=== PATIENT | male | born 1950 | race Caucasian/White ===

== ENCOUNTER 2020-04-27 18:48 | Inpatient (IN) ==
[2020-04-27] MEDS ORDERED: ACETAMINOPHEN 500 MG TAB PO STA (19:20)
[2020-04-27] MEDS ORDERED: DEXAMETHASONE SOD INJ 10 MG/ML VIAL IV ONE (19:28)
[2020-04-27] MEDS ORDERED: SODIUM CHLORIDE 0.9% 1000ML 1,000 ML IV SCH (19:30)
[2020-04-27 19:37] LABS: Basophils # (auto) 0.02 K/uL (0-0.2); Basophils % (auto) 0.2 %; Eosinophils # (auto) 0.09 K/uL (0-0.5); Eosinophils % (auto) 0.8 %; Hematocrit (blood only) 40.6 % (42-52); Hemoglobin 13.5 g/dL (14.0-18.0); Immature Granulocytes # (auto) 0.05 K/uL (0.00-0.02); Immature Granulocytes % (auto) 0.5 %; Lymphocytes # (auto) 1.08 K/uL (1.2-3.4); Mean Corpuscular Hemoglobin 29.9 pg (25-34); Mean Corpuscular Hgb Conc 33.3 g/dL (32-36); Mean Corpuscular Volume 89.8 fL (80-100); Mean Platelet Volume 10.9 fL (7.4-10.4); Monocytes # (auto) 0.54 K/uL (0.11-0.59); Neutrophils # (auto) 9.04 K/uL (1.4-6.5); Neutrophils % (auto) 83.5 %; Platelet Count 338 K/uL (130-400); RDW Coefficient of Variation 14.2 % (11.5-14.5); RDW Standard Deviation 47.2 fL (36.4-46.3); Red Blood Count 4.52 M/uL (4.7-6.1); White Blood Count 10.82 K/uL (4.8-10.8)
[2020-04-27 19:53] LABS: INR 1.2 (0.9-1.1); Partial Thromboplastin Ratio 1.1; Partial Thromboplastin Time 29.5 Seconds (21.0-31.0); Prothrombin Time 12.6 Seconds (9.0-12.0)
[2020-04-27 19:55] LABS: Alanine Aminotransferase 78 U/L (12-78); Albumin Level 2.6 gm/dl (3.4-5.0); Aspartate Aminotransferase 58 U/L (15-37); BUN Creatinine Ratio 30.7 (10-20); Blood Urea Nitrogen 46 mg/dl (7-18); Calcium 8.3 mg/dl (8.5-10.1); Carbon Dioxide 26 mmol/L (21-32); Chloride 105 mmol/L (98-107); Est GFR (African American) 55.2; Est GFR (Non-African American) 47.6; Glucose 134 mg/dl (70-99); Magnesium 3.2 mg/dl (1.8-2.4); Potassium 3.9 mmol/L (3.5-5.1); Sodium 139 mmol/L (136-145)
[2020-04-27 20:00] LABS: Albumin Globulin Ratio 0.5 (0.9-2); Alkaline Phosphatase 73 U/L (45-117); Bilirubin,Total 1.1 mg/dl (0.2-1); Globulin 4.8 gm/dl (2.5-4.0); Total Protein 7.4 gm/dl (6.4-8.2); Troponin I < 0.015 ng/ml (0-0.045)
--- NOTE | 2020-04-27 20:11 | XRay Report ---
XR chest 1V portable CLINICAL HISTORY: Dyspnea COMPARISON STUDY: No previous studies for comparison. FINDINGS: Lung volumes are normal. No pneumothorax is noted. Note definite pleural effusion is identi fied. Note is made of extensive bilateral airspace opacities. Cardiomegaly is noted. IMPRESSION: 1. Extensive bilateral airspace opacities suggestive of an infectious process. Radiographic follow-up is recommended. 2. Cardiomegaly. ACT 112: Negative or not required by law. Electronically signed by: Marcial Barbosa M.D. 04/27/2020 8:10 PM
--- NOTE | 2020-04-27 20:33 | Emergency Department Note ---
Impression & Plan Pneumonia due to COVID-19 virus, Respiratory failure, Weakness, UBALDO (acute kidney injury), Myalgia ED Provider Note Provider: Toby Baptiste MD DATE OF SERVICE:04/27/2020 CHIEF COMPLAINT: Shortness of breath, weakness HISTORY OF PRESENT ILLNESS: Patient is a 69-year-old gentleman history of hypertension presenting today the ambulance due to worsening shortness of breath and weakness over the past 3 and half weeks. Patient states he has been approximate 3 and half weeks since he 1st began to have symptoms and he believes this is coronavirus. Has not been tested. States significantly shortness of breath, some dry cough, some chest discomfort and diffuse myalgias. States he been having fever that does improve with Advil. Denies significant abdominal pain or nausea but states he has no taste or smell and this is impacted his appetite. States has been losing significant amount of weight more than 10 pounds and is not drinking or eating very much. Feels very weak. Given cont inued symptoms and dyspnea on exertion or that he is having came here for further evaluation today. Denies a history of asthma or recent travel. Patient states he is a former smoker. REVIEW OF SYSTEMS: A total of 10 review of systems was obtained and negative except as stated above in the HPI. PAST MEDICAL HISTORY: As noted above MEDICATIONS: Reviewed home medications SOCIAL HISTORY: Former smoker lives at home with PHYSICAL EXAM: GENERAL: alert and oriented on stretcher appears fatigued and with increased work of breathing Head: normocephalic and atraumatic EYES: No injection, discharge or icterus. NECK: Trachea midline. LUNGS: Airway patent. No retractions but increased work of breathing and tachypneic. HEART: Regular tachycardic rate and rhythm. No chest wall tenderness ABDOMEN: Soft and non-tender, without guarding or rebound. SKIN: Acyanotic, warm, dry, without rashes EXTREMITIES: Without swelling, tenderness or deformity NEUROLOGICAL: No focal deficits. No aphasia. No facial droop or slurred speech. EK beats. Normal sinus rhythm. Some respiratory artifact but no PVC or PAC. No acute ST segment elevation or depression. Normal QTC. CONTINUOUS CARDIAC MONITORING: was ordered and showed a heart rate of 80's bpm in normal sinus rhythm Patient's laboratory studies and imaging reviewed. Differential includes Infection, dehydration, metabolic abnormality, hypo/hyperglycemia, electrolyte disturbance, anemia, hypoxia, cardiac sources, intracerebral event, toxicologic, neurologic, as well as other pathologies. IMPRESSION/MEDICAL DECISION MAKING: Patient presents with 3 and half week of symptoms that sound classic for coronavirus but is not been tested. Testing here was positive. New oxygen requirement febrile here. Given Tylenol. Given some dexamethasone given the hypoxia. Decreased intake and acute kidney injuries noted on laboratory studies. Given some IV fluid. Slight leukocytosis at 10.8 noted. Slight anemia. Procalcitonin not significantly elevated. Will defer any antibiotics to the inpatient team. Not having significant abdominal pain or abdominal symptoms but decreased intake and weight loss likely related to his generalized weakness from the coronavirus. Troponin is negative likely without acute ischemic changes on his EKG. Sent for CT of the chest to exclude PE given the hypoxia and history. Chest x-ray shows diffuse infiltrative changes per radiology consistent with coronavirus. Do not see clear lobar pneumonia. Discussed with patient is agreed with the plan for admission. Is now on 6 L mask and respiratory status is slowly beginning to improve but still tachypneic. CT without evidence of PE but inflammatory changes likely viral pneumonia. Hospitalist contacted. DIAGNOSIS: COVID-19 pneumonia, hypoxic respiratory failure, acute kidney injury DISPOSITION: Hospitalist will evaluate Critical Care I have personally spent 33 minutes of critical care time in the direct management of this patient. This includes bedside care, interpretation of diagnostic studies, and testing, discussion with consultants, patient, and family members, and other required patient management activities. These 33 minutes is in excess of all separately billable procedures. Past Med/Surg History Social History Smoking Status: Former smoker Tobacco Type: Cigarettes Feels Safe at Home: Yes Allergies Allergies Allergy/AdvReac Type Severity Reaction Status Date / Time No Known Allergies Allergy Unverified 04/27/20 19:54 Home Meds Home Medications Medication Instructions Recorded Confirmed olmesartan-hydrochlorothiazide 1 tab PO DAILY 04/27/20 04/27/20 omega-3 fatty acids-vitamin E 1 cap PO DAILY 04/27/20 04/27/20 [Fish Oil] Results & Data (ED) Vital Signs Vital Signs - 24 hr 04/27/20 19:06 04/27/20 19:27 04/27/20 20:00 Temperature 38.2 C H Temperature Source Oral Pulse Rate 79 76 76 Pulse Rate from SpO2 Sensor 80 76 Pulse Rhythm Regular Regular Pulse Strength Normal Respiratory Rate 32 H 36 H 34 H Respiratory Effort / Characteristics Spontaneous Grunting Labored Spontaneous Grunting Labored Respiratory Depth Deep Normal Respiratory Pattern Regular Regular Blood Pressure 120/71 119/70 Blood Pressure Mean 76 92 Blood Pressure Position Lying Pulse Oximetry 94 92 94 Oxygen Delivery Method Nasal Cannula Oxymask Oxygen Flow Rate 6 6 Sepsis Recent Fever Within 48 Hours Yes Sepsis New/Unexplained Change in Mental Status No Sepsis Action Taken by Nursing No Action Required Oxygen Flow Rate - Titration 6 Pulse Oximetry Post Tiitration 92 04/27/20 20:30 04/27/20 21:02 04/27/20 21:04 Temperature 37.3 C Temperature Source Oral Pulse Rate 75 69 Pulse Rate from SpO2 Sensor 74 70 Pulse Rhythm Pulse Strength Respiratory Rate 21 28 H Respiratory Effort / Characteristics Respiratory Depth Respiratory Pattern Blood Pressure 109/67 119/69 Blood Pressure Mean 75 78 Blood Pressure Position Pulse Oximetry 91 94 Oxygen Delivery Method Oxymask Oxymask Oxygen Flow Rate 6 6 Sepsis Recent Fever Within 48 Hours Sepsis New/Unexplained Change in Mental Status Sepsis Action Taken by Nursing Oxygen Flow Rate - Titration Pulse Oximetry Post Tiitration Laboratory Data Result diagrams: 04/27/20 19:15 04/27/20 19:15 Lab Results 04/27/20 04/27/20 04/27/20 Range/Units 19:15 19:15 19:15 WBC 10.82 H (4.8-10.8) K/uL RBC 4.52 L (4.7-6.1) M/uL Hgb 13.5 L (14.0-18.0) g/dL Hct 40.6 L (42-52) % MCV 89.8 (80-100) fL MCH 29.9 (25-34) pg MCHC 33.3 (32-36) g/dL RDW Std Deviation 47.2 H (36.4-46.3) fL RDW Coeff of Antonio 14.2 (11.5-14.5) % Plt Count 338 (130-400) K/uL MPV 10.9 H (7.4-10.4) fL Immature Gran % (Auto) 0.5 % Neut % (Auto) 83.5 % Lymph % (Auto) 10.0 % [place] % (Auto) 5.0 % Eos % (Auto) 0.8 % Baso % (Auto) 0.2 % Neut # (Auto) 9.04 H (1.4-6.5) K/uL Lymph # (Auto) 1.08 L (1.2-3.4) K/uL [place] # (Auto) 0.54 (0.11-0.59) K/uL Eos # (Auto) 0.09 (0-0.5) K/uL Baso # (Auto) 0.02 (0-0.2) K/uL Immature Gran # (Auto) 0.05 H (0.00-0.02) K/uL PT 12.6 H (9.0-12.0) Seconds INR 1.2 H (0.9-1.1) APTT 29.5 (21.0-31.0) Seconds PTT Ratio 1.1 Sodium 139 (136-145) mmol/L Potassium 3.9 (3.5-5.1) mmol/L Chloride 105 (98-107) mmol/L Carbon Dioxide 26 (21-32) mmol/L Anion Gap 8.0 (3-11) BUN 46 H (7-18) mg/dl Creatinine 1.48 H (0.6-1.4) mg/dl Est Cr Clr Drug Dosing 57.0 ml/min Est GFR ( Amer) 55.2 Est GFR (Non-Af Amer) 47.6 BUN/Creatinine Ratio 30.7 H (10-20) Glucose 134 H (70-99) mg/dl Lactate (0.4-2.0) mmol/L Calcium 8.3 L (8.5-10.1) mg/dl Magnesium 3.2 H (1.8-2.4) mg/dl Total Bilirubin 1.1 H (0.2-1) mg/dl AST 58 H (15-37) U/L ALT 78 (12-78) U/L Alkaline Phosphatase 73 (45-117) U/L Troponin I < 0.015 (0-0.045) ng/ml Total Protein 7.4 (6.4-8.2) gm/dl Albumin 2.6 L (3.4-5.0) gm/dl Globulin 4.8 H (2.5-4.0) gm/dl Albumin/Globulin Ratio 0.5 L (0.9-2) Procalcitonin (0-0.5) ng/ml COVID-19 Eval Order SARS-CoV-2, RNA, NAAT (NEGATIVE) 04/27/20 04/27/20 04/27/20 Range/Units 19:15 19:15 19:15 WBC (4.8-10.8) K/uL RBC (4.7-6.1) M/uL Hgb (14.0-18.0) g/dL Hct (42-52) % MCV (80-100) fL MCH (25-34) pg MCHC (32-36) g/dL RDW Std Deviation (36.4-46.3) fL RDW Coeff of Antonio (11.5-14.5) % Plt Count (130-400) K/uL MPV (7.4-10.4) fL Immature Gran % (Auto) % Neut % (Auto) % Lymph % (Auto) % [place] % (Auto) % Eos % (Auto) % Baso % (Auto) % Neut # (Auto) (1.4-6.5) K/uL Lymph # (Auto) (1.2-3.4) K/uL [place] # (Auto) (0.11-0.59) K/uL Eos # (Auto) (0-0.5) K/uL Baso # (Auto) (0-0.2) K/uL Immature Gran # (Auto) (0.00-0.02) K/uL PT (9.0-12.0) Seconds INR (0.9-1.1) APTT (21.0-31.0) Seconds PTT Ratio Sodium (136-145) mmol/L Potassium (3.5-5.1) mmol/L Chloride (98-107) mmol/L Carbon Dioxide (21-32) mmol/L Anion Gap (3-11) BUN (7-18) mg/dl Creatinine (0.6-1.4) mg/dl Est Cr Clr Drug Dosing ml/min Est GFR ( Amer) Est GFR (Non-Af Amer) BUN/Creatinine Ratio (10-20) Glucose (70-99) mg/dl Lactate (0.4-2.0) mmol/L Calcium (8.5-10.1) mg/dl Magnesium (1.8-2.4) mg/dl Total Bilirubin (0.2-1) mg/dl AST (15-37) U/L ALT (12-78) U/L Alkaline Phosphatase (45-117) U/L Troponin I (0-0.045) ng/ml Total Protein (6.4-8.2) gm/dl Albumin (3.4-5.0) gm/dl Globulin (2.5-4.0) gm/dl Albumin/Globulin Ratio (0.9-2) Procalcitonin 0.20 (0-0.5) ng/ml COVID-19 Eval [facility] SARS-CoV-2, RNA, NAAT POSITIVE A* (NEGATIVE) 04/27/20 Range/Units 20:00 WBC (4.8-10.8) K/uL RBC (4.7-6.1) M/uL Hgb (14.0-18.0) g/dL Hct (42-52) % MCV (80-100) fL MCH (25-34) pg MCHC (32-36) g/dL RDW Std Deviation (36.4-46.3) fL RDW Coeff of Antonio (11.5-14.5) % Plt Count (130-400) K/uL MPV (7.4-10.4) fL Immature Gran % (Auto) % Neut % (Auto) % Lymph % (Auto) % [place] % (Auto) % Eos % (Auto) % Baso % (Auto) % Neut # (Auto) (1.4-6.5) K/uL Lymph # (Auto) (1.2-3.4) K/uL [place] # (Auto) (0.11-0.59) K/uL Eos # (Auto) (0-0.5) K/uL Baso # (Auto) (0-0.2) K/uL Immature Gran # (Auto) (0.00-0.02) K/uL PT (9.0-12.0) Seconds INR (0.9-1.1) APTT (21.0-31.0) Seconds PTT Ratio Sodium (136-145) mmol/L Potassium (3.5-5.1) mmol/L Chloride (98-107) mmol/L Carbon Dioxide (21-32) mmol/L Anion Gap (3-11) BUN (7-18) mg/dl Creatinine (0.6-1.4) mg/dl Est Cr Clr Drug Dosing ml/min Est GFR ( Amer) Est GFR (Non-Af Amer) BUN/Creatinine Ratio (10-20) Glucose (70-99) mg/dl Lactate 1.3 (0.4-2.0) mmol/L Calcium (8.5-10.1) mg/dl Magnesium (1.8-2.4) mg/dl Total Bilirubin (0.2-1) mg/dl AST (15-37) U/L ALT (12-78) U/L Alkaline Phosphatase (45-117) U/L Troponin I (0-0.045) ng/ml Total Protein (6.4-8.2) gm/dl Albumin (3.4-5.0) gm/dl Globulin (2.5-4.0) gm/dl Albumin/Globulin Ratio (0.9-2) Procalcitonin (0-0.5) ng/ml COVID-19 Eval Order SARS-CoV-2, RNA, NAAT (NEGATIVE) Administered Medications Discontinued Medications Acetaminophen (Acetaminophen 500 Mg Tab) 1,000 mg PO NOW STA Stop: 04/27/20 19:21 Last Admin: 04/27/20 19:41 Dose: 1,000 mg Documented by: [id number] Dexamethasone (Dexamethasone Sod Inj 10 Mg/Ml Vial) 10 mg IV NOW ONE Stop: 04/27/20 19:29 Last Admin: 04/27/20 19:42 Dose: 10 mg Documented by: [id number] Sodium Chloride (Nss 1000ml) 1,000 mls @ 999 mls/hr IV .Q1H1M DEVAN Stop: 04/27/20 20:30 Last Infusion: 04/27/20 20:43 Dose: 0 mls/hr Documented by: [id number] Admin: 04/27/20 19:42 Dose: 999 mls/hr Documented by: [id number] Ioversol (Optiray 320 125ml) 118 ml IV ONCE ONE Stop: 04/27/20 20:55 Last Admin: 04/27/20 20:56 Dose: 118 ml Documented by: [id number] Discharge Plan Visit Data Chief Complaint: Shortness of Breath/Dyspnea Stated Complaint: SOB, COUGH, ED Provider: Toby Baptiste Discharge Problem: Pneumonia due to COVID-19 virus, Respiratory failure, Weakness, UBALDO (acute kidney injury), Myalgia Patient Disposition: Admitted As Inpatient Prescriptions Prescriptions: No Action olmesartan-hydrochlorothiazide 40-12.5 mg tablet 1 tab PO DAILY RF: 0 Fish Oil 1,000 mg Capsule 1 cap PO DAILY RF: 0 Referrals Referrals: PCP,NO [Primary Care Provider] - Discharge Problem: Respiratory failure Qualifiers: Chronicity: acute Respiratory failure complication: hypoxia Qualified Code(s): J96.01 - Acute respiratory failure with hypoxia
[2020-04-27] MEDS ORDERED: OPTIRAY 320 125ml IV ONE (20:54)
--- NOTE | 2020-04-27 21:11 | CT Scan Report ---
CT ANGIOGRAPHY OF THE CHEST, PULMONARY EMBOLUS PROTOCOL CLINICAL HISTORY: Dyspnea, SOB COMPARISON STUDY: Chest radiograph performed earlier today. TECHNIQUE: Following IV administration of 118 mL of Optiray-320, helical axial images of the chest we re obtained utilizing the pulmonary embolus protocol. Maximal intensity projections and sagittal and coronal reformats were viewed on an independent 3D workstation. IV contrast was administered withou t complication. Automated exposure control was utilized for the study. A dose lowering technique wa s utilized adhering to the principles of ALARA. CT DOSE: 723.76 mGy.cm FINDINGS: No pulmonary emboli are identified. There is no thoracic aortic dissection. Ascending aort a is ectatic, measuring 4.1 cm, at the level of the main pulmonary artery. Note is made of cardiomega ly. There is no pericardial effusion. Coronary artery calcification is noted. There is no pneumothora x or pleural effusion. Central airways are patent. Note is made of extensive consolidation and ground glass opacities within the lungs. Calcified left hilar lymph nodes and calcified granuloma within the left lower lobe indicate previous granulomatous process. Bony thorax is unremarkable. A small hiatal hernia is noted. There is possible hepatic steatosis. IMPRESSION: 1. No pulmonary emboli identified. 2. Extensive multifocal consolidation and groundglass opacities within the lungs consistent with an i nfectious process. 3. Cardiomegaly. ACT 112: Negative or not required by law. Electronically signed by: Marcial Barbosa M.D. 04/27/2020 9:10 PM
[2020-04-28] MEDS ORDERED: hydrALAZINE HCL 20 MG/ML VIAL IV PRN (00:42)
[2020-04-28] MEDS ORDERED: ACETAMINOPHEN 325 MG TAB PO PRN (00:42)
[2020-04-28] MEDS ORDERED: NITROGLYCERIN SL 0.4 MG/TAB TAB SL PRN (00:42)
[2020-04-28] MEDS ORDERED: ENOXAPARIN INJ 40 MG/0.4 ML SYR ONE (01:16)
[2020-04-28] MEDS: ENOXAPARIN INJ 40 MG/0.4 ML SYR SQ SCH ×2 (01:27→13:39)
[2020-04-28] MEDS: SODIUM CHLORIDE 0.9% 1000ML 1,000 ML IV SCH ×2 (01:27→10:45)
[2020-04-28 02:03] LABS: Appearance Urine Clear (Clear); Bacteria Urine Automated Negative (Negative); Blood Urine Negative (Negative); Color Urine Dark Yellow; Glucose Urine UA Negative (Negative); Ketones Urine Negative (Negative); Leukocyte Esterase Urine Negative (Negative); Nitrite Urine Negative (Negative); Protein Urine Trace (Negative); RBC Urine Automated 0-4 /hpf (0-4); Specific Gravity Urine > 1.045 (1.000-1.030); Urobilinogen Urine Negative (Negative)
[2020-04-28 02:06] LABS: Bilirubin Urine Negative (Negative); Ictotest Urine Negative (Negative)
--- NOTE | 2020-04-28 02:34 | History and Physical Report ---
DATE OF ADMISSION: 04/27/2020 CHIEF COMPLAINT: Shortness of breath. HISTORY OF PRESENT ILLNESS: A 69-year-old male with past medical history significant for hypertension, hyperlipidemia, not on any medications, prediabetes, presents with shortness of breath and cough. The patient says he is having shortness of breath and cough fevers on and off since last 5 weeks, he did not come to the hospital, he put it off, but it was getting worse and he has poor appetite, has loss of sense of smell and taste, he says he lost about 10 pounds and is not getting better, he came to the hospital and he was saturating 85% on RA, currently on 6 liters OxyMask,is saturating in the high 90s, resting comfortably and hemodynamically stable. Denies any chest pain, no nausea, no vomiting, no diarrhea, he says he is not moving much bowels because he is not eating anything. No abdominal pain, no headache, no blurred vision, no earache, no runny nose, no sore throat, he is hard of hearing. He is ambulating okay at home as per patient. ALLERGIES: No known drug allergies. PAST MEDICAL HISTORY: As mentioned above. PAST SURGICAL HISTORY: Removal of the pilonidal cyst. MEDICATIONS: The patient is on olmesartan/hydrochlorothiazide 40/12.5 mg 1 tablet daily, omega fish oil 1 capsule p.o. b.i.d. FAMILY HISTORY: Significant for sister had breast cancer. Brother has diabetes. Another brother had diabetes and of heart disease at 62, father at 68 with diabetes and heart disorder. Mother at 64 with heart disorder. SOCIAL HISTORY: . Former smoker. No alcohol, no drug use. REVIEW OF SYMPTOMS: As per HPI. Rest of review of symptoms negative. PHYSICAL EXAMINATION: GENERAL: The patient is obese, not in acute distress. VITAL SIGNS: Temperature 38.2, pulse 69, respiratory rate 28, blood pressure 119/69, oxygen 85% on room, is 94% on 6 liters. HEENT: Pupils equal, round, reactive to light. Oral mucosa moist. NECK: No neck masses seen. CARDIOVASCULAR: S1, S2 heard, regular rate and rhythm, no murmur, no gallop. RESPIRATORY SYSTEM: Normal AP diameter. No accessory muscle use. No wheezing, no crackles. ABDOMEN: Soft, bowel sounds present, nontender. No distention. CENTRAL NERVOUS SYSTEM: Cranial nerves II-XII grossly intact, nonfocal. EXTREMITIES: No edema, no erythema. LABORATORY DATA: WBC 10.8, hemoglobin 13.5, hematocrit 40.6, platelets 338. PT 12.6, INR 1.2. Sodium 138, potassium 3.9, chloride 105, bicarbonate 26, BUN 46, creatinine 1.48, serum glucose 134. Lactate 1.3, calcium 8.3, magnesium 3.2, total bilirubin 1.1, AST 58, ALT 78, alkaline phosphatase 73, troponin I was less than 0.015. Procalcitonin 0.2. COVID-19 positive. Chest x-ray, extensive bilateral airspace opacities suggestive of infectious process. IMAGING: CT of the chest, no PE, extensive multifocal consolidation with ground-glass opacity of the lung consistent with an infectious process. ASSESSMENT AND PLAN: This is a 69-year-old male who presents with COVID-19 pneumonia. 1. COVID-19 pneumonia. Hypoxia. The patient's symptoms are going on for last 5 weeks, also with 10 pound loss, poor appetite and loss of sense of smell and taste. CAT scan is consistent with COVID pneumonia. We will place him on Decadron IV, remdesivir, consider plasma. Monitor in the tele floor. Continue oxygenation. 2. Acute kidney injury. Baseline creatinine 1.1, currently creatine 1.48. Holding olmesartan and hydrochlorothiazide. Placed him on IV fluids. Monitor the laboratories in a.m. 3. Prediabetes. Follow hemoglobin A1c levels. 4. Hypertension. Holding olmesartan and hydrochlorothiazide. We will place him on IV hydralazine p.r.n. 5. Hyperlipidemia, not on medication. We will hold the fish oil. 6. Deep venous thrombosis prophylaxis, on Lovenox. DISPOSITION: Closely monitor in the tele floor. Level 1 full code. Expect discharge home and follow with family doctor. CHRISTIANA
[2020-04-28 05:40] LABS: Basophils # (auto) 0.02 K/uL (0-0.2); Basophils % (auto) 0.2 %; Hematocrit (blood only) 38.7 % (42-52); Hemoglobin 12.7 g/dL (14.0-18.0); Immature Granulocytes # (auto) 0.04 K/uL (0.00-0.02); Immature Granulocytes % (auto) 0.4 %; Lymphocytes # (auto) 1.03 K/uL (1.2-3.4); Lymphocytes % (auto) 10.9 %; Mean Corpuscular Hemoglobin 29.6 pg (25-34); Mean Corpuscular Hgb Conc 32.8 g/dL (32-36); Mean Corpuscular Volume 90.2 fL (80-100); Mean Platelet Volume 10.8 fL (7.4-10.4); Monocytes # (auto) 0.09 K/uL (0.11-0.59); Neutrophils # (auto) 8.27 K/uL (1.4-6.5); Neutrophils % (auto) 87.5 %; Platelet Count 319 K/uL (130-400); RDW Coefficient of Variation 14.2 % (11.5-14.5); RDW Standard Deviation 46.8 fL (36.4-46.3); Red Blood Count 4.29 M/uL (4.7-6.1); White Blood Count 9.45 K/uL (4.8-10.8)
[2020-04-28 05:59] LABS: BUN Creatinine Ratio 32.9 (10-20); Blood Urea Nitrogen 42 mg/dl (7-18); Calcium 7.8 mg/dl (8.5-10.1); Carbon Dioxide 26 mmol/L (21-32); Chloride 108 mmol/L (98-107); Creatinine Clr Calc Pharmacy 65.9 ml/min; Est GFR (African American) 65.7; Est GFR (Non-African American) 56.7; Glucose 160 mg/dl (70-99); Magnesium 3.5 mg/dl (1.8-2.4); Potassium 4.2 mmol/L (3.5-5.1); Sodium 139 mmol/L (136-145)
[2020-04-28 06:04] LABS: D Dimer 3440 ug/L FEU (0-500); Troponin I < 0.015 ng/ml (0-0.045)
[2020-04-28 06:25] LABS: Estimated Average Glucose 146 mg/dl; Hemoglobin A1C 6.7 % (4.5-5.6)
[2020-04-28] MEDS ORDERED: hydroCHLOROthiazide 25 MG TAB PO SCH (09:00)
[2020-04-28] MEDS: OLMESARTAN MEDOXOMIL 40 MG TAB PO SCH (09:26)
--- NOTE | 2020-04-28 12:47 | Electrocardiogram Report ---
Test Reason : Blood Pressure : / mmHG Vent. Rate : 079 BPM Atrial Rate : 079 BPM P-R Int : 156 ms QRS Dur : 096 ms QT Int : 388 ms P-R-T Axes : -03 -11 020 degrees QTc Int : 444 ms Normal sinus rhythm Minimal voltage criteria for LVH, may be normal variant Borderline ECG No previous ECGs available Confirmed by Maycol Alvarado ([id number]) on 04/28/2020 12:47:13 PM Referred By: REFERRED SELF Confirmed By:Jayden Alvarado
[2020-04-28] MEDS ORDERED: REMDESIVIR 200 MG in SODIUM CHLORIDE 0.9% 210 ML IV ONE (14:45)
--- NOTE | 2020-04-28 15:20 | Hospitalist Progress Note ---
Date of Service April 28, 2020 Assessment & Plan (1) Pneumonia due to COVID-19 virus: Acute hypoxic respiratory failure Cough, shortness of breath, loss of sense of smell and taste, anorexia CT scan consistent with Covid pneumonia Continue dexamethasone, remdesivir Discussed convalescent plasma. Doubtful if this will be of benefit since patient has been having symptoms for about 5 weeks Patient not interested in placement at this time Incentive spirometry and flutter (2) UBALDO (acute kidney injury): Improving. Got about 2 L of IV fluids Creatinine improved from 1.48-1.28 Patient eating and drinking better today We will discontinue IV fluids for now and encourage p.o. intake (3) Hypertension: Controlled Hold home antihypertensives for now. May resume later (4) DVT prophylaxis: Continue Lovenox subcu Admission and Anticipated Discharge Date Admission Date: April 27, 2020 Subjective Patient seen and examined Reports cough and shortness of breath Reports anorexia, loss of sense of taste and smell Currently on 6 L/min of oxygen via nasal cannula Physical Exam Constitutional: + well hydrated and + obese; no acute distress Eyes: PERRL, conjunctivae normal, anicteric sclerae ENMT: external ear and nose normal, oropharynx normal Respiratory: normal respiratory effort, lungs clear to auscultation Cardiovascular: Rate/Rhythm: regular rate and regular rhythm S1-S2 no pedal edema Gastrointestinal (Abdomen): normal bowel sounds, soft, nontender, no hepatosplenomegaly Musculoskeletal: no cyanosis or clubbing, extremities motor strength 5/5 Neurologic: PERRL, EOMI, accommodation nl, no face palsy, no dysarthria Psychiatric: A+Ox3, euthymic affect Results & Data Results & Data ([facility]) Vital Signs (Past 12 Hours) Vital Signs Temp Pulse Pulse Resp BP BP Pulse Ox 04/28/20 11:19 36.7 C 18 90 04/28/20 11:00 68 140/75 04/28/20 07:57 74 132/72 04/28/20 07:56 36.9 C 20 91 04/28/20 07:28 67 04/28/20 05:08 59 L 24 119/69 95 04/28/20 05:00 60 22 95 04/28/20 04:30 55 L 24 94 04/28/20 04:00 52 L 26 H 93 04/28/20 03:30 57 L 27 H 93 Laboratory Results Laboratory Results - last 24 hr 04/27/20 04/27/20 04/27/20 19:15 19:15 19:15 WBC 10.82 H RBC 4.52 L Hgb 13.5 L Hct 40.6 L MCV 89.8 MCH 29.9 MCHC 33.3 RDW Std Deviation 47.2 H RDW Coeff of [place] 14.2 Plt Count 338 MPV 10.9 H Immature Gran % (Auto) 0.5 Neut % (Auto) 83.5 Lymph % (Auto) 10.0 [place] % (Auto) 5.0 Eos % (Auto) 0.8 Baso % (Auto) 0.2 Neut # (Auto) 9.04 H Lymph # (Auto) 1.08 L [place] # (Auto) 0.54 Eos # (Auto) 0.09 Baso # (Auto) 0.02 Immature Gran # (Auto) 0.05 H PT 12.6 H INR 1.2 H APTT 29.5 PTT Ratio 1.1 D-Dimer Sodium 139 Potassium 3.9 Chloride 105 Carbon Dioxide 26 Anion Gap 8.0 BUN 46 H Creatinine 1.48 H Est Cr Clr Drug Dosing 57.0 Est GFR ( Amer) 55.2 Est GFR (Non-Af Amer) 47.6 BUN/Creatinine Ratio 30.7 H Glucose 134 H Estimat Average Glucose Hemoglobin A1c Lactate Calcium 8.3 L Magnesium 3.2 H Total Bilirubin 1.1 H AST 58 H ALT 78 Alkaline Phosphatase 73 Troponin I < 0.015 Total Protein 7.4 Albumin 2.6 L Globulin 4.8 H Albumin/Globulin Ratio 0.5 L Procalcitonin Urine Color Urine Appearance Urine pH Ur Specific [place] Urine Protein Urine Glucose (UA) Urine Ketones Urine Blood Urine Nitrite Urine Bilirubin Urine Urobilinogen Ur Leukocyte Esterase Urine WBC (Auto) Urine RBC (Auto) U Hyaline Cast (Auto) U Epithel Cells (Auto) Urine Bacteria (Auto) COVID-19 Eval Order SARS-CoV-2, RNA, NAAT 04/27/20 04/27/20 04/27/20 19:15 19:15 19:15 WBC RBC Hgb Hct MCV MCH MCHC RDW Std Deviation RDW Coeff of [place] Plt Count MPV Immature Gran % (Auto) Neut % (Auto) Lymph % (Auto) [place] % (Auto) Eos % (Auto) Baso % (Auto) Neut # (Auto) Lymph # (Auto) [place] # (Auto) Eos # (Auto) Baso # (Auto) Immature Gran # (Auto) PT INR APTT PTT Ratio D-Dimer Sodium Potassium Chloride Carbon Dioxide Anion Gap BUN Creatinine Est Cr Clr Drug Dosing Est GFR ( Amer) Est GFR (Non-Af Amer) BUN/Creatinine Ratio Glucose Estimat Average Glucose Hemoglobin A1c Lactate Calcium Magnesium Total Bilirubin AST ALT Alkaline Phosphatase Troponin I Total Protein Albumin Globulin Albumin/Globulin Ratio Procalcitonin 0.20 Urine Color Urine Appearance Urine pH Ur Specific [place] Urine Protein Urine Glucose (UA) Urine Ketones Urine Blood Urine Nitrite Urine Bilirubin Urine Urobilinogen Ur Leukocyte Esterase Urine WBC (Auto) Urine RBC (Auto) U Hyaline Cast (Auto) U Epithel Cells (Auto) Urine Bacteria (Auto) COVID-19 Eval Order Covid19 IDNow atMWAC SARS-CoV-2, RNA, NAAT POSITIVE A* 04/27/20 04/28/20 04/28/20 20:00 01:31 05:19 WBC 9.45 RBC 4.29 L Hgb 12.7 L Hct 38.7 L MCV 90.2 MCH 29.6 MCHC 32.8 RDW Std Deviation 46.8 H RDW Coeff of [place] 14.2 Plt Count 319 MPV 10.8 H Immature Gran % (Auto) 0.4 Neut % (Auto) 87.5 Lymph % (Auto) 10.9 [place] % (Auto) 1.0 Eos % (Auto) 0.0 Baso % (Auto) 0.2 Neut # (Auto) 8.27 H Lymph # (Auto) 1.03 L [place] # (Auto) 0.09 L Eos # (Auto) 0.00 Baso # (Auto) 0.02 Immature Gran # (Auto) 0.04 H PT INR APTT PTT Ratio D-Dimer Sodium Potassium Chloride Carbon Dioxide Anion Gap BUN Creatinine Est Cr Clr Drug Dosing Est GFR ( Amer) Est GFR (Non-Af Amer) BUN/Creatinine Ratio Glucose Estimat Average Glucose Hemoglobin A1c Lactate 1.3 Calcium Magnesium Total Bilirubin AST ALT Alkaline Phosphatase Troponin I Total Protein Albumin Globulin Albumin/Globulin Ratio Procalcitonin Urine Color Dark Yellow Urine Appearance Clear Urine pH 5.0 Ur Specific [place] > 1.045 H Urine Protein Trace H Urine Glucose (UA) Negative Urine Ketones Negative Urine Blood Negative Urine Nitrite Negative Urine Bilirubin Negative Urine Urobilinogen Negative Ur Leukocyte Esterase Negative Urine WBC (Auto) 1-5 Urine RBC (Auto) 0-4 U Hyaline Cast (Auto) 1-5 U Epithel Cells (Auto) 5-10 H Urine Bacteria (Auto) Negative COVID-19 Eval Order SARS-CoV-2, RNA, NAAT 04/28/20 04/28/20 04/28/20 05:19 05:19 05:19 WBC RBC Hgb Hct MCV MCH MCHC RDW Std Deviation RDW Coeff of [place] Plt Count MPV Immature Gran % (Auto) Neut % (Auto) Lymph % (Auto) [place] % (Auto) Eos % (Auto) Baso % (Auto) Neut # (Auto) Lymph # (Auto) [place] # (Auto) Eos # (Auto) Baso # (Auto) Immature Gran # (Auto) PT INR APTT PTT Ratio D-Dimer 3440 H* Sodium 139 Potassium 4.2 Chloride 108 H Carbon Dioxide 26 Anion Gap 5.0 BUN 42 H Creatinine 1.28 Est Cr Clr Drug Dosing 65.9 Est GFR ( Amer) 65.7 Est GFR (Non-Af Amer) 56.7 BUN/Creatinine Ratio 32.9 H Glucose 160 H Estimat Average Glucose 146 Hemoglobin A1c 6.7 H Lactate Calcium 7.8 L Magnesium 3.5 H Total Bilirubin AST ALT Alkaline Phosphatase Troponin I < 0.015 Total Protein Albumin Globulin Albumin/Globulin Ratio Procalcitonin Urine Color Urine Appearance Urine pH Ur Specific [place] Urine Protein Urine Glucose (UA) Urine Ketones Urine Blood Urine Nitrite Urine Bilirubin Urine Urobilinogen Ur Leukocyte Esterase Urine WBC (Auto) Urine RBC (Auto) U Hyaline Cast (Auto) U Epithel Cells (Auto) Urine Bacteria (Auto) COVID-19 Eval Order SARS-CoV-2, RNA, NAAT
[2020-04-28] MEDS: dexAMETHasone 1 MG TAB PO SCH (15:53)
[2020-04-28] MEDS: SODIUM CHLORIDE 0.9% 10ML FLUSH IV SCH (15:53)
[2020-04-29] MEDS: ENOXAPARIN INJ 40 MG/0.4 ML SYR SQ SCH ×2 (00:29→11:19)
[2020-04-29] MEDS: SODIUM CHLORIDE 0.9% 1000ML 1,000 ML IV SCH ×2 (00:30→11:19)
[2020-04-29 05:56] LABS: Hematocrit (blood only) 38.9 % (42-52); Hemoglobin 12.9 g/dL (14.0-18.0); Mean Corpuscular Hemoglobin 30.1 pg (25-34); Mean Corpuscular Hgb Conc 33.2 g/dL (32-36); Mean Corpuscular Volume 90.7 fL (80-100); Mean Platelet Volume 11.4 fL (7.4-10.4); Platelet Count 366 K/uL (130-400); RDW Coefficient of Variation 14.3 % (11.5-14.5); RDW Standard Deviation 47.4 fL (36.4-46.3); Red Blood Count 4.29 M/uL (4.7-6.1); White Blood Count 14.84 K/uL (4.8-10.8)
[2020-04-29 06:30] LABS: BUN Creatinine Ratio 39.5 (10-20); Calcium 8.1 mg/dl (8.5-10.1); Creatinine Clr Calc Pharmacy 72.1 ml/min; Est GFR (African American) 73.3; Est GFR (Non-African American) 63.2; Magnesium 3.4 mg/dl (1.8-2.4); Potassium 4.4 mmol/L (3.5-5.1)
[2020-04-29] MEDS: dexAMETHasone 1 MG TAB PO SCH (09:45)
[2020-04-29] MEDS: REMDESIVIR 100 MG in SODIUM CHLORIDE 0.9% 230 ML IV SCH (11:19)
[2020-04-29] MEDS: SODIUM CHLORIDE 0.9% 10ML FLUSH IV SCH (12:44)
--- NOTE | 2020-04-29 14:57 | Hospitalist Progress Note ---
Date of Service April 29, 2020 Assessment & Plan (1) Pneumonia due to COVID-19 virus: Improved on dexamethasone and remdesivir. No benefit from convalescent plasma, however, this was discussed with the patient. Cont flutter valve and ambulate as tolerated. Cont supportive care. Negative procalcitonin, no indication for abx at this time. (2) UBALDO (acute kidney injury): Likely related to poor PO intake. Improved with IVF (3) Hypertension: Low normal BP, cont to hold home antihypertensives (Olmesartan-HCTZ) (4) DVT prophylaxis: Continue Lovenox subcu Full Code Dispo-cont hospitalization pending improvement in oxygen needs. [facility] and Anticipated Discharge Date Admission Date: April 27, 2020 Subjective cc: covid pneumonia -symptomatic over the past 5 weeks. -feels better since admission -afebrile -diarrhea finally stopped and he is now eating after not eating much for the past few weeks. Review of Systems Review of Systems: All systems reviewed & are unremarkable except as noted in Subjective Physical Exam Physical Exam: CONSTITUTIONAL: WNWD, vitals as above, generally well- appearing EYES: normal conjunctivae, no scleral icterus ENT: external ear and nose normal, oropharynx clear, MMM RESPIRATORY: clear to auscultation bilaterally, no crackles, rales or wheezes, normal respiratory effort CARDIOVASCULAR: regular rate and rhythm, S1 and 2 heard without murmurs, gallops or rubs, no JVD, no peripheral edema GASTROINTESTINAL: soft, nontender, nondistended, no guarding MUSCULOSKELETAL: strength 5/5 throughout, head is normocephalic and atraumatic, neck supple, normal palpation of chest wall without tenderness SKIN: warm and dry, no rashes NEUROLOGIC: CN 2-12 grossly intact, no sensory deficit, normal cognition, normal speech, no tremor. No gross focal deficits. PSYCHIATRIC: alert cooperative and oriented to person, place and time. Results & Data Results & Data ([facility]) Vital Signs (Past 12 Hours) Vital Signs Temp Pulse Resp BP Pulse Ox Pulse Ox 04/29/20 11:17 36.6 C 68 16 118/70 93 04/29/20 08:00 93 04/29/20 07:42 36.7 C 64 24 112/58 L 92 04/29/20 03:00 36.6 C 61 24 112/68 91 Laboratory Results Short CBC 04/29/20 Range/Units 05:29 WBC 14.84 H (4.8-10.8) K/uL Hgb 12.9 L (14.0-18.0) g/dL Hct 38.9 L (42-52) % Plt Count 366 (130-400) K/uL BMP 04/29/20 05:29 Sodium 142 Potassium 4.4 Chloride 111 H Carbon Dioxide 27 BUN 46 H Creatinine 1.17 Glucose 136 H Calcium 8.1 L Medications Administered Current Inpatient Medications Acetaminophen (Acetaminophen 325 Mg Tab) 650 mg PO Q4H PRN PRN Reason: Pain or Fever Stop: 05/28/20 00:41 Dexamethasone (Dexamethasone 1 Mg Tab) 6 mg PO DAILY [facility] Stop: 05/28/20 13:59 Last Admin: 04/29/20 09:45 Dose: 6 mg Documented by: Enoxaparin Sodium (Enoxaparin Inj 40 Mg/0.4 Ml Syr) 40 mg SQ Q12H [facility] Stop: 05/28/20 00:41 Last Admin: 04/29/20 11:19 Dose: 40 mg Documented by: Hydralazine HCl (Hydralazine Hcl 20 Mg/Ml Vial) 5 mg IV Q6H PRN PRN Reason: Hypertension Stop: 05/28/20 00:41 Hydrochlorothiazide (Hydrochlorothiazide 25 Mg Tab) 12.5 mg PO DAILY [facility] Stop: 05/28/20 08:59 Last Admin: 04/28/20 10:02 Dose: 12.5 mg Documented by: Sodium Chloride (Nss 1000ml) 1,000 mls @ 80 mls/hr IV .[id number] [facility] Stop: 05/28/20 00:41 Last Admin: 04/29/20 11:19 Dose: 80 mls/hr Documented by: Remdesivir 100 mg/ Sodium (Chloride) 250 mls @ 250 mls/hr IV Q24H [facility]; Protocol Stop: 05/02/20 12:59 Last Infusion: 04/29/20 12:19 Dose: Infused Documented by: Nitroglycerin (Nitroglycerin Sl 0.4 Mg/Tab Tab) 0.4 mg SL UD PRN PRN Reason: Chest Pain Stop: 05/28/20 00:41 Olmesartan (Olmesartan Medoxomil 40 Mg Tab) 40 mg PO DAILY [facility] Stop: 05/28/20 08:59 Last Admin: 04/28/20 09:26 Dose: 40 mg Documented by: Sodium Chloride (Sodium Chloride 0.9% 10ml Flush) 30 ml IV Q24H [facility] Stop: 05/02/20 13:01 Last Admin: 04/29/20 12:44 Dose: 30 ml Documented by:
[2020-04-30] MEDS: SODIUM CHLORIDE 0.9% 1000ML 1,000 ML IV SCH ×2 (00:32→13:30)
[2020-04-30] MEDS: ENOXAPARIN INJ 40 MG/0.4 ML SYR SQ SCH ×2 (00:32→12:14)
[2020-04-30 07:52] LABS: Alanine Aminotransferase 83 U/L (12-78); Aspartate Aminotransferase 44 U/L (15-37)
[2020-04-30] MEDS: dexAMETHasone 1 MG TAB PO SCH (08:29)
[2020-04-30] MEDS: REMDESIVIR 100 MG in SODIUM CHLORIDE 0.9% 230 ML IV SCH (12:13)
[2020-04-30] MEDS: SODIUM CHLORIDE 0.9% 10ML FLUSH IV SCH (13:30)
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
[2020-05-01] MEDS: ENOXAPARIN INJ 40 MG/0.4 ML SYR SQ SCH ×3 (00:34→23:26)
[2020-05-01 06:44] LABS: C Reactive Protein 3.03 mg/dl (0-0.29)
[2020-05-01] MEDS: OLMESARTAN MEDOXOMIL 40 MG TAB PO SCH (09:53)
[2020-05-01] MEDS: REMDESIVIR 100 MG in SODIUM CHLORIDE 0.9% 230 ML IV SCH (11:43)
[2020-05-01] MEDS: SODIUM CHLORIDE 0.9% 10ML FLUSH IV SCH (13:15)
--- NOTE | 2020-05-01 21:47 | Hospitalist Progress Note ---
Date of Service May 01, 2020 Assessment & Plan (1) Pneumonia due to COVID-19 virus: Oxygen needs continue to decline. Dexamethasone stopped secondary to increased agitation, cont remdesivir, cont supportive care. (2) Hypoxia: secondary to above. (3) UBALDO (acute kidney injury): Likely related to poor PO intake. Back to baseline after IVF,which have been stopped. Tolerating PO reliably. (4) Hypertension: IVF stopped, cont to hold HCTZ, Benicar restarted. BP at goal (5) DVT prophylaxis: Continue Lovenox Full Code Dispo-cont hospitalization pending improvement in oxygen needs. Bernie Mann DO [facility] Hospitalist Admission and Anticipated Discharge Date Admission Date: April 27, 2020 Subjective cc: covid pneumonia states he feels good denies any issues at all tolerating PO afebrile Review of Systems Review of Systems: All systems reviewed & are unremarkable except as noted in Subjective Physical Exam Physical Exam: CONSTITUTIONAL: WNWD, vitals as above, generally well- appearing EYES: normal conjunctivae, no scleral icterus ENT: external ear and nose normal, oropharynx clear, MMM RESPIRATORY: clear to auscultation bilaterally, no crackles, rales or wheezes, normal respiratory effort CARDIOVASCULAR: regular rate and rhythm, S1 and 2 heard without murmurs, gallops or rubs, no JVD, no peripheral edema GASTROINTESTINAL: soft, nontender, nondistended, no guarding MUSCULOSKELETAL: strength 5/5 throughout, head is normocephalic and atraumatic, neck supple, normal palpation of chest wall without tenderness SKIN: warm and dry, no rashes NEUROLOGIC: CN 2-12 grossly intact, no sensory deficit, normal cognition, normal speech, no tremor. No gross focal deficits. PSYCHIATRIC: alert cooperative and oriented to person, place and time. Results & Data Results & Data ([facility]) Vital Signs (Past 12 Hours) Vital Signs Temp Pulse Resp BP Pulse Ox 05/01/20 20:06 37.4 C 72 20 133/81 91 05/01/20 16:11 36.7 C 72 21 139/90 93 05/01/20 10:48 36.7 C 79 21 160/81 H 90 Laboratory Results Liver Function 05/01/20 Range/Units 05:49 AST 57 H (15-37) U/L ALT 110 H (12-78) U/L Medications Administered Current Inpatient Medications Acetaminophen (Acetaminophen 325 Mg Tab) 650 mg PO Q4H PRN PRN Reason: Pain or Fever Stop: 05/28/20 00:41 Enoxaparin Sodium (Enoxaparin Inj 40 Mg/0.4 Ml Syr) 40 mg SQ Q12H [facility] Stop: 05/28/20 00:41 Last Admin: 05/01/20 11:44 Dose: 40 mg Documented by: Hydralazine HCl (Hydralazine Hcl 20 Mg/Ml Vial) 5 mg IV Q6H PRN PRN Reason: Hypertension Stop: 05/28/20 00:41 Hydrochlorothiazide (Hydrochlorothiazide 25 Mg Tab) 12.5 mg PO DAILY [facility] Stop: 05/28/20 08:59 Last Admin: 04/28/20 10:02 Dose: 12.5 mg Documented by: Remdesivir 100 mg/ Sodium (Chloride) 250 mls @ 250 mls/hr IV Q24H [facility]; Protocol Stop: 05/02/20 12:59 Last Infusion: 05/01/20 13:15 Dose: Infused Documented by: Nitroglycerin (Nitroglycerin Sl 0.4 Mg/Tab Tab) 0.4 mg SL UD PRN PRN Reason: Chest Pain Stop: 05/28/20 00:41 Olmesartan (Olmesartan Medoxomil 40 Mg Tab) 40 mg PO DAILY [facility] Stop: 05/28/20 08:59 Last Admin: 05/01/20 09:53 Dose: 40 mg Documented by: Sodium Chloride (Sodium Chloride 0.9% 10ml Flush) 30 ml IV Q24H [facility] Stop: 05/02/20 13:01 Last Admin: 05/01/20 13:15 Dose: 30 ml Documented by:
[2020-05-02 07:22] LABS: Hematocrit (blood only) 40.5 % (42-52); Hemoglobin 13.4 g/dL (14.0-18.0); Mean Corpuscular Hemoglobin 30.2 pg (25-34); Mean Corpuscular Hgb Conc 33.1 g/dL (32-36); Mean Corpuscular Volume 91.2 fL (80-100); Mean Platelet Volume 10.9 fL (7.4-10.4); Platelet Count 364 K/uL (130-400); RDW Coefficient of Variation 13.8 % (11.5-14.5); RDW Standard Deviation 46.4 fL (36.4-46.3); Red Blood Count 4.44 M/uL (4.7-6.1); White Blood Count 13.34 K/uL (4.8-10.8)
[2020-05-02 07:54] LABS: BUN Creatinine Ratio 28.7 (10-20); C Reactive Protein 4.32 mg/dl (0-0.29); Calcium 8.6 mg/dl (8.5-10.1); Creatinine Clr Calc Pharmacy 95.9 ml/min; Est GFR (African American) 102.1; Est GFR (Non-African American) 88.1; Potassium 4.1 mmol/L (3.5-5.1)
[2020-05-02] MEDS: OLMESARTAN MEDOXOMIL 40 MG TAB PO SCH (09:42)
[2020-05-02] MEDS: ENOXAPARIN INJ 40 MG/0.4 ML SYR SQ SCH (09:42)
[2020-05-02] MEDS: REMDESIVIR 100 MG in SODIUM CHLORIDE 0.9% 230 ML IV SCH (12:02)
--- NOTE | 2020-05-02 13:30 | Discharge Summary ---
Date of Service May 02, 2020 Admission HPI Per Admitting Provider HISTORY OF PRESENT ILLNESS: A 69-year-old male with past medical history significant for hypertension, hyperlipidemia, not on any medications, prediabetes, presents with shortness of breath and cough. The patient says he is having shortness of breath and cough fevers on and off since last 5 weeks, he did not come to the hospital, he put it off, but it was getting worse and he has poor appetite, has loss of sense of smell and taste, he says he lost about 10 pounds and is not getting better, he came to the hospital and he was saturating 85% on RA, currently on 6 liters OxyMask,is saturating in the high 90s, resting comfortably and hemodynamically stable. Denies any chest pain, no nausea, no vomiting, no diarrhea, he says he is not moving much bowels because he is not eating anything. No abdominal pain, no headache, no blurred vision, no earache, no runny nose, no sore throat, he is hard of hearing. He is ambulating okay at home as per patient. Admission Exam Per Admitting Provider PHYSICAL EXAMINATION: GENERAL: The patient is obese, not in acute distress. VITAL SIGNS: Temperature 38.2, pulse 69, respiratory rate 28, blood pressure 119/69, oxygen 85% on room, is 94% on 6 liters. HEENT: Pupils equal, round, reactive to light. Oral mucosa moist. NECK: No neck masses seen. CARDIOVASCULAR: S1, S2 heard, regular rate and rhythm, no murmur, no gallop. RESPIRATORY SYSTEM: Normal AP diameter. No accessory muscle use. No wheezing, no crackles. ABDOMEN: Soft, bowel sounds present, nontender. No distention. CENTRAL NERVOUS SYSTEM: Cranial nerves II-XII grossly intact, nonfocal. EXTREMITIES: No edema, no erythema. Principal Diagnosis Pneumonia due to COVID-19 virus Hypoxia Acute kidney injury Hypertension Discharge Exam CONSTITUTIONAL: WNWD, vitals as above, generally well-appearing EYES: normal conjunctivae, no scleral icterus ENT: external ear and nose normal, oropharynx clear, MMM RESPIRATORY: clear to auscultation bilaterally, no crackles, rales or wheezes, normal respiratory effort CARDIOVASCULAR: regular rate and rhythm, S1 and 2 heard without murmurs, gallops or rubs, no JVD, no peripheral edema GASTROINTESTINAL: soft, nontender, nondistended, no guarding MUSCULOSKELETAL: strength 5/5 throughout, head is normocephalic and atraumatic, neck supple, normal palpation of chest wall without tenderness SKIN: warm and dry, no rashes NEUROLOGIC: CN 2-12 grossly intact, no sensory deficit, normal cognition, normal speech, no tremor. No gross focal deficits. PSYCHIATRIC: alert cooperative and oriented to person, place and time. Discharge Data Allergies Allergy/AdvReac Type Severity Reaction Status Date / Time No Known Allergies Allergy Unverified 04/27/20 19:54 Consultations 04/27/20 21:13 ED Decision to Admit Stat 04/28/20 00:42 Consult Case Management - Discharge Planning Routine Ordered Studies [facility], [id number] CT Scan Report Patient: JORDAN OWEN IAdmit Date: 04/27/20MR#: [id number]: [id number] RDAcct ID:[id number]: Date: [address] [place] [address] Zip: [place] [address]Jsw: 69Location: EDSex: MRoom/Bed:Att Phy:Diagnosis: CHEST PAINPri Phy: Rachel SAUCEDOice Date: 04/27/20Fa Phy:Interpreting Phy: Marcial Barbosa MDAdmit Phy: Ordering Phy: Toby Baptiste M.D. cc: ~ CT ANGIOGRAPHY OF THE CHEST, PULMONARY EMBOLUS PROTOCOL CLINICAL HISTORY: Dyspnea, SOB COMPARISON STUDY: Chest radiograph performed earlier today. TECHNIQUE: Following IV administration of 118 mL of Optiray-320, helical axial images of the chest were obtained utilizing the pulmonary embolus protocol. Maximal intensity projections and sagittal and coronal reformats were viewed on an independent 3D workstation. IV contrast was administered without complication. Automated exposure control was utilized for the study. A dose lowering technique was utilized adhering to the principles of ALARA. CT DOSE: 723.76 mGy.cm FINDINGS: No pulmonary emboli are identified. There is no thoracic aortic di ssection. Ascending aorta is ectatic, measuring 4.1 cm, at the level of the main pulmonary artery. Note is made of cardiomegaly. There is no pericardial effusion. Coronary artery calcification is noted. There is no pneumothorax or pleural effusion. Central airways are patent. Note is made of extensive consolidation and groundglass opacities within the lungs. Calcified left hilar lymph nodes and calcified granuloma within the left lower lobe indicate previous granulomatous process. Bony thorax is unremarkable. A small hiatal hernia is noted. There is possible hepatic steatosis. IMPRESSION: 1. No pulmonary emboli identified. 2. Extensive multifocal consolidation and groundglass opacities within the lungs consistent with an infectious process. 3. Cardiomegaly. ACT 112: Negative or not required by law. Electronically signed by: Marcial Barbosa M.D. 04/27/2020 9:10 PM Dictated: 04/27/202102Transcribed: 04/27/202102 Diabetes Follow up Diabetes Follow-up Needed for Newly Diagnosed Diabetes Hospital Course (1) Pneumonia due to COVID-19 virus: (2) Hypoxia: (3) UBALDO (acute kidney injury): The patient is a 69-year-old man who presented with worsening shortness of breath and cough. He has been having symptoms of Covid pneumonia for the past 5 weeks. Symptoms included poor appetite loss of sense of smell and taste, diarrhea which has resolved, weight loss, shortness of breath. He was oxygenating around 85% on room air on arrival to the hospital. He was placed in the PCU and placed on oxygen supplementation, Decadron IV, remdesivir therapies. A CT chest with contrast was performed revealing no evidence of pulmonary embolus with findings consistent with Covid pneumonia. His creatinine was found to be approximately 1.5 and he was given a couple liters of intravenous fluids with resolution to baseline renal function. Home antihypertensives were held. Steroids were given for a couple of days and ultimately held out of concern for increased aggression and anxiety. His procalcitonin was negative and he was afebrile; there was no indication for antibiotics. He continued to do clinically well and completed a 5-day course of remdesivir. At time of discharge he was hemodynamically stable and afebrile and tolerating p.o. He was mentating and ambulating at baseline, however he was still hypoxic requiring approximately 4 L/min of oxygen. The patient was insistent for the last several days that he wanted to go home and recover there. A two-step was performed revealing need of 4 L/min oxygen continuous with activity. He was sent home with close primary care follow-up recommended. A repeat chest x-ray is recommended in 4 to 6 weeks to ensure complete resolution of pneumonia. Total Time Total Time Spent Total Time Spent (In Minutes): 60 Total Time Includes: Examination of the Patient, Discharge Planning, Medication Reconciliation and Communication With Other Providers Discharge Plan Discharge Items Patient Disposition: Home - Self-Care Reason For Visit: SOB Discharge Diagnosis: Pneumonia due to COVID-19 virus Hypoxia Acute kidney injury Hypertension Activity: Resume your previous activity Non-emergency contact: Primary Care Provider Call non-emergency contact if: you have any medication questions, your symptoms worsen and your pain is not controlled Follow-up/Referrals: PCP,NO [Primary Care Provider] - Diet: Heart Healthy Addtl Attending Provider Instructions: Please take all medications as instructed on discharge list below. A close follow-up with your primary care provider (PCP) is recommended to ensure you are still doing well after hospital discharge. You should stay on home isolation away from others and the general public until you are no longer symptomatic, i.e-not requiring oxygen any longer. For more information regarding home isolation: https://www.cdc.gov/coronavirus/2019-ncov/vk-thk-lzy-sick/isolation.html You are being sent home on oxygen supplementation. The need for this is expected to decrease over the next couple of weeks. It may be a good idea to get a home pulse oximeter to check your oxygen levels which should be higher than 90% as a goal. Your PCP will help titrate this for you, also. It was a pleasure taking care of you! Please call if you have any questions or problems. You can reach a [facility] hospitalist on duty at [facility] 24 hours a day by calling [phone]. Take care of yourself. Bernie Mann DO [facility] Hospitalist Pending Studies at Discharge: No Stand-Alone Forms: My [facility] Medications and DC Order Prescriptions: Continued olmesartan-hydrochlorothiazide 40-12.5 mg tablet 1 tab PO DAILY RF: 0 Fish Oil 1,000 mg Capsule 1 cap PO DAILY RF: 0 Discharge Orders: Discharge Order (Routine); Ordered 05/02/20 Ordered By: Bernie Pierson/Other Patient Handouts: Managing Type 2 Diabetes, 5 Steps for Eating Healthier, A1C Admission Data Admit Date/Time: 04/27/20 22:54 Attending Provider: Bernie Mann Admit Provider: Kvng Garcia Primary Care Provider: PCP,NO Other Providers: Kvng Garcia
[2020-05-02] MEDS: SODIUM CHLORIDE 0.9% 10ML FLUSH IV SCH (13:34)
[2020-05-02 15:06] VITALS: BP 155/87; PULSE 71; TEMP 99.3; O2SAT 95
== END 2020-05-02 17:20 | disposition home or self-care (01) | DRG 177 ==
LOC: ED 18:48 → EDINP 22:54 → SUATTDRO 22:54 → 2E 04-29 15:34

== ENCOUNTER 2020-05-07 12:17 | Inpatient (IN) ==
[2020-05-07] MEDS ORDERED: SODIUM CHLORIDE 0.9% 1000ML 1,000 ML IV ONE (12:46)
--- NOTE | 2020-05-07 12:52 | Emergency Department Note ---
Impression & Plan Pulmonary emboli, Multifocal pneumonia, AAA (abdominal aortic aneurysm) ED Provider Note NAME: JORDAN OWEN AGE: 69 SEX: M : 1950 ARRIVES VIA: Walk-In INFORMANT: Patient, ED PROVIDER(S): Ta Templeton MD Chief Complaint: Dr. Referral HPI: Patient was referred from Dr. Em's office due to concern for some right lower chest wall pain and concern for the possibility of blood clots. The patient did have a recent admission for coronavirus for approximately 2 weeks and was recently discharged over the weekend. The patient did have pain last evening in the right lower chest area which she states is occasionally sharp and primarily with coughing fits. The patient denies any current cough or hem optysis. The patient denies lower extremity swelling. Patient denies any fevers or chills. The patient states that he did take some Advil last night and went away. He did recur this morning but has since subsided without any treatment. Patient is on chronic oxygen therapy since his admission and discharged to the hospital status post Covid. Patient states he has been eating and drinking well. Patient denies any exertional or positional symptoms. Patient is a non-smoker. ROS: See HPI for pertinent positives and negatives. A total of 10 systems were reviewed and otherwise negative. Past medical history: See below Surgical history: See below Social history: See below Physical Exam: GENERAL: Wearing a mask nasal cannula in place. NAD, non-toxic. EYE EXAM: Normal conjunctiva. PERRL, no anisocoria and EOM's grossly intact w/o pain. NECK: Supple, no nuchal rigidity, no adenopathy, non-tender. No signs of meningismus. Chest: No reproducible lower chest wall pain. LUNGS: Bibasilar crackles more prominent on the right side. Normal chest wall mechanics. HEART: NSR, no MRG. ABDOMEN: Abdomen soft, non-tender and specifically no flank or upper abdominal pain. Normo-active bowel sounds, no masses, no rebound or guarding. BACK: No CVA TTP. SKIN: No rashes and no bruising. UPPER EXTREMITIES: Upper extremities are grossly normal. LOWER EXTREMITIES: Grossly normal, no edema. Negative Homans' sign bilaterally. NEURO EXAM: A&O x3, cranial nerves II-XII grossly intact, normal speech, moves all 4 extremities on command w/o issue. Differential diagnoses: Cardiac ischemia, aortic dissection, pulmonary embolism, pneumothorax, pneumonia, pericarditis, myocarditis, esophageal rupture, GERD, cholecystitis, pancreatitis, musculoskeletal, as well as other pathologies. Course: Patient was seen and evaluated the bedside. Full history physical exam was performed. EKG: Indication: Chest pain Normal sinus rhythm, rate 86, normal intervals, normal axis, no ST changes or T WI. No change from April 19, 2020. Imaging Studies: Radiology results as stated below per my review in the radiologist's interpretation: CT ANGIOGRAPHY OF THE CHEST, PULMONARY EMBOLUS PROTOCOL CLINICAL HISTORY: Chest Pain, eval for PE COMPARISON STUDY: Chest CT April 27, 2020. TECHNIQUE: Following IV administration of 120 mL of Optiray-320, helical axial images of the chest were obtained utilizing the pulmonary embolus protocol. Maximal intensity projections and sagittal and coronal reformats were viewed on an independent 3D workstation. IV contrast was administered without compli cation. Automated exposure control was utilized for the study. A dose lowering technique was utilized adhering to the principles of ALARA. CT DOSE: 1249.45 mGy.cm FINDINGS: There has been interval development of a segmental pulmonary embolus within the segmental branch to the anterior segment of the left upper lobe shown on axial image 159 of [address] of April 27, 2020. There is a small subsegmental pulmonary embolus within the right upper lobe shown best on axial image 177. These are new since prior exam. Moderate cardiomegaly is noted. There is no pericardial effusion. No pneumothorax or pleural effusion is noted. Extensive multifocal consolidation in groundglass opacities are again noted. Upper lobe opacities have slightly improved. Lower lobe opacities are similar. Central airways are patent. Bony thorax and upper abdomen are unremarkable. IMPRESSION: 1. A few segmental and subsegmental pulmonary emboli, new since CT of April 27, 2020. 2. Extensive multifocal consolidation and groundglass opacities consistent with an infectious process. Lower lobe opacities similar to chest CT of April 27, 2020. Slight improvement in upper lobe opacities. 3. Moderate cardiomegaly. ACT 112: Negative or not required by law. Electronically signed by: Marcial Barbosa M.D. 05/07/2020 2:09 PM Dictated: 05/07/20 1355 Transcribed: 05/07/[address] SCAN OF THE ABDOMEN AND PELVIS WITH IV CONTRAST CLINICAL HISTORY: Right upper quadrant abdominal pain. COMPARISON STUDY: No priors. TECHNIQUE: Following the IV administration of 120 cc of Optiray 320, CT scan of the abdomen and pelvis is performed from the lung bases to the proximal femora. Images are reviewed in the axial, sagittal, and coronal planes. IV contrast was administered without complication. A dose lowering technique was utilized adhering to the principles of ALARA. FINDINGS: Lung bases: The heart is enlarged noting trace pericardial effusion. The coronary arteries are densely calcified. Airspace consolidation is seen throughout both lung bases. No pleural effusion is identified. There is a small hiatal hernia. Liver: The contrast-enhanced liver is normal in size, contour, and attenuation. There is no intrahepatic biliary ductal dilatation. The hepatic veins and portal veins are patent. Gallbladder: The gallbladder is distended but otherwise normal in appearance. Spleen: Normal in size and attenuation. Pancreas: There is mild to moderate fatty atrophy of the pancreas, which is otherwise normal in appearance. Adrenal glands: Unremarkable. Kidneys: The contrast enhanced kidneys are normal in size and without hydronephrosis. The kidneys enhance symmetrically. A circumaortic left renal vein is incidentally noted. 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 Abdominal vasculature: There is advanced atherosclerotic calcification of the abdominal aorta. An infrarenal abdominal aortic aneurysm measures 5.6 x 5.8 cm in diameter (AP x transverse). The aneurysm sac extends 6.5 cm in craniocaudal length and ends just above the bifurcation. Mural thrombus is noted within the aneurysm sac. Bowel: There is mild to moderate colonic diverticulosis without CT evidence of acute diverticulitis. No bowel obstruction is seen. The appendix is well- visualized and normal. Peritoneum: There is no intraperitoneal free air or abdominal ascites. There is a fat-containing umbilical hernia. Lymphadenopathy: None. Pelvic viscera: The prostate gland is enlarged and heterogeneous noting median lobe hypertrophy. The bladder wall is thickened and trabeculated indicating chronic outlet obstruction. The seminal vesicles are normal as imaged. There is a fat-containing right inguinal hernia. Skeletal structures: The skeletal structures are osteopenic. There is mild to moderate lumbosacral spondylosis. No lytic or blastic lesions are seen. IMPRESSION: 1. Multifocal airspace consolidation is seen throughout both lung bases. This is typical for pneumonia. Radiographic follow-up to resolution is recommended. 2. No acute infectious or inflammatory findings are seen in the abdomen or pelvis. 3. There is a 5.6 x 5.8 cm infrarenal abdominal aortic aneurysm. There is no evidence of rupture at the time of examination. Based on aneurysm size vascular surgical assessment is advised. 4. 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 5. Mild to moderate colonic diverticulosis without CT evidence of acute diverticulitis. 6. Cardiomegaly. 7. Additional findings as above. ACT 112: Negative or not required by law. Electronically signed by: Hernesto Noyola M.D. 05/07/2020 2:09 PM Dictated: 05/07/20 1400 Transcribed: 05/07/20 1400 Cardiac monitoring: An order was placed for continuous cardiac monitoring. The monitor shows a rate of 88 with sinus rhythm. MDM: Patient did present with concern for intermittent lower chest wall pain associated with cough. Patient was referred due to concern for PE. Given that the patient was to have an angiography completed of the chest abdomen pelvis was also obtained given the possibility for right upper quadrant intermittent discomfort. Troponin EKG also obtained. Patient is currently asymptomatic at this time but did have softer blood pressures so the patient was given IV fluids. Patient does have white blood cell count of 20 with hemoglobin 13. Platelet count is unremarkable. The patient does have UBALDO likely from dehydration. The patient was ordered additional IV fluids. Troponin not detectable. CT of the chest abdomen pelvis completed. The patient does have PEs with associated infrarenal aneurysm just under 6 cm. I did speak with Antoinette Ghotra PA-C with vascular who stated that the patient would be able to receive heparin. No active extrav/rupture was seen on CT. I did speak the on-call hospitalist Ynes Meléndez PA-C with Dr. Rubalcava with [facility]. Patient was ordered heparin. Blood culture and procalcitonin were ordered antibiotics deferred to the inpatient team. Patient was admitted at [facility] service. Critical Care: I have personally spent 55 minutes of critical care time in direct management of this patient. This includes bedside care, interpretation of diagnostic studies, and testing, discussion with consultants, patient, and family members, and other require inpatient management activities. This 55 minutes is in excess of all separately billable procedures. Past Med/Surg History Medical History Hypertension Pneumonia due to COVID-19 virus Prediabetes Respiratory failure Tobacco use smokeless tobacco Surgical History S/P surgical removal of pilonidal cyst Family History Other Diabetes Heart disease Social History Smoking Status: Former smoker Tobacco Type: Cigarettes and Smokeless Tobacco (Dip or Chew) Smoking End Date: 1969; Second Hand Exposure: No; Do You Dip or Chew Tobacco: No; Tobacco Cessation Education Requested by Patient: No Hx Alcohol Use: No Hx Substance Use: No Preferred Language: Armenian Communication Ability: Effective Set Up Mold Technician Required: No Beliefs That Will Affect Care: None marital status: Current Living Situation: Spouse Other Information That Helps Us Care for You: No Feels Safe at Home: Yes Safety Concerns: Feels Safe At This Time Assistive Devices: None Allergies Allergies Allergy/AdvReac Type Severity Reaction Status Date / Time No Known Allergies Allergy Unverified 05/07/20 13:37 Home Meds Home Medications Medication Instructions Recorded Confirmed olmesartan-hydrochlorothiazide 1 tab PO QAM 04/27/20 05/07/20 omega-3 fatty acids-vitamin E 1 cap PO QAM 04/27/20 05/07/20 Results & Data (ED) Vital Signs Vital Signs - 24 hr 05/07/20 12:22 05/07/20 13:11 05/07/20 13:13 Temperature 36.8 C Temperature Source Oral Pulse Rate 88 79 Pulse Rate [Apical] 84 Pulse Rate from SpO2 Sensor 79 Respiratory Rate 24 24 18 Blood Pressure 98/65 L 108/62 Blood Pressure [Left Arm] 108/62 Blood Pressure Mean 76 81 Blood Pressure Mean [Left Arm] 77 Pulse Oximetry 93 91 94 Oxygen Delivery Method Nasal Cannula Nasal Cannula Oxygen Flow Rate 3 4 Sepsis Recent Fever Within 48 Hours No Sepsis New/Unexplained Change in Mental Status No Sepsis Action Taken by Nursing No Action Required 05/07/20 13:18 05/07/20 13:20 05/07/20 13:30 Temperature Temperature Source Pulse Rate 79 78 77 Pulse Rate [Apical] Pulse Rate from SpO2 Sensor 79 79 77 Respiratory Rate Blood Pressure Blood Pressure [Left Arm] Blood Pressure Mean Blood Pressure Mean [Left Arm] Pulse Oximetry 93 92 92 Oxygen Delivery Method Oxygen Flow Rate Sepsis Recent Fever Within 48 Hours Sepsis New/Unexplained Change in Mental Status Sepsis Action Taken by Nursing 05/07/20 13:56 05/07/20 14:00 05/07/20 14:10 Temperature Temperature Source Pulse Rate 106 H 77 78 Pulse Rate [Apical] Pulse Rate from SpO2 Sensor 78 76 Respiratory Rate 24 Blood Pressure Blood Pressure [Left Arm] Blood Pressure Mean Blood Pressure Mean [Left Arm] Pulse Oximetry 96 97 Oxygen Delivery Method Oxygen Flow Rate Sepsis Recent Fever Within 48 Hours Sepsis New/Unexplained Change in Mental Status Sepsis Action Taken by Nursing 05/07/20 14:20 05/07/20 14:30 05/07/20 14:40 Temperature Temperature Source Pulse Rate 81 71 74 Pulse Rate [Apical] Pulse Rate from SpO2 Sensor 73 71 76 Respiratory Rate 24 Blood Pressure Blood Pressure [Left Arm] Blood Pressure Mean Blood Pressure Mean [Left Arm] Pulse Oximetry 100 93 Oxygen Delivery Method Oxygen Flow Rate Sepsis Recent Fever Within 48 Hours Sepsis New/Unexplained Change in Mental Status Sepsis Action Taken by Nursing 05/07/20 14:50 05/07/20 15:00 05/07/20 15:10 Temperature Temperature Source Pulse Rate 77 78 73 Pulse Rate [Apical] Pulse Rate from SpO2 Sensor 77 78 73 Respiratory Rate 20 20 Blood Pressure Blood Pressure [Left Arm] Blood Pressure Mean Blood Pressure Mean [Left Arm] Pulse Oximetry 96 95 99 Oxygen Delivery Method Oxygen Flow Rate Sepsis Recent Fever Within 48 Hours Sepsis New/Unexplained Change in Mental Status Sepsis Action Taken by Nursing 05/07/20 15:20 Temperature Temperature Source Pulse Rate 74 Pulse Rate [Apical] Pulse Rate from SpO2 Sensor 74 Respiratory Rate Blood Pressure Blood Pressure [Left Arm] Blood Pressure Mean Blood Pressure Mean [Left Arm] Pulse Oximetry 98 Oxygen Delivery Method Oxygen Flow Rate Sepsis Recent Fever Within 48 Hours Sepsis New/Unexplained Change in Mental Status Sepsis Action Taken by Group Home Medications Current Medication List: was personally reviewed by me Laboratory Data Attestation: I reviewed the patient's lab results. Result diagrams: 05/07/20 13:06 05/07/20 13:06 Lab Results 05/07/20 05/07/20 05/07/20 Range/Units 13:04 13:06 13:06 WBC 20.45 H (4.8-10.8) K/uL RBC 4.57 L (4.7-6.1) M/uL Hgb 13.7 L (14.0-18.0) g/dL POC Hgb (14.0-18.0) g/dl Hct 41.7 L (42-52) % POC Hct (42-52) % MCV 91.2 (80-100) fL MCH 30.0 (25-34) pg MCHC 32.9 (32-36) g/dL RDW Std Deviation 46.9 H (36.4-46.3) fL RDW Coeff of Antonio 14.1 (11.5-14.5) % Plt Count 341 (130-400) K/uL MPV 10.4 (7.4-10.4) fL Immature Gran % (Auto) 0.5 % Neut % (Auto) 85.3 % Lymph % (Auto) 7.6 % Levy % (Auto) 6.3 % Eos % (Auto) 0.3 % Baso % (Auto) 0.0 % Neut # (Auto) 17.43 H (1.4-6.5) K/uL Lymph # (Auto) 1.56 (1.2-3.4) K/uL Levy # (Auto) 1.28 H (0.11-0.59) K/uL Eos # (Auto) 0.06 (0-0.5) K/uL Baso # (Auto) 0.01 (0-0.2) K/uL Immature Gran # (Auto) 0.11 H (0.00-0.02) K/uL PT 12.8 H (9.0-12.0) Seconds INR 1.2 H (0.9-1.1) APTT 33.0 H (21.0-31.0) Seconds PTT Ratio 1.2 POC Sodium (135-144) mmol/L Sodium (136-145) mmol/L POC Potassium (3.3-5.0) mmol/L Potassium (3.5-5.1) mmol/L POC Chloride (101-112) mmol/L Chloride (98-107) mmol/L Carbon Dioxide (21-32) mmol/L POC Total CO2 (24-31) mmol/L Anion Gap (3-11) POC Anion Gap (16-25) mmol/L POC BUN (7-18) mg/dl BUN (7-18) mg/dl Creatinine (0.6-1.4) mg/dl POC Creatinine (0.6-1.3) mg/dl Est Cr Clr Drug Dosing ml/min Est GFR ( Amer) Est GFR (Non-Af Amer) BUN/Creatinine Ratio (10-20) Glucose (70-99) mg/dl POC Glucose (other) (70-99) mg/dl Calcium (8.5-10.1) mg/dl POC Ioniz Calcium Jonathon (1.12-1.32) mmol/l Magnesium (1.8-2.4) mg/dl Total Bilirubin (0.2-1) mg/dl AST (15-37) U/L ALT (12-78) U/L Alkaline Phosphatase (45-117) U/L Troponin I (0-0.045) ng/ml Total Protein (6.4-8.2) gm/dl Albumin (3.4-5.0) gm/dl Globulin (2.5-4.0) gm/dl Albumin/Globulin Ratio (0.9-2) Lipase (73-393) U/L Procalcitonin 0.33 (0-0.5) ng/ml 05/07/20 05/07/20 Range/Units 13:06 13:08 WBC (4.8-10.8) K/uL RBC (4.7-6.1) M/uL Hgb (14.0-18.0) g/dL POC Hgb 14.3 (14.0-18.0) g/dl Hct (42-52) % POC Hct 42 (42-52) % MCV (80-100) fL MCH (25-34) pg MCHC (32-36) g/dL RDW Std Deviation (36.4-46.3) fL RDW Coeff of Antonio (11.5-14.5) % Plt Count (130-400) K/uL MPV (7.4-10.4) fL Immature Gran % (Auto) % Neut % (Auto) % Lymph % (Auto) % Levy % (Auto) % Eos % (Auto) % Baso % (Auto) % Neut # (Auto) (1.4-6.5) K/uL Lymph # (Auto) (1.2-3.4) K/uL Levy # (Auto) (0.11-0.59) K/uL Eos # (Auto) (0-0.5) K/uL Baso # (Auto) (0-0.2) K/uL Immature Gran # (Auto) (0.00-0.02) K/uL PT (9.0-12.0) Seconds INR (0.9-1.1) APTT (21.0-31.0) Seconds PTT Ratio POC Sodium 138 (135-144) mmol/L Sodium 137 (136-145) mmol/L POC Potassium 3.8 (3.3-5.0) mmol/L Potassium 3.7 (3.5-5.1) mmol/L POC Chloride 105 (101-112) mmol/L Chloride 106 (98-107) mmol/L Carbon Dioxide 28 (21-32) mmol/L POC Total CO2 26 (24-31) mmol/L Anion Gap 3.0 (3-11) POC Anion Gap 12.0 L (16-25) mmol/L POC BUN 36 H (7-18) mg/dl BUN 39 H (7-18) mg/dl Creatinine 1.70 H (0.6-1.4) mg/dl POC Creatinine 1.8 H (0.6-1.3) mg/dl Est Cr Clr Drug Dosing 48.7 ml/min Est GFR ( Amer) 46.7 Est GFR (Non-Af Amer) 40.3 BUN/Creatinine Ratio 23.1 H (10-20) Glucose 137 H (70-99) mg/dl POC Glucose (other) 146 H (70-99) mg/dl Calcium 8.4 L (8.5-10.1) mg/dl POC Ioniz Calcium Jonathon 1.11 L (1.12-1.32) mmol/l Magnesium 3.0 H (1.8-2.4) mg/dl Total Bilirubin 0.7 (0.2-1) mg/dl AST 17 (15-37) U/L ALT 59 (12-78) U/L Alkaline Phosphatase 96 (45-117) U/L Troponin I < 0.015 (0-0.045) ng/ml Total Protein 7.5 (6.4-8.2) gm/dl Albumin 2.3 L (3.4-5.0) gm/dl Globulin 5.2 H (2.5-4.0) gm/dl Albumin/Globulin Ratio 0.4 L (0.9-2) Lipase 79 (73-393) U/L Procalcitonin (0-0.5) ng/ml Administered Medications Heparin Sodium/Dextrose (Heparin Sodium/Dextrose) 25,000 units in 500 mls @ 30 mls/hr IV .[id number]; Protocol Stop: 06/06/20 14:29 Last Admin: 05/07/20 15:40 Dose: 1,500 units/hr, 30 mls/hr Documented by: [id number] Cosigned by: [id number] Discontinued Medications Heparin Sodium/Dextrose (Heparin Iv Standard *No* Bolus) 1 ea IV ONE ONE; P rotocol Stop: 05/07/20 14:26 Last Admin: 05/07/20 15:45 Dose: Not Given Documented by: [id number] Sodium Chloride (Nss 1000ml) 1,000 mls @ 999 mls/hr IV .Q1H1M DEVAN Stop: 05/07/20 14:00 Last Infusion: 05/07/20 14:17 Dose: 0 mls/hr Documented by: [id number] Admin: 05/07/20 13:11 Dose: 999 mls/hr Documented by: [id number] Sodium Chloride (Nss 1000ml) 1,000 mls @ 999 mls/hr IV .Q1H1M ONE Stop: 05/07/20 13:46 Last Infusion: 05/07/20 14:17 Dose: 0 mls/hr Documented by: [id number] Admin: 05/07/20 13:11 Dose: 999 mls/hr Documented by: [id number] Ioversol (Optiray 320 125ml) 120 ml IV ONCE ONE Stop: 05/07/20 13:47 Last Admin: 05/07/20 13:46 Dose: 120 ml Documented by: [id number] Discharge Plan Visit Data Chief Complaint: Cough Stated Complaint: COVID+ SENT BY FOR BLOOD CLOTS IN LUNGS ED Provider: Ta Templeton Discharge Problem: Pulmonary emboli, Multifocal pneumonia, AAA (abdominal aortic aneurysm) Patient Disposition: Admitted As Inpatient Discharge Instructions Interventions: ED Discharge Assessment Last Done: 05/07/20 16:52 Discharge Problem: Pulmonary emboli Qualifiers: Pulmonary embolism type: unspecified Chronicity: acute Acute cor pulmonale presence: without acute cor pulmonale Qualified Code(s): I26.99 - Other pulmonary embolism without acute cor pulmonale AAA (abdominal aortic aneurysm) Qualifiers: Presence of rupture: without rupture Qualified Code(s): I71.4 - Abdominal aortic aneurysm, without rupture
[2020-05-07] MEDS ORDERED: SODIUM CHLORIDE 0.9% 1000ML 1,000 ML IV SCH (13:00)
[2020-05-07 13:14] LABS: Basophils # (auto) 0.01 K/uL (0-0.2); Eosinophils # (auto) 0.06 K/uL (0-0.5); Eosinophils % (auto) 0.3 %; Hematocrit (blood only) 41.7 % (42-52); Hemoglobin 13.7 g/dL (14.0-18.0); Immature Granulocytes # (auto) 0.11 K/uL (0.00-0.02); Immature Granulocytes % (auto) 0.5 %; Lymphocytes # (auto) 1.56 K/uL (1.2-3.4); Lymphocytes % (auto) 7.6 %; Mean Corpuscular Hgb Conc 32.9 g/dL (32-36); Mean Corpuscular Volume 91.2 fL (80-100); Mean Platelet Volume 10.4 fL (7.4-10.4); Monocytes # (auto) 1.28 K/uL (0.11-0.59); Monocytes % (auto) 6.3 %; Neutrophils # (auto) 17.43 K/uL (1.4-6.5); Neutrophils % (auto) 85.3 %; Platelet Count 341 K/uL (130-400); RDW Coefficient of Variation 14.1 % (11.5-14.5); RDW Standard Deviation 46.9 fL (36.4-46.3); Red Blood Count 4.57 M/uL (4.7-6.1); White Blood Count 20.45 K/uL (4.8-10.8)
[2020-05-07 13:20] LABS: iSTAT Creatinine 1.8 mg/dl (0.6-1.3); iSTAT Hemoglobin 14.3 g/dl (14.0-18.0); iSTAT Ionized Calcium 1.11 mmol/l (1.12-1.32); iSTAT Potassium 3.8 mmol/L (3.3-5.0)
[2020-05-07 13:26] LABS: INR 1.2 (0.9-1.1); Partial Thromboplastin Ratio 1.2; Prothrombin Time 12.8 Seconds (9.0-12.0)
[2020-05-07 13:33] LABS: Alanine Aminotransferase 59 U/L (12-78); Albumin Level 2.3 gm/dl (3.4-5.0); Aspartate Aminotransferase 17 U/L (15-37); BUN Creatinine Ratio 23.1 (10-20); Blood Urea Nitrogen 39 mg/dl (7-18); Calcium 8.4 mg/dl (8.5-10.1); Carbon Dioxide 28 mmol/L (21-32); Chloride 106 mmol/L (98-107); Creatinine Clr Calc Pharmacy 48.7 ml/min; Est GFR (African American) 46.7; Est GFR (Non-African American) 40.3; Glucose 137 mg/dl (70-99); Lipase 79 U/L (73-393); Potassium 3.7 mmol/L (3.5-5.1); Sodium 137 mmol/L (136-145)
[2020-05-07 13:37] LABS: Albumin Globulin Ratio 0.4 (0.9-2); Alkaline Phosphatase 96 U/L (45-117); Bilirubin,Total 0.7 mg/dl (0.2-1); Globulin 5.2 gm/dl (2.5-4.0); Total Protein 7.5 gm/dl (6.4-8.2); Troponin I < 0.015 ng/ml (0-0.045)
[2020-05-07] MEDS ORDERED: OPTIRAY 320 125ml IV ONE (13:46)
--- NOTE | 2020-05-07 14:11 | CT Scan Report ---
CT SCAN OF THE ABDOMEN AND PELVIS WITH IV CONTRAST CLINICAL HISTORY: Right upper quadrant abdominal pain. COMPARISON STUDY: No priors. TECHNIQUE: Following the IV administration of 120 cc of Optiray 320, CT scan of the abdomen and pelv is is performed from the lung bases to the proximal femora. Images are reviewed in the axial, sagitta l, and coronal planes. IV contrast was administered without complication. A dose lowering technique w as utilized adhering to the principles of ALARA. FINDINGS: Lung bases: The heart is enlarged noting trace pericardial effusion. The coronary arteries are densel y calcified. Airspace consolidation is seen throughout both lung bases. No pleural effusion is identi fied. There is a small hiatal hernia. Liver: The contrast-enhanced liver is normal in size, contour, and attenuation. There is no intrahepa tic biliary ductal dilatation. The hepatic veins and portal veins are patent. Gallbladder: The gallbladder is distended but otherwise normal in appearance. Spleen: Normal in size and attenuation. Pancreas: There is mild to moderate fatty atrophy of the pancreas, which is otherwise normal in appea [place]. Adrenal glands: Unremarkable. Kidneys: The contrast enhanced kidneys are normal in size and without hydronephrosis. The kidneys enh ance symmetrically. A circumaortic left renal vein is incidentally noted. There is an 8 mm aneurysm o f the left renal artery seen on image #201. Abdominal vasculature: There is advanced atherosclerotic calcification of the abdominal aorta. An inf rarenal abdominal aortic aneurysm measures 5.6 x 5.8 cm in diameter (AP x transverse). The aneurysm s ac extends 6.5 cm in craniocaudal length and ends just above the bifurcation. Mural thrombus is noted within the aneurysm sac. Bowel: There is mild to moderate colonic diverticulosis without CT evidence of acute diverticulitis. No bowel obstruction is seen. The appendix is well-visualized and normal. Peritoneum: There is no intraperitoneal free air or abdominal ascites. There is a fat-containing umbi lical hernia. Lymphadenopathy: None. Pelvic viscera: The prostate gland is enlarged and heterogeneous noting median lobe hypertrophy. The bladder wall is thickened and trabeculated indicating chronic outlet obstruction. The seminal vesicle s are normal as imaged. There is a fat-containing right inguinal hernia. Skeletal structures: The skeletal structures are osteopenic. There is mild to moderate lumbosacral sp ondylosis. No lytic or blastic lesions are seen. IMPRESSION: 1. Multifocal airspace consolidation is seen throughout both lung bases. This is typical for pneumoni a. Radiographic follow-up to resolution is recommended. 2. No acute infectious or inflammatory findings are seen in the abdomen or pelvis. 3. There is a 5.6 x 5.8 cm infrarenal abdominal aortic aneurysm. There is no evidence of rupture at t he time of examination. Based on aneurysm size vascular surgical assessment is advised. 4. 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 5. Mild to moderate colonic diverticulosis without CT evidence of acute diverticulitis. 6. Cardiomegaly. 7. Additional findings as above. ACT 112: Positive. There are findings on this exam that require communication between the performing entity and the patient following Patient Test Result Information Act ([place] Act 112) guidelines. Electronically signed by: Hernesto Noyola M.D. 05/08/2020 4:24 PM
--- NOTE | 2020-05-07 14:11 | CT Scan Report ---
CT ANGIOGRAPHY OF THE CHEST, PULMONARY EMBOLUS PROTOCOL CLINICAL HISTORY: Chest Pain, eval for PE COMPARISON STUDY: Chest CT April 27, 2020. TECHNIQUE: Following IV administration of 120 mL of Optiray-320, helical axial images of the chest we re obtained utilizing the pulmonary embolus protocol. Maximal intensity projections and sagittal and coronal reformats were viewed on an independent 3D workstation. IV contrast was administered withou t complication. Automated exposure control was utilized for the study. A dose lowering technique wa s utilized adhering to the principles of ALARA. CT DOSE: 1249.45 mGy.cm FINDINGS: There has been interval development of a segmental pulmonary embolus within the segmental branch to the anterior segment of the left upper lobe shown on axial image 159 of [address] of April 27, 2020. There is a small subsegmental pulmonary embolus within the right upper lobe devora wn best on axial image 177. These are new since prior exam. Moderate cardiomegaly is noted. There is no pericardial effusion. No pneumothorax or pleural effusion is noted. Extensive multifocal consolida tion in groundglass opacities are again noted. Upper lobe opacities have slightly improved. Lower lob e opacities are similar. Central airways are patent. Bony thorax and upper abdomen are unremarkable. IMPRESSION: 1. A few segmental and subsegmental pulmonary emboli, new since CT of April 27, 2020. 2. Extensive multifocal consolidation and groundglass opacities consistent with an infectious process . Lower lobe opacities similar to chest CT of April 27, 2020. Slight improvement in upper lobe opa cities. 3. Moderate cardiomegaly. ACT 112: Negative or not required by law. Electronically signed by: Marcial Barbosa M.D. 05/07/2020 2:09 PM
[2020-05-07] MEDS ORDERED: Heparin IV Standard *NO* Bolus IV ONE (14:25)
--- NOTE | 2020-05-07 15:18 | History & Physical Report ---
Date of Service May 07, 2020 Assessment & Plan (1) Pulmonary emboli: (2) Multifocal pneumonia: (3) Pneumonia due to COVID-19 virus: (4) Hypoxia: (5) AAA (abdominal aortic aneurysm): (6) Hypertension: (7) Tobacco use: (8) Prediabetes: (9) DVT prophylaxis: We will place the patient on a heparin drip, also place patient on Vancomycin and Zosyn, it appears that he has a secondary bacterial infection at this time, we will transition him to an oral anticoagulant, will consult Dr. Woodward for his AAA, he has completed his course of Remdesivir and Dexamethasone, nebulized treatments. Labs checked ROS-No Headache, No Visual Changes, No Nausea, No Vomiting, No Fever, No Chills, No Neck Pain or Stiffness, positive chest Pain just over the right ribs, No Palpitations, No SOB, No WALKER, No Cough, No Sputum, No Wheezing, No Abdominal Pain, No Diarrhea, No Hematemesis, No Hemoptysis, No Unexpected Weight Loss, No Flank pain, No Melena, No Hematochezia, No Frequency, No Urgency, No Burning, No Hematuria, No Rashes, No Diaphoresis. Appetite is Normal Physical Exam Gen-AAO x 3, NAD, Afebrile Head-NCAT, EOMI, PERRLA, Anicteric Sclera, No Posterior Pharyngeal Erythema Neck-Supple, No JVD, No Thyromegaly, No Masses, No LAD, No Bruits Lungs-Clear to Auscultation Bilaterally, No Rales, No Rhonchi, No Wheezing, No Crepitus Chest-No S4, +S1, +S2, No S3, No Murmurs, No Rubs, No Gallops, No Ectopy Abdomen-Soft, Bowel Sounds Present, Non Tender, Non Distended, No Hepatomegaly, No Splenomegaly, No Palpable Masses, No Rebound, No Rigidity, No Guarding Musculoskeletal-Full Range of Motion Bilaterally, No CVAT Extremities-No Cyanosis, No Clubbing, No Edema Nuero-Cranial Nerves II-XII grossly intact, Motor WNL, DTRs WNL, Strength WNL, Non Focal Psych-Normal Mood (10) Leukocytosis: History of Present Illness Chief Complaint: R lower chest wall pain Primary Care Provider: NO PCP This is a 69 yo M with a PMH of HTN, HLD, recent Covid pneumonia. Was sent in from Dr. Em's office for right lower chest wall pain and concern for PE. Was recently admitted to our service from 04/28-05/02 for covid pneumonia and hypoxia requiring 4 L NC. Completed Remdesivir course during admission and steroids were given for a couple of days and ultimately held out of concern for increased aggression and anxiety. Was discharged home on 4L NC O2 per two step. Comes in today endorsing sharp pain of R lower chest area that is worse when coughing or deep inspiration. Denies any productive cough or hemoptysis. Pain did improve last evening with NSAIDs. In ED, patient is afebrile and hemodynamically stable. Saturating at 94% on 4 L NC. Leukocytosis of 20.45 on labwork as well as Cr elevated at 1.7 (baseline ~1). Chest CTA with a few segmental and subsegmental pulmonary emboli, new since CT of April 27, 2020. Also with extensive multifocal consolidation and ground glass opacities consistent with an infectious process. Lower lobe opacities similar to chest CT of April 27, 2020. Slight improvement in upper lobe opacities. IV heparin without bolus ordered by ED physician. Procalcitonin and blood cultures pending. Will order empiric antibiotics for possible bacterial pneumonia. CT abd/pelvis shows a 5.6 x 5.8 cm infrarenal abdominal aortic aneurysm. There is no evidence of rupture at the time of examination. Based on aneurysm size vascular surgical assessment is advised. Patient does not have prior imaging to compare. Was due for AAA screen in 2017 per PCP records but patient did not have imaging study performed. Dr. Templeton discussed with vascular surgery who stated patient would be able to receive heparin. Will consult their service for evaluat ion of new AAA. Allergies Allergy/AdvReac Type Severity Reaction Status Date / Time No Known Allergies Allergy Unverified 05/07/20 13:37 Home Medications Medication Instructions Recorded Confirmed Type olmesartan-hydrochlorothiazide 1 tab PO QAM 04/27/20 05/07/20 History omega-3 fatty acids-vitamin E 1 cap PO QAM 04/27/20 05/07/20 History Past Med/Surg History Medical History Hypertension Pneumonia due to COVID-19 virus Prediabetes Respiratory failure Tobacco use smokeless tobacco Surgical History S/P surgical removal of pilonidal cyst Family History Other Diabetes Heart disease Social History Smoking Status: Former smoker Tobacco Type: Cigarettes and Smokeless Tobacco (Dip or Chew) Smoking End Date: 1969; Second Hand Exposure: No; Do You Dip or Chew Tobacco: No; Tobacco Cessation Education Requested by Patient: No Hx Alcohol Use: No Hx Substance Use: No Preferred Language: [place] Communication Ability: Effective Guest Relations Coordinator Required: No Beliefs That Will Affect Care: None marital status: Current Living Situation: Spouse Other Information That Helps Us Care for You: No Feels Safe at Home: Yes Safety Concerns: Feels Safe At This Time Assistive Devices: None Results & Data Results & Data ([facility]) Vital Signs (Past 12 Hours) Vital Signs Temp Pulse Pulse Resp BP BP Pulse Ox 05/07/20 13:13 84 18 108/62 94 05/07/20 12:22 36.8 C 88 24 98/65 L 93 Supervising Physician Co-Signing Physician Notes As above, I saw this patient and coordinated the care with the physician document control assistant, I participated in the history, physical, review of systems, and physical exam. I reviewed the medications with the patient and the physician document control assistant and helped reconcile the medications. I helped take a detailed family and social history as well. I formulated the assessment and plan personally with the physician document control assistant and went over it with the patient. ROS-No Headache, No Visual Changes, No Nausea, No Vomiting, No Fever, No Chills, No Neck Pain or Stiffness, No Chest Pain, No Palpitations, No SOB, No WALKER, No Cough, No Sputum, No Wheezing, No Abdominal Pain, No Diarrhea, No Hematemesis, No Hemoptysis, No Unexpected Weight Loss, No Flank pain, No Melena, No Hematochezia, No Frequency, No Urgency, No Burning, No Hematuria, No Rashes, No Diaphoresis. Appetite is Normal Physical Exam Gen-AAO x 3, NAD, Afebrile Head-NCAT, EOMI, PERRLA, Anicteric Sclera, No Posterior Pharyngeal Erythema Neck-Supple, No JVD, No Thyromegaly, No Masses, No LAD, No Bruits Lungs-Clear to Auscultation Bilaterally, No Rales, No Rhonchi, No Wheezing, No Crepitus Chest-No S4, +S1, +S2, No S3, No Murmurs, No Rubs, No Gallops, No Ectopy Abdomen-Soft, Bowel Sounds Present, Non Tender, Non Distended, No Hepatomegaly, No Splenomegaly, No Palpable Masses, No Rebound, No Rigidity, No Guarding Musculoskeletal-Full Range of Motion Bilaterally, No CVAT Extremities-No Cyanosis, No Clubbing, No Edema Nuero-Cranial Nerves II-XII grossly intact, Motor WNL, DTRs WNL, Strength WNL, Non Focal Psych-Normal Mood (1) Pulmonary emboli Acute cor pulmonale presence: without acute cor pulmonale Chronicity: acute Pulmonary embolism type: unspecified Qualified Code(s): I26.99 - Other pulmonary embolism without acute cor pulmonale (2) AAA (abdominal aortic aneurysm) Presence of rupture: without rupture Qualified Code(s): I71.4 - Abdominal aortic aneurysm, without rupture
[2020-05-07] MEDS: HEPARIN SODIUM/DEXTROSE 25,000 UNITS/500 ML BAG IV SCH (15:40)
[2020-05-07] MEDS ORDERED: CONSULT PHARMACY STA (16:49)
[2020-05-07] MEDS ORDERED: BENZONATATE 100 MG CAPSULE PO PRN (17:47)
[2020-05-07] MEDS ORDERED: ALBUT/IPRATROP 3MG/0.5MG NEB 3 ML VIAL NEB PRN (17:47)
[2020-05-07] MEDS ORDERED: PIPERACILL/TAZOBAC CONSULT ACTIVE PRN (18:21)
[2020-05-07] MEDS ORDERED: VANCOMYCIN CONSULT ACTIVE PRN (18:21)
[2020-05-07] MEDS ORDERED: VANCOMYCIN HCL 2,500 MG in SODIUM CHLORIDE 0.9% 500 ML IV ONE (18:30)
[2020-05-07] MEDS ORDERED: PIPERACILLIN/TAZOBACTAM 3.375 GM in DEXTROSE 5% 100 ML IV ONE (18:30)
[2020-05-07 22:53] LABS: Partial Thromboplastin Ratio 1.7
[2020-05-07] MEDS: ACETAMINOPHEN 325 MG TAB PO PRN (23:39)
[2020-05-07] MEDS: PIPERACILLIN/TAZOBACTAM 3.375 GM in DEXTROSE 5% 100 ML IV SCH (23:43)
[2020-05-08] MEDS: ACETAMINOPHEN 325 MG TAB PO PRN ×2 (03:54→16:53)
--- NOTE | 2020-05-08 06:47 | Electrocardiogram Report ---
Test Reason : Blood Pressure : / mmHG Vent. Rate : 086 BPM Atrial Rate : 086 BPM P-R Int : 144 ms QRS Dur : 092 ms QT Int : 378 ms P-R-T Axes : 011 -10 032 degrees QTc Int : 452 ms Normal sinus rhythm Moderate voltage criteria for LVH, may be normal variant Borderline ECG When compared with ECG of 27-APR-2020 19:03, No significant change was found Confirmed by Familia Peña ([id number]) on 05/08/2020 6:47:20 AM Referred By: REFERRED SELF Confirmed By:Familia Peña
[2020-05-08] MEDS: HEPARIN SODIUM/DEXTROSE 25,000 UNITS/500 ML BAG IV SCH (07:57)
[2020-05-08] MEDS: PIPERACILLIN/TAZOBACTAM 3.375 GM in DEXTROSE 5% 100 ML IV SCH ×2 (08:10→15:39)
[2020-05-08] MEDS ORDERED: OLMESARTAN MEDOXOMIL 40 MG TAB PO SCH (09:00)
[2020-05-08] MEDS ORDERED: hydroCHLOROthiazide 25 MG TAB PO SCH (09:00)
--- NOTE | 2020-05-08 09:27 | Consultation ---
Date of Consultation May 08, 2020 Assessment & Plan (1) AAA (abdominal aortic aneurysm): This gentleman has a 6.2 cm infrarenal abdominal aortic aneurysm. It has a nice neck which is suitable for endovascular repair. At this point due to his Covid status and his ongoing pneumonia and recent pulmonary emboli, endovascular repair of his abdominal aortic aneurysm will be put off until his respiratory status improves. If he should develop severe back pain with hypotension and symptoms of rupture, then an emergent endovascular repair will be performed. Measurement of the graft needed was done from his CT on admission. If needed the grafts are repair are in stock at our institution. We will see him after discharge as an outpatient to discuss endovascular repair. I have attached patient information about abdominal aneurysm and endovascular repair to his discharge instruction sheet. Thank you very much for letting us participate in the care of this patient. Presence of rupture: without rupture Qualified Code(s): I71.4 - Abdominal aortic aneurysm, without rupture History of Present Illness Reason for Consultation: Abdominal aortic aneurysm Attending Physician: Eligio Rubalcava DO History of Present Illness This is a 69-year-old gentleman who was recently admitted with COVID-19. He had Covid pneumonia and hypoxia requiring oxygen. He completed a course of remdesivir and steroids. He was discharged home on 4 L nasal cannula. He returned to the emergency room yesterday with right lower chest wall pain. He was found to have pulmonary emboli on CT angiogram. He had extensive multifocal consolidation of his lungs which were similar in the lower lung martinez and improved in the upper lung martinez. He did have a leukocytosis at that time. He was started on heparin. CT of his abdomen pelvis showed a 6.2 infrarenal abdominal aortic aneurysm. 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 There were no symptoms present of back pain or abdominal pain. He was not hypotensive. No mottling was documented. Allergies Allergy/AdvReac Type Severity Reaction Status Date / Time No Known Allergies Allergy Unverified 05/07/20 13:37 Home Medications Medication Instructions Recorded Confirmed Type olmesartan-hydrochlorothiazide 1 tab PO QAM 04/27/20 05/07/20 History omega-3 fatty acids-vitamin E 1 cap PO QAM 04/27/20 05/07/20 History Patient History Medical History Hypertension Pneumonia due to COVID-19 virus Prediabetes Respiratory failure Tobacco use smokeless tobacco Surgical History S/P surgical removal of pilonidal cyst Family History Other Diabetes Heart disease Social History Smoking Status: Former smoker Tobacco Type: Cigarettes and Smokeless Tobacco (Dip or Chew) Smoking End Date: 1969; Second Hand Exposure: No; Do You Dip or Chew Tobacco: No; Tobacco Cessation Education Requested by Patient: No Hx Alcohol Use: No Hx Substance Use: No Preferred Language: Green[place]ic Communication Ability: Effective Repairer Engine Production Required: No Beliefs That Will Affect Care: None marital status: Current Living Situation: Spouse Other Information That Helps Us Care for You: No Feels Safe at Home: Yes Safety Concerns: Feels Safe At This Time Assistive Devices: Oxygen - Continuous Review of Systems Review of Systems: Review of systems obtained at admission were reviewed. Physical Exam Constitutional: WD/WN, vitals as above Being that he is asymptomatic from his abdominal aortic aneurysm, a [id number] exam was not done due to his Covid status. Results & Data ([facility]) Vital Signs (Past 12 Hours) Vital Signs Temp Pulse Pulse Resp BP Pulse Ox 05/08/20 09:00 78 05/08/20 08:15 36.9 C 74 18 111/69 93 05/08/20 04:49 70 05/08/20 03:51 36.7 C 85 20 114/72 94 05/07/20 23:34 37.4 C 83 20 118/65 93
[2020-05-08 09:40] LABS: Hematocrit (blood only) 36.8 % (42-52); Hemoglobin 11.9 g/dL (14.0-18.0); Mean Corpuscular Hemoglobin 29.8 pg (25-34); Mean Corpuscular Hgb Conc 32.3 g/dL (32-36); Mean Corpuscular Volume 92.2 fL (80-100); Mean Platelet Volume 11.1 fL (7.4-10.4); Platelet Count 310 K/uL (130-400); RDW Coefficient of Variation 14.4 % (11.5-14.5); RDW Standard Deviation 48.7 fL (36.4-46.3); Red Blood Count 3.99 M/uL (4.7-6.1); White Blood Count 17.34 K/uL (4.8-10.8)
[2020-05-08 10:21] LABS: BUN Creatinine Ratio 25.5 (10-20); Calcium 8.3 mg/dl (8.5-10.1); Creatinine Clr Calc Pharmacy 71.3 ml/min; Est GFR (African American) 74.1; Est GFR (Non-African American) 63.9; Potassium 3.8 mmol/L (3.5-5.1)
[2020-05-08 10:25] LABS: Partial Thromboplastin Time 55.8 Seconds (21.0-31.0)
--- NOTE | 2020-05-08 10:27 | Hospitalist Progress Note ---
Date of Service May 08, 2020 Assessment & Plan (1) Pulmonary emboli: (2) Multifocal pneumonia: (3) Pneumonia due to COVID-19 virus: (4) Hypoxia: (5) AAA (abdominal aortic aneurysm): (6) Hypertension: (7) Tobacco use: (8) Prediabetes: (9) DVT prophylaxis: Resume heparin drip, Transition to SC Lovenox and DC today or am 05/09. PO Doxy and Cefdinir on DC, Continue patient on Vancomycin and Zosyn for now, Initiate Warfarin, Dr. Woodward will see in 30 days to address AAA, he has completed his course of Remdesivir and Dexamethasone, nebulized treatments, O2, Was on Home O2. Labs checked ROS-No Headache, No Visual Changes, No Nausea, No Vomiting, No Fever, No Chills, No Neck Pain or Stiffness, positive chest Pain just over the right ribs, No Palpitations, No SOB, No WALKER, No Cough, No Sputum, No Wheezing, No Abdominal Pain, No Diarrhea, No Hematemesis, No Hemoptysis, No Unexpected Weight Loss, No Flank pain, No Melena, No Hematochezia, No Frequency, No Urgency, No Burning, No Hematuria, No Rashes, No Diaphoresis. Appetite is Normal Physical Exam Gen-AAO x 3, NAD, Afebrile Head-NCAT, EOMI, PERRLA, Anicteric Sclera, No Posterior Pharyngeal Erythema Neck-Supple, No JVD, No Thyromegaly, No Masses, No LAD, No Bruits Lungs-Clear to Auscultation Bilaterally, No Rales, No Rhonchi, No Wheezing, No Crepitus Chest-No S4, +S1, +S2, No S3, No Murmurs, No Rubs, No Gallops, No Ectopy Abdomen-Soft, Bowel Sounds Present, Non Tender, Non Distended, No Hepatomegaly, No Splenomegaly, No Palpable Masses, No Rebound, No Rigidity, No Guarding Musculoskeletal-Full Range of Motion Bilaterally, No CVAT Extremities-No Cyanosis, No Clubbing, No Edema Nuero-Cranial Nerves II-XII grossly intact, Motor WNL, DTRs WNL, Strength WNL, Non Focal Psych-Normal Mood (10) Leukocytosis: Admission and Anticipated Discharge Date Admission Date: May 07, 2020 Results & Data Results & Data ([facility]) Vital Signs (Past 12 Hours) Vital Signs Temp Pulse Pulse Resp BP Pulse Ox 05/08/20 09:00 78 05/08/20 08:15 36.9 C 74 18 111/69 93 05/08/20 04:49 70 05/08/20 03:51 36.7 C 85 20 114/72 94 05/07/20 23:34 37.4 C 83 20 118/65 93 (1) Pulmonary emboli Acute cor pulmonale presence: without acute cor pulmonale Chronicity: acute Pulmonary embolism type: unspecified Qualified Code(s): I26.99 - Other pulmonary embolism without acute cor pulmonale (2) AAA (abdominal aortic aneurysm) Presence of rupture: without rupture Qualified Code(s): I71.4 - Abdominal aortic aneurysm, without rupture
--- NOTE | 2020-05-08 10:43 | Pharmacy Report ---
Pharmacy Abx Dose Short Note - Date of Service May 08, 2020 - Assessment & Plan Assessment 69 year old M receiving vancomycin/Zosyn for treatment of HAP Day # 2 of antimicrobial therapy. Plan Vancomycin * vancomycin 2500 mg (24 mg/kg) IV x 1 given yesterday evening ---> random level approximately 12 hours after dose slightly subtherapeutic at 12.5 mcg/mL * vancomycin 1500 mg (15 mg/kg) IV q12 hours (population pharmacokinetics suggest half-life of 11.5 hours and elimination constant of 0.06 hr-1) * Trough goal for HAP is 15-20 mcg/mL * Trough prior to third dose to assure no accumulation Pharmacy will continue to follow and will adjust dose/frequency as necessary. Thank you.
[2020-05-08] MEDS: VANCOMYCIN HCL 1,500 MG in SODIUM CHLORIDE 0.9% 500 ML IV SCH (11:59)
[2020-05-08] MEDS ORDERED: WARFARIN SOD 5 MG TAB PO SCH (16:00)
[2020-05-08] MEDS ORDERED: CONSULT PHARMACY STA (16:04)
[2020-05-08] MEDS ORDERED: HEPARIN DRIP- STOP ORDER ONE (21:00)
[2020-05-08] MEDS: ENOXAPARIN 100 MG/1ML SYR SQ SCH (21:47)
[2020-05-09] MEDS: PIPERACILLIN/TAZOBACTAM 3.375 GM in DEXTROSE 5% 100 ML IV SCH ×2 (00:04→08:01)
[2020-05-09] MEDS: VANCOMYCIN HCL 1,500 MG in SODIUM CHLORIDE 0.9% 500 ML IV SCH ×2 (00:04→10:32)
[2020-05-09] MEDS: ENOXAPARIN 100 MG/1ML SYR SQ SCH (08:01)
[2020-05-09 08:16] VITALS: BP 132/90; TEMP 98.4; O2SAT 90
--- NOTE | 2020-05-09 09:39 | Discharge Summary ---
Date of Service May 09, 2020 Admission HPI Per Admitting Provider This is a 69 yo M with a PMH of HTN, HLD, recent Covid pneumonia. Was sent in from Dr. Em's office for right lower chest wall pain and concern for PE. Was recently admitted to our service from 04/28-05/02 for covid pneumonia and hypoxia requiring 4 L NC. Completed Remdesivir course during admission and steroids were given for a couple of days and ultimately held out of concern for increased aggression and anxiety. Was discharged home on 4L NC O2 per two step. Comes in today endorsing sharp pain of R lower chest area that is worse when coughing or deep inspiration. Denies any productive cough or hemoptysis. Pain did improve last evening with NSAIDs. In ED, patient is afebrile and hemodynamically stable. Saturating at 94% on 4 L NC. Leukocytosis of 20.45 on labwork as well as Cr elevated at 1.7 (baseline ~1). Chest CTA with a few segmental and subsegmental pulmonary emboli, new since CT of April 27, 2020. Also with extensive multifocal consolidation and ground glass opacities consistent with an infectious process. Lower lobe opacities similar to chest CT of April 27, 2020. Slight improvement in upper lobe opacities. IV heparin without bolus ordered by ED physician. Procalcitonin and blood cultures pending. Will order empiric antibiotics for possible bacterial pneumonia. CT abd/pelvis shows a 5.6 x 5.8 cm infrarenal abdominal aortic aneurysm. There is no evidence of rupture at the time of examination. Based on aneurysm size vascular surgical assessment is advised. Patient does not have prior imaging to compare. Was due for AAA screen in 2017 per PCP records but patient did not have imaging study performed. Dr. Templeton discussed with vascular surgery who stated patient would be able to receive heparin. Will consult their service for evaluation of new AAA. Admission Exam Per Admitting Provider Physical Exam Gen-AAO x 3, NAD, Afebrile Head-NCAT, EOMI, PERRLA, Anicteric Sclera, No Posterior Pharyngeal Erythema Neck-Supple, No JVD, No Thyromegaly, No Masses, No LAD, No Bruits Lungs-Clear to Auscultation Bilaterally, No Rales, No Rhonchi, No Wheezing, No Crepitus Chest-No S4, +S1, +S2, No S3, No Murmurs, No Rubs, No Gallops, No Ectopy Abdomen-Soft, Bowel Sounds Present, Non Tender, Non Distended, No Hepatomegaly, No Splenomegaly, No Palpable Masses, No Rebound, No Rigidity, No Guarding Musculoskeletal-Full Range of Motion Bilaterally, No CVAT Extremities-No Cyanosis, No Clubbing, No Edema Nuero-Cranial Nerves II-XII grossly intact, Motor WNL, DTRs WNL, Strength WNL, Non Focal Psych-Normal Mood Principal Diagnosis (1) Pulmonary emboli: (2) Multifocal pneumonia: (3) Pneumonia due to COVID-19 virus: (4) Hypoxia: (5) AAA (abdominal aortic aneurysm): (6) Hypertension: (7) Tobacco use: (8) Prediabetes: Discharge Exam See below Discharge Data Allergies Allergy/AdvReac Type Severity Reaction Status Date / Time No Known Allergies Allergy Unverified 05/07/20 13:37 Consultations 05/07/20 14:24 ED Decision to Admit Stat 05/07/20 17:47 Consult Case Management - Discharge Planning Routine Consult Vascular Surgery Routine Ordered Studies 05/07/20 12:46 CT Abd and Pelvis [CT abd pelvis IV con only] Stat CT angio chest PE protocol Stat Current Diagnoses Elevated white blood cell count, unspecified (05/07/20) Essential (primary) hypertension (05/07/20) Other pulmonary embolism without acute cor pulmonale (05/07/20) Abdominal aortic aneurysm, without rupture (05/07/20) Other viral pneumonia (05/07/20) Pneumonia, unspecified organism (05/07/20) Hypoxemia (05/07/20) Prediabetes (05/07/20) COVID-19 (05/07/20) Encounter for prophylactic measures, unspecified (05/07/20) Tobacco use (05/07/20) Allergies No Known Allergies Allergy (Unverified 05/07/20 13:37) Height/Weight/Isolation Height 5 ft 9 in Weight 103.7 kg Isolation Type COVID Precautions Chemistry 05/07/20 05/08/20 13:06 08:53 Sodium 137 140 Potassium 3.7 3.8 Chloride 106 108 H Carbon Dioxide 28 25 Anion Gap 3.0 7.0 BUN 39 H 30 H Creatinine 1.70 H 1.16 D Glucose 137 H 98 Microbiology 05/07/20 15:34 Blood Aerobic Blood Culture - Preliminary No growth in Aerobic bottle after 24 hours. 05/07/20 15:34 Blood Anaerobic Blood Culture - Preliminary No growth in Anaerobic bottle after 24 hours. 05/07/20 15:20 Blood Aerobic Blood Culture - Preliminary No growth in Aerobic bottle after 24 hours. 05/07/20 15:20 Blood Anaerobic Blood Culture - Preliminary Gram positive cocci clusters 05/08/20 16:31 Blood Aerobic Blood Culture - Pending 05/08/20 16:31 Blood Anaerobic Blood Culture - Pending 05/08/20 16:29 Blood Aerobic Blood Culture - Pending 05/08/20 16:29 Blood Anaerobic Blood Culture - Pending Hospital Course (1) Pulmonary emboli: (2) Multifocal pneumonia: (3) Pneumonia due to COVID-19 virus: (4) Hypoxia: (5) AAA (abdominal aortic aneurysm): (6) Hypertension: (7) Tobacco use: (8) Prediabetes: (9) DVT prophylaxis: WBCs were trending down, he is now afebrile, DC home today on SC Lovenox and Warfarin. PO Doxy and Cefdinir, Dr. Woodward will see in 30 days to address AAA, he has completed his course of Remdesivir and Dexamethasone, nebulized tr eatments, O2, Was on Home O2. He had 1 set of +Blood cultures, repeat BCx are negative, If turns Pos will call him to do a direct admit back. Labs checked ROS-No Headache, No Visual Changes, No Nausea, No Vomiting, No Fever, No Chills, No Neck Pain or Stiffness, positive chest Pain just over the right ribs, No Palpitations, No SOB, No WALKER, No Cough, No Sputum, No Wheezing, No Abdominal Pain, No Diarrhea, No Hematemesis, No Hemoptysis, No Unexpected Weight Loss, No Flank pain, No Melena, No Hematochezia, No Frequency, No Urgency, No Burning, No Hematuria, No Rashes, No Diaphoresis. Appetite is Normal Physical Exam Gen-AAO x 3, NAD, Afebrile Head-NCAT, EOMI, PERRLA, Anicteric Sclera, No Posterior Pharyngeal Erythema Neck-Supple, No JVD, No Thyromegaly, No Masses, No LAD, No Bruits Lungs-Clear to Auscultation Bilaterally, No Rales, No Rhonchi, No Wheezing, No Crepitus Chest-No S4, +S1, +S2, No S3, No Murmurs, No Rubs, No Gallops, No Ectopy Abdomen-Soft, Bowel Sounds Present, Non Tender, Non Distended, No Hepatomegaly, No Splenomegaly, No Palpable Masses, No Rebound, No Rigidity, No Guarding Musculoskeletal-Full Range of Motion Bilaterally, No CVAT Extremities-No Cyanosis, No Clubbing, No Edema Nuero-Cranial Nerves II-XII grossly intact, Motor WNL, DTRs WNL, Strength WNL, Non Focal Psych-Normal Mood (10) Leukocytosis: Total Time Total Time Spent Total Time Spent (In Minutes): 45 mins Total Time Includes: Examination of the Patient, Discharge Planning, Medication Reconciliation and Communication With Other Providers Discharge Plan Discharge Items Patient Disposition: Home - Home Health Services Reason For Visit: COVID PNA, PEs Discharge Diagnosis: (1) Pulmonary emboli: (2) Multifocal pneumonia: (3) Pneumonia due to COVID-19 virus: (4) Hypoxia: (5) AAA (abdominal aortic aneurysm): (6) Hypertension: (7) Tobacco use: (8) Prediabetes: Condition on Discharge: Good Health Concerns: Worsening PNA Activity: Resume your previous activity Lifting: Gradually increase as tolerated Bathing: No limitations Sexual Activity: When tolerated Exercise/Sports: Gradually increase as tolerated Driving/Machine Use: No limitations Weightbearing: Full weightbearing Non-emergency contact: Primary Care Provider Call non-emergency contact if: you have any medication questions Follow-up/Referrals: Nick Em MD [Outside Practitioners] - (Date & Time 05/12/2020 1:40 PM Provider Rajendra Naranjo MD Department Family Practice [facility] PLEASE NOTE THAT THIS IS A TELEVIDEO APPOINTMENT. PLEASE FOLLOW THE INSTRUCTIONS IN YOUR EMAIL THAT YOU RECEIVE. IF YOU HAVE ANY QUESTIONS, PLEASE CALL . The [facility] (also called the [facility]) will be calling you to set up an appointment. This is the clinic at [facility] that will manage your coumadin dosing. I have notified them and Dr. Em. ) Pipe Woodward MD [Physician] - (Call [phone] to schedule an appointment for your abdominal aortic aneurysm) Diet: Heart Healthy Addtl Attending Provider Instructions: Follow up with Dr Woodward, call for appt Your Warfarin dose is based on your INR Daily INR to be drawn by [facility] to Monitor and dose Warfarin Lovenox 100 mg SC Q12H until INR Greater Than or 2.0 Pending Studies at Discharge: No Stand-Alone Forms: My [facility] [employer], Smoking Cessation Medications and DC Order Prescriptions: New enoxaparin [Lovenox] 100 mg/mL syringe 100 mg subcut Q12H Qty: 10 RF: 1 warfarin 2 mg tablet 5 mg PO DAILY Qty: 90 RF: 0 doxycycline monohydrate 100 mg capsule 100 mg PO BID 10 Days Qty: 20 RF: 0 cefdinir 300 mg capsule 300 mg PO BID 10 Days Qty: 20 RF: 0 Continued olmesartan-hydrochlorothiazide 40-12.5 mg tablet 1 tab PO QAM RF: 0 omega-3 fatty acids-vitamin E 1,000 mg Capsule 1 cap PO QAM RF: 0 Discharge Orders: Discharge Order (Routine); Ordered 05/09/20 Ordered By: Eligio Pierson/Other Patient Handouts: Aneurysm Abdominal Aortic, AAA Surg Post Op, AAA Endovascular Repair Admission Data Admit Date/Time: 05/07/20 15:26 Attending Provider: Eligio Rubalcava Admit Provider: Eligio Rubalcava Primary Care Provider: PCP,NO Other Providers: Eligio Rubalcava ; Pipe Woodward
[2020-05-09 10:28] LABS: Mean Corpuscular Volume 92.5 fL (80-100); Mean Platelet Volume 10.7 fL (7.4-10.4); Platelet Count 310 K/uL (130-400); RDW Coefficient of Variation 14.1 % (11.5-14.5); RDW Standard Deviation 47.4 fL (36.4-46.3); White Blood Count 12.39 K/uL (4.8-10.8)
[2020-05-09] MEDS ORDERED: VANCOMYCIN TROUGH ONE (10:30)
[2020-05-09 10:38] LABS: INR 1.3 (0.9-1.1)
[2020-05-09 10:45] LABS: Mean Corpuscular Hgb Conc 32.4 g/dL (32-36)
[2020-05-09 10:52] LABS: BUN Creatinine Ratio 18.1 (10-20); Calcium 8.7 mg/dl (8.5-10.1); Creatinine Clr Calc Pharmacy 83.6 ml/min; Est GFR (African American) 89.7; Est GFR (Non-African American) 77.4; Potassium 3.9 mmol/L (3.5-5.1)
[2020-05-09 13:28] VITALS: PULSE 75
== END 2020-05-09 14:47 | disposition home health service (06) | DRG 175 ==
LOC: ED 12:17 → 2W 15:26

== ENCOUNTER 2020-07-01 07:56 | Inpatient (IN) ==
--- NOTE | 2020-06-29 09:10 | Anesthesiology Consultation ---
Date of Service June 29, 2020 Assessment & Plan (1) Encounter for pre-operative examination: - Per assessment on 06/18: Travel screen negative, no known COVID-19 positive contacts or current COVID-19 related symptoms. Patient was personally COVID posi tive 04/27/20 ([facility] report in [employer]) > Admitted to [facility] 04/27 for COVID PNA, hypoxia requiring 4L NC and pulmonary embolism (completed Remdesivir course and steroids, steroids only for a few days 2/2 concern for increased aggression and anxiety), d/c home on 4L NC O2. Symptoms now "resolved." Called patient 06/29/20 for update- patient states he feels well and has discontinued oxygen one month ago. Per patient, he states that preop COVID testing was not done (Izzy at surgeon's office states patient was supposed to have done 06/26 at [facility] but did not). Case reviewed with Dr. Jeronimo, given discontinuation of isolation protocol with patient being > 21 days since COVID positive testing (only [facility] COVID testing done at time but patient with strong COVID clinical presentation) and < 90 days, okay to proceed with surgery as scheduled without further preop COVID testing/isolation precautions. - PCP office visit: 05/12/20: "pt is s/p admission for covid pneumonia.. Feels better.. Uses supplemental oxygen at needs.. Also has AAA.. Has appt with vascular.. Per pt, he is on coumadin for AAA.. However, pt has a PE on CT from a different admission" CXR ordered for f/u. - PNA 04/27/20: Patient status post Covid related pneumonia 04/27/20. Patient subsequently seen by PCP and follow-up chest x-ray ordered. Chest x-ray done 05/23/2020 showed signs of residual pneumonia. Response from PCP 05/25/20 as follows: "No need for abx.. This is from his covid pneumonia.. It should gradually clear.. If SOB/sx's worsens, can consider abx at that time." Patient's was concerned and requested antibiotics to be given regardless of patient's now asymptomatic status. Antibiotics prescribed per patient's 's request. Patient still asymptomatic and now off oxygen as of phone call f/u 06/29/20. Case reviewed with anthony Bella to proceed with surgery as scheduled without further chest imaging/evaluation. At anesthesiologist discretion AM DOS if anything further needed. - Check coags AM DOS (coumadin/lovenox bridging per [facility] clinic) Chart Review Chart Review: Acceptable Risk for Surgery (pending evaluation AM DOS) and Patient NOT seen in Pre Admission Testing History Surgery Operation Date: 07/01/20 09:20 Proposed Procedures p Percutaneous Endovascular Aneurysm Repair - Pipe Woodward MD Height/Weight Height: 5 ft 8 in Weight: 107.955 kg Allergies Allergy/AdvReac Type Severity Reaction Status Date / Time No Known Allergies Allergy Verified 06/18/20 11:57 Medications Home Medications Medication Instructions Recorded Confirmed Last Taken olmesartan-hydrochlorothiazide 1 tab PO QAM 04/27/20 06/18/20 05/07/20 enoxaparin [Lovenox] 100 mg SUBCUT Q12H #10 ml 05/08/20 06/18/20 Unknown omega 8-cbg-dip-fish oil [Fish Oil] 1 cap PO QAM 06/18/20 06/18/20 Unknown warfarin 2 - 6 mg PO DAILY 06/18/20 06/18/20 Unknown Past Medical History Medical History (Updated 06/29/20 @ 10:43 by Heidi Sanchez) AAA (abdominal aortic aneurysm) 6.2cm Cardiac murmur Childhood- no murmur noted per [facility] PCP records History of COVID-19 COVID positive 04/27/20 ([facility] report in [employer]) > Admitted to [facility] 04/27 for COVID PNA and hypoxia requiring 4L NC(completed Remdesivir course and steroids, steroids only for a few days 2/2 concern for increased aggression and anxiety), d/c home on 4L NC O2 Hypertension Obesity Prediabetes No meds Pulmonary embolism 03/2020- on warfarin Past Family History Family History Brother Diabetes Brother Diabetes Mother Diabetes Father Diabetes Sister Diabetes Other Heart disease Past Surgical History Surgical History History of tooth extraction All teeth extracted S/P surgical removal of pilonidal cyst Social History Smoking Status: Former smoker Do You Dip or Chew Tobacco: No (QUIT 3 YRS AGO) Smoking End Date: QUIT 30 YRS AGO Hx Alcohol Use: No Hx Substance Use: No substance use type: does not use Testing Laboratory Results Blood Type O Positive 06/26/20 10:03 Antibody Screen NEGATIVE 06/26/20 10:03 06/26/20 WBC 10.04 H/H 13.8/41.9 PLATELETS 329 SODIUM 141 POTASSIUM 4.2 CHLORIDE 109 CO2 28 BUN 24 CREATININE 1.15 GLUCOSE 99 PT 16.7 PTT 35.0 INR 1.7 04/28/20 HGBA1C 6.7% Electrocardiogram Date: 06/26/20 Findings: + NSR @ (72) Chest X-Ray Date: 05/23/20 FINDINGS: There are patchy and hazy infiltrates in both lungs, most pronounced in the mid to lower lungs. No pleural effusion or pneumothorax. Cardiomediastinal silhouette is within normal limits. IMPRESSION: Patchy and hazy lung infiltrates, compatible with pneumonia. No prior studies available for comparison. Stress Test Date: 06/26/20 EF 55 to 60%. Normal dobutamine echocardiogram without evidence of inducible ischemia. Mild LAD. Mild MR. 86% MPHR. No significant valvular disease. Other Testing Chest CTA: 05/07/20: A few segmental and subsegmental pulmonary emboli, new since CT of April 27, 2020. Extensive multifocal consolidation and groundglass opacities consistent with an infectious process. Lower lobe opacities similar to chest CT of April 27, 2020. Slight improvement in upper lobe opacities. Moderate cardiomegaly. Done at [facility] ER Abdomen/Pelvis CT: 05/07/20: Multifocal airspace consolidation is seen throughout both lung bases. This is typical for pneumonia. Radiographic follow-up to resolution is recommended. No acute infectious or inflammatory findings are seen in the abdomen or pelvis. There is a 5.6 x 5.8 cm infrarenal abdominal aortic aneurysm. There is no evidence of rupture at the time of examination. Based on aneurysm size vascular surgical assessment is advised. 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 Mild to moderate colonic diverticulosis without CT evidence of acute diverticulitis. Cardiomegaly.
--- NOTE | 2020-07-01 06:22 | History & Physical Report ---
Date of Service July 01, 2020 Assessment & Plan (1) AAA (abdominal aortic aneurysm) without rupture: Patient is admitted for a PEVAR of his AAA. I have discussed the risks options and benefits of the procedure with the patient. The patient understands the risks options and benefits and agrees to the procedure. History of Present Illness Chief Complaint: AAA Primary Care Provider: NO PCP This is a 69-year-old gentleman who was recently admitted with COVID-19. He had Covid pneumonia and hypoxia requiring oxygen. He completed a course of remdesivir and steroids. He was discharged home on 4 L nasal cannula. He returned to the emergency room in [facility] with right lower chest wall pain. He was found to have pulmonary emboli on CT angiogram. He had extensive multifocal consolidation of his lungs which were similar in the lower lung martinez and improved in the upper lung martinez. He did have a leukocytosis at that time. He was started on heparin. CT of his abdomen pelvis showed a 6.2 infrarenal abdominal aortic aneurysm. 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 There were no symptoms present of back pain or abdominal pain. He was not hypotensive. No mottling was documented. He is admitted at this time for PEVAR of his AAA. Allergies Allergy/AdvReac Type Severity Reaction Status Date / Time No Known Allergies Allergy Verified 06/18/20 11:57 Home Medications Medication Instructions Recorded Confirmed Type olmesartan-hydrochlorothiazide 1 tab PO QAM 04/27/20 06/18/20 History enoxaparin [Lovenox] 100 mg SUBCUT Q12H #10 ml 05/08/20 06/18/20 Rx omega 1-txf-fng-fish oil [Fish Oil] 1 cap PO QAM 06/18/20 06/18/20 History warfarin 2 - 6 mg PO DAILY 06/18/20 06/18/20 History Past Med/Surg History Medical History AAA (abdominal aortic aneurysm) 6.2cm Cardiac murmur Childhood- no murmur noted per S PCP records History of COVID-19 COVID positive 04/27/20 ([facility] report in [employer]) > Admitted to [facility] 04/27 for COVID PNA and hypoxia requiring 4L NC(completed Remdesivir course and steroids, steroids only for a few days 2/2 concern for increased aggression and anxiety), d/c home on 4L NC O2 Hypertension Obesity Prediabetes No meds Pulmonary embolism 03/2020- on warfarin Surgical History History of tooth extraction All teeth extracted S/P surgical removal of pilonidal cyst Family History Brother Diabetes Brother Diabetes Mother Diabetes Father Diabetes Sister Diabetes Other Heart disease Social History Smoking Status: Former smoker Tobacco Type: Cigarettes and Smokeless Tobacco (Dip or Chew) Second Hand Exposure: No; Hx Alcohol Use: No Hx Substance Use: No Preferred Language: Latvian Communication Ability: Effective Boiler Fitter Required: No Beliefs That Will Affect Care: None marital status: Current Living Situation: Spouse Feels Safe at Home: Yes Assistive Devices: Denture - Upper, Denture - Lower, Glasses and Hearing Aid - Bilateral Review of Systems All systems reviewed & are unremarkable except as noted in HPI & below Physical Exam Constitutional: well developed and well nourished; no acute distress Respiratory: normal respiratory effort, lungs clear to auscultation Cardiovascular: RRR, no murmur, no edema Vessels: normal peripheral pulses and abdominal aortic pulse present (widened in mid epigastrium) Extremities: normal capillary refill Gastrointestinal (Abdomen): Inspection/Auscultation: abdomen normal to inspection Percussion/Palpation: abdomen soft and + pulsatile mass; abdomen nontender Musculoskeletal: no cyanosis or clubbing, extremities motor strength 5/5 Neurologic: CN's II-XI intact bilaterally and moves all extremities Psychiatric: Orientation: alert and oriented x 3
[~2020-07-01 07:56] MED LIST: LACTATED RINGER'S 1,000 ML IV SCH; SODIUM CHLORIDE 0.9% 1000ML 1,000 ML IV SCH; ceFAZolin 2000MG 2,000 MG/15 ML SYR IV SCH
[2020-07-01 09:00] LABS: INR 1.1 (0.9-1.1); Partial Thromboplastin Ratio 1.1; Partial Thromboplastin Time 28.7 Seconds (21.0-31.0); Prothrombin Time 10.7 Seconds (9.0-12.0)
[2020-07-01] MEDS ORDERED: PROPOFOL IV EMULSION 10 MG/ML 20 ML VIAL IV ONE (09:07)
[2020-07-01] MEDS ORDERED: fentaNYL citrate 100 MCG/2 ML VIAL ONE (09:07)
[2020-07-01] MEDS ORDERED: LIDOCAINE HCL 2% 2 ML VIAL/AMP(20MG/ML) INFIL ONE (09:07)
[2020-07-01] MEDS ORDERED: ROCURONIUM BROMIDE 10 MG/ML 5 ML VIAL IV ONE (09:07)
[2020-07-01] MEDS ORDERED: MIDAZOLAM HCL 1 MG/ML 2ML VIAL ONE (09:07)
--- NOTE | 2020-07-01 09:45 | History & Physical Bridge Note ---
Date of Service July 01, 2020 History & Physical Bridge Note I have examined the patient, reviewed the History & Physical and in the interval since the performance of the History & Physical I have noted the following changes of clinical significance: no changes noted
[2020-07-01] MEDS ORDERED: LIDOCAINE/EPINEPHRINE 1% INJ 50 ML VIAL ONE (10:19)
[2020-07-01] MEDS ORDERED: LIDOCAINE 2% JELLY 5 ML TUBE ONE (10:37)
[2020-07-01] MEDS ORDERED: HEPARIN SOD (PORCINE) 1000 UNIT/ML ONE (11:57)
[2020-07-01] MEDS ORDERED: NEOSTIGMINE METHYLSULFATE 5 MG/5 ML SYR ONE ×2 (11:57→13:04)
[2020-07-01] MEDS ORDERED: ePHEDrine sulfate 50 MG/ML SYR ONE (11:57)
[2020-07-01] MEDS ORDERED: ONDANSETRON INJ 2 MG/ML 2 ML VIAL ONE (11:57)
[2020-07-01] MEDS ORDERED: VISIPAQUE IV PRN (12:31)
[2020-07-01] MEDS ORDERED: ARISTA ABSORBABLE HEMOSTAT 3GM TOP ONE (12:31)
--- NOTE | 2020-07-01 12:37 | Procedure Note ---
Angiogram Post Procedure Fluoroscopy Time (minutes): 14.6 Conscious Sedation Time (minutes): 0 Radiation (mGy): 532 Contrast: 145cc Post Operative Report Pre & Post Diagnosis Operation Date: 07/01/20 09:20 Pre-Op Diagnosis: 6.2cm Abdominal Aortic Aneurysm Post-Op Diagnosis: 6.2cm Abdominal Aortic Aneurysm I identified the patient and participated in the time-out.: Yes Procedure Operation Date: 07/01/20 09:20 Actual Procedures p Percutaneous Endovascular Aneurysm Repair(Bilateral) - Pipe Woodward MD Surgeon Pipe Woodward MD Lighter Ramona Adams MD Estimated Blood Loss 80 Findings See Below Specimens none Drains none Anesthesia Type General Complications none Disposition Accompanied Patient To Recovery: No Disposition: Surgical ICU Indications Asymptomatic, 6cm infrarenal abdominal aortic aneurysm Description of Procedure Patient was taken to the operating suite. Patient's identity and surgical procedure were verified. Patient was placed on the operating table and placed in the supine position. The patient was intubated by anesthesia team. The patients bilateral groins were prepped and draped in the usual standard fashion. A team timeout was performed including identification of patient, procedure, and procedure site. The bilateral common femoral arteries were accessed using 19G cook wire under ultrasound guidance. A J-wire was advanced through the needle. A small skin incision was made. The needle was removed and a 5F sheath was placed. An angiogram was taken through the sheath on each side, confirming our access in the common femoral arteries. Then, two proglide perclose devices were employed on each groin at the 10 o'clock and 2 o'clock positions. After the preclosure was complete, the J-wire was passed back into the artery and an 8F sheath was placed on either side. Again this process was performed in the bilateral groins. Then, a glidewire was passed up from the left side. This was advanced to about the level of the diaphragm. A Kumpe catheter was advanced over the wire. The glidewire was exchanged for a Stover wire. Over the Stover wire, the 8F sheath was removed and a 14f Dryseal sheath was advanced to above the L2 level. Next, a glidewire was passed up from the right side. This was advanced to about the level of the diaphragm. A rim catheter was advanced over the wire. The glidewire was exchanged for a Stover wire. Over the Stover wire, the 8F sheath was removed and a 14F dilator was passed into the common femoral artery on the right, followed by placement of an 18F DrySeal sheath. Then, on the left side, a pigtail catheter was placed. Wire was removed, the pigtail catheter was allowed to form. Then, on the right side, the main body of the device ([place] Excluded AAA Endoprosthesis, 28.5 x 14.5 x 12) was advanced to about the L2 level. With the device in place but not deployed, an aortogram was obtained using power injection. The bilateral renal arteries were marked. The left renal artery was below the right renal artery. The main body of the device was deployed, ensuring it was just below the lower-most (left) renal artery. Then, the pigtail catheter was pulled down from the left side until it was beneath the graft. A glidewire and rim catheter were used to cannulate the contralateral gate. The glidewire was exchanged for the stover wire, and the kumpe catheter was removed. Hand injection of contrast through the sheath was used to desmond the iliac bifurcation. The contralateral limb ([place] Excluder 23x12) was advanced through the left groin, and deployed such that it ran from the flow divider to just above the iliac bifurcation. After deployment of the contralateral limb, the device was removed from the left groin and the pigtail catheter was replaced. This was used for power injection. This revealed that the bilateral renal arteries were patent, and that the left internal and external iliac arteries were patent. We marked our right iliac bifurcation and advanced our ipsilateral (right) limb extension (23x10) through the sheath on the right. This was deployed again between the flow divider and the iliac bifurcation. Using a Q50 balloon up on both access sites, we ballooned the proximal main body, each limb at the flow divider and distal aspect, and the ipsilateral limb in its entirety to ensure good stent apposition. A completion angiogram was then performed with power injection. No obvious endoleak was identified; certainly we did not identify any type 1 or 3 endoleak. The stent appeared to be in good position with perfusion intact to the bilateral renal arteries and bilateral internal and external iliac arteries. We then removed our sheaths and completed deployment of our perclose devices (x2 in each groin). Hemostasis was obtained, and about 5 minutes of manual pressure was held over each access site. At the conclusion of the case, DP and PT signals were intact. The patient tolerated the procedure well and without immediate complication. He was taken to the ICU in satisfactory conditions Dr. Woodward was present and scrubbed for the entire procedure.. I attest to the content of the Intraoperative Record and any orders documented therein. Any exceptions are noted below.
--- NOTE | 2020-07-01 12:39 | Post Operative Brief Note ---
Immediate Post Op Note v1 Date of Surgery July 01, 2020 Pre & Post Diagnosis Operation Date: 07/01/20 09:20 Pre-Op Diagnosis: 6.2cm Abdominal Aortic Aneurysm Post-Op Diagnosis: 6.2cm Abdominal Aortic Aneurysm I identified the patient and participated in the time-out.: Yes Procedure Operation Date: 07/01/20 09:20 Actual Procedures p Percutaneous Endovascular Aneurysm Repair(Bilateral) - Pipe Woodward MD Surgeon Pipe Woodward MD Steward/Stewardess Deck Ramona Adams MD Estimated Blood Loss 80 Findings Consistent with Post-Op Diagnosis Drains Koch Catheter (16 italian koch catheter inserted in OR by Nannette Millan RN at 1105, clear yellow urine return, without difficulty) Anesthesia Type General Complications none Disposition Accompanied Patient To Recovery: No Disposition: Recovery Room
[2020-07-01] MEDS ORDERED: GLYCOPYRROLATE 0.2 MG/ML VIAL ONE (13:04)
[2020-07-01] MEDS ORDERED: ONDANSETRON INJ 2 MG/ML 2 ML VIAL IV PRN ×2 (13:21→14:06)
[2020-07-01] MEDS ORDERED: NALOXONE HCL 0.4 MG/1 ML VIAL/CARP IV PRN (13:21)
[2020-07-01] MEDS ORDERED: fentaNYL citrate 100 MCG/2 ML VIAL IV PRN (13:21)
[2020-07-01] MEDS ORDERED: FLUMAZENIL 0.1 MG/1 ML 10 ML VIAL IV PRN (13:21)
[2020-07-01] MEDS ORDERED: ePHEDrine sulfate 50 MG/ML AMP IV PRN (13:21)
[2020-07-01] MEDS ORDERED: ATROPINE SULFATE 0.1 MG/ML 10ML SYR IV PRN (13:21)
[2020-07-01] MEDS ORDERED: LABETALOL HCL IV 5 MG/ML 20ML IV PRN (13:21)
[2020-07-01] MEDS ORDERED: PROMETHAZINE HCL 12.5 MG in SODIUM CHLORIDE 0.9% 50 ML IV PRN (13:21)
--- NOTE | 2020-07-01 13:22 | Anesthesiology Progress Note ---
Date of Service July 01, 2020 Anesthesia Post Procedure Vital Signs Vital Signs: Temp Pulse Pulse Resp BP BP Pulse Ox 07/01/20 13:20 61 16 121/65 96 07/01/20 13:10 61 16 115/69 95 07/01/20 13:00 62 16 114/65 95 07/01/20 12:53 36.4 C L 70 24 113/61 96 07/01/20 08:44 36.5 C 74 20 142/82 H 96 Transfer of Care Handoff Completed per policy Notes Mental Status: alert / awake / arousable Patient Amnestic to Procedure: Yes Nausea / Vomiting: adequately controlled Pain: adequately controlled Airway Patency, RR, SpO2: stable & adequate BP & HR: stable & adequate Hydration State: stable & adequate Anesthetic Complications: no major complications apparent
[2020-07-01] MEDS ORDERED: MoRPHine SULFATE 4 MG/ML 1 ML CARP\\VIAL IV PRN (14:06)
[2020-07-01] MEDS ORDERED: oxyCODONE/ACETAMINOPHEN 5mg/325mg TAB PO PRN (14:06)
[2020-07-01] MEDS ORDERED: MoRPHine SULFATE 2 MG/ML CARP IV PRN (14:27)
[2020-07-01 14:36] LABS: Hematocrit (blood only) 37.6 % (42-52); Hemoglobin 12.4 g/dL (14.0-18.0)
[2020-07-01] MEDS ORDERED: INFLUENZA VACCINE HIGH DOSE 65+ 0.7 ML SYR IM ONE (14:45)
[2020-07-01] MEDS ORDERED: INFLUENZA ADMINISTRATION CHARGE ONE (14:45)
[2020-07-01] MEDS: D5W AND 1/2NSS 1,000 ML IV SCH ×2 (14:58→23:13)
[2020-07-01] MEDS ORDERED: WARFARIN SOD 6 MG TAB PO SCH (16:00)
--- NOTE | 2020-07-01 16:53 | Critical Care Consultation ---
Date of Consultation July 01, 2020 Assessment & Plan (1) AAA (abdominal aortic aneurysm) without rupture: Status post repair (2) Post-operative state: Routine monitoring (3) Pulmonary emboli: Defer to vascular surgery as to reinitiation of Lovenox (4) Prediabetes: Encourage weight loss (5) Hypertension: Continue current home regimen History of Present Illness Reason for Consultation: Postop PEVAR Requesting Physician: Pipe Woodward Attending Physician: Pipe Woodward MD History of Present Illness Patient is a 69-year-old male with a history of pulmonary emboli who presents with elective outpatient PEVAR repair of his abdominal aortic aneurysm Allergies Allergy/AdvReac Type Severity Reaction Status Date / Time No Known Allergies Allergy Verified 07/01/20 08:33 Home Medications Medication Instructions Recorded Confirmed Type olmesartan-hydrochlorothiazide 1 tab PO QAM 04/27/20 07/01/20 History enoxaparin [Lovenox] 100 mg SUBCUT Q12H #10 ml 05/08/20 07/01/20 Rx omega 3-cou-bio-fish oil [Fish Oil] 1 cap PO QAM 06/18/20 07/01/20 History warfarin 2 - 6 mg PO DAILY 06/18/20 07/01/20 History Patient History Medical History AAA (abdominal aortic aneurysm) 6.2cm Cardiac murmur Childhood- no murmur noted per [facility] PCP records History of COVID-19 COVID positive 04/27/20 ([facility] report in [facility]) > Admitted to [facility] 04/27 for COVID PNA and hypoxia requiring 4L NC(completed Remdesivir course and steroids, steroids only for a few days 2/2 concern for increased aggression and anxiety), d/c home on 4L NC O2 Hypertension Obesity Prediabetes No meds Pulmonary embolism 03/2020- on warfarin Surgical History History of tooth extraction All teeth extracted S/P surgical removal of pilonidal cyst Family History Brother Diabetes Brother Diabetes Mother Diabetes Father Diabetes Sister Diabetes Other Heart disease Social History Smoking Status: Former smoker Tobacco Type: Cigarettes and Smokeless Tobacco (Dip or Chew) Smoking End Date: QUIT 30 YRS AGO; Second Hand Exposure: No; Do You Dip or Chew Tobacco: No (QUIT 3 YRS AGO); Hx Alcohol Use: No Hx Substance Use: No Preferred Language: Hungarian Communication Ability: Effective Child Care Supervisor Required: No Beliefs That Will Affect Care: None marital status: Current Living Situation: Spouse Other Information That Helps Us Care for You: No Feels Safe at Home: Yes Safety Concerns: Feels Safe At This Time Assistive Devices: Oxygen - Continuous Review of Systems Review of Systems: Denies chest pain or shortness of breath states that he feels 100% Physical Exam Physical Exam: General: Alert. nontoxic. Skin: Warm, dry, Head: Atraumatic Ears, nose, mouth and throat: airway patent Cardiovascular: Normal peripheral perfusion Respiratory: no respiratory distress Gastrointestinal: Non distended bilateral groins soft Musculoskeletal: No deformity Results & Data Results & Data ([facility]) Vital Signs (Past 12 Hours) Vital Signs Temp Pulse Pulse Resp BP BP Pulse Ox 07/01/20 13:50 36.5 C 72 20 94 07/01/20 13:40 57 L 16 125/70 94 07/01/20 13:30 36.6 C 60 16 114/68 94 07/01/20 13:20 61 16 121/65 96 07/01/20 13:10 61 16 115/69 95 07/01/20 13:00 62 16 114/65 95 07/01/20 12:53 36.4 C L 70 24 113/61 96 07/01/20 08:44 36.5 C 74 20 142/82 H 96 Laboratory Results 07/01/20 07/01/20 07/01/20 Range/Units 14:13 08:35 08:35 Hgb 12.4 L (14.0-18.0) g/dL Hct 37.6 L (42-52) % PT 10.7 (9.0-12.0) Seconds INR 1.1 (0.9-1.1) APTT 28.7 (21.0-31.0) Seconds PTT Ratio 1.1 Blood Type O Positive Antibody Screen NEGATIVE Crossmatch See Detail Coding Level of Care Code 70683 Inpt Consult Level 3 Diagnoses AAA (abdominal aortic aneurysm) without rupture I71.4 Post-operative state Z98.890 Pulmonary emboli I26.99 Acute cor pulmonale presence: without acute cor pulmonale Chronicity: acute Pulmonary embolism type: unspecified Prediabetes R73.03 Hypertension I10 Hypertension type: essential hypertension (1) Pulmonary emboli Acute cor pulmonale presence: without acute cor pulmonale Chronicity: acute Pulmonary embolism type: unspecified Qualified Code(s): I26.99 - Other pulmonary embolism without acute cor pulmonale (2) Hypertension Hypertension type: essential hypertension Qualified Code(s): I10 - Essential (primary) hypertension
[2020-07-01] MEDS: ceFAZolin 2000MG 2,000 MG/15 ML SYR IV SCH (17:07)
[2020-07-02] MEDS: ceFAZolin 2000MG 2,000 MG/15 ML SYR IV SCH (00:05)
[2020-07-02 05:22] LABS: Hematocrit (blood only) 37.8 % (42-52); Hemoglobin 12.4 g/dL (14.0-18.0); Immature Granulocytes # (auto) 0.04 K/uL (0.00-0.02); Immature Granulocytes % (auto) 0.2 %; Lymphocytes # (auto) 2.23 K/uL (1.2-3.4); Lymphocytes % (auto) 13.1 %; Mean Corpuscular Hemoglobin 29.2 pg (25-34); Mean Corpuscular Hgb Conc 32.8 g/dL (32-36); Mean Corpuscular Volume 88.9 fL (80-100); Mean Platelet Volume 10.5 fL (7.4-10.4); Monocytes # (auto) 0.73 K/uL (0.11-0.59); Monocytes % (auto) 4.3 %; Neutrophils # (auto) 14.07 K/uL (1.4-6.5); Neutrophils % (auto) 82.4 %; Platelet Count 238 K/uL (130-400); RDW Coefficient of Variation 15.5 % (11.5-14.5); RDW Standard Deviation 49.9 fL (36.4-46.3); Red Blood Count 4.25 M/uL (4.7-6.1); White Blood Count 17.07 K/uL (4.8-10.8)
[2020-07-02 05:41] LABS: INR 1.1 (0.9-1.1); Prothrombin Time 10.7 Seconds (9.0-12.0)
[2020-07-02 06:10] LABS: BUN Creatinine Ratio 14.9 (10-20); Calcium 8.1 mg/dl (8.5-10.1); Creatinine Clr Calc Pharmacy 61.6 ml/min; Est GFR (African American) 62.2; Est GFR (Non-African American) 53.7; Potassium 3.9 mmol/L (3.5-5.1)
--- NOTE | 2020-07-02 06:47 | Critical Care Progress Note ---
Date of Service July 02, 2020 Assessment & Plan (1) Admitted to intensive care unit: Reason critically ill: 69 y/o M w/ hx of PE who is s/p PEVAR repair of AAA w/o rupture and is POD1. Neuro: CAM ICU neg, no recent change in mental status. A&Ox3 Cardiac/Vascular: NSR on monitor. olmesartan 40 PO mg and HCTZ 12.5 mg PO. o/n vitals wnl. At ~0645, normotensive 121/62 NIBP, A line 145/63. Respiratory: Lungs clear. on 2L nasal cannula for BRET. GI/Nutrition: Heart healthy diet. + flatus. Last BM yesterday AM. Renal/Lytes: Electrolytes ok. Cr 1.15 (06/26) ->1.34. Ca 8.1L, albumin not checked. Genitourinary: Koch, will remove this AM Endo: Predm. Glucose checks. Heme: Hb stable 12.4. WBC 17.07. INR 1.1, unchanged from yesterday. ID: Access sites inspected, non erythematous. afebrile. No new imaging or cultures. Lines/IV Access: 2 peripheral IVs. 1 L radial art line (will be removed). Koch (will be removed). DVT Prophylaxis: Lovenox 100 mg q12, to start 3/4 noon. Plan is to bridge to coumadin, defer to vascular surgery. pain control: PRN morphine IV and Percocet code status: full dispo: stepdown from ICU today (2) Post-operative state: (3) AAA (abdominal aortic aneurysm) without rupture: (4) Prediabetes: (5) Hypertension: Admission and Anticipated Discharge Date Admission Date: July 01, 2020 Supervising Physician Co-Signing Physician Notes Dr. Long was resident physician during care of patient. I separately evaluated patient for cody portions of the history and the exam. I was present during the critical portion of medical decision making, and I discussed the case with the resident. I generally agree with the findings and plan. No overnight events tolerating diet disposition per vascular surgery, critical c are will sign off Subjective Patient feels great this morning. Denies pain. +flatus, no BM yet. He is tolerating regular diet. He still has koch and has not yet ambulated. Review of Systems Review of Systems: Constitutional: Denies fever, chills Cardiovascular: Denies chest pain, palpitations Respiratory: Denies shortness of breath Gastrointestinal: Denies abdominal pain, nausea, vomiting, constipation, diarrhea Genitourinary: + koch Musculoskeletal: Denies weakness, muscle aches/pain, joint aches/pain Neurological: Denies headache, numbness, tingling Physical Exam Physical Exam: General: A&Ox3. NAD. Cooperative. HEENT: Atraumatic, normocephalic. Pulm: CTAB. -wheezes, -rales, -rhonchi. No respiratory distress. Cardiac: RRR, -mrg. DP pulses palpable. No pedal edema. Abdominal: Nontender, nondistended, soft. Integumentary: No erythema or drainage at bilateral antecubital peripheral IVs or at L radial art line. Results & Data Results & Data ([facility]) Vital Signs (Past 12 Hours) Vital Signs Temp Pulse Resp BP Pulse Ox 07/02/20 06:15 65 18 121/62 96 07/02/20 06:00 65 16 94 07/02/20 05:30 78 20 94 07/02/20 05:15 65 14 140/74 94 07/02/20 05:00 64 15 94 07/02/20 04:30 64 20 93 07/02/20 04:15 73 16 128/72 93 07/02/20 04:00 36.6 C 67 21 93 07/02/20 03:30 76 18 91 07/02/20 03:15 72 20 119/79 92 07/02/20 03:00 77 91 07/02/20 02:30 74 21 94 07/02/20 02:14 64 19 129/67 94 07/02/20 02:00 63 13 93 07/02/20 01:30 63 20 07/02/20 01:14 65 19 138/70 95 07/02/20 01:00 64 18 95 07/02/20 00:30 63 20 93 07/02/20 00:14 66 19 133/77 93 07/02/20 00:00 61 21 92 07/01/20 23:30 63 20 92 07/01/20 23:24 75 07/01/20 23:14 66 17 127/76 92 07/01/20 23:00 77 17 94 07/01/20 22:30 64 16 91 07/01/20 22:14 68 18 130/74 93 07/01/20 22:09 80 16 120/85 93 07/01/20 22:00 65 18 120/85 93 07/01/20 21:30 63 21 92 07/01/20 21:00 67 23 140/62 92 07/01/20 20:30 65 23 92 07/01/20 20:00 36.7 C 64 18 135/75 92 07/01/20 19:30 65 17 93 07/01/20 19:00 68 21 93 Resident Activity Tracking Resident Involvement: Resident Care Provided Care Provided: Adult Hospital Medicine (1) Hypertension Hypertension type: essential hypertension Qualified Code(s): I10 - Essential (primary) hypertension
--- NOTE | 2020-07-02 07:57 | Billing Data ---
Date of Service July 02, 2020 Coding Level of Care Code 81450 Subseq Hosp Care Lvl 1
[2020-07-02] MEDS ORDERED: INFLUENZA VACCINE HIGH DOSE 65+ 0.7 ML SYR IM ONE (08:00)
[2020-07-02] MEDS ORDERED: OMEGA-3 (PURIFIED FISH OIL) 1 GM CAP PO SCH (09:00)
[2020-07-02] MEDS ORDERED: OLMESARTAN MEDOXOMIL 40 MG TAB PO SCH (09:00)
[2020-07-02] MEDS ORDERED: hydroCHLOROthiazide 25 MG TAB PO SCH (09:00)
[2020-07-02] MEDS ORDERED: ENOXAPARIN 100 MG/1ML SYR SQ SCH (12:00)
--- NOTE | 2020-07-02 14:22 | Surgery Progress Note ---
Date of Service July 02, 2020 Assessment & Plan (1) AAA (abdominal aortic aneurysm) without rupture: Doing well post PEVAR. D/C today. Restarted coumadin yesterday Patient for INR tomorrow Admission and Anticipated Discharge Date Admission Date: July 01, 2020 Subjective No complaints. No groin or abdominal pain Physical Exam Constitutional: WD/WN, vitals as above Respiratory: no respiratory distress Cardiovascular: Rate/Rhythm: regular rate and regular rhythm Vessels: normal peripheral pulses Skin: + incision (punctures dry and clean, no hematomas) Results & Data ([facility]) Vital Signs (Past 12 Hours) Vital Signs Temp Pulse Pulse Resp BP BP Pulse Ox 07/02/20 14:07 36.6 C 72 18 125/70 96 07/02/20 06:15 65 18 121/62 96 07/02/20 06:00 65 16 94 07/02/20 05:30 78 20 94 07/02/20 05:15 65 14 140/74 94 07/02/20 05:00 64 15 94 07/02/20 04:30 64 20 93 07/02/20 04:15 73 16 128/72 93 07/02/20 04:00 36.6 C 67 21 93 07/02/20 03:30 76 18 91 07/02/20 03:15 72 20 119/79 92 07/02/20 03:00 77 91 07/02/20 02:30 74 21 94
--- NOTE | 2020-07-03 09:26 | Discharge Summary ---
Date of Service July 03, 2020 Admission HPI Per Admitting Provider This is a 69-year-old gentleman who was recently admitted with COVID-19. He had Covid pneumonia and hypoxia requiring oxygen. He completed a course of remdesivir and steroids. He was discharged home on 4 L nasal cannula. He returned to the emergency room in [facility] with right lower chest wall pain. He was found to have pulmonary emboli on CT angiogram. He had extensive multifocal consolidation of his lungs which were similar in the lower lung martinez and improved in the upper lung martinez. He did have a leukocytosis at that time. He was started on heparin. CT of his abdomen pelvis showed a 6.2 infrarenal abdominal aortic aneurysm. 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 There were no symptoms present of back pain or abdominal pain. He was not hypotensive. No mottling was documented. He is admitted at this time for PEVAR of his AAA. Admission Exam Per Admitting Provider Constitutional: well developed and well nourished; no acute distress Respiratory: normal respiratory effort, lungs clear to auscultation Cardiovascular: RRR, no murmur, no edema Vessels: normal peripheral pulses and abdominal aortic pulse present (widened in mid epigastrium) Extremities: normal capillary refill Gastrointestinal (Abdomen): Inspection/Auscultation: abdomen normal to inspection Percussion/Palpation: abdomen soft and + pulsatile mass; abdomen nontender Musculoskeletal: no cyanosis or clubbing, extremities motor strength 5/5 Neurologic: CN's II-XI intact bilaterally and moves all extremities Psychiatric: Orientation: alert and oriented x 3 Principal Diagnosis 1. s/p PEVAR 2. AAA Discharge Exam Constitutional WD/WN, vitals as above well developed and well nourished; no acute distress Respiratory normal respiratory effort, lungs clear to auscultation no respiratory distress Cardiovascular RRR, no murmur, no edema Rate/Rhythm: regular rate and regular rhythm Vessels: normal peripheral pulses and abdominal aortic pulse present (widened in mid epigastrium) Extremities: normal capillary refill Gastrointestinal (Abdomen) Inspection/Auscultation: abdomen normal to inspection Percussion/Palpation: abdomen soft and + pulsatile mass; abdomen nontender Musculoskeletal no cyanosis or clubbing, extremities motor strength 5/5 Skin + incision (punctures dry and clean, no hematomas) Neurologic CN's II-XI intact bilaterally and moves all extremities Psychiatric Orientation: alert and oriented x 3 Discharge Data Allergies Allergy/AdvReac Type Severity Reaction Status Date / Time No Known Allergies Allergy Verified 07/01/20 08:33 Consultations 07/01/20 14:06 Consult Turbo Electric Operator Routine Procedures Performed Operation Date: 07/01/20 09:20 Actual Procedures p Percutaneous Endovascular Aneurysm Repair(Bilateral) - Pipe Woodward MD Ordered Studies 07/01/20 07:20 EV aorto bi iliac repair Routine US EV guide vascular access Routine Hospital Course (1) AAA (abdominal aortic aneurysm) without rupture: Doing well post PEVAR. D/C today, POD #1 Restarted coumadin yesterday Patient for INR tomorrow Total Time Total Time Spent Total Time Spent (In Minutes): 0 Discharge Plan Discharge Items Patient Disposition: Home - Self-Care Reason For Visit: 6.2cm Abdominal Aortic Aneurysm Discharge Diagnosis: AAA Activity: Per Instructions section Bathing Comment: may shower starting tomorrw Non-emergency contact: Surgeon Call non-emergency contact if: your temperature is above 101.5, your wound has increased redness, your wound has increased drainage and your wound pain has increased Follow-up/Referrals: Nick Em MD [Primary Care Provider] - Diet: Heart Healthy Addtl Attending Provider Instructions: SPECIAL CARE INSTRUCTIONS: Medications: * Continue to take your medications as directed. Start coumadin at 3mg tonight Take lovenox tonight and tomorrow Have your INR drawn tomorrow and have you coumadin adjusted as you usually do Incision/Puncture Site Care: * You will have an incision or puncture in each of your groins. Liquid glue will be used to seal your incisions/puncture site. This will lift off as the incisions/puncture sites heal. * If Liquid glue is not used, there will be small dressings covering your incisions. After you get home, you may remove the dressings and shower - allowing the warm soapy water to run over it. * Be sure to dry the sites well and keep them dry. * DO NOT SOAK IN A TUB/POOL/etc. UNTIL ALL SURGICAL SITES ARE HEALED. DO NOT REMOVE THE GLUE UNTIL THE INCISIONS HEAL. Restrictions: * Limit yourself to renewable energy trader activity for the first 3 days. * You may walk and go up and down steps. * Avoid excessive bending or movement at the level of the incisions or punctures for 48 hours. Risks and Possible Complications: * Infection/Drainage/Bleeding - Drainage or bleeding from the incisions/puncture site should be minimal. If you have excessive bleeding or drainage, call our office ([phone]) right away. * Pain/Numbness - You may experience some mild pain or soreness at your incision sites. You may also have some numbness around the incisions or into the insides of your thighs. Bruising is normal and should resolve within 2 weeks. * Changes in Appetite or Bowel Habits - Mostly related to anesthesia and pain medication, some patients have reported decreased appetite and/or problems with constipation. These symptoms usually improve over a few weeks. Remembering to take an mwyi-hth-woatjzu stool softener, as directed, will help you to avoid constipation. Call our office and seek emergent treatment if you develop: * Fever or chills * Have a temperature greater than 101 degrees F * Any redness or purulent drainage from your incisions or punctures * Severe abdominal, chest or back pain SKIN IRRITATION: * You may experience some redness and/or swelling in the area where radiation was administered. If any skin irritation occurs, please contact your family physician. You will be receiving a call from the Vascular Surgery Nurse after you are discharged. FOLLOW UP VISIT: It is important for you to keep your follow up appointments with your medical provider. Keep any scheduled doctor appointments. Call [phone] to schedule a follow up appointment if one not already scheduled. Pending Studies at Discharge: No Stand-Alone Forms: My [employer], Smoking Cessation Medications and DC Order Prescriptions: New oxycodone-acetaminophen [Percocet] 5-325 mg tablet 1 tab PO Q6H PRN (Reason: pain) Qty: 7 RF: 0 Continued olmesartan-hydrochlorothiazide 40-12.5 mg tablet 1 tab PO QAM RF: 0 enoxaparin [Lovenox] 100 mg/mL syringe 100 mg subcut Q12H Qty: 10 RF: 1 warfarin 2 mg tablet 2 - 6 mg PO DAILY RF: 0 omega 8-hea-txj-fish oil [Fish Oil] 1,000 mg (120 mg-180 mg) Capsule 1 cap PO QAM RF: 0 Discharge Orders: Discharge Order (Routine); Ordered 07/02/20 Ordered By: Pipe Woodward Admission Data Admit Date/Time: 07/01/20 13:52 Attending Provider: Pipe Woodward Admit Provider: Pipe Woodward Primary Care Provider: Nick Em Other Providers: Hernesto Garcia ; Colt Lucero ; Oscar Lanza ; Daniel Viera ; Stephen Ardon ; Bernard Zimmerman ; Hai Barnett ; Ken Maloney Other Interventions: Discharge Summary Assessment (RN) Last Done: 07/02/20 14:07
--- NOTE | 2020-07-09 11:38 | Coding Query ---
CODING QUERY To promote full compliance with coding requirements relating to patient care, provider participation is requested in all cases of hydraulic mechanic uncertainty. Please assist us with the question(s) below: Coding Question(s): The H&P states that in May "he was found to have pulmonary emboli on CT angiogram". This patient is also on daily warfarin. Could you please clarify if the pulmonary emboli are still a current condition relevant to this patient's stay or if they have resolved and part of this patient's history. Thank you. Physician's Response(s): ( ) Pulmonary emboli as current diagnosis ( x ) Personal history of PE ( ) Other, please specify Thank you Katie Yusuf Principal Diagnosis: "that condition established after study, to be chiefly responsible for occasioning the admission of the patient to the hospital for care." Co-Existing Principal Diagnosis: "when two or more diagnoses equally meet the criteria for principal diagnosis as determined by the circumstances of admission, diagnostic work up, and/or therapy provided, and the Alphabetic Index, Tabular List, or another coding guideline does not provide sequencing direction, any one of the diagnoses may be sequenced first." "When the physician has documented what appears to be a current diagnosis in the body of the record, but has not included the diagnosis in the final diagnostic statement, the physician should be asked whether the diagnosis should be added." (Source [facility]oding [facility] 2 QTR90. p3-4) CHRISTIANA
== END 2020-07-02 14:50 | disposition home or self-care (01) | DRG 269 ==
LOC: ASU 07:56 → 1E 13:52

== ENCOUNTER 2022-12-28 06:26 | Observation (INO) ==
--- NOTE | 2022-12-14 16:19 | PAT Medication Instructions ---
Medication Instructions Date of Service December 14, 2022 Home Medications omega 9-nyp-wxd-fish oil 1,000 mg (120 mg-180 mg) capsule (Fish Oil) 1 cap PO BID ascorbic acid (vitamin C) 1,000 mg tablet (Vitamin C) 1 g PO QPM aspirin 81 mg tablet,delayed release 81 mg PO QAM cholecalciferol (vitamin D3) 125 mcg (5,000 unit) tablet (Vitamin D3) 125 mcg PO QPM olmesartan 40 mg-hydrochlorothiazide 25 mg tablet 0.5 tab PO QAM vitamin K2 100 mcg capsule 100 mcg PO QPM ASK your prescriber and surgeon aspirin 81 mg tablet,delayed release 81 mg PO QAM STOP taking 2 weeks before surgery (or as soon as possible if surgery is within 2 weeks) omega 9-jht-yfs-fish oil 1,000 mg (120 mg-180 mg) capsule (Fish Oil) 1 cap PO BID vitamin K2 100 mcg capsule 100 mcg PO QPM DO NOT take the morning of surgery ascorbic acid (vitamin C) 1,000 mg tablet (Vitamin C) 1 g PO QPM olmesartan 40 mg-hydrochlorothiazide 25 mg tablet 0.5 tab PO QAM Take evening before surgery cholecalciferol (vitamin D3) 125 mcg (5,000 unit) tablet (Vitamin D3) 125 mcg PO QPM Other Notes NOTHING TO EAT OR DRINK AFTER MIDNIGHT. If you have any questions please call us at [phone] or [phone] or [phone] or [phone]
--- NOTE | 2022-12-16 08:55 | Anesthesiology Consultation ---
Date of Service December 16, 2022 Assessment & Plan (1) Encounter for pre-operative examination: - COVID screening: Per assessment on 12/16: No known COVID-19 positive contacts or current COVID-19 related symptoms. No recent Covid positive test result. - S/P PEVAR (07/01/20): Grade 2 view, MAC#3, ETT 7.5, atraumatic at [facility] - Blood transfusion- Patient reports he has discussed concerns further with /surgeon and at this point, would like to follow normal hospital protocol regarding blood transfusions as needed if patient were to need blood transfusion perioperatively. He was advised to contact PAT/surgeon if he wishes to discuss further. Chart Review Chart Review: Acceptable Risk for Surgery and Patient seen in Pre Admission Testing Teaching & Discussion Pre-Anesthesia Teaching/Discussion Notes: Instructed NPO after midnight before surgery,except medications with 15 cc of water. Medication instructions provided according to the PAT guidelines. 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 - Pipe Woodward MD Height/Weight Height: 5 ft 10 in Weight: 110.7 kg Allergies Allergy/AdvReac Type Severity Reaction Status Date / Time No Known Allergies Allergy Verified 07/01/20 08:33 Medications Home Medications Medication Instructions Recorded Confirmed Last Taken omega 3-yzy-vma-fish oil 1,000 mg 1 cap PO BID 06/18/20 12/14/22 Unknown (120 mg-180 mg) capsule (Fish Oil) ascorbic acid (vitamin C) 1,000 mg 1 g PO QPM 12/14/22 12/14/22 Unknown tablet (Vitamin C) aspirin 81 mg tablet,delayed 81 mg PO QAM 12/14/22 12/14/22 Unknown release cholecalciferol (vitamin D3) 125 125 mcg PO QPM 12/14/22 12/14/22 Unknown mcg (5,000 unit) tablet (Vitamin D3) olmesartan 40 0.5 tab PO QAM 12/14/22 12/14/22 Unknown mg-hydrochlorothiazide 25 mg tablet vitamin K2 100 mcg capsule 100 mcg PO QPM 12/14/22 12/14/22 Unknown Past Medical History Medical History Cardiac murmur 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 He was readmitted 1 week after being d/c d/t PE. Hypertension Obesity Prediabetes No meds Pulmonary embolism r/t covid (05/2020), warfarin 6 months then d/c, no issues since Exercise / Class Metabolic Activity II 4-5 Yardwork/Stairs/Walk up hill (one FS (no CP, no SOB)) Past Family History Family History Brother Diabetes Brother Diabetes Mother Diabetes Father Diabetes Sister Diabetes Other Heart disease Past Surgical History Surgical History History of tooth extraction All teeth extracted S/P aortic aneurysm repair PEVAR (07/01/20): Grade 2 view, MAC#3, ETT 7.5, atraumatic at [facility] S/P surgical removal of pilonidal cyst Past Anesthesia History No Hx of Anesthesia Complications and No Family Hx of Anesthesia Complications History of PONV No Hx of PONV and No Hx of Motion Sickness Social History Smoking Status: Former smoker Do You Dip or Chew Tobacco: No Smoking End Date: Quit 40+ years ago Hx Alcohol Use: No Hx Substance Use: No substance use type: does not use Review of Systems Patient denies chest pain, shortness of breath, dyspnea on exertion, fever, chills, cough, wheezing, palpitations. Physical Exam Vital Signs VITALS BP 139/81 P 63 TEMP 97.6 SP02 94%RA RESP 16 PHYSICAL Full cervical extension range of motion. Full TMJ range of motion. TMD 3.5 finger breaths Mallampati Score 2 Dentition: full upper/lower dentures Lungs: clear throughout to auscultation Cardiac: regular rate and rhythm, no murmurs noted Spine: normal Carotid arteries: negative bruit Extremities: no LE edema Lab Results Anesthesia Preop Results Results Anesthesia Widget: WBC 8.19 K/ul (4.8-10.8) 12/16/22 Hgb 14.0 g/dl (14.0-18.0) 12/16/22 Hct 42.2 % (42.0-52.0) 12/16/22 Plt 252 K/uL (130-400) 12/16/22 Na 139 mmol/L (136-145) 12/16/22 K 4.5 mmol/L (3.5-5.1) 12/16/22 Cl 108 mmol/L (98-107) H 12/16/22 CO2 28 mmol/L (21-32) 12/16/22 BUN 26 mg/dl (6-23) H 12/16/22 Creat 1.25 mg/dl (0.6-1.4) 12/16/22 Glucose Level 114 mg/dl (70-99(Fasting)) H 12/16/22 PT 10.7 Seconds (9.0-12.0) 12/16/22 PTT 30.2 Seconds (21.0-31.0) 12/16/22 INR 1.0 (0.9-1.1) 12/16/22 Blood Type O Positive 12/16/22 Antibody Screen NEGATIVE 12/16/22 Testing Electrocardiogram Date: 12/16/22 SB at 52bpm. Otherwise normal ECG. Chest X-Ray Date: 12/16/22 FINDINGS: No lines and tubes are seen. Calcified aortic knob is seen. The lungs are clear. No evidence of pleural effusion or pneumothorax. IMPRESSION: No acute chest disease. Stress Test Date: 06/26/20 EF 55 to 60%. Normal dobutamine echocardiogram without evidence of inducible ischemia. Mild LAD. Mild MR. 86% MPHR.
[~2022-12-28 06:26] MED LIST changes: +ALBUMIN HUMAN 5% 12.5 GM/250 ML VIAL IV ONE; +CEFAZOLIN 2,000 MG/15 ML SYR IV SCH; +FAMOTIDINE/PF 20 MG/2 ML VIAL IV ONE; +LACTATED RINGER'S 1,000 ML BAG IV SCH; -LACTATED RINGER'S 1,000 ML IV SCH; -SODIUM CHLORIDE 0.9% 1000ML 1,000 ML IV SCH; -ceFAZolin 2000MG 2,000 MG/15 ML SYR IV SCH
[2022-12-28] MEDS ORDERED: MIDAZOLAM HCL 1 MG/ML 2ML VIAL ONE (06:48)
[2022-12-28] MEDS ORDERED: fentaNYL citrate PF 100 MCG/2 ML VIAL ONE ×2 (06:48→09:14)
[2022-12-28] MEDS ORDERED: LACTATED RINGER'S 1,000 ML BAG IV SCH (07:00)
[2022-12-28] MEDS ORDERED: LIDOCAINE 1% LOCAL 20 ML VIAL ONE (07:33)
[2022-12-28] MEDS ORDERED: BUPIVACAINE/EPINEPHRINE 0.5% MPF 1:200,000 30 ML VIAL ONE (07:33)
--- NOTE | 2022-12-28 07:45 | History & Physical Bridge Note ---
Date of Service December 28, 2022 History & Physical Bridge Note I have examined the patient, reviewed the History & Physical and in the interval since the performance of the History & Physical I have noted the following changes of clinical significance: no changes noted
--- NOTE | 2022-12-28 07:46 | History & Physical Report ---
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 He underwent CT angiogram of the lower extremities. He was found to have a 3 cm right popliteal artery aneurysm which was fairly focal on his CT angio. He has no symptoms at this time from the aneurysm. Objective Physical Exam On exam he is awake alert and oriented x3. His blood pressure is 98/60. His radials are +2 bilaterally. Lungs are clear. heart had a regular rate and rhythm. abdominal exam is benign. His femoral and pedal pulses are +2 rbilaterally. Assessment/Plan Popliteal artery aneurysm At this point his popliteal artery aneurysm is able to be fixed with a endovascular approach. We underwent the risks options and benefits of the procedure. He agreed to go ahead with endovascular repair of his right popliteal artery aneurysm. Thank you very much for letting us participate in the care of this patient. Sincerely, Ibis Woodward MD Signature Line Electronic Signature on File Pipe Woodward MD Author Signature Dt/Tm: 12/12/2022 03:03 PM Mortgage Field Inspector Hunter Tang [facility] [place], [address] [place], [place] [address] Result Type: .Outpt Ltr Date of Service: December 12, 2022 15:01 EDT Authorization Status: Final Subject: Follow Up Visit Author or Import Date: MD Woodward Eugene J on December 12, 2022 15:03 EDT Verified By: MD Woodward Eugene J on December 12, 2022 15:03 EDT Encounter info: [id number], [place] [id number], [facility], 12/12/2022 - 12/12/2022 Allergies Allergy/AdvReac Type Severity Reaction Status Date / Time No Known Allergies Allergy Verified 12/28/22 06:41 Home Medications Medication Instructions Recorded Confirmed Type omega 4-fft-pgf-fish oil 1,000 mg 1 cap PO BID 06/18/20 12/28/22 History (120 mg-180 mg) capsule (Fish Oil) ascorbic acid (vitamin C) 1,000 mg 1 g PO QPM 12/14/22 12/28/22 History tablet (Vitamin C) aspirin 81 mg tablet,delayed 81 mg PO QAM 12/14/22 12/28/22 History release cholecalciferol (vitamin D3) 125 125 mcg PO QPM 12/14/22 12/28/22 History mcg (5,000 unit) tablet (Vitamin D3) olmesartan 40 0.5 tab PO QAM 12/14/22 12/28/22 History mg-hydrochlorothiazide 25 mg tablet vitamin K2 100 mcg capsule 100 mcg PO QPM 12/14/22 12/28/22 History Past Med/Surg History Medical History Cardiac murmur 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 He was readmitted 1 week after being d/c d/t PE. Hypertension Obesity Prediabetes No meds Pulmonary embolism r/t covid (05/2020), warfarin 6 months then d/c, no issues since Surgical History History of tooth extraction All teeth extracted S/P aortic aneurysm repair PEVAR (07/01/20): Grade 2 view, MAC#3, ETT 7.5, atraumatic at [facility] S/P surgical removal of pilonidal cyst Family History Brother Diabetes Brother Diabetes Mother Diabetes Father Diabetes Sister Diabetes Other Heart disease Social History Smoking Status: Former smoker Tobacco Type: Cigarettes and Smokeless Tobacco (Dip or Chew) Smoking End Date: Quit 40+ years ago; Second Hand Exposure: No; Do You Dip or Chew Tobacco: No; Tobacco Cessation Education Requested by Patient: No Hx Alcohol Use: No Hx Substance Use: No Preferred Language: Portuguese Communication Ability: Effective Chief Librarian Circulation Department Required: No Beliefs That Will Affect Care: None marital status: Current Living Situation: Spouse Other Information That Helps Us Care for You: No Feels Safe at Home: Yes Safety Concerns: Feels Safe At This Time Assistive Devices: Denture - Upper, Denture - Lower and Glasses Review of Systems All systems reviewed & are unremarkable except as noted in HPI & below Results & Data Vital Signs (Past 12 Hours) Vital Signs Temp Pulse Resp BP BP Pulse Ox O2 Del Method 12/28/22 06:54 36.5 C 65 20 165/73 H 175/90 H 96 Room Air
[2022-12-28] MEDS ORDERED: LIDOCAINE 2% 2 ML VIAL/AMP(20MG/ML) INFIL ONE (08:23)
[2022-12-28] MEDS ORDERED: ROCURONIUM BROMIDE 10 MG/ML 5 ML VIAL IV ONE (08:23)
[2022-12-28] MEDS ORDERED: DEXAMETHASONE SOD INJ 4 MG/ML VIAL ONE (08:23)
[2022-12-28] MEDS ORDERED: PROPOFOL IV EMULSION 10 MG/ML 20 ML VIAL IV ONE (08:23)
[2022-12-28] MEDS ORDERED: ONDANSETRON INJ 2 MG/ML 2 ML VIAL ONE (08:23)
[2022-12-28] MEDS ORDERED: diphenhydrAMINE 50 MG/ML VIAL ONE (08:23)
[2022-12-28] MEDS ORDERED: HEPARIN SOD (PORCINE) 1000 UNIT/ML ONE (08:31)
[2022-12-28] MEDS ORDERED: HEPARIN (PORCINE) 1000 UNIT/ML 10 ML (CATH LAB USE ONLY) IV ONE ×2 (09:02→09:30)
[2022-12-28] MEDS ORDERED: fentaNYL citrate PF 100 MCG/2 ML VIAL IV PRN (09:11)
[2022-12-28] MEDS ORDERED: LABETALOL HCL IV 5 MG/ML 20ML IV PRN (09:11)
[2022-12-28] MEDS ORDERED: FLUMAZENIL 0.1 MG/1 ML 10 ML VIAL IV PRN (09:11)
[2022-12-28] MEDS ORDERED: NALOXONE HCL 0.4 MG/1 ML VIAL/CARP IV PRN (09:11)
[2022-12-28] MEDS ORDERED: HYDROmorphone INJ 1 MG/ML SYRINGE IV PRN (09:11)
[2022-12-28] MEDS ORDERED: ePHEDrine sulfate 50 MG/ML AMP IV PRN (09:11)
[2022-12-28] MEDS ORDERED: ATROPINE SULFATE 0.1 MG/ML 10ML SYR IV PRN (09:11)
[2022-12-28] MEDS ORDERED: ONDANSETRON INJ 2 MG/ML 2 ML VIAL IV PRN ×2 (09:11→13:05)
[2022-12-28] MEDS ORDERED: PROMETHAZINE HCL 12.5 MG in SODIUM CHLORIDE 0.9% 50 ML IV PRN (09:11)
[2022-12-28] MEDS ORDERED: VISIPAQUE IV ONE (09:13)
[2022-12-28] MEDS ORDERED: ePHEDrine sulfate 50 MG/ML AMP ONE (09:17)
[2022-12-28] MEDS ORDERED: GLYCOPYRROLATE 0.2 MG/ML VIAL ONE (09:28)
[2022-12-28] MEDS ORDERED: SURGICEL ABSORB HEMOSTAT 2IN X 14IN TOP ONE (09:38)
--- NOTE | 2022-12-28 09:56 | Post Operative Brief Note ---
Immediate Post Op Note v1 Date of Surgery December 28, 2022 Pre & Post Diagnosis Operation Date: 12/28/22 08:00 Pre-Op Diagnosis: Right Popliteal Artery Aneurysm Post-Op Diagnosis: Right Popliteal Artery Aneurysm I identified the patient and participated in the time-out.: Yes Procedure Operation Date: 12/28/22 08:00 Actual Procedures p Endovascular Repair of Right Popliteal Artery Aneurysm(Right) - Pipe Woodward MD Surgeon Pipe Woodward MD Cloth Sponger MD Antwan WestMinarchick,PAC Estimated Blood Loss 75 Findings Consistent with Post-Op Diagnosis Anesthesia Type General Complications none Disposition Accompanied Patient To Recovery: No Disposition: Recovery Room
--- NOTE | 2022-12-28 09:59 | Procedure Note ---
Angiogram Post Procedure Fluoroscopy Time (minutes): 3.7 Radiation (mGy): 16 Contrast: 10 Post Operative Report Pre & Post Diagnosis Operation Date: 12/28/22 08:00 Pre-Op Diagnosis: Right Popliteal Artery Aneurysm Post-Op Diagnosis: Right Popliteal Artery Aneurysm I identified the patient and participated in the time-out.: Yes Procedure Operation Date: 12/28/22 08:00 Actual Procedures p Endovascular Repair of Right Popliteal Artery Aneurysm(Right) - Pipe Woodward MD Surgeon Pipe Woodward MD Programs Manager MD Elvi West,PAC Estimated Blood Loss 75 Findings See Below aneurysmal popliteal artery with known thrombosis of AT with patent PT and peroneal arteries, popliteal stent is patent with endoleak at end of case with PT and peroneal runoff. Fluids see anesthesia record Specimens none Drains none Anesthesia Type General Complications none Disposition Accompanied Patient To Recovery: Yes Disposition: Recovery Room Indications Large popliteal aneurysm Description of Procedure Patient was brought to the angio suite. Surgical time out was performed which identified the patient, procedure, and allergies. The patient was monitored with EKG and pulse oximetry. The anesthesia team induced general anesthesia and an ET tube was placed. The patient's bilateral groins were prepped and the right thigh was draped in standard sterile fashion. Using a 10 blade a 5cm incision was made along the right thigh over the SFA artery. Electrocautery was used to obtain hemostasis. Then sharp dissection was performed with a combination of electrocautery and Metzenbaum scissors to identity the Sartorius muscle was retracted laterally to clear around 2cm of SFA. The vessel was controlled with a vessel loop. The patient was give 5000U of IV heparin. A 18 gauge access needle was used to enter the SFA artery and a J wire was inserted. The needle was removed over the wire and a 5 Fr Sheath was placed into the artery. The introducer and J wire was removed and the sheath was flushed with heparinized saline. Then a glide wire was placed through the sheath into the popliteal artery. Then the 5 Fr sheath was exchanged for a 11Fr sheath and he short glide wire was removed. A long glide wire was then inserted. An angiogram was taken through the sheath and the popliteal artery aneurysm was noted along with a paten PT and peroneal artery. An 13x10 Viabahn stent was placed above the TP trunk and this stent was overlapped with another 13x10 Viabahn stent to extend into the SFA. The overlapping stents were balloon with a 12x4 armada balloon. A completion angiogram was take through the sheath which demonstrated no endoleak, patent stents, and patent PT and peroneal artery. The wire was removed.The patient was given 4000U of IV heparin. The SFA was clamped proximally and distally and the 11Fr sheath was removed. The artery was flushed and then repaired with 3 interrupted 5-0 Prolene sutures. Hemostasis of the sherice ry was obtained using Surgicel. The sartorius muscle was reapproximated to soft tissue with figure of 8 interrupted 2-0 Vicryl sutured. The deep dermal layer was re-approximated with 3-0 Vicryl in a running fashion and the skin was closed with a running 4-0 Vicryl. Dermabond was placed over the incision. The patient left the operating room in satisfactory condition and tolerated the procedure well. All needle and sponge counts were correct at the end of the procedure. The patient had a palpable PT signal at the end of the case. Dr. Woodward was present and scrubbed for the entire procedure. I attest to the content of the Intraoperative Record and any orders documented therein. Any exceptions are noted below.
--- NOTE | 2022-12-28 11:10 | Anesthesiology Progress Note ---
Date of Service December 28, 2022 Anesthesia Post Procedure Vital Signs Vital Signs: Temp Pulse Pulse Resp BP BP Pulse Ox 12/28/22 10:55 36.4 C L 61 14 129/70 99 12/28/22 10:45 64 12 120/69 93 12/28/22 10:35 67 16 145/72 H 96 12/28/22 10:25 67 17 149/83 H 100 12/28/22 10:15 64 17 155/74 H 100 12/28/22 10:08 36.0 C L 72 18 172/68 H 97 12/28/22 06:54 36.5 C 65 20 165/73 H 175/90 H 96 O2 Del Method O2 Flow Rate 12/28/22 10:55 Nasal Cannula 2 12/28/22 10:45 Room Air 12/28/22 10:35 Room Air 12/28/22 10:25 Oxymask 5 12/28/22 10:15 Oxymask 5 12/28/22 10:08 Oxymask 5 12/28/22 06:54 Room Air Pain Intensity Right Groin: Pain Intensity: 5 Transfer of Care Handoff Completed per policy Notes Mental Status: alert / awake / arousable Patient Amnestic to Procedure: Yes Nausea / Vomiting: adequately controlled Pain: adequately controlled Airway Patency, RR, SpO2: stable & adequate BP & HR: stable & adequate Hydration State: stable & adequate Anesthetic Complications: no major complications apparent
[2022-12-28] MEDS ORDERED: MoRPHine SULFATE 4 MG/ML 1 ML CARP\\VIAL IV PRN (13:05)
[2022-12-28] MEDS ORDERED: CLOPIDOGREL BISULFATE 300 MG TAB PO STA (13:05)
[2022-12-28] MEDS ORDERED: oxyCODONE/ACETAMINOPHEN 5mg/325mg TAB PO PRN (13:05)
[2022-12-28] MEDS: LACTATED RINGER'S 1,000 ML IV SCH ×2 (13:40→22:25)
[2022-12-28] MEDS: ceFAZolin 2000MG 2,000 MG/15 ML SYR IV SCH (16:57)
[2022-12-28] MEDS ORDERED: CHOLECALCIFEROL 5,000 UNITS 125 MCG TAB PO SCH (21:00)
[2022-12-28] MEDS ORDERED: ASCORBIC ACID 500 MG TAB PO SCH (21:00)
[2022-12-28] MEDS: OMEGA-3 (PURIFIED FISH OIL) 1 GM CAP PO SCH (21:01)
[2022-12-29] MEDS: ceFAZolin 2000MG 2,000 MG/15 ML SYR IV SCH (01:17)
--- OUTSIDE RECORDS SUMMARY | 2022-12-29 03:32 | External Medical Summary | Continuity of Care Document ---
Author Name Unknown Organization [facility] Address [address] [place] [id number] Care Team Providers Care Industrial Diamond Polisher Name Role Phone Nick Em Primary Care Physician [phone] [id number] Date[facility] 10/06/22 - 10/06/22 [facility] [address] [place] [address] [phone] Encounter Diagnosis AAA (abdominal aortic aneurysm) without rupture(Discharge Diagnosis) - 10/06/22 S/P endovascular aneurysm repair(Discharge Diagnosis) - 10/06/22 Popliteal artery aneurysm(Discharge Diagnosis) - 10/06/22 Discharge Disposition: Home or Self Care Attending Physician: MD Woodward Eugene J Referring Physician: MD Em Paul R Allergies, Adverse Reactions, Alerts No Known Medication Allergies Medications Aspirin Low Dose 81 mg oral delayed release tablet Start: 12/02/20 9:35:00 EDT, 1 tab, PO, Daily Start Date: 12/02/20 Status: Ordered hydroCHLOROthiazide-olmesartan 25 mg-40 mg oral tablet Start: 03/10/22 11:21:00 EST, 1 tab, PO, Daily Start Date: 03/10/22 Status: Ordered Problem List Condition Confirmation Course Effective Dates Status Health St atus Informant AAA (abdominal aortic aneurysm) without rupture Confirmed Active Popliteal artery aneurysm Confirmed Active S/P AAA repair using bifurcation graft Confirmed Active S/P endovascular aneurysm repair Confirmed Active High blood pressure Confirmed Active Tobacco user Confirmed Active Diagnosis Diagnosis Type Effective Dates Health Status Clinical Service Informant S/P endovascular aneurysm repair Discharge Diagnosis 10/06/22 Non-Specified AAA (abdominal aortic aneurysm) without rupture Discharge Diagnosis 10/06/22 Non-Specified Popliteal artery aneurysm Discharge Diagnosis 10/06/22 Non-Specified Procedures Procedure Date Related Diagnosis Body Site Status PEVAR 07/01/20 Completed Vital Signs Most recent to oldest [Reference Range]: 1 Heart Rate 66 bpm (10/06/22 10:37 AM) Blood Pressure 130/78mmHg (10/06/22 10:37 AM) Cuff Pulse Pressure 52 mmHg (10/06/22 10:37 AM) BP Location # 1 Left Arm (10/06/22 10:37 AM) Social History Social History Type Response Tobacco Former smoker, Smoke less tobacco use: Former smokeless tobacco user, quit more than 1 year ago. 1 Smoking Status Former Smoker, quit > 1 yr Sex Male 1Former smoker quit 40+ yr ago, smokeless tobacco use x 40+ years 1979, quit 2 years ago (2019) Patient Care team information Care Team Personnel Name: MD Maria Antonia, Nick Blas Position: Referring DIRECT Member Role: Primary Care Provider Address: Address: [address] [place] [id number] [place] Name: MARIELA Ghotra Lynn Position: Physician Biomedical Engineering Director Exempt - Vasc Surg Member Role: Lifetime Relationship Address: Address: [address] [place] [id number] Care Team Related Persons Name: CLARA OWEN
--- OUTSIDE RECORDS SUMMARY | 2022-12-29 03:32 | External Medical Summary | Continuity of Care Document ---
Author Name Unknown Organization [facility] [address] [facility] Address [address] [place], [place] [id number] Care Team Providers Care Collar Turner Operator Name Role Phone Nick Em Primary Care Physician [phone] [id number] Date(s): 09/16/22 - 09/16/[address], [address] [place] [address] [phone] Discharge Disposition: Home or Self Care Attending Physician: MARIELA Ghotra Lynn Referring Physician: MARIELA Ghotra Lynn Allergies, Adverse Reactions, Alerts No Known Medication [...] (abdominal aortic aneurysm) without rupture Confirmed Active S/P AAA repair using bifurcation graft Confirmed Active S/P endovascular aneurysm repair Confirmed Active High blood pressure Confirmed Active Tobacco user Confirmed Active Procedures Procedure Date Related Diagnosis Body Site Status PEVAR 07/01/20 Completed None Completed Social History Social History Type Response Tobacco Former smoker, Smoke less tobacco use: Former smokeless tobacco user, quit more than 1 year ago. 1 Smoking Status Former Smoker, quit > 1 yr Sex Male 1Former smoker quit 40+ yr ago, smokeless tobacco use x 40+ years 1979, quit 2 years ago (2019) Patient Care team information Care Team Personnel Name: MD Em Paul R Position: Referring DIRECT Member Role: Primary Care Provider Address: Address: [address] [place] [address] [place] [address] Name: MARIELA Ghotra Lynn Position: Physician Teacher Exempt - Vas Surg Member Role: Lifetime Relationship Address: Address: [address], [place] [address] Care Team Related Persons Name: CLARA OWEN
--- OUTSIDE RECORDS SUMMARY | 2022-12-29 03:32 | External Medical Summary ---
Author Name Unknown Address Unknown Organization [id number]:[facility] [address] [place] [address] Laboratory Report Ordering Provider Test Date Status ELLIOTT ANAYA 10/08/2022 10:00:17 Final Observation Date Value Abnormality Reference (Units ) Status Phosphate 10/08/2022 10:00:17 2.9 2.5-4.8 (m g/dL) Final Performing Location [facility] - [address] [place] [address]
--- OUTSIDE RECORDS SUMMARY | 2022-12-29 03:32 | External Medical Summary ---
Author Name Unknown Address Unknown Organization K0G:[facility] - [address] [place] [address] Laboratory Report Ordering Provider Test Date Status ELLIOTT ANAYA 03/03/2022 09:09:09 Final Observation Date Value Abnormality Reference (Units ) Status Potassium 03/03/2022 09:09:09 4.7 3.5-5.1 (m mol/L) Final Performing Location [facility] [place] [address]
--- OUTSIDE RECORDS SUMMARY | 2022-12-29 03:32 | External Medical Summary | Continuity of Care Document ---
Author Name Unknown Organization [facility] [address] [facility] Address [address] [place], [place] [id number] Care Team Providers Care Ham Sawyer Name Role Phone Nick Em Primary Care Physician [phone] [id number] Date(s): 09/16/22 - 09/16/[address], [address] [place] [address] [phone] Discharge Disposition: Home or Self Care Attending [...] Member Role: Primary Care Provider Address: Address: [address] [place] [address] [place] [address] Name: MARIELA Ghotra Lynn Position: Physician Drying Tumbler Operator Exempt - Vas Surg Member Role: Lifetime Relationship Address: Address: [address], [place] [address] Care Team Related Persons Name: CLARA OWEN
--- OUTSIDE RECORDS SUMMARY | 2022-12-29 03:32 | External Medical Summary ---
Author Name Unknown Address Unknown Organization K0G:[facility] [address] - [address] [place] [address] Laboratory Report Ordering Provider Test Date Status ELLIOTT ANAYA 10/08/2022 10:00:17 Final Observation Date Value Abnormality Reference (Units ) Status BUN 10/08/2022 10:00:17 30 Above high normal 6-20 (mg/dL) Final Creatinine 10/08/2022 10:00:17 1.3 Above high normal 0.6-1.2 (mg/dL) Final Glomerular filtration rate/1.73 sq M.predicted [Volume Rate/Area] in Serum, Plasma or Blood by Creatinine-based formula (CKD-EPI) 10/08/2022 10:00:17 57 Below low normal >=60 (mL/min) Final Performing Location [facility] [place] [address] - [address] [place] [address]
--- OUTSIDE RECORDS SUMMARY | 2022-12-29 03:32 | External Medical Summary | Summary of Care ---
Author Name Unknown Organization [facility] Address [address] [place] [address] Phone [phone] Care Team Providers Care Gi Asst Name Role Phone Nick Em MD Primary Care Provider + Reason for Visit * Reason Comments Outpatient Testing Encounter Details Date Type Department Care Team Description 10/08/2022 Laboratory Laboratory, [facility] 132 [facility] [place] [phone] [facility] 132 [facility] [place] [address] Screening for diabetes mellitus; Lipid screening; Prediabetes; Chronic kidney disease, unspecified CKD stage; HTN, goal below 130/80; Lower extremity aneurysm (HCC) Allergies No known active allergiesdocumented as of this encounter (statuses as of 10/08/2022) Medications Medication Sig Dispensed Refills Start Date End Date Status fish oil concentrate (OMEGA-3) 1000 MG CAPSIndications:Hyperl ipidemia with target LDL less than 160 Take 1 Cap by mouth 2 times a day. 60 Cap 5 07/12/2016 Active Aspirin 81 MG Oral Tablet Delayed Release Take 81 mg by mouth daily. 0 2020 Active Zinc 50 MG Oral Tablet Take 50 mg by mouth daily. 0 Active Vitamin D 10 MCG/ML Oral Liquid Take by mouth . 0 Active Atorvastatin Calcium 20 MG Oral Tablet (Lipitor)Indications:D yslipidemia Take by mouth 1 Tablet in the morning. 90 Tablet 3 10/12/2021 Active Olmesartan Medoxomil-HCTZ 40-25 MG Oral TabletIndications:HTN, goal below 130/80 Take 1 Tablet by mouth in the morning. 90 Tablet 3 08/25/2022 Active documented as of this encounter (statuses as of 10/08/2022) Active Problems Problem Noted Date Chronic kidney disease, stage 3a 022 Overview: Per CKD protocol S/P AAA repair 07/02/2020 Overview: 07/19 Dr Woodward Multiple subsegmental pulmonary emboli w [facility] acute cor pulmonale 05/10/2020 History of 2019 novel coronavirus diseas e (COVID-19) 05/08/2020 Prediabetes 07/11/2016 Dyslipidemia 05/05/2015 Well adult exam 04/30/2015 Overview: 10/19-d/c warfarin discussed w/hematology AAA , cologuard ordered. HTN, goal below 130/80 04/30/2015 documented as of this encounter (statuses as of 10/08/2022) Resolved Problems Problem Noted Date Resolved Date COVID-19 virus infection 05/06/2020 021 Overview: Admit [facility] Viral PNA. Didn't react well w/steroids. D/c home on O2. documented as of this encounter (statuses as of 10/08/2022) Immunizations Name Administration Dates Next Due TDAP (age 10 and older)(Boostrix) 04/30/2015 Varicella Zoster Vaccine (Adult) 04/30/2015 documented as of this encounter Social History Tobacco Use Types Packs/Day Years Used Date Smoking Tobacco: Former Cigarettes Q uit: 04/30/1980 Smokeless Tobacco: Former Snuff Quit: 12/30/2018 Alcohol Use Standard Drinks/Week Comments No 0 (1 standard drink = 0.6 oz pur e alcohol) Sex Assigned at Date Recorded Not on file Job Start Date Occupation Industry Not on file Not on file Not on file documented as of this encounter Plan of Treatment Upcoming Encounters Date Type Specialty Care Team Description 03/24/2023 Office Visit Family Medicine Nick Em MD [address] [place] [address] Pending Results Name Type Priority Associated Diagnoses Date /Time BASIC METABOLIC PANEL Lab Routine Screening for diabetes mellitus 10/08/2022 10:00 AM EDT LIPID PANEL WITH DIRECT LDL IF TG IS HIGH Lab Routine Lipid screening 10/08/2022 10:00 AM EDT HEMOGLOBIN A1C Lab Routine Prediabetes 10/08/2022 10:00 AM EDT PHOSPHORUS Lab Routine Chronic kidney disease, unspecified CKD stage 10/08/2022 10:00 AM EDT Health Maintenance Due Date Last Done Comments COVID-19 Vaccine (#1) 03/31/1951 Albumin/Creatinine Ratio 1968 Cologuard 09/30/1995 Colonoscopy 09/30/1995 Sigmoidoscopy 09/30/1995 Zoster Vaccines (2 of 3) 06/25/2015 04/30/2015 Pneumococcal Vaccine: 65+ Years (1 - PCV) 09/30/2015 Colorectal Cancer Screening 05/03/2016 Fecal Occult Blood Test 05/03/2016 05/03/2015 Depression Screening, Annual for Pts 12 and Over 07/11/2017 07/11/2016 GFR 04/16/2022 10/15/2021, 06/0 10/2021, 08/24/2021, Additional history exists HbA1c 08/24/2022 08/24/2021 CKD HGB USE SMARTSET 51622 10/05/202210/08, 10/05/2021, 09/15/2020, Additional history exists CKD PHOS USE SMARTSET 38848 10/05/2022 10/05/2021 Influenza Vaccine (FLU shot) (Season Ended) 2022 DTaP,Tdap,and Td Vaccines (2 - Td or Tdap) 04/30/2025 04/30/2015 Lipid Panel 10/15/2026 10/15/2021, 04/2 09/2021, 07/03/2016, Additional history exists ABDOMINAL AORTIC ANEURYSM (AAA) SCREENING Completed 07/01/2020 GARDASIL-HPV IMMUNIZATION SERIES Aged Out No longer eligible based on patient's age to complete this topic Hepatitis B Aged Out No longer eligi ble based on patient's age to complete this topic MENINGOCOCCAL (MENACTRA/MENVEO) Aged Out No longer eligible based on patient's age to complete this topic documented as of this encounter Medical Devices Not on filedocumented as of this encounter Procedures Procedure Name Priority Date/Time Associated Diagnosis Comments HGB Routine 10/08/2022 10:00 AM EDT Chronic kidney disease, unspecified CKD stage documented in this encounter Results * (ABNORMAL) HGB (10/08/2022 10:00 AM EDT) HGB 13.4(L) 14.0 - 16.8 g/dL 10/08/2022 10:16 AM EDT [facility] [place] [facility] Blood Venous blood specimen / Unknown Venipuncture / Unknown 10/08/2022 10:00 AM EDT 10/08/2022 10:00 AM EDT Nick Em MD LAB BLOOD ORDERA BLES [facility] [place] [address] [address] documented in this encounter Visit Diagnoses Diagnosis Screening for diabetes mellitus Lipid screening Screening for lipoid disorders Prediabetes Other abnormal glucose Chronic kidney disease, unspecified CKD stage HTN, goal below 130/80 Unspecified essential hypertension 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
--- OUTSIDE RECORDS SUMMARY | 2022-12-29 03:32 | External Medical Summary | Summary of Care ---
Author Name Unknown Organization [facility] Address [address] [facility] [place] [address] Phone [phone] Care Team Providers Care Test Operator Name Role Phone Nick Em MD Primary Care Provider + Reason for Visit * Reason Onset Date Comments Med Request 08/25/2022 Encounter Details Date Type Department Care Team Description 08/25/2022 Telephone Family Practice [facility] [address] [place] [address] Nick Em MD [address] [place] [address] Med Request Allergies No known active allergiesdocumented as of this encounter (statuses as of 08/26/2022) Medications Medication Sig Dispensed Refills Start Date End Date Status fish oil concentrate (OMEGA-3) 1000 MG CAPSIndications:Hy perlipidemia with target LDL less than 160 Take [...] Active Atorvastatin Calcium 20 MG Oral Tablet (Lipitor)Indicatio ns:Dyslipidemia Take by mouth 1 Tablet in the morning. 90 Tablet 3 10/12/2021 Active Olmesartan Medoxomil-HCTZ 40-25 MG Oral TabletIndications: HTN, goal below 130/80 Take 1 Tablet by mouth in the morning. 90 Tablet 3 08/25/2022 Active Olmesartan Medoxomil-HCTZ 40-25 MG Oral TabletIndications: HTN, goal below 130/80 Take by mouth 1 Tablet in the morning. 90 Tablet 3 08/27/2021 08/25/2022 Discontinued (Refill) documented as of this encounter (statuses as of 08/26/2022) Active Problems Problem Noted Date Chronic kidney disease, stage 3a 022 Overview: Per CKD protocol S/P AAA repair 07/02/2020 Overview: 07/19 Dr Woodward Multiple subsegmental pulmonary emboli w [facility] acute cor pulmonale 05/10/2020 History of 2019 novel coronavirus diseas e (COVID-19) 05/08/2020 Prediabetes 07/11/2016 Dyslipidemia 05/05/2015 Well adult exam 04/30/2015 Overview: 10/19-d/c warfarin discussed w/hematology AAA , cologuard ordered. HTN, goal below 130/80 04/30/2015 documented as of this encounter (statuses as of 08/26/2022) Resolved Problems Problem Noted Date Resolved Date COVID-19 virus infection 05/06/2020 021 Overview: Admit [facility] Viral PNA. Didn't react well w/steroids. D/c home on O2. documented as of this encounter (statuses as of 08/26/2022) Immunizations Name Administration Dates Next Due TDAP [...] on file documented as of this encounter Miscellaneous Notes * Telephone Encounter - BRET Sommers - 08/26/2022 8:29 AM EDT aware ans states he prefers to just stop in a Monday in September vs making an appt. CPE scheduled with PCP as they prefer to just seen Dr Em * Telephone Encounter - Nick Em MD - 08/25/2022 10:04 PM EDT Refill sent Please schedule labs for September. Schedule CPE with Morgan Jewell when she returns or with me in fall * Telephone Encounter - BRET Wong - 08/25/2022 8:27 AM EDT Patient requesting a refill Olmesartan medoxomil HCTZ 40-25MG To go to [facility] in [place], [place] documented in this encounter Plan of Treatment Upcoming Encounters Date Type Specialty Care Team Description 03/24/2023 Office Visit Family Medicine Nick Em MD [address] [facility] [place] [address] Scheduled Orders Name Type Priority Associated Diagnoses Orde r Schedule BASIC METABOLIC PANEL Lab Routine Screening for diabetes mellitus Expected: 08/25/2022 (Approximate), Expires: 08/25/2023 LIPID PANEL WITH DIRECT LDL IF TG IS HIGH Lab Routine Lipid screening Expected: 08/25/2022, Expires: 08/26/2023 ALBUMIN / CREATININE RATIO, URINE Lab Routine HTN, goal below 130/80 Expected: 08/25/2022 (Approximate), Expires: 08/25/2023 HEMOGLOBIN A1C Lab Routine Prediabetes Expected: 08/25/2022 (Approximate), Expires: 08/25/2023 Health Maintenance Due Date Last Done Comments COVID-19 Vaccine (#1) 03/31/1951 Albumin/Creatinine Ratio 1968 Cologuard: Ages 45-75 09/30/1995 Colonoscopy: Ages 45-75 09/30/1995 Sigmoidoscopy: Ages 45-75 09/30/1995 Zoster Vaccines (2 of 3) 06/25/2015 04/30/2015 Pneumococcal Vaccine: 65+ Years (1 - PCV) 09/30/2015 Colorectal Cancer Screening (Colonoscopy 10 Years; Sigmoidoscopy 5 Years; Cologuard 3 Years; FOBT 1 Year): Ages 45-75 05/03/2016 FOBT: Ages 45-75 05/03/2016 05/03/2015 Depression Screening, Annual for Pts 12 and Over 07/11/2017 07/11/2016 GFR - Renal Function 04/16/2022 10/15/2021, 10/05/2021, 08/24/2021, Additional history exists HgA1C 08/24/2022 08/24/2021 CKD HGB USE SMARTSET 23573 10/05/202210/05, 09/15/2020, 09/15/2020, Additional history exists CKD PHOS USE SMARTSET 88349 10/05/2022 10/05/2021 Influenza Vaccine (FLU shot) (Season Ended) 2022 DTaP,Tdap,and Td Vaccines (2 - Td or Tdap) 04/30/2025 04/30/2015 Lipid Panel 10/15/2026 10/15/2021, 07/31, 07/03/2016, Additional history exists ABDOMINAL AORTIC ANEURYSM [...] Not on filedocumented as of this encounter Visit Diagnoses Diagnosis Screening for diabetes mellitus- Primary HTN, goal below 130/80 Unspecified essential hypertension Lipid screening Screening for lipoid disorders Prediabetes Other abnormal glucose documented in this encounter Care Teams Test Operator Relationship Specialty Start Date End Date Nick Em MD [address] [place] [address] PCP - General Family Medicine 05/03/15 documented as of this encounter
--- OUTSIDE RECORDS SUMMARY | 2022-12-29 03:32 | External Medical Summary | Summary of Care ---
Author Name Unknown Organization [place] [address] Care Team Providers Care Knife Glazer Name Role Phone Nick Gallagher MD Primary Care Provider + Reason for Visit * Reason Onset Date Comments Advice 01/19/2022 advice Encounter Details Date Type Department Care Team Description 01/19/2022 Telephone Family Practice [facility] [address] [facility] [place] [address] Nick Gallagher MD 132 [facility] [place] [address] Advice (advice) Allergies No known active allergiesdocumented as of this encounter (statuses as of 02/10/2022) Medications Medication Sig Dispensed Refills Start Date [...] Liquid Take by mouth . 0 Active Olmesartan Medoxomil-HCTZ 40-25 MG Oral TabletIndications:HTN, goal below 130/80 Take by mouth 1 Tablet in the morning. 90 Tablet 3 08/27/2021 Active Atorvastatin Calcium 20 MG Oral Tablet (Lipitor)Indications:D yslipidemia Take by mouth 1 Tablet in the morning. 90 Tablet 3 10/12/2021 Active documented as of this encounter (statuses as of 02/10/2022) Active Problems Problem Noted Date Chronic kidney disease, stage 3a 022 Overview: Per CKD protocol S/P AAA repair 07/02/2020 Overview: 07/19 Dr Woodward [facility] 05/10/2020 History of 2019 novel coronavirus diseas e (COVID-19) 05/08/2020 Prediabetes 07/11/2016 Dyslipidemia 05/05/2015 Overview: 05/16 LDL 222. High in past. NEED rx ICD-10 update of inactive term Well adult exam 04/30/2015 Overview: 10/19-d/c warfarin discussed w/hematology AAA , cologuard ordered. Refuses statin. HTN, goal below 130/80 04/30/2015 documented as of this encounter (statuses as of 02/10/2022) Resolved Problems Problem Noted Date Resolved Date COVID-19 virus infection 05/06/2020 021 Overview: Admit [facility] Viral PNA. Didn't react well w/steroids. D/c home on O2. documented as of this encounter (statuses as of 02/10/2022) Immunizations Name Administration Dates Next Due TDAP (age 10 and older)(Boostrix) 04/30/2015 Varicella Zoster Vaccine (Adult) 04/30/2015 documented as of this encounter Social History Tobacco Use Types Packs/Day Years Used Date Former Smoker Cigarettes Quit: 04/30 Smokeless Tobacco: Former User Snuff Quit: 12/30/2018 Alcohol Use Standard Drinks/Week Comments No 0 (1 standard drink = 0.6 oz pur e alcohol) Sex Assigned at Date Recorded Not on file Job Start Date Occupation Industry Not on file Not on file Not on file documented as of this encounter Miscellaneous Notes * Addendum Note - Nick Gallagher MD - 02/10/2022 1:23 PM EDT Addended by: NICK GALLAGHER on: 02/10/2022 01:23 PM Modules accepted: Orders * Telephone Encounter - Nick Gallagher MD - 02/10/2022 12:45 PM EDT email sent to Alexa Miguelina to f/u with billing office. 01/25 rebilled as preDM. Called . Discussed I am asking to have this re-looked at. Tylenol ok for kidneys * Telephone Encounter - BRET Tatum - 02/10/2022 10:48 AM EDT Patient states she is calling in to check on the status of previous message and that she received another bill and doesn't think code was changed. Pt states Pt was seen for his kidneys and not prediabetes. Please advise: [phone] * Telephone Encounter - Cassandra Karimi LPN - 01/26/2022 10:43 AM EDT Pt notified. * Telephone Encounter - Nick Gallagher MD - 01/25/2022 8:36 PM EDT I can change to prediabetes diagnosis code & rebill. Notify patient. * Telephone Encounter - Parul Martinez LPN - 01/20/2022 9:[address] Gallagher: Called and s/w . Blood work done on 08/24/21 BMP, coding should be changed. Was told this was to recheck his kidney function "since having covid". Kidney functions the last several times has been stable, but in the abnormal range. Screen for DM is dx code linked to that lab work on that day. Should that dx code be something elsemore specific to rechecking kidney functions?? * Telephone Encounter - BRET Rajan - 01/19/2022 10:46 AM EDT Pt's is calling regarding a coding issue from appt 08/24/21 pt's is stating that the insurance stated that pt was to call office to get the coding change so this bill can get pt. Pt's is asking for someone to call her back. documented in this encounter Plan of Treatment Scheduled Orders Name Type Priority Associated Diagnoses Orde r Schedule POTASSIUM Lab Routine Hyperkalemia Expected: 02/10/2022 (Approximate), Expires: 02/10/2023 Health Maintenance Due Date Last Done Comments COVID-19 Vaccine (#1) 03/31/1951 Alb / Creat Ratio 1968 Cologuard: Ages 45-75 09/30/1995 Colonoscopy: Ages 45-75 09/30/1995 Sigmoidoscopy: Ages 45-75 09/30/1995 Zoster Vaccines (2 of 3) 06/25/2015 04/30/2015 Pneumococcal Vaccine: 65+ Years (1 - PCV) 09/30/2015 Colorectal Cancer Screening (Colonoscopy 10 Years; Sigmoidoscopy 5 Years; Cologuard 3 Years; FOBT 1 Year): Ages 45-75 05/03/2016 FOBT: Ages 45-75 05/03/2016 05/03/2015 Depression Screening, Annual for Pts 12 and Over 07/11/2017 07/11/2016 Influenza Vaccine (FLU shot) (#1) 2021 GFR - Renal Function 04/16/2022 10/15/2021, 10/05/2021, 08/24/2021, Additional history exists Prediabetes-Yearly Hemoglobin A1c 08/24/2022 08/24/2021, 08/24/2021 CKD HGB USE SMARTSET 53364 10/05/202210/05, 09/15/2020, 09/15/2020, Additional history exists CKD PHOS USE SMARTSET 67043 10/05/2022 10/05/2021 DTaP,Tdap,and Td Vaccines (2 - Td or [...] this topic documented as of this encounter Implants Not on filedocumented as of this encounter Visit Diagnoses Diagnosis Hyperkalemia- Primary Hyperpotassemia documented in this encounter Advance Directives Documents on File Type Date Recorded 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 Advanced Directive Advanced Directive Advanced Directive Advanced Directive Advanced Directive Advanced Directive Advanced Directive Advanced Directive Advanced Directive Advanced Directive Advanced Directive Advanced Directive Advanced Directive Advanced Directive Advanced Directive Advanced Directive Advanced Directive Advanced Directive Advanced Directive Advanced Directive Advanced Directive Advanced Directive Advanced Directive Advanced Directive Advanced Directive Advanced Directive Advanced Directive Advanced Directive Advanced Directive Advanced Directive Advanced Directive Advanced Directive Advanced Directive Advanced Directive Advanced Directive Advanced Directive Advanced Directive Advanced Directive Advanced Directive Advanced Directive Advanced Directive Advanced Directive Advanced Directive Advanced Directive Advanced Directive Advanced Directive Advanced Directive Advanced Directive Advanced Directive Advanced Directive Advanced Directive Advanced Directive Care Teams Knife Glazer Relationship Specialty Start Date End Date Nick Gallagher MD [address] [place] [address] PCP - General Family Medicine 05/03/15 documented as of this encounter
--- OUTSIDE RECORDS SUMMARY | 2022-12-29 03:32 | External Medical Summary | Summary of Care ---
Author Name Unknown Organization [place] [address] Care Team Providers Care Cold Press Operator Name Role Phone Nick Em MD Primary Care Provider + Reason for Visit * Reason Comments Outpatient Testing Encounter Details Date Type Department Care Team Description 03/03/2022 Laboratory Laboratory, [facility] 132 [facility] [place] [phone] [facility] 132 [facility] [place] [address] Hyperkalemia Allergies No known active allergiesdocumented as of this encounter (statuses as of 03/03/2022) Medications Medication Sig Dispensed Refills Start Date [...] as of this encounter (statuses as of 03/03/2022) Active Problems Problem Noted Date Chronic kidney disease, stage 3a 022 Overview: Per CKD protocol S/P AAA repair 07/02/2020 Overview: 07/19 Dr Woodward Multiple subsegmental [facility] 05/10/2020 History of 2019 novel coronavirus diseas e (COVID-19) 05/08/2020 Prediabetes 07/11/2016 Dyslipidemia 05/05/2015 Overview: 05/16 LDL 222. High in past. NEED rx ICD-10 update of inactive term Well adult exam 04/30/2015 Overview: 10/19-d/c warfarin discussed w/hematology AAA , cologuard ordered. Refuses statin. HTN, goal below 130/80 04/30/2015 documented as of this encounter (statuses as of 03/03/2022) Resolved Problems Problem Noted Date Resolved Date COVID-19 virus infection 05/06/2020 021 Overview: Admit [facility] Viral PNA. Didn't react well w/steroids. D/c home on O2. documented as of this encounter (statuses as of 03/03/2022) Immunizations Name Administration Dates Next Due TDAP [...] as of this encounter Plan of Treatment Pending Results Name Type Priority Associated Diagnoses Date /Time POTASSIUM Lab Routine Hyperkalemia 03/03/2022 9:09 AM EDT Health Maintenance Due Date Last [...] 08/24/2022 08/24/2021, 08/24/2021 CKD HGB USE SMARTSET 92352 10/05/202210/05, 09/15/2020, 09/15/2020, Additional history exists CKD PHOS USE SMARTSET 61398 10/05/2022 10/05/2021 DTaP,Tdap,and Td Vaccines (2 - [...] as of this encounter Visit Diagnoses Diagnosis Hyperkalemia Hyperpotassemia documented in this encounter Advance Directives Documents on File Type Date Recorded 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
--- OUTSIDE RECORDS SUMMARY | 2022-12-29 03:32 | External Medical Summary ---
Author Name Unknown Address Unknown Organization K01:[facility] [place] [address] [place] [address] Laboratory Report Ordering Provider Test Date Status ELLIOTT ANAYA 10/08/2022 10:00:17 Final Observation Date Value Abnormality Reference (Units ) Status HbA1C 10/08/2022 10:00:17 6.4 Above high normal 4. 0-5.6 (%) Final Performing Location LAB[facility]ATORY [facility] - [address] [place] [address]
--- OUTSIDE RECORDS SUMMARY | 2022-12-29 03:32 | External Medical Summary ---
Author Name Unknown Address Unknown Organization K0G:[facility] [place] [address] - [address] [place] [address] Laboratory Report Ordering Provider Test Date Status ELLIOTT ANAYA 10/08/2022 10:00:17 Final Observation Date Value Abnormality Reference (Units ) Status Hemoglobin 10/08/2022 10:00:17 13.4 Below low normal 14 .0-16.8 (g/dL) Final Performing Location [facility] [place] [address] - [address] [place] [address]
--- OUTSIDE RECORDS SUMMARY | 2022-12-29 03:32 | External Medical Summary | Continuity of Care Document ---
Author Name Unknown Organization [place] [address] AMIE Manjarrez K Address [address] [place] [phone] Care Team Providers Care Siebel Crm Developer Name Role Phone Nick Em Primary Care Physician [phone] [id number] Date(s): 03/03/22 - 03/03/[address], [address] [place] [address] [phone] Discharge Disposition: Home or Self Care Attending Physician: MD Woodward Eugene J Referring Physician: MD Woodward Eugene J Allergies, Adverse Reactions, Alerts No Known Medication Allergies Medications Aspirin Low Dose 81 mg oral delayed release tablet Start: 12/02/20 9:35:00 EDT, 1 tab, PO, Daily Start Date: 12/02/20 Status: Ordered hydroCHLOROthiazide-olmesartan 12.5 mg-40 mg oral tablet Start: 10/16/18 10:58:00 EDT, 1 tab, PO, Daily Start Date: 10/16/18 Status: Ordered Problem List Condition Confirmation Course Effective Dates Status Health St atus Informant AAA (abdominal aortic aneurysm) without rupture Confirmed Active S/P AAA repair using bifurcation graft Confirmed Active S/P endovascular aneurysm repair Confirmed Active High blood pressure Confirmed Active Tobacco user Confirmed Active Procedures Procedure Date Related Diagnosis Body Site Status PEVAR 07/01/20 Completed None Completed Results Radiology Reports * Exam Date Time Procedure Performing Provider Status 03/03/22 8:43 AM VL Aortoiliac Duplex Complete ; Final Notes: (VL Aortoiliac Duplex Complete) Reason For Exam: POST ENDO AAA REPAIR VL Aortoiliac Duplex Complete [facility] FINAL REPORT Name: JORDAN OWEN : 1950 Visit: [id number] Date: 03 Mar 2022 TYPE OF TEST: Aorto-Iliac Duplex REASON FOR TEST Endovascular AAA repair INTERPRETATION/FINDINGS Duplex imaging performed of the abdominal aorta and bilateral iliac arteries: 1. Patent infrarenal [id number] endovascular aneurysm repair without evidence of endoleak or stenosis. Residual aneurysm sac measures 4.9 cm AP by 4.9 cm Trnvs. 2. The bilateral distal common iliac arteries (distal to the graft) are aneurysmal, the right measures 2.0 cm and the left measures 1.8 cm. 3. No stenosis identified in the bilateral external iliac or common femoral arteries. 4. 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 Compared to the previous study performed 08/18/2021, the residual infrarenal aneurysm sac size has decreased. IMPRESSION/COMMENTS I have personally reviewed the data relevant to the interpretation of this study. TECHNOLOGIST: Katharine Dodd RDCS, RVT PHYSICIAN: Pipe Woodward M.D. Signed: 03/03/2022 09:16 AM Final Dictated by:MD Woodward Eugene J Dictated DT/TM:03/03/2022 9:16 Signed by:MD Woodward Eugene J Signed (Electronic Signature):03/03/2022 9:16 a Transcribed by:MIKE Social History Social History Type Response Tobacco Former smoker, Smoke less tobacco use: Former smokeless tobacco user, quit more than 1 year ago. 1 Smoking Status Former Smoker, quit > 1 yr Sex Male 1Former smoker quit 40+ yr ago, smokeless tobacco use x 40+ years 1979, quit 2 years ago (2019) Note * MD Woodward Eugene J: VERIFY, PERFORM, VERIFY, TRANSCRIBE Event Display: Report Authored Date: [id number] [facility] FINAL REPORT Name: JORDAN OWEN : 1950 Visit: [id number] Date: 03 Mar 2022 TYPE OF TEST: Aorto-Iliac Duplex REASON FOR TEST Endovascular AAA repair INTERPRETATION/FINDINGS Duplex imaging performed of the abdominal aorta and bilateral iliac arteries: 1. Patent infrarenal ydwrp-gr-[id number] endovascular aneurysm repair without evidence of endoleak or stenosis. Residual aneurysm sac measures 4.9 cm AP by 4.9 cm Trnvs. 2. The bilateral distal common iliac arteries (distal to the graft) are aneurysmal, the right measures 2.0 cm and the left measures 1.8 cm. 3. No stenosis identified in the bilateral external iliac or common femoral arteries. 4. 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 Compared to the previous study performed 08/18/2021, the residual infrarenal aneurysm sac size has decreased. IMPRESSION/COMMENTS I have personally reviewed the data relevant to the interpretation of this study. TECHNOLOGIST: Katharine Dodd RDCS, T PHYSICIAN: Pipe Woodward M.D. Signed: 03/03/2022 09:16 AM Final Dictated by:MD Woodward Eugene J Dictated DT/TM:03/03/2022 9:16 Signed by:MD Woodward Eugene J Signed (Electronic Signature):03/03/2022 9:16 a Transcribed by:S Patient Care team information Personnel Name: MD Maria Antonia, Nick Blas Address: Address: [address] [place] [address] [place] [address] [place]
--- OUTSIDE RECORDS SUMMARY | 2022-12-29 03:32 | External Medical Summary | Summary of Care ---
Author Name Unknown Organization [facility] Address [address] [facility] [place] [address] Phone [phone] Care Team Providers Care Tow Truck Dispatcher Name Role Phone Nick Em MD Primary Care Provider + Reason for Visit * Reason Onset Date Comments Health Maintenance 09/23/2022 Encounter Details Date Type Department Care Team Description 09/23/2022 Telephone Family Practice [facility] [address] [place] [address] Nick Em MD [address] [place] [address] Health Maintenance Allergies No known active allergiesdocumented as of this encounter (statuses as of 09/23/2022) Medications Medication Sig Dispensed Refills Start Date [...] as of this encounter (statuses as of 09/23/2022) Active Problems Problem Noted Date Chronic kidney disease, stage 3a 022 Overview: Per CKD protocol S/P AAA repair 07/02/2020 Overview: 07/19 Dr Woodward Multiple subsegmental pulmonary emboli w [facility] acute cor pulmonale 05/10/2020 History of 2019 novel coronavirus diseas e (COVID-19) 05/08/2020 Prediabetes 07/11/2016 Dyslipidemia 05/05/2015 Well adult exam 04/30/2015 Overview: 10/19-d/c warfarin discussed w/hematology AAA , cologuard ordered. HTN, goal below 130/80 04/30/2015 documented as of this encounter (statuses as of 09/23/2022) Resolved Problems Problem Noted Date Resolved Date COVID-19 virus infection 05/06/2020 021 Overview: Admit [facility] Viral PNA. Didn't react well w/steroids. D/c home on O2. documented as of this encounter (statuses as of 09/23/2022) Immunizations Name Administration Dates Next Due TDAP [...] encounter Miscellaneous Notes * Telephone Encounter - Vi Beltre LPN - 09/23/2022 9:21 AM EDT Care Gaps Comprehensive Care Outreach Last Office/Telemedicine Visit: 10/05/2021 (in office), 05/12/2020 (telemedicine) Next Office Visit: 03/24/2023 Hemoglobin AIC Results: Lab Results Component Value Date/Time HEMOGLOBIN A1C - [facility] 6.0 (H) 08/24/2021 08:23 AM Reviewed Health Maintenance below: Health Maintenance Topic Date Due COVID-19 Vaccine (1) Never done Albumin/Creatinine Ratio Never done Zoster Vaccines (2 of 3) 06/25/2015 Pneumococcal Vaccine: 65+ Years (1 - PCV) Never done Colorectal Cancer Screening 05/03/2016 Depression Screening, Annual for Pts 12 and Over 07/11/2017 GFR 04/16/2022 HbA1c 08/24/2022 CKD HGB USE SMARTSET 81287 10/05/2022 CKD PHOS USE SMARTSET 08944 10/05/2022 Influenza Vaccine (FLU shot) (Season Ended) 2022 Urine Labs ordered will walk in colon Care Gap Outreach Action Taken: Spoke to patient documented in this encounter Plan of Treatment Upcoming Encounters Date Type Specialty Care Team Description 03/24/2023 Office Visit Family Medicine Nick Em MD [address] [place] [address] Scheduled Orders Name Type Priority Associated Diagnoses Orde r Schedule PHOSPHORUS Lab Routine Chronic kidney disease, unspecified CKD stage Expected: 09/23/2022, Expires: 09/24/2023 HGB Lab Routine Chronic kidney disease, unspecified CKD stage Expected: 09/23/2022, Expires: 09/24/2023 Health Maintenance Due Date Last Done Comments [...] HbA1c 08/24/2022 08/24/2021 CKD HGB USE SMARTSET 71924 10/05/202210/05, 09/15/2020, 09/15/2020, Additional history exists CKD PHOS USE SMARTSET 10084 10/05/2022 10/05/2021 Influenza Vaccine (FLU shot) (Season [...] as of this encounter Visit Diagnoses Diagnosis Chronic kidney disease, unspecified CKD stage- Primary documented in this encounter Care Teams Tow Truck Dispatcher Relationship Specialty Start Date End Date Nick Em MD [address] [place] [address] PCP - General Family Medicine 05/03/15 documented as of this encounter
--- OUTSIDE RECORDS SUMMARY | 2022-12-29 03:32 | External Medical Summary | Continuity of Care Document ---
Author Name Unknown Organization [place] [address] AMIE Manjarrez K Address [address] [place], [place] [id number] Care Team Providers Care Spiritual Advisor Name Role Phone Nick Em Primary Care Physician [phone] Encounter [facility] [id number] Date(s): 03/10/22 - 03/10/22 [place] [address], [address] [place] [address] [phone] Encounter Diagnosis AAA (abdominal aortic aneurysm) without rupture(Discharge Diagnosis) - 03/10/22 S/P AAA repair using bifurcation graft(Discharge Diagnosis) - 03/10/22 Discharge Disposition: Home or Self Care Attending Physician: MD Woodward Eugene J Referring Physician: MD Em Paul R Allergies, Adverse Reactions, Alerts No Known Medication Allergies Assessment and Plan Extracted from: Title:Clinical Document Author:MARIELA Ghotra Lynn Date:03/10/22 I OUTPATIENT NOTE Name: JORDAN BASHIR I Patient Number: [id number] : 1950 Date of Service: 03/10/2022 Chief Complaint: _Follow-up for abdominal aortic aneurysm repair HPI: _Mr. Bashir is an elderly male who presents to Dr. Woodward's vascular surgery clinic today for 6-month follow-up visit regarding his history of percutaneous endovascular abdominal aortic aneurysm repair back in 2020. Patient denies any complaints or concerns. He specifically denies any shortness of breath, chest pain, abdominal pain, nausea, vomiting, rest pain, claudication, nonhealing wounds or ulcers, other complaints. He has not had significant changes in his health since being seen here 6 months ago. His aortoiliac ultrasound performed prior to today's appointment continues to demonstrate a widely patent endovascular aneurysm repair without evidence of stenosis or endoleak. His residual aneurysm sac has shrunk down to 4.9 cm. His bilateral common femoral arteries are mildly aneurysmal at 15 mm. Current Home Meds: (Last Updated 03/10 11:21) aspirin (Aspirin Low Dose 81 mg oral delayed release tablet) 81 mg PO Daily hydroCHLOROthiazide-olmesartan (hydroCHLOROthiazide-olmesartan 25 mg-40 mg oral tablet) 1 tab PO Daily Allergies and Sensitivities: No Known Medication Allergies Past Medical History: Problems: S/P endovascular aneurysm repair S/P AAA repair using bifurcation graft AAA (abdominal aortic aneurysm) without rupture Tobacco user High blood pressure OBJECTIVE Vitals: Last Updated 08/18/21 09:42 Date Temp BP Location Pulse RR SpO2 Pain 08/18/21 150/68 Right Arm 08/18/21 152/66 Left Arm 74 95 02/11/21 134/78 Right Arm Vital Signs are the last 3 documented. No Orthostatic Data Available Height and Weight: Last Updated 06/17/20 08:03 Date BMI Wt(kg) Wt(lb) Method Ht(cm) (ft-in) Method 06/17/20 35.5 105.9 233 Standing Scale 172.72 5-8 Heights and Weights are the last 3 documented. Physical Exam Constitutional: In general patient is an overweight but healthy-appearing well-nourished well-developed middle-aged male in no distress. He is alert and oriented without any deficits. His heart is regular, his lungs are clear. His abdomen is protuberant due to body habitus but is soft and nontender. His brachial radial pulses are +3. His right femoral pulse surgery, his left femoral pulse 2. His right PT pulses +3, DP is +1. His left DP and PT is +1. He has brisk capillary refill and no sign of distal ischemia. He does have a +1 edema of the lower extremities. ASSESSMENT: _ PLAN: _ 1 ) _abdominal aortic aneurysm, history of endovascular aneurysm repair Patient is overall doing well since his last visit here 6 months ago. His ultrasound demonstrates a widely patent repair, and no endoleak. This will be reevaluated when he returns here in 6 months. Due to the small, femoral artery aneurysms and his history of aneurysmal disease, we did recommend that he also undergo a bilateral lower extremity arterial ultrasound to evaluate for possible peripheral aneurysms. Patient agreeable with this plan. His was present with him today as well. They are advised to call any other questions. Thank you for letting us participate in the care of this patient. Medications Aspirin Low Dose 81 mg oral [...] Effective Dates Health Status Clinical Service Informant AAA (abdominal aortic aneurysm) without rupture Discharge Diagnosis 03/10/22 S/P AAA repair using bifurcation graft Discharge Diagnosis 03/10/22 Procedures Procedure Date Related Diagnosis Body Site [...] years ago (2019) Patient Care team information Personnel Name: MD Maria Antonia, Nick Blas Address: Address: [address] [place] [address] [place] [address]
--- OUTSIDE RECORDS SUMMARY | 2022-12-29 03:32 | External Medical Summary ---
Author Name Unknown Address Unknown Organization K01:[facility] - [address] [place] [address] Laboratory Report Ordering Provider Test Date Status ELLIOTT ANAYA 10/08/2022 10:00:17 Final Observation Date Value Abnormality Reference (Units ) Status Triglyceride 10/08/2022 10:00:17 188 Above high normal <=174 (mg/dL) Final Performing Location [facility]ATORY [facility] - [address] [place] [address]
--- OUTSIDE RECORDS SUMMARY | 2022-12-29 03:33 | External Medical Summary | Summary of Care ---
Author Name Unknown Organization [place] [address] Care Team Providers Care Bobbin Handler Name Role Phone Nick Em MD Primary Care Provider + Reason for Visit * Reason Comments Outpatient Testing Encounter Details Date Type Department Care Team Description 10/15/2021 Laboratory Laboratory, [facility] [address] [facility] [place] [phone] [facility] [address] [facility] [place] [address] Dyslipidemia; HTN, goal below 130/80; Hyperkalemia Allergies No known active allergiesdocumented as of this encounter (statuses as of 10/15/2021) Medications Medication Sig Dispensed Refills Start Date [...] as of this encounter (statuses as of 10/15/2021) Active Problems Problem Noted Date Chronic kidney disease, stage 3a 022 Overview: Per CKD protocol S/P AAA repair 07/02/2020 Overview: 07/19 Dr Woodward [facility]10[facility]2020 History of 2019 novel coronavirus diseas e (COVID-19) 05/08/2020 Prediabetes 07/11/2016 Dyslipidemia 05/05/2015 Overview: 05/16 LDL 222. High in past. NEED rx ICD-10 update of inactive term Well adult exam 04/30/2015 Overview: 10/19-d/c warfarin discussed w/hematology AAA , cologuard ordered. Refuses statin. HTN, goal below 130/80 04/30/2015 documented as of this encounter (statuses as of 10/15/2021) Resolved Problems Problem Noted Date Resolved Date COVID-19 virus infection 05/06/2020 021 Overview: Admit [facility] Viral PNA. Didn't react well w/steroids. D/c home on O2. documented as of this encounter (statuses as of 10/15/2021) Immunizations Name Administration Dates Next Due TDAP [...] Name Type Priority Associated Diagnoses Date /Time LIPID PANEL WITH DIRECT LDL IF TG IS HIGH Lab Routine Dyslipidemia 10/15/2021 8:32 AM EDT BASIC METABOLIC PANEL Lab Routine HTN, goal below 130/80 Hyperkalemia 10/15/2021 8:32 AM EDT Health Maintenance Due Date Last Done Comments COVID-19 Vaccine (#1) 09/30/1955 Cologuard: Ages 45-75 09/30/1995 Colonoscopy: Ages 45-75 [...] Over 07/11/2017 07/11/2016 Influenza Vaccine (FLU shot) (Season Ended) 2021 CKD GFR USE SMARTSET 37071 04/06/202210/05, 08/24/2021, 2020, Additional history exists Prediabetes-Yearly Hemoglobin A1c 08/24/2022 08/24/2021, 08/24/2021 BASIC METABOLIC PANEL (BMP) FOR HTN YEARLY 10/05/2022 10/05/2021, 08/24/2021, 2020, Additional history exists CKD HGB USE SMARTSET 35232 10/05/202210/05, 09/15/2020, 09/15/2020, Additional history exists CKD PHOS USE SMARTSET 02992 10/05/2022 10/05/2021 DIABETES SCREEN EVERY 3 YRS-AGE 45 AND ABOVE 10/05/2024 10/05/2021, 08/24/2021, 08/24/2021, Additional history exists DTaP,Tdap,and Td Vaccines (2 - Td or Tdap) 04/30/2025 04/30/2015 ABDOMINAL AORTIC ANEURYSM (AAA) SCREENING Completed 07/01/2020 GARDASIL-HPV IMMUNIZATION SERIES Aged Out No longer eligible based on patient's age to complete this topic MENINGOCOCCAL (MENACTRA/MENVEO) Aged Out No longer eligible based on patient's age to complete this topic documented as of this encounter Implants Not on filedocumented as of this encounter Visit Diagnoses Diagnosis Dyslipidemia Other and unspecified hyperlipidemia HTN, goal below 130/80 Unspecified essential hypertension Hyperkalemia Hyperpotassemia documented in this encounter Advance Directives Documents on File Type Date Recorded Patient Pneumatic Tool Repairer Expl anation Advanced Directive Advanced Directive Advanced [...] Directive Advanced Directive Advanced Directive Care Teams Bobbin Handler Relationship Specialty Start Date End Date Nick Em MD [address] [facility] [place] [address] PCP - General Family Medicine 05/03/15 documented as of this encounter
--- OUTSIDE RECORDS SUMMARY | 2022-12-29 03:33 | External Medical Summary | Summary of Care ---
Author Name Unknown Organization [place] [address] Care Team Providers Care Shipping And Receiving Associate Name Role Phone Nick Em MD Primary Care Provider + Reason for Visit * Reason Onset Date Comments Advice 01/19/2022 advice Encounter Details Date Type Department Care Team Description 01/19/2022 Telephone Family Practice [facility] [address] [facility] [place] [address] Nick Em MD [address] [facility] [place] [address] Advice (advice) Allergies No known active allergiesdocumented [...] Dr Woodward [facility] 05/10/2020 History of 2019 [...] COVID-19 virus infection 05/06/2020 021 Overview: Admit [facility] Viral PNA. Didn't react well [...] Miscellaneous Notes * Telephone Encounter - BRET Tatum - 02/10/2022 10:48 AM EDT Patient states she is calling in to check on the status of previous message and that she received another bill and doesn't think code was changed. Pt states Pt was seen for his kidneys and not prediabetes. Please advise: [phone] * Telephone Encounter - Cassandra Karimi LPN - 01/26/2022 10:43 AM EDT Pt notified. * Telephone Encounter - Nick Em MD - 01/25/2022 8:36 PM EDT I can change to prediabetes diagnosis code & rebill. Notify patient. * Telephone Encounter - Parul Martinez LPN - 01/20/2022 9:[address] Em: Called and s/w . Blood work done [...] documented in this encounter Plan of Treatment Health Maintenance Due Date Last Done Comments [...] 08/24/2022 08/24/2021, 08/24/2021 CKD HGB USE SMARTSET 45570 10/05/202210/05, 09/15/2020, 09/15/2020, Additional history exists CKD PHOS USE SMARTSET 06867 10/05/2022 10/05/2021 DTaP,Tdap,and Td Vaccines (2 - Td or Tdap) 04/30/2025 04/30/2015 Lipid Panel 10/15/2026 10/15/2021, 04/09/2021, 07/03/2016, Additional history exists ABDOMINAL AORTIC ANEURYSM [...] Not on filedocumented as of this encounter Advance Directives Documents on File Type Date Recorded Patient Regional Sales Leader Expl anation Advanced Directive Advanced Directive Advanced [...] Directive Advanced Directive Advanced Directive Care Teams Shipping And Receiving Associate Relationship Specialty Start Date End Date Nick Em MD [address] [facility] [place] [address] PCP - General Family Medicine 05/03/15 documented as of this encounter
--- OUTSIDE RECORDS SUMMARY | 2022-12-29 03:33 | External Medical Summary | Summary of Care ---
Author Name Unknown Organization [place] [address] Care Team Providers Care Sterile Processing Technician Name Role Phone Nick Em MD Primary Care Provider + Encounter Details Date Type Department Care Team Description 10/08/2021 Telephone Family Practice [facility] 132 [facility] [place] [address] Gabrielle Jewell CRNP 132 [place] [address] Allergies No known active allergiesdocumented as of this encounter (statuses as of 10/08/2021) Medications Medication Sig Dispensed Refills Start Date [...] Tablet in the morning. 90 Tablet 3 10/08/2021 Active documented as of this encounter (statuses as of 10/08/2021) Active Problems Problem Noted Date Chronic kidney disease, stage 3a 022 Overview: Per CKD protocol S/P AAA repair 07/02/2020 Overview: 07/19 Dr Woodward Multiple subsegmental pulmonary emboli w ithout acute cor pulmonale 05/10/2020 History of 2019 novel coronavirus diseas e (COVID-19) 05/08/2020 Prediabetes 07/11/2016 Dyslipidemia 05/05/2015 Overview: 05/16 LDL 222. High in past. NEED rx ICD-10 update of inactive term Well adult exam 04/30/2015 Overview: 10/19-d/c warfarin discussed w/hematology AAA , cologuard ordered. Refuses statin. HTN, goal below 130/80 04/30/2015 documented as of this encounter (statuses as of 10/08/2021) Resolved Problems Problem Noted Date Resolved Date COVID-19 virus infection 05/06/2020 021 Overview: Admit [facility] Viral PNA. Didn't react well w/steroids. D/c home on O2. documented as of this encounter (statuses as of 10/08/2021) Immunizations Name Administration Dates Next Due TDAP [...] encounter Miscellaneous Notes * Telephone Encounter - ANABELLA Carrera - 10/08/2021 1:24 PM EDT Patient's informed. * Telephone Encounter - JOHN Robles - 10/08/2021 1:20 PM EDT We should recheck before going to lower dose because it may mean adding another medication to make sure his BP is at goal. Sometimes if they have not had much to drink the night before and morning ofit can affect the results, so make sure he drinks plenty of water before test. * Telephone Encounter - ANABELLA Carrera ASSIST - 10/08/2021 1:14 PM EDT Patient's informed. She states he already drinks 48-96 ounces of water each day. She is unsureif he is able to drink any more. Would like to know if they can go back to the old medication. Can call patient's cell# [phone] * Telephone Encounter - JOHN Robles - 10/08/2021 11:19 AM EDT Please call -- his bloodwork did show an elevated potassium level and a slight decrease in renal function after changing his BP medication. I recommend hydrating really well and repeating the BMP in one week to recheck K. If still elevated will have to consider changing the medication. documented in this encounter Plan of Treatment Scheduled Orders Name Type Priority Associated Diagnoses Orde r Schedule BASIC METABOLIC PANEL Lab Routine HTN, goal below 130/80 Hyperkalemia Expected: 10/15/2021 (Approximate), Expires: 10/08/2022 Health Maintenance Due Date Last Done Comments [...] (Season Ended) 2021 CKD GFR USE SMARTSET 57038 04/06/202210/05, 08/24/2021, 2020, Additional history exists Prediabetes-Yearly Hemoglobin A1c 08/24/2022 08/24/2021, 08/24/2021 BASIC METABOLIC PANEL (BMP) FOR HTN YEARLY 10/05/2022 10/05/2021, 08/24/2021, 2020, Additional history exists CKD HGB USE SMARTSET 66806 10/05/202210/05, 09/15/2020, 09/15/2020, Additional history exists CKD PHOS USE SMARTSET 76980 10/05/2022 10/05/2021 DIABETES SCREEN EVERY 3 YRS-AGE [...] as of this encounter Visit Diagnoses Diagnosis HTN, goal below 130/80- Primary Unspecified essential hypertension Hyperkalemia Hyperpotassemia documented in this encounter Advance Directives Documents on File Type Date Recorded Patient Bot[place] Teacher Expl anation Advanced Directive Advanced Directive Advanced [...] Directive Advanced Directive Advanced Directive Care Teams Sterile Processing Technician Relationship Specialty Start Date End Date Nick Em MD 132 [facility] [place] [address] PCP - General Family Medicine 05/03/15 documented as of this encounter
--- OUTSIDE RECORDS SUMMARY | 2022-12-29 03:33 | External Medical Summary ---
Author Name Unknown Address Unknown Organization K01:[facility] [address] [place] [address] Laboratory Report Ordering Provider Test Date Status SHERRI DAVIDSON 10/05/2021 08:54:21 Final Observation Date Value Abnormality Reference (Units ) Status Phosphate 10/05/2021 08:54:21 3.2 2.5-4.8 (m g/dL) Final Performing Location [facility] [address] [place] [address]
--- OUTSIDE RECORDS SUMMARY | 2022-12-29 03:33 | External Medical Summary | Summary of Care ---
Author Name Unknown Organization [place] [address] Care Team Providers Care Social Media Strategist Name Role Phone Nick Em MD Primary Care Provider + Encounter Details Date Type Department Care Team Description 10/12/2021 Telephone Family Practice [facility] 132 [facility] [place] [address] Nick Em MD 132 [place] [address] Allergies No known active allergiesdocumented as of this encounter (statuses as of 10/12/2021) Medications Medication Sig Dispensed Refills Start Date [...] as of this encounter (statuses as of 10/12/2021) Active Problems Problem Noted Date Chronic kidney disease, stage 3a 022 Overview: Per CKD protocol S/P AAA repair 07/02/2020 Overview: 07/19 Dr Woodward Multiple subsegmental pulmonary emboli w ithout acute cor pulmonale 05/10/2020 History of 2018 novel coronavirus diseas e (COVID-19) 05/08/2020 Prediabetes 07/11/2016 Dyslipidemia 05/05/2015 Overview: 05/16 LDL 222. High in past. NEED rx ICD-10 update of inactive term Well adult exam 04/30/2015 Overview: 10/19-d/c warfarin discussed w/hematology AAA , cologuard ordered. Refuses statin. HTN, goal below 130/80 04/30/2015 documented as of this encounter (statuses as of 10/12/2021) Resolved Problems Problem Noted Date Resolved Date COVID-19 virus infection 05/06/2020 021 Overview: Admit [facility] Viral PNA. Didn't react well w/steroids. D/c home on O2. documented as of this encounter (statuses as of 10/12/2021) Immunizations Name Administration Dates Next Due TDAP [...] encounter Miscellaneous Notes * Telephone Encounter - Jenelle Gpison LPN - 10/12/2021 4:27 PM EDT Called pharmacy to confirm 90 day supply of atorvastatin, will be ready at pharmacy [facility]. Called pt and informed of Rx at pharmacy. documented in this encounter Plan of Treatment [...] (Season Ended) 2021 CKD GFR USE SMARTSET 03448 04/06/202210/05, 08/24/2021, 2020, Additional history exists Prediabetes-Yearly Hemoglobin A1c 08/24/2022 08/24/2021, 08/24/2021 BASIC METABOLIC PANEL (BMP) FOR HTN YEARLY 10/05/2022 10/05/2021, 08/24/2021, 2020, Additional history exists CKD HGB USE SMARTSET 21776 10/05/202210/05, 09/15/2020, 09/15/2020, Additional history exists CKD PHOS USE SMARTSET 87518 10/05/2022 10/05/2021 DIABETES SCREEN EVERY 3 YRS-AGE [...] Documents on File Type Date Recorded Patient Shingler Expl anation Advanced Directive Advanced Directive Advanced [...] Directive Advanced Directive Advanced Directive Care Teams Social Media Strategist Relationship Specialty Start Date End Date Nick Em MD 132 [facility] [place] [address] PCP - General Family Medicine 05/03/15 documented as of this encounter
--- OUTSIDE RECORDS SUMMARY | 2022-12-29 03:33 | External Medical Summary ---
Author Name Unknown Address Unknown Organization K01:[facility] [place] [facility] [address] [place] [address] Laboratory Report Ordering Provider Test Date Status SHERRI DAVIDSON 10/15/2021 08:32:44 Final Observation Date Value Abnormality Reference (Units ) Status Triglyceride 10/15/2021 08:32:44 194 Above high normal <=174 (mg/dL) Final Performing Location [facility] - [address] [place] [address]
--- OUTSIDE RECORDS SUMMARY | 2022-12-29 03:33 | External Medical Summary | Summary of Care ---
Author Name Unknown Organization [place] [address] Care Team Providers Care Alteration Worker Name Role Phone Nick Em MD Primary Care Provider + Encounter Details Date Type Department Care Team Description 10/07/2021 Refill Family Practice [facility] 132 [facility] [place] [address] Nick Em MD 132 [place] [address] Dyslipidemia Allergies No known active allergiesdocumented as of this encounter (statuses as of 10/29/2021) Medications Medication Sig Dispensed Refills Start Date [...] 0 Active Olmesartan Medoxomil-HCTZ 40-25 MG Oral TabletIndications: HTN, goal below 130/80 Take by mouth 1 Tablet in the morning. 90 Tablet 3 08/27/2021 Active Atorvastatin Calcium 20 MG Oral Tablet (Lipitor)Indicatio ns:Dyslipidemia Take by mouth 1 Tablet in the morning. 30 Tablet 5 10/05/2021 10/07/2021 Discontinued (Refill) Atorvastatin Calcium 20 MG Oral Tablet (Lipitor)Indicatio ns:Dyslipidemia Take by mouth 1 Tablet in the morning. 90 Tablet 3 10/08/2021 10/12/2021 Discontinued (Refill) documented as of this encounter (statuses as of 10/29/2021) Active Problems Problem Noted Date Chronic kidney disease, stage 3a 022 Overview: Per CKD protocol S/P AAA repair 07/02/2020 Overview: 07/19 Dr Woodward Multiple subsegmental pulmonary emboli w [facility] acute cor pulmonale 05/10/2020 History of 2019 novel coronavirus diseas e (COVID-19) 05/08/2020 Prediabetes 07/11/2016 Dyslipidemia 05/05/2015 Overview: 05/16 LDL 222. High in past. NEED rx ICD-10 update of inactive term Well adult exam 04/30/2015 Overview: 10/19-d/c warfarin discussed w/hematology AAA , cologuard ordered. Refuses statin. HTN, goal below 130/80 04/30/2015 documented as of this encounter (statuses as of 10/29/2021) Resolved Problems Problem Noted Date Resolved Date COVID-19 virus infection 05/06/2020 021 Overview: Admit [facility] Viral PNA. Didn't react well w/steroids. D/c home on O2. documented as of this encounter (statuses as of 10/29/2021) Immunizations Name Administration Dates Next Due TDAP [...] encounter Miscellaneous Notes * Telephone Encounter - JOHN Robles - 10/08/2021 7:58 AM EDT Signed Prescriptions: Disp Refills Atorvastatin Calcium 20 MG Oral Tablet (Li*90 Tab*3 Sig: Take by mouth 1 Tablet in the morning. Authorizing Provider: LETY POLANCO * Telephone Encounter - Jenelle Gipson LPN - 10/07/2021 9:28 AM EDT Pt/pharmacy requesting 90 day supply instead of 30. documented in this encounter Plan of Treatment Health Maintenance Due Date Last Done Comments COVID-19 Vaccine (#1) 03/31/1951 Cologuard: Ages 45-75 09/30/1995 Colonoscopy: Ages 45-75 [...] 07/11/2016 Influenza Vaccine (FLU shot) (#1) 2021 CKD GFR USE SMARTSET 35697 04/16/202210/15, 10/05/2021, 08/24/2021, Additional history exists Prediabetes-Yearly Hemoglobin A1c 08/24/2022 08/24/2021, 08/24/2021 CKD HGB USE SMARTSET 42281 10/05/202210/05, 09/15/2020, 09/15/2020, Additional history exists CKD PHOS USE SMARTSET 11508 10/05/2022 10/05/2021 BASIC METABOLIC PANEL (BMP) FOR HTN YEARLY 10/15/2022 10/15/2021, 10/05/2021, 08/24/2021, Additional history exists DIABETES SCREEN EVERY 3 YRS-AGE 45 AND ABOVE 10/15/2024 10/15/2021, 10/05/2021, 08/24/2021, Additional history exists DTaP,Tdap,and Td Vaccines [...] Diagnoses Diagnosis Dyslipidemia Other and unspecified hyperlipidemia documented in this encounter Advance Directives Documents on File Type Date Recorded Patient Keyboard Operator Expl anation Advanced Directive Advanced Directive Advanced [...] Directive Advanced Directive Advanced Directive Care Teams Alteration Worker Relationship Specialty Start Date End Date Nick Em MD [address] [place] [address] PCP - General Family Medicine 05/03/15 documented as of this encounter
--- OUTSIDE RECORDS SUMMARY | 2022-12-29 03:33 | External Medical Summary | Summary of Care ---
Author Name Unknown Organization [place] [address] Care Team Providers Care Pump Tester Name Role Phone Nick Em MD Primary Care Provider + Reason for Visit * Reason Comments Outpatient Testing Encounter Details Date Type Department Care Team Description 10/05/2021 Laboratory Laboratory, [facility] 132 [facility] [place] [id number] [facility] 132 [facility] [place] [address] HTN, goal below 130/80; Chronic kidney disease, unspecified CKD stage; Dyslipidemia Allergies No known active allergiesdocumented as of this encounter (statuses as of 10/05/2021) Medications Medication Sig Dispensed Refills Start Date [...] in the morning. 30 Tablet 5 10/05/2021 Active documented as of this encounter (statuses as of 10/05/2021) Active Problems Problem Noted Date Chronic kidney disease, stage 3a 022 Overview: Per CKD protocol S/P AAA repair 07/02/2020 Overview: 07/19 Dr Woodward Multiple subsegmental pulmonary emboli w [facility] acute cor pulmonale 05/10/2020 History of 2019 novel coronavirus diseas e (COVID-19) 05/08/2020 Prediabetes 07/11/2016 Dyslipidemia 05/05/2015 Overview: 05/16 LDL 222. High in past. NEED rx ICD-10 update of inactive term Well adult exam 04/30/2015 Overview: 10/19-d/c warfarin discussed w/hematology AAA , cologuard ordered. Refuses statin. HTN, goal below 130/80 04/30/2015 documented as of this encounter (statuses as of 10/05/2021) Resolved Problems Problem Noted Date Resolved Date COVID-19 virus infection 05/06/2020 021 Overview: Admit [facility] Viral PNA. Didn't react well w/steroids. D/c home on O2. documented as of this encounter (statuses as of 10/05/2021) Immunizations Name Administration Dates Next Due TDAP [...] Date /Time BASIC METABOLIC PANEL Lab Routine HTN, goal below 130/80 10/05/2021 8:54 AM EDT PHOSPHORUS Lab Routine Chronic kidney disease, unspecified CKD stage 10/05/2021 8:54 AM EDT Health Maintenance Due Date Last Done Comments COVID-19 Vaccine (#1) 09/30/1955 CKD PHOS USE SMARTSET 87616 1968 Cologuard: Ages 45-75 09/30/1995 Colonoscopy: Ages 45-75 09/30/1995 Sigmoidoscopy: Ages 45-75 09/30/1995 Zoster Vaccines (2 of 3) 06/25/2015 04/30/2015 Pneumococcal Vaccine: 65+ Years (1 - PCV) 09/30/2015 Colorectal Cancer Screening (Colonoscopy 10 Years; Sigmoidoscopy 5 Years; Cologuard 3 Years; FOBT 1 Year): Ages 45-75 05/03/2016 FOBT: Ages 45-75 05/03/2016 05/03/2015 Depression Screening, Annual for Pts 12 and Over 07/11/2017 07/11/2016 CKD HGB USE SMARTSET 84511 09/15/202110/05, 09/15/2020, 09/15/2020, Additional history exists Influenza Vaccine (FLU shot) (Season Ended) 2021 CKD GFR USE SMARTSET 18904 02/23/202208/24, 2020, 09/15/2020, Additional history exists BASIC METABOLIC PANEL (BMP) FOR HTN YEARLY 08/24/2022 08/24/2021, 2020, 09/15/2020, Additional history exists Prediabetes-Yearly Hemoglobin A1c 08/24/2022 08/24/2021, 08/24/2021 DIABETES SCREEN EVERY 3 YRS-AGE 45 AND ABOVE 08/24/2024 08/24/2021, 08/24/2021, 2020, Additional history exists DTaP,Tdap,and Td Vaccines (2 [...] Priority Date/Time Associated Diagnosis Comments HGB Routine 10/05/2021 8:54 AM EDT Dyslipidemia documented in this encounter Results * HGB (10/05/2021 8:54 AM EDT) HGB 14.4 14.0 - 16.8 g/dL [facility] [place] 57-10 Specimen Blood - Venous blood specime n (specimen) Performing Organization Address City/State/[facility] Co de Phone Number [facility] [place] [phone] [place] [address] documented in this encounter Visit Diagnoses Diagnosis HTN, goal below 130/80 Unspecified essential hypertension Chronic kidney disease, unspecified CKD stage Dyslipidemia Other and unspecified hyperlipidemia documented in this encounter Advance Directives Documents on File Type Date Recorded Patient Home Hospice Rn Expl anation Advanced Directive Advanced Directive Advanced [...] Directive Advanced Directive Advanced Directive Care Teams Pump Tester Relationship Specialty Start Date End Date Nick Em MD [address] [place] [address] PCP - General Family Medicine 05/03/15 documented as of this encounter
--- OUTSIDE RECORDS SUMMARY | 2022-12-29 03:33 | External Medical Summary | Summary of Care ---
Author Name Unknown Organization [place] [address] Care Team Providers Care Optician Apprentice Dispensing Name Role Phone Nick mE MD Primary Care Provider + Reason for Visit * Reason Onset Date Comments Advice 01/19/2022 advice Encounter Details Date Type Department Care Team Description 01/19/2022 Telephone Family Practice [facility] 132 [facility] [place] [address] Nick Em MD 132 [facility] [place] [address] Advice (advice) Allergies No known active allergiesdocumented as of this encounter (statuses as of 01/26/2022) Medications Medication Sig Dispensed Refills Start Date [...] as of this encounter (statuses as of 01/26/2022) Active Problems Problem Noted Date Chronic kidney disease, stage 3a 022 Overview: Per CKD protocol S/P AAA repair 07/02/2020 Overview: 07/19 Dr Woodward [facility] 05/10/2020 History of 2019 novel coronavirus diseas e (COVID-19) 05/08/2020 Prediabetes 07/11/2016 Dyslipidemia 05/05/2015 Overview: 05/16 LDL 222. High in past. NEED rx ICD-10 update of inactive term Well adult exam 04/30/2015 Overview: 10/19-d/c warfarin discussed w/hematology AAA , cologuard ordered. Refuses statin. HTN, goal below 130/80 04/30/2015 documented as of this encounter (statuses as of 01/26/2022) Resolved Problems Problem Noted Date Resolved Date COVID-19 virus infection 05/06/2020 021 Overview: Admit [facility] Viral PNA. Didn't react well w/steroids. D/c home on O2. documented as of this encounter (statuses as of 01/26/2022) Immunizations Name Administration Dates Next Due TDAP [...] encounter Miscellaneous Notes * Telephone Encounter - Cassandra Karimi LPN - 01/26/2022 10:43 AM EDT Pt notified. * Telephone Encounter - Ncik Em MD - 01/25/2022 8:36 PM EDT [...] 08/24/2022 08/24/2021, 08/24/2021 CKD HGB USE SMARTSET 61205 10/05/202210/05, 09/15/2020, 09/15/2020, Additional history exists CKD PHOS USE SMARTSET 41215 10/05/2022 10/05/2021 DTaP,Tdap,and Td Vaccines (2 - [...] Documents on File Type Date Recorded Patient Architect Internship Expl anation Advanced Directive Advanced Directive Advanced [...] Directive Advanced Directive Advanced Directive Care Teams Optician Apprentice Dispensing Relationship Specialty Start Date End Date Nick Em MD [address] [place] [address] PCP - General Family Medicine 05/03/15 documented as of this encounter
--- OUTSIDE RECORDS SUMMARY | 2022-12-29 03:33 | External Medical Summary | Summary of Care ---
Author Name Unknown Organization [place] [address] Care Team Providers Care Sleeve Separator Name Role Phone Nick Em MD Primary Care Provider + Encounter Details Date Type Department Care Team Description 10/12/2021 Refill Family Practice [facility] 132 [facility] [place] [address] Nick Em MD 132 [place] [address] Dyslipidemia Allergies No known active allergiesdocumented as [...] the morning. 90 Tablet 3 10/12/2021 Active Atorvastatin Calcium 20 MG Oral Tablet (Lipitor)Indicatio ns:Dyslipidemia Take by mouth 1 Tablet in the morning. 90 Tablet 3 10/08/2021 10/12/2021 Discontinued (Refill) documented as of this encounter (statuses as of 10/12/2021) Active Problems Problem Noted Date Chronic kidney disease, stage 3a 022 Overview: Per CKD protocol S/P AAA repair 07/02/2020 Overview: 07/19 Dr Woodward Multiple subsegmental pulmonary emboli w [facility] acute cor pulmonale 05/10/2020 History of 2019 [...] infection 05/06/2020 021 Overview: Admit [facility] Viral PNA. Didn't react well w/steroids. D/c [...] * Telephone Encounter - JOHN Robles - 10/12/2021 1:39 PM EDT Signed Prescriptions: Disp Refills Atorvastatin Calcium 20 MG Oral Tablet (Li*90 Tab*3 Sig: Take by mouth 1 Tablet in the morning. Authorizing Provider: LETY POLANCO * Telephone Encounter - Jenelle Gipson LPN - 10/12/2021 9:08 AM EDT Pt needs 90 day supply of atorvastatin sent to pharmacy. documented in this encounter Plan of [...] (Season Ended) 2021 CKD GFR USE SMARTSET 63210 04/06/202210/05, 08/24/2021, 2020, Additional history exists Prediabetes-Yearly Hemoglobin A1c 08/24/2022 08/24/2021, 08/24/2021 BASIC METABOLIC PANEL (BMP) FOR HTN YEARLY 10/05/2022 10/05/2021, 08/24/2021, 2020, Additional history exists CKD HGB USE SMARTSET 09859 10/05/202210/05, 09/15/2020, 09/15/2020, Additional history exists CKD PHOS USE SMARTSET 86163 10/05/2022 10/05/2021 DIABETES SCREEN EVERY 3 YRS-AGE [...] Documents on File Type Date Recorded Patient Metal Flow Coordinator Expl anation Advanced Directive Advanced Directive Advanced [...] Directive Advanced Directive Advanced Directive Care Teams Sleeve Separator Relationship Specialty Start Date End Date Nick Em MD 132 [facility] [place] [address] PCP - General Family Medicine 05/03/15 documented as of this encounter
--- OUTSIDE RECORDS SUMMARY | 2022-12-29 03:33 | External Medical Summary | Summary of Care ---
Author Name Unknown Organization [place] [address] Care Team Providers Care Solar Lab Technician Name Role Phone Nick Em MD Primary Care Provider + Encounter Details Date Type Department Care Team Description 10/14/2021 Telephone Family Practice [facility] 132 [facility] [place] [address] Nick Em MD [facility] [place] [address] Allergies No known active allergiesdocumented as of this encounter (statuses as of 10/14/2021) Medications Medication Sig Dispensed Refills Start Date [...] as of this encounter (statuses as of 10/14/2021) Active Problems Problem Noted Date Chronic kidney [...] as of this encounter (statuses as of 10/14/2021) Resolved Problems Problem Noted Date Resolved Date COVID-19 virus infection 05/06/2020 021 Overview: Admit [facility] Viral PNA. Didn't react well w/steroids. D/c home on O2. documented as of this encounter (statuses as of 10/14/2021) Immunizations Name Administration Dates Next Due TDAP [...] as of this encounter Plan of Treatment Health Maintenance [...] (Season Ended) 2021 CKD GFR USE SMARTSET 75662 04/06/202210/05, 08/24/2021, 2020, Additional history exists Prediabetes-Yearly Hemoglobin A1c 08/24/2022 08/24/2021, 08/24/2021 BASIC METABOLIC PANEL (BMP) FOR HTN YEARLY 10/05/2022 10/05/2021, 08/24/2021, 2020, Additional history exists CKD HGB USE SMARTSET 84443 10/05/202210/05, 09/15/2020, 09/15/2020, Additional history exists CKD PHOS USE SMARTSET 54319 10/05/2022 10/05/2021 DIABETES SCREEN EVERY 3 YRS-AGE [...] Documents on File Type Date Recorded Patient Political Geographer Expl anation Advanced Directive Advanced Directive Advanced [...] Directive Advanced Directive Advanced Directive Care Teams Solar Lab Technician Relationship Specialty Start Date End Date Nick Em MD 132 [facility] [place] [address] PCP - General Family Medicine 05/03/15 documented as of this encounter
--- OUTSIDE RECORDS SUMMARY | 2022-12-29 03:33 | External Medical Summary | Summary of Care ---
Author Name Unknown Organization [place] [address] Care Team Providers Care Earring Maker Name Role Phone Nick Em MD Primary Care Provider + Reason for Visit * Reason Onset Date Comments Health Maintenance 10/07/2021 Encounter Details Date Type Department Care Team Description 10/07/2021 Telephone Family Practice [facility] [address] [facility] [place] [address] Nick Em MD 132 [facility] [place] [address] Health Maintenance Allergies No known active allergiesdocumented as of this encounter (statuses as of 10/07/2021) Medications Medication Sig Dispensed Refills Start Date [...] as of this encounter (statuses as of 10/07/2021) Active Problems Problem Noted Date Chronic kidney disease, stage 3a 022 Overview: Per CKD protocol S/P AAA repair 07/02/2020 Overview: 07/19 Dr Woodward [facility] 05/10/2020 History of 2019 novel coronavirus diseas e (COVID-19) 05/08/2020 Prediabetes 07/11/2016 Dyslipidemia 05/05/2015 Overview: 05/16 LDL 222. High in past. NEED rx ICD-10 update of inactive term Well adult exam 04/30/2015 Overview: 10/19-d/c warfarin discussed w/hematology AAA , cologuard ordered. Refuses statin. HTN, goal below 130/80 04/30/2015 documented as of this encounter (statuses as of 10/07/2021) Resolved Problems Problem Noted Date Resolved Date COVID-19 virus infection 05/06/2020 021 Overview: Admit [facility] Viral PNA. Didn't react well w/steroids. D/c home on O2. documented as of this encounter (statuses as of 10/07/2021) Immunizations Name Administration Dates Next Due TDAP [...] encounter Miscellaneous Notes * Telephone Encounter - Brittaney Fraser LPN - 10/07/2021 12:10 PM EDT Care Gaps Comprehensive Care Outreach Last Office/Telemedicine Visit: 10/05/2021 (in office), 05/12/2020 (telemedicine) Last Office/Telemedine Visit Annual Wellness: due Next Office Visit: Visit date not found Hemoglobin AIC Results: Lab Results Component Value Date/Time HEMOGLOBIN A1C - [facility] 6.0 (H) 08/24/2021 08:23 AM Reviewed Health Maintenance below: Care needs Care needs Last completed Due next COVID-19 Vaccine (1) --- Never done Zoster (Shingles) Vaccine (2 of 3) 04/30/2015 06/25/2015 Pneumonia vaccine (1 - PCV) --- Never done Colorectal cancer screening (colonoscopy 10 years, sigmoidoscopy 5 years, Cologuard 3 years, stool sample 1 year) 05/03/2015 05/03/2016 Care Gap Outreach Action Taken: Outreach not indicated Address this week at ov documented in this encounter Plan of Treatment [...] (Season Ended) 2021 CKD GFR USE SMARTSET 12795 04/06/202210/05, 08/24/2021, 2020, Additional history exists Prediabetes-Yearly Hemoglobin A1c 08/24/2022 08/24/2021, 08/24/2021 BASIC METABOLIC PANEL (BMP) FOR HTN YEARLY 10/05/2022 10/05/2021, 08/24/2021, 2020, Additional history exists CKD HGB USE SMARTSET 50425 10/05/202210/05, 09/15/2020, 09/15/2020, Additional history exists CKD PHOS USE SMARTSET 24078 10/05/2022 10/05/2021 DIABETES SCREEN EVERY 3 YRS-AGE [...] Documents on File Type Date Recorded Patient Branch Banker Expl anation Advanced Directive Advanced Directive Advanced [...] Directive Advanced Directive Advanced Directive Care Teams Earring Maker Relationship Specialty Start Date End Date Nick Em MD [address] [place] [address] [place] [address] PCP - General Family Medicine 05/03/15 documented as of this encounter
--- OUTSIDE RECORDS SUMMARY | 2022-12-29 03:33 | External Medical Summary | Summary of Care ---
Author Name Unknown Organization [place] [address] Care Team Providers Care Automobile Rental Clerk Name Role Phone Nick Em MD Primary Care Provider + Reason for Visit * Reason Onset Date Comments Advice 01/19/2022 advice Encounter Details Date Type Department Care Team Description 01/19/[address] [facility] 132 [facility] [place] [address] Nick Em MD 132 [facility] [place] [address] Advice (advice) Allergies No known active allergiesdocumented [...] Dr Woodward [facility] 05/10/2020 History of 2019 [...] COVID-19 virus infection 05/06/2020 021 Overview: Admit [facility] Viral PNA. Didn't react well [...] his kidneys and not prediabetes. Please advise: [phone] * Telephone Encounter - Cassandra Karimi LPN [...] 08/24/2022 08/24/2021, 08/24/2021 CKD HGB USE SMARTSET 50287 10/05/202210/05, 09/15/2020, 09/15/2020, Additional history exists CKD PHOS USE SMARTSET 36980 10/05/2022 10/05/2021 DTaP,Tdap,and Td Vaccines (2 - [...] Documents on File Type Date Recorded Patient Abrasive Grinder Expl anation Advanced Directive Advanced Directive Advanced [...] Directive Advanced Directive Advanced Directive Care Teams Automobile Rental Clerk Relationship Specialty Start Date End Date Nick Em MD 132 [facility] [place] [address] PCP - General Family Medicine 05/03/15 documented as of this encounter
--- OUTSIDE RECORDS SUMMARY | 2022-12-29 03:33 | External Medical Summary | Summary of Care ---
Author Name Unknown Organization [place] [address] Care Team Providers Care Pigment Pumper Name Role Phone Nick Em MD Primary Care Provider + Reason for Visit * Reason Onset Date Comments Order Request 08/18/2021 Encounter Details Date Type Department Care Team Description 08/18/2021 Telephone Family Practice [facility] [address] [place] [address] Nick Em MD 132 [facility] [place] [address] Order Request Allergies No known active allergiesdocumented as of this encounter (statuses as of 02/10/2022) Medications Medication Sig Dispensed Refills Start Date End Date Status fish oil concentrate (OMEGA-3) 1000 MG CAPSIndications:Hyp erlipidemia with target LDL less than 160 Take 1 Cap by mouth 2 times a day. 60 Cap 5 07/12/2016 Active Aspirin 81 MG Oral Tablet Delayed Release Take 81 mg by mouth daily. 0 2020 Active Zinc 50 MG Oral Tablet Take 50 mg by mouth daily. 0 Active Olmesartan Medoxomil-HCTZ 40-12.5 MG Oral TabletIndications:E ssential hypertension with goal blood pressure less than 140/90 Take 1 tablet by mouth once daily 90 Tablet 0 07/30/2021 08/27/2021 Discontinued documented as of this encounter (statuses as [...] 021 Overview: Admit [facility] Viral PNA. Didn't react well w/steroids. D/c [...] encounter Miscellaneous Notes * Telephone Encounter - Nick Em MD - 01/25/2022 8:35 PM EDT Addendum: Added prediabetes to BMP order. Nick Em MD 01/25/2022 * Telephone Encounter - Caroline Lebron LPN - 08/19/2021 9:04 AM EDT Called and spoke to patient's , she will make him aware * Telephone Encounter - Nick Em MD - 08/18/2021 5:01 PM EDT Labs ordered-notify pt at number below * Telephone Encounter - BRET Goldberg - 08/18/2021 3:54 PM EDT An order was requested for this patient. Name of Requesting Provider: pt Order Requested: lab draw for kidney and sugar checked Diagnosis/Reason for Request: to discuss results at appmt Does the order need to be faxed somewhere? If so, where?: --- Fax Number, if applicable: ---- Call Back Number: [phone], please call when orders are placed so pt can keep lab appmt for Tu - 08/24/2021 If the caller is not a current patient, please advise the patient to call their current PCP to havethe order's prior to being seen in our office. The patient was informed that our providers would not order anything (medication, labs, etc.) prior to being seen. documented in this encounter Plan of Treatment [...] 08/24/2022 08/24/2021, 08/24/2021 CKD HGB USE SMARTSET 19007 10/05/202210/05, 09/15/2020, 09/15/2020, Additional history exists CKD PHOS USE SMARTSET 35911 10/05/2022 10/05/2021 DTaP,Tdap,and Td Vaccines (2 - [...] Not on filedocumented as of this encounter Results * (ABNORMAL) LIPID PANEL WITH DIRECT LDL IF TG IS HIGH (08/24/2021 8:23 AM EDT) Triglycerides 397(H) Comment: Triglyceride Reference Ranges (mg/dL): <150 Acceptable 150-174 Borderline high 175-499 High >=500 Very high <=174 mg/dL [facility] C Cholesterol 279(H) Comment: Total Cholesterol Reference Ranges (mg/dL): <200 Desirable 200-239 Borderline high >=240 High <200 mg/dL [facility] HDL Cholesterol 30(L) Comment: HDL Cholesterol Reference Ranges (mg/dL): >=60 High (Desirable) <50 Low (Undesirable) For Females <40 Low (Undesirable) For Males >39 mg/dL [facility] Non-HDL Cholesterol 249(H) Comment: Non-HDL Cholesterol Reference Range (mg/dL): <100 Target level for high risk ASCVD patient <130 Optimal for general population 130-159 Near optimal for general population 160-189 Borderline High 190-219 High >=220 Very High <=159 mg/dL [facility] LDL Cholesterol 170(H) Comment: LDL Cholesterol Reference Ranges (mg/dL): <70 Target level for high risk ASCVD patient <100 Optimal for general population 100-129 Near optimal for general population 130-159 Borderline high 160-189 High >=190 Very high <=129 mg/dL [facility] Specimen Blood - Venous blood specime n (specimen) Performing Organization Address City/[facility]/ZIP Co de Phone Number [facility] [address], [place] [phone] * (ABNORMAL) BASIC METABOLIC PANEL (08/24/2021 8:23 AM EDT) BUN 21(H) 6 - 20 mg/dL [facility] [place] 57-10 Creatinine 1.4(H) 0.6 - 1.2 mg/dL [facility] [place] 57-10 Estimated Glomerular Filtration Rate 56(L)Comment:eGFR is calculated based on the CKD-EPI 2020 equation >=60 mL/min [facility] [place] 57-10 Sodium 141 135 - 146 mmol/L [facility] [place] 57-10 Potassium 5.0 3.5 - 5.1 mmol/L [facility] [place] 57-10 Chloride 104 98 - 107 mmol/L [facility] [place] 57[facility]10 CO2 25 22 - 32 mmol/L [facility] [place] 57-10 Anion Gap 12 7 - 15 mmol/L [facility] [place] [facility] Glucose 113 70 - 120 mg/dL [facility] [place] 57[facility]10 Calcium 9.1 8.4 - 10.2 mg/dL [facility] [place] 57-10 Specimen Blood - Venous blood specime n (specimen) [facility] [place] [facility] [place] [address] * (ABNORMAL) HEMOGLOBIN A1C (08/24/2021 8:23 AM EDT) Hemoglobin A1C 6.0(H)Comment:The use of HbA1c to monitor glycemic status is based on normal hemoglobin and HbA composition. This test should not be used in patients with abnormal hemoglobin that affects the half life of the red blood cell or the in vivo glycation rates. 4.0 - 5.6 % [facility] Estimated Average Glucose 126(H) <126 mg/dL [facility] Specimen Blood - Venous blood specime n (specimen) Performing Organization Address City/State/[facility] Co de Phone Number [facility] [address] [facility] [place] [address] documented in this encounter Visit Diagnoses Diagnosis Screening for diabetes mellitus- Primary Lipid screening Screening for lipoid disorders Prediabetes Other abnormal glucose documented in this encounter Advance Directives Documents on File Type Date Recorded Patient Calibration Laboratory Technician Expl anation Advanced Directive Advanced Directive Advanced [...] Directive Advanced Directive Advanced Directive Care Teams Pigment Pumper Relationship Specialty Start Date End Date Nick Em MD [facility] [place] [address] PCP - General Family Medicine 05/03/15 documented as of this encounter
--- OUTSIDE RECORDS SUMMARY | 2022-12-29 03:33 | External Medical Summary | Summary of Care ---
Author Name Unknown Organization [place] [address] Care Team Providers Care Automatic Coin Machine Mechanic Name Role Phone Nick Em MD Primary Care Provider + Reason for Visit * Reason Onset Date Comments Appointment 10/15/2021 Encounter Details Date Type Department Care Team Description 10/15/2021 Telephone Family Practice [facility] 132 [facility] [place] [address] Gabrielle Jewell CRNP 132 [place] [address] Appointment Allergies No known active allergiesdocumented as of this encounter (statuses as of 10/18/2021) Medications Medication Sig Dispensed Refills Start Date [...] as of this encounter (statuses as of 10/18/2021) Active Problems Problem Noted Date Chronic kidney disease, stage 3a 022 Overview: Per CKD protocol S/P AAA repair 07/02/2020 Overview: 07/19 Dr Woodward [facility]/10/2020 History of 2019 novel coronavirus diseas e (COVID-19) 05/08/2020 Prediabetes 07/11/2016 Dyslipidemia 05/05/2015 Overview: 05/16 LDL 222. High in past. NEED rx ICD-10 update of inactive term Well adult exam 04/30/2015 Overview: 10/19-d/c warfarin discussed w/hematology AAA , cologuard ordered. Refuses statin. HTN, goal below 130/80 04/30/2015 documented as of this encounter (statuses as of 10/18/2021) Resolved Problems Problem Noted Date Resolved Date COVID-19 virus infection 05/06/2020 021 Overview: Admit [facility] Viral PNA. Didn't react well w/steroids. D/c home on O2. documented as of this encounter (statuses as of 10/18/2021) Immunizations Name Administration Dates Next Due TDAP [...] * Telephone Encounter - BRET Sommers - 10/18/2021 7:05 AM EDT see my g * Telephone Encounter - JOHN Robles - 10/15/2021 5:14 PM EDT Please schedule 6 mo follow up with PCP documented in this encounter Plan of Treatment [...] (Season Ended) 2021 CKD GFR USE SMARTSET 10712 04/16/202210/15, 10/05/2021, 08/24/2021, Additional history exists Prediabetes-Yearly Hemoglobin A1c 08/24/2022 08/24/2021, 08/24/2021 CKD HGB USE SMARTSET 44779 10/05/202210/05, 09/15/2020, 09/15/2020, Additional history exists CKD PHOS USE SMARTSET 63296 10/05/2022 10/05/2021 BASIC METABOLIC PANEL (BMP) FOR [...] Documents on File Type Date Recorded Patient Collaborative Teacher Expl anation Advanced Directive Advanced Directive [...] Directive Advanced Directive Advanced Directive Care Teams Automatic Coin Machine Mechanic Relationship Specialty Start Date End Date Nick Em MD [address] [place] [address] [place] [address] PCP - General Family Medicine 05/03/15 documented as of this encounter
--- OUTSIDE RECORDS SUMMARY | 2022-12-29 03:33 | External Medical Summary | Summary of Care ---
Author Name Unknown Organization [place] [address] Care Team Providers Care Ion Implant Machine Operator Name Role Phone Nick Em MD Primary Care Provider + Reason for Visit * Reason Comments Follow Up 1 month Encounter Details Date Type Department Care Team Description 10/05/2021 Office Visit Family Practice [facility] [address] [facility] [place] [address] Gabrielle Jewell CRNP 132 [facility] [place] [address] HTN, goal below 130/80*; Dyslipidemia; Chronic kidney disease, unspecified CKD stage Allergies No known active allergiesdocumented as of [...] the morning. 30 Tablet 5 10/05/2021 Active Atorvastatin Calcium 20 MG Oral Tablet (Lipitor)Indicatio ns:Dyslipidemia Take by mouth 1 Tablet in the morning. 30 Tablet 5 08/27/2021 10/05/2021 Discontinued (Refill) documented as of this encounter (statuses as of 10/05/2021) Active Problems Problem Noted Date Chronic kidney disease, stage 3a 022 Overview: Per CKD protocol S/P AAA repair 07/02/2020 Overview: 07/19 Dr Woodward Multiple subsegmental pulmonary emboli w [facility] acute cor pulmonale 05/10/2020 History of [...] virus infection 05/06/2020 021 Overview: Admit [facility] Viral PNA. Didn't react well w/steroids. [...] on file documented as of this encounter Last Filed Vital Signs Vital Sign Reading Time Taken Comments Blood Pressure 124/78 10/05/2021 8:26 AM EDT Pulse 68 10/05/2021 8:26 AM EDT Temperature 36.9 C (98.4 F) 10/05/2021 8:26 AM ED T Respiratory Rate - - Oxygen Saturation 95% 10/05/2021 8:26 AM EDT Inhaled Oxygen Concentration - - Weight 115.6 kg (254 lb 12.8 oz) 10/05/2021 8:26 AM EDT Height - - Body Mass Index 38.18 08/27/2021 8:00 AM EDT documented in this encounter Progress Notes * JOHN Robles - 10/05/2021 8:34 AM EDT Images from the original note were not included. History of Present Illness Raj Bashir is a 71 year old male that presents for Follow Up (1 month ) HPI Here in follow up after BP medications increased 1 month ago. Increased olmesartan medoxomil-HCTZ from 40/12.5 to 40/25. Tolerating well. BP at goal today. No headaches, dizziness, chst pain, SOB, LEedema. Due for recheck BMP today. Pt has no new concerns. He also started lipitor and is toleratingwell. 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 Declines increasing statin dose today. Declines colorectal cancer screening. No bloody/tarry stools or family history of colorectal CA. 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 He will follow up if any concerning findings. Physical Exam Vitals: 10/05/21 0826 Temp: 36.9 C (98.4 F) Pulse: 68 SpO2: 95% BP: 124/78 Physical Exam Vitals reviewed. Constitutional: Appearance: Normal appearance. HENT: Head: Normocephalic and atraumatic. Eyes: Extraocular Movements: Extraocular movements intact. Conjunctiva/sclera: Conjunctivae normal. Pupils: Pupils are equal, round, and reactive to light. Cardiovascular: Rate and Rhythm: Normal rate and regular rhythm. Heart sounds: Normal heart sounds. Pulmonary: Effort: Pulmonary effort is normal. Breath sounds: Normal breath sounds. Skin: General: Skin is warm and dry. Capillary Refill: Capillary refill takes less than 2 seconds. Neurological: Mental Status: He is alert and oriented to person, place, and time. Psychiatric: Behavior: Behavior normal. Assessment and Plan 1. HTN, goal below 130/80 - At goal, continue current mgmt 2. Dyslipidemia - recheck lipids next 3-6 mo - Atorvastatin Calcium 20 MG Oral Tablet (Lipitor); Take by mouth 1 Tablet in the morning. Dispense: 30 Tablet; Refill: 5 - LIPID PANEL WITH DIRECT LDL IF TG IS HIGH; Future 3. 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 documented in this encounter Nursing Notes * Jenelle Gipson LPN - 10/05/2021 8:24 AM EDT Chief Complaint Patient presents with Follow Up 1 month Pt denies any concerns. Pt needs labs done to re check cholesterol. documented in this encounter Plan of Treatment Upcoming Encounters Date Type Specialty Care Team Description 10/05/2021 Laboratory Laboratory [facility] [address] [facility] [place] [address] HTN, goal below 130/80; Chronic kidney disease, unspecified CKD stage; Dyslipidemia Pending Results Name Type Priority Associated Diagnoses Date /Time PHOSPHORUS Lab Routine Chronic kidney disease, unspecified CKD stage 10/05/2021 8:54 AM EDT HGB Lab Routine Dyslipidemia 10/05/2021 8:54 AM EDT Scheduled Orders Name Type Priority Associated Diagnoses Orde r Schedule LIPID PANEL WITH DIRECT LDL IF TG IS HIGH Lab Routine Dyslipidemia Expected: 03/21/2022 (Approximate), Expires: 10/05/2022 PHOSPHORUS Lab Routine Chronic kidney disease, unspecified CKD stage Expected: 10/05/2021 (Approximate), Expires: 10/05/2022 HGB Lab Routine Chronic kidney disease, unspecified CKD stage Expected: 10/05/2021 (Approximate), Expires: 10/05/2022 Health Maintenance Due Date Last Done Comments COVID-19 Vaccine (#1) 09/30/1955 CKD PHOS USE SMARTSET 40290 1968 Cologuard: Ages 45-75 09/30/1995 Colonoscopy: Ages [...] Over 07/11/2017 07/11/2016 CKD HGB USE SMARTSET 12340 09/15/202109/15, 09/15/2020, 07/02/2020, Additional history exists Influenza Vaccine (FLU shot) (Season Ended) 2021 CKD GFR USE SMARTSET 23620 02/23/202208/24, 2020, 09/15/2020, Additional history exists BASIC [...] goal below 130/80- Primary Unspecified essential hypertension Dyslipidemia Other and unspecified hyperlipidemia Chronic kidney disease, unspecified CKD stage HTN, goal below 130/80 Unspecified essential hypertension Chronic kidney disease, unspecified CKD stage Dyslipidemia Other and unspecified hyperlipidemia documented in this encounter Advance Directives Documents on File Type Date Recorded Patient Cancer Program Coordinator Expl anation Advanced Directive Advanced Directive [...] Directive Advanced Directive Advanced Directive Care Teams Ion Implant Machine Operator Relationship Specialty Start Date End Date Nick Em MD [address] [place] [address] PCP - General Family Medicine 05/03/15 documented as of this encounter
--- OUTSIDE RECORDS SUMMARY | 2022-12-29 03:33 | External Medical Summary ---
Author Name Unknown Address Unknown Organization K[facility] [place] [address] Laboratory Report Ordering Provider Test Date Status LETYDONIMorgan 10/15/2021 08:32:44 Final Observation Date Value Abnormality Reference (Units ) Status BUN 10/15/2021 08:32:44 32 Above high normal 6-20 (mg/dL) Final Creatinine 10/15/2021 08:32:44 1.4 Above high normal 0.6-1.2 (mg/dL) Final Glomerular filtration rate/1.73 sq M.predicted [Volume Rate/Area] in Serum, Plasma or Blood by Creatinine-based formula (CKD-EPI) 10/15/2021 08:32:44 55 Below low normal >=60 (mL/min) Final Performing Location [facility] [address] [place] [address]
--- OUTSIDE RECORDS SUMMARY | 2022-12-29 03:34 | External Medical Summary | Continuity of Care Document ---
Author Name Unknown Organization [place] [address] [facility] Address [address] [place] [id number] Care Team Providers Care Vegetable Loader Name Role Phone Nick Em Primary Care Physician [phone] [id number] Date(s): 02/11/21 - 02/11/[address], [address] [place] [address] us [phone] Encounter Diagnosis AAA (abdominal aortic aneurysm) without rupture(Discharge Diagnosis) - 02/11/21 S/P AAA repair using bifurcation graft(Discharge Diagnosis) - 02/11/21 Discharge Disposition: Home or Self Care Attending [...] PO, Daily Start Date: 10/16/18 Status: Ordered Mental Status 02/11/21 Barriers to Learning one year None evide nt Mandatory Health Literacy Documentation Yes Health Literacy Communication Barriers N ever Problem List Condition Effective Dates Status Health Status Inform ant AAA (abdominal aortic aneury sm) without rupture(Confirmed) Active S/P AAA repair using bifurca tion graft(Confirmed) Active High blood pressure(Confirmed) Active Tobacco user(Confirmed) Active Diagnosis Diagnosis Type Effective Dates Health Status Clinical Service Informant S/P AAA repair using bifurcation graft Discharge Diagnosis 02/11/21 AAA (abdominal aortic aneurysm) without rupture Discharge Diagnosis 02/11/21 Procedures Procedure Date Related Diagnosis Body Site Status PEVAR 07/01/20 Completed None Completed Vital Signs Most recent to oldest [Reference Range]: 1 2 Heart Rate 74 bpm (02/11/21 10:41 AM) Blood Pressure 134/78mmHg (02/11/21 10:44 AM) 136/80mmHg (02/11/21 10:41 AM) Cuff Pulse Pressure 56 mmHg (02/11/21 10:44 AM) 56 mmHg (02/11/21 10:41 AM) BP Location # 1 Right Arm (02/11/21 10:44 AM) Left Arm (02/11/21 10:41 AM) Social History Social History Type Response Tobacco Former smoker, Smoke less tobacco use: Former smokeless tobacco user, quit more than 1 year ago. 1 Smoking Status Former Smoker, quit > 1 yr Sex Male 1Former smoker quit 40+ yr ago, smokeless tobacco use x 40+ years 1979, quit 2 years ago (2019)
--- OUTSIDE RECORDS SUMMARY | 2022-12-29 03:34 | External Medical Summary ---
Author Name Unknown Address Unknown Organization [id number]:[facility] - [address] [place] [address] Laboratory Report Ordering Provider Test Date Status SHERRI DAVIDSON 10/05/2021 08:54:21 Final Observation Date Value Abnormality Reference (Units ) Status Hemoglobin 10/05/2021 08:54:21 14.4 14.0-16.8 (g/dL) Final Performing Location [facility] - [address] [place] [address]
--- OUTSIDE RECORDS SUMMARY | 2022-12-29 03:34 | External Medical Summary | Summary of Care ---
Author Name Unknown Organization [place] [address] Care Team Providers Care Chief Internal Auditor Name Role Phone Nick Gallagher MD Primary Care Provider + Reason for Visit * Reason Comments eRx-Medication Refill Encounter Details Date Type Department Care Team Description 02/01/2021 Refill Family Practice [facility] 132 [facility] [place] [address] Nick Gallagher MD 132 [facility] [place] [address] [phone] Essential hypertension with goal blood pressure less than 140/90 Allergies No Known Active Allergiesdocumented as of this encounter (statuses as of 02/03/2021) Medications Medication Sig Dispensed Refills Start Date [...] 1 tablet by mouth once daily 90 Tab 1 02/03/2021 Active Olmesartan Medoxomil-HCTZ 40-12.5 MG Oral TabletIndications:E ssential hypertension with goal blood pressure less than 140/90 Take 1 tablet by mouth once daily 90 Tab 1 08/04/2020 02/03/2021 Discontinued documented as of this encounter (statuses as of 02/03/2021) Active Problems Problem Noted Date S/P AAA repair 07/02/2020 Overview: 07/19 Dr [...] as of this encounter (statuses as of 02/03/2021) Resolved Problems Problem Noted Date Resolved Date COVID-19 virus infection 05/06/2020 021 Overview: Admit [facility] Viral PNA. Didn't react well w/steroids. D/c home on O2. documented as of this encounter (statuses as of 02/03/2021) Immunizations Name Administration Dates Next Due TDAP (age 10 and older)(Boostrix) 04/30/2015 Varicella Zoster Vaccine (Adult) 04/30/2015 documented as of this encounter Social History Tobacco Use Types Packs/Day Years Used Date Former Smoker Cigarettes Quit: 04/30 Smokeless Tobacco: Former User Snuff Quit: 12/30/2018 Alcohol Use Drinks/Week oz/Week Comments No Sex Assigned at Date Recorded Not on file Job Start Date Occupation Industry Not on file Not on file Not on file documented as of this encounter Miscellaneous Notes * Telephone Encounter - Camilla Nielsen [facility] - 02/03/2021 11:14 AM EDT Signed Prescriptions: Disp Refills Olmesartan Medoxomil-HCTZ 40-12.5 MG Oral *90 Tab 1 Sig: Take 1 tablet by mouth once dailyAuthorizing Provider: NICK GALLAGHER User: CAMILLA NIELSEN documented in this encounter Plan of Treatment Upcoming Encounters Date Type Specialty Care Team Description 02/18/2021 Office Visit Podiatry Cassia Gustafson DPM [address] [place] [address] 04/02/2021 Office Visit Family Medicine Cecilia Valenzuela DO [address] [place] [address] [phone] Health Maintenance Due Date Last Done Comments Prediabetes-Yearly Hemoglobin A1c 1950 COVID-19 Vaccine (1) 1962 *DEPRESSION SCREENING,ANNUAL FOR PTS 12 AND OVER 05/09/2015 Zoster Vaccines (2 of 3) 06/25/2015 04/30/2015 Pneumococcal Vaccine: 65+ Years (1 of 1 - PPSV23) 09/30/2015 *COLORECTAL CANCER SCREENING (COLONOSCOPY 10 YEARS; SIGMOIDOSCOPY 5 YEARS; COLOGUARD 3 YEARS; FOBT 1 YEAR),AGES 50-75 11/20/2018 05/03/2015 Influenza Vaccine (FLU shot) (#1) 2020 05/11/2019 LIPID SCREEN EVERY 5 YRS-MEN AGE 35-75 07/03/2021 07/03/2016, 08/01/2015, 05/03/2015 DIABETES SCREEN EVERY 3 YRS-AGE 45 AND ABOVE 09/30/2023 2020, 09/15/2020, 07/02/2020, Additional history exists DTaP,Tdap,and Td Vaccines (2 - Td) 04/30/2025 04/30/2015 ABDOMINAL AORTIC ANEURYSM (AAA) SCREENING Completed 07/01/2020 MENINGOCOCCAL (MENACTRA/MENVEO) Aged Out No longer eligible based on patient's age to complete this topic documented as of this encounter Implants Not on filedocumented as of this encounter Visit Diagnoses Diagnosis Essential hypertension with goal blood pressure less than 140/90 documented in this encounter Advance Directives Documents on File Type Date Recorded Patient Paper Slitter Expl anation Advanced Directive Advanced Directive Advanced [...]
--- OUTSIDE RECORDS SUMMARY | 2022-12-29 03:34 | External Medical Summary | Summary of Care ---
Author Name Unknown Organization [place] [address] Care Team Providers Care Psychiatric Clinical Nurse Specialist Name Role Phone Nick Em MD Primary Care Provider + Encounter Details Date Type Department Care Team Description 08/18/2021 Scan Encounter Family Practice [facility] [address] [facility] [place] [address] Nick Em MD 132 [place] [address] <No scans attached> Allergies No known active allergiesdocumented as of this encounter (statuses as of 08/20/2021) Medications Medication Sig Dispensed Refills Start Date [...] 0 Active Olmesartan Medoxomil-HCTZ 40-12.5 MG Oral TabletIndications:Esse ntial hypertension with goal blood pressure less than 140/90 Take 1 tablet by mouth once daily 90 Tablet 0 07/30/2021 Active documented as of this encounter (statuses as of 08/20/2021) Active Problems Problem Noted Date S/P AAA repair 07/02/2020 Overview: 07/19 Dr Woodward Multiple subsegmental pulmonary emboli w [facility] acute cor pulmonale 05/10/2020 History of 2019 novel coronavirus diseas e (COVID-19) 05/08/2020 Prediabetes 07/11/2016 Dyslipidemia 05/05/2015 Overview: 05/16 LDL 222. High in past. NEED rx ICD-10 update of inactive term Well adult exam 04/30/2015 Overview: 10/19-d/c warfarin discussed w/hematology AAA , cologuard ordered. Refuses statin. HTN, goal below 130/80 04/30/2015 documented as of this encounter (statuses as of 08/20/2021) Resolved Problems Problem Noted Date Resolved Date COVID-19 virus infection 05/06/2020 021 Overview: Admit [facility] Viral PNA. Didn't react well w/steroids. D/c home on O2. documented as of this encounter (statuses as of 08/20/2021) Immunizations Name Administration Dates Next Due TDAP [...] Encounters Date Type Specialty Care Team Description 08/24/2021 Laboratory [facility] [address] [place] [address] 08/27/2021 Office Visit Family Medicine Gabrielle Jewell CRNP [address] [place] [address] Health Maintenance Due Date Last Done Comments Prediabetes-Yearly Hemoglobin A1c 1950 COVID-19 Vaccine (1) 09/30/1955 Cologuard: Ages 45-75 09/30/1995 Colonoscopy: Ages 45-75 09/30/1995 Sigmoidoscopy: Ages 45-75 09/30/1995 Zoster Vaccines (2 of 3) 06/25/2015 04/30/2015 Pneumococcal Vaccine: 65+ Years (1 of 1 - PPSV23) 09/30/2015 Colorectal Cancer Screening (Colonoscopy 10 Years; Sigmoidoscopy 5 Years; Cologuard 3 Years; FOBT 1 Year): Ages 45-75 05/03/2016 FOBT: Ages 45-75 05/03/2016 05/03/2015 Depression Screening, Annual for Pts 12 and Over 07/11/2017 07/11/2016 LIPID SCREEN EVERY 5 YRS-MEN AGE 35-75 07/03/2021 07/03/2016, 08/01/2015, 05/03/2015 BASIC METABOLIC PANEL (BMP) FOR HTN YEARLY 2021 2020, 09/15/2020, 07/02/2020, Additional history exists Influenza Vaccine (FLU shot) (Season Ended) 2021 05/11/2019 DIABETES SCREEN EVERY 3 YRS-AGE 45 AND [...] Documents on File Type Date Recorded Patient Rn Gyn Expl anation Advanced Directive Advanced Directive Advanced [...] Directive Advanced Directive Advanced Directive Care Teams Psychiatric Clinical Nurse Specialist Relationship Specialty Start Date End Date Nick Em MD [address] [place] [address] [place] [address] PCP - General Family Medicine 05/03/15 documented as of this encounter
--- OUTSIDE RECORDS SUMMARY | 2022-12-29 03:34 | External Medical Summary ---
Author Name Unknown Address Unknown Organization K01:[facility] [place] [address] [place] [address] Laboratory Report Ordering Provider Test Date Status ELLIOTT ANAYA 08/24/2021 08:23:16 Final Observation Date Value Abnormality Reference (Units ) Status HbA1C 08/24/2021 08:23:16 6.0 Above high normal 4. 0-5.6 (%) Final Performing Location [facility] - [address] [place] [address]
--- OUTSIDE RECORDS SUMMARY | 2022-12-29 03:34 | External Medical Summary ---
Author Name Unknown Address Unknown Organization [facility] [address] [place] [address] Laboratory Report Ordering Provider Test Date Status LETYEDDALINDA 10/05/2021 08:54:21 Final Observation Date Value Abnormality Reference (Units ) Status BUN 10/05/2021 08:54:21 31 Above high normal 6-20 (mg/dL) Final Creatinine 10/05/2021 08:54:21 1.5 Above high normal 0.6-1.2 (mg/dL) Final Glomerular filtration rate/1.73 sq M.predicted [Volume Rate/Area] in Serum, Plasma or Blood by Creatinine-based formula (CKD-EPI) 10/05/2021 08:54:21 48 Below low normal >=60 (mL/min) Final Performing [facility] - [address] [place] [address]
--- OUTSIDE RECORDS SUMMARY | 2022-12-29 03:34 | External Medical Summary | Summary of Care ---
Author Name Unknown Organization [place] [address] Care Team Providers Care Line Haul Truck Driver Name Role Phone Nick Em MD Primary Care Provider + Reason for Visit * Reason Comments Re-Check kidney, glucose, BP check Encounter Details Date Type Department Care Team Description 08/27/2021 Office Visit Family Practice [facility] 132 [facility] [place] [address] Gabrielle Jewell CRNP 132 [facility] [place] [address] Prediabetes*; Dyslipidemia; HTN, goal below 130/80; S/P AAA repair; Chronic midline low back pain, unspecified whether sciatica present Allergies No known active allergiesdocumented as of this encounter (statuses as of 08/27/2021) Medications Medication Sig Dispensed Refills Start Date [...] 0 Active Olmesartan Medoxomil-HCTZ 40-25 MG Oral TabletIndications:H TN, goal below 130/80 Take by mouth 1 Tablet in the morning. 90 Tablet 3 08/27/2021 Active Atorvastatin Calcium 20 MG Oral Tablet (Lipitor)Indication s:Dyslipidemia Take by mouth 1 Tablet in the morning. 30 Tablet 5 08/27/2021 Active Olmesartan Medoxomil-HCTZ 40-12.5 MG Oral TabletIndications:E ssential hypertension with goal blood pressure less than 140/90 Take 1 tablet by mouth once daily 90 Tablet 0 07/30/2021 08/27/2021 Discontinued documented as of this encounter (statuses as of 08/27/2021) Active Problems Problem Noted Date S/P AAA repair 07/02/2020 Overview: 07/19 Dr Woodward Multiple subsegmental pulmonary emboli w [facility] acute cor pulmonale 05/10/2020 History of 2019 novel coronavirus diseas e (COVID-19) 05/08/2020 Prediabetes 07/11/2016 Dyslipidemia 05/05/2015 Overview: 05/16 LDL 222. High in past. NEED rx ICD-10 update of inactive term Well adult exam 04/30/2015 Overview: 10/19-d/c warfarin discussed w/hematology AAA , cologuard ordered. Refuses statin. HTN, goal below 130/80 04/30/2015 documented as of this encounter (statuses as of 08/27/2021) Resolved Problems Problem Noted Date Resolved Date COVID-19 virus infection 05/06/2020 021 Overview: Admit [facility] Viral PNA. Didn't react well w/steroids. D/c home on O2. documented as of this encounter (statuses as of 08/27/2021) Immunizations Name Administration Dates Next Due TDAP [...] Sign Reading Time Taken Comments Blood Pressure 158/88 08/27/2021 8:00 AM EDT Pulse 67 08/27/2021 8:00 AM EDT Temperature 36.2 C (97.1 F) 08/27/2021 8:00 AM ED T Respiratory Rate - - Oxygen Saturation 95% 08/27/2021 8:00 AM EDT Inhaled Oxygen Concentration - - Weight 121.5 kg (267 lb 12.8 oz) 08/27/2021 8:00 AM EDT Height 174 cm (5' 8.5") 08/27/2021 8:00 AM EDT Body Mass Index 40.13 08/27/2021 8:00 AM EDT documented in this encounter Progress Notes * JOHN Robles - 08/27/2021 8:45 AM EDT Images from the original note were not included. 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 Taking olmesartan HCTZ combo at same dose x many years. Gained weight (about 40lb) after stopping tobacco a year ago. 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 Had COVID a year ago,had a complicated course and AAA repair during hospitalization that led to some deconditioning/chronic low back pain. Worse at end of day. Not interested in PT yet. Would like to try to lose weight, make lifestyle mods first. Sees Dr. Woodward s/p AAA repair and he just went two weeks ago, pleased with status. States he is doing well. LDL 177. Worried about statins, willing to take lower dose Physical Exam Vitals: 08/27/21 0800 Temp: 36.2 C (97.1 F) Pulse: 67 SpO2: 95% BP: 158/88 BMI: 40.12 BP Readings from Last 3 Encounters: 08/27/21 158/88 01/01/21 170/84 09/29/20 163/81 Physical Exam I have reviewed the following results: Assessment and Plan Prediabetes - Recommend dietary/lifestyle modifications, recheck A1C in 6 months Dyslipidemia - Recommended he do high-dose, but pt agreeable to trial of lower dose of statin and will recheck in about 6 months - Atorvastatin Calcium 20 MG Oral Tablet (Lipitor); Take by mouth 1 Tablet in the morning. HTN, goal below 130/80 - will recheck in 1 month - Olmesartan Medoxomil-HCTZ 40-25 MG Oral Tablet; Take by mouth 1 Tablet in the morning. - BASIC METABOLIC PANEL; Future S/P AAA repair - stable, continue per vascular recommendations Chronic midline low back pain, unspecified whether sciatica present - Recommend PT Wrap-Up Follow-up: Return in about 4 weeks (around 09/24/2021). | Check-out note: Recheck BP. Labs 2 day before if possible Schedule with PCP in 6 months as well to get on his schedule Time: I spent a total of 30-39 minutes (exact time 35 mins) on the date of service in preparation, delivery, and documentation of the care provided to Raj Bashir excluding any time spent in the performance of separately billed services. documented in this encounter Nursing Notes * Jenelle Gipson LPN - 08/27/2021 8:28 AM EDT Pt here for lab work review. Kidney check (got blood work and the kidney labs came back good). Blood sugars have been good. Pt is concerned about his BP has been elevated recently. Concerned about med dosages. documented in this encounter Plan of Treatment Upcoming Encounters Date Type Specialty Care Team Description 09/23/2021 Office Visit Family Medicine Gabrielle Jewell CRNP [address] [place] [address] 03/25/2022 Office Visit Family Medicine Nick Em MD [address] [place] [address] Scheduled Orders Name Type Priority Associated Diagnoses Orde r Schedule BASIC METABOLIC PANEL Lab Routine HTN, goal below 130/80 Expected: 08/27/2021 (Approximate), Expires: 08/27/2022 Health Maintenance Due Date Last Done Comments COVID-19 Vaccine (1) 09/30/1955 Cologuard: Ages 45-75 [...] Vaccine (FLU shot) (Season Ended) 2021 05/11/2019 BASIC METABOLIC PANEL (BMP) FOR HTN YEARLY 08/24/2022 08/24/2021, 2020, 09/15/2020, Additional history exists Prediabetes-Yearly Hemoglobin A1c 08/24/2022 08/24/2021, 08/24/2021 DIABETES SCREEN EVERY 3 YRS-AGE 45 AND ABOVE 08/24/2024 08/24/2021, 08/24/2021, 2020, Additional history exists DTaP,Tdap,and Td Vaccines (2 - Td or Tdap) 04/30/2025 04/30/2015 LIPID SCREEN EVERY 5 YRS-MEN AGE 35-75 08/24/2026 08/24/2021, 07/03/2016, 08/01/2015, Additional history exists ABDOMINAL AORTIC ANEURYSM (AAA) SCREENING Completed 07/01/2020 GARDASIL-HPV IMMUNIZATION SERIES Aged Out No longer eligible based on patient's age to complete this topic MENINGOCOCCAL (MENACTRA/MENVEO) Aged Out No longer eligible based on patient's age to complete this topic documented as of this encounter Implants Not on filedocumented as of this encounter Visit Diagnoses Diagnosis Prediabetes- Primary Other abnormal glucose Dyslipidemia Other and unspecified hyperlipidemia HTN, goal below 130/80 Unspecified essential hypertension S/P AAA repair Other postprocedural status Chronic midline low back pain, unspecified whether sciatica present documented in this encounter Advance Directives Documents on File Type Date Recorded Patient Benzene Washer Operator Expl anation Advanced Directive Advanced Directive [...] Directive Advanced Directive Advanced Directive Care Teams Line Haul Truck Driver Relationship Specialty Start Date End Date Nick Em MD 132 [facility] [place] [address] PCP - General Family Medicine 05/03/15 documented as of this encounter
--- OUTSIDE RECORDS SUMMARY | 2022-12-29 03:34 | External Medical Summary ---
Author Name Unknown Address Unknown Organization K01:[facility] [place] [address] [place] [address] Laboratory Report Ordering Provider Test Date Status ELLIOTT ANAYA 08/24/2021 08:23:16 Final Observation Date Value Abnormality Reference (Units ) Status Triglyceride 08/24/2021 08:23:16 397 Above high normal <=174 (mg/dL) Final Performing Location [facility] - [address] [place] [address]
--- OUTSIDE RECORDS SUMMARY | 2022-12-29 03:34 | External Medical Summary | Summary of Care ---
Author Name Unknown Organization [place] [address] Care Team Providers Care Unix Administrator Name Role Phone Nick Em MD Primary Care Provider + Reason for Visit * Reason Onset Date Comments Order Request 08/18/2021 Encounter Details Date Type Department Care Team Description 08/18/2021 Telephone Family Practice [facility] [address] [place] [address] Nick Em MD 132 [facility] [place] [address] Order Request Allergies No known active allergiesdocumented as of this encounter (statuses as of 08/19/2021) Medications Medication Sig Dispensed Refills Start Date [...] as of this encounter (statuses as of 08/19/2021) Active Problems Problem Noted Date S/P AAA repair 07/02/2020 Overview: 07/19 Dr Woodward [facility]/10[facility]2020 History of 2019 novel coronavirus diseas e (COVID-19) 05/08/2020 Prediabetes 07/11/2016 Dyslipidemia 05/05/2015 Overview: 05/16 LDL 222. High in past. NEED rx ICD-10 update of inactive term Well adult exam 04/30/2015 Overview: 10/19-d/c warfarin discussed w/hematology AAA , cologuard ordered. Refuses statin. HTN, goal below 130/80 04/30/2015 documented as of this encounter (statuses as of 08/19/2021) Resolved Problems Problem Noted Date Resolved Date COVID-19 virus infection 05/06/2020 021 Overview: Admit [facility] Viral PNA. Didn't react well w/steroids. D/c home on O2. documented as of this encounter (statuses as of 08/19/2021) Immunizations Name Administration Dates Next Due TDAP [...] encounter Miscellaneous Notes * Telephone Encounter - Caroline Lebron LPN [...] Diagnosis/Reason for Request: to discuss results at appde Does the order need to be faxed somewhere? If so, where?: --- Fax Number, if applicable: ---- Call Back Number: [phone], please call when orders are placed so [...] Laboratory Laboratory [facility] [address] [place] [address] 08/27/2021 Office Visit Family Medicine Gabrielle Jewell CRNP [address] [place] [address] Scheduled Orders Name Type Priority Associated Diagnoses Orde r Schedule HEMOGLOBIN A1C Lab Routine Prediabetes Expected: 08/18/2021 (Approximate), Expires: 08/18/2022 BASIC METABOLIC PANEL Lab Routine Screening for diabetes mellitus Expected: 08/18/2021 (Approximate), Expires: 08/18/2022 LIPID PANEL WITH DIRECT LDL IF TG IS HIGH Lab Routine Lipid screening Expected: 08/18/2021, Expires: 08/18/2022 Health Maintenance Due Date Last Done Comments [...] Documents on File Type Date Recorded Patient Quality Inspector Expl anation Advanced Directive Advanced Directive Advanced [...] Directive Advanced Directive Advanced Directive Care Teams Unix Administrator Relationship Specialty Start Date End Date Nick Em MD [address] [place] [address] PCP - General Family Medicine 05/03/15 documented as of this encounter
--- OUTSIDE RECORDS SUMMARY | 2022-12-29 03:34 | External Medical Summary | Summary of Care ---
Author Name Unknown Organization [place] [address] Care Team Providers Care Mechanical Fitter Name Role Phone Nick Em MD Primary Care Provider + Reason for Visit * Reason Comments NEW PATIENT R heel * Evaluate & Treat - Unlimited Visits (Within 30 days (routine)) Status Reason Specialty Diagnoses / Procedures Referred By Contact Referred To Contact Closed Specialty Services Required Podiatry Diagnoses Heel spur, right Nick Em MD [facility] [place] [address] Encounter Details Date Type Department Care Team Description 02/18/2021 Office Visit Podiatry [facility] [address] [facility] [place] [address] Cassia Gustafson DPM 132 [facility] [place] [address] [phone] Pain of right heel*; Plantar fasciitis of right foot; Equinus contracture of right ankle Allergies No Known Active Allergiesdocumented as of this encounter (statuses as of 02/18/2021) Medications Medication Sig Dispensed Refills Start Date End Date Status fish oil concentrate (OMEGA-3) 1000 MG CAPSIndications:Hyperli pidemia with target LDL less than 160 Take 1 Cap by mouth 2 times a day. 60 Cap 5 07/12/2016 Active Aspirin 81 MG Oral Tablet Delayed Release Take 81 mg by mouth daily. 0 2020 Active Zinc 50 MG Oral Tablet Take 50 mg by mouth daily. 0 Active Olmesartan Medoxomil-HCTZ 40-12.5 MG Oral TabletIndications:Karely leavitt hypertension with goal blood pressure less than 140/90 Take 1 tablet by mouth once daily 90 Tab 1 02/03/2021 Active documented as of this encounter (statuses as of 02/18/2021) Active Problems Problem Noted Date S/P AAA [...] as of this encounter (statuses as of 02/18/2021) Resolved Problems Problem Noted Date Resolved Date COVID-19 virus infection 05/06/2020 021 Overview: Admit [facility] Viral PNA. Didn't react well w/steroids. D/c home on O2. documented as of this encounter (statuses as of 02/18/2021) Immunizations Name Administration Dates Next Due TDAP [...] on file documented as of this encounter Progress Notes * Cassia Gustafson DPM - 02/18/2021 7:55 AM EDT Podiatry New Patient Note [facility] Name: Raj Bashir : 1950 Date: 02/18/2021 CHIEF COMPLAINT: Right heel pain HISTORY OF PRESENT ILLNESS: This patient is a 70 year old male who presents today with complaints of right heel pain. Pt states for the past 2-3 months he has noticed increased pain to the right heel. He describes his symptoms as sharp shooting when he steps on it. He has no pain when he sits or laying in bed. He does have pain with his first step out of bed in the morning and progressively gets worse. He has tried frozen can of soup, stretching the toes back when he is sitting with little relief. He denies any history of smoking. 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 He typically wears boots. Denies any other complaints. He has tried OTC inserts with little improvement. Past Medical History: Diagnosis Date History of 2018 novel coronavirus disease (COVID-19) 05/08/2020 HTN, goal below 140/90 04/30/2015 Prediabetes 07/11/2016 S/P AAA repair 07/02/202007/19 Dr Woodward Past Surgical History: Procedure Laterality Date OTHER 07/01/2020 TEVAR Aorta Aneurysm Repair, Dr Woodward @[facility] REMOVE PILONIDAL CYST, COMPLEX in 20s Family History Problem Relation Age of Onset Heart Disorder Mother 64 Heart Disorder Father 68-DM since 40s Heart Disorder Brother 62 . half bro?heart Diabetes Brother No Past Hx Sister Cancer Sister breast-younger Other (Other) Brother 62 . ?MA unsure. 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 5 grandchildren-[place]! Lifestyle Physical activity Days per week: Not on file Minutes per session: Not on file Stress: Not on file Relationships Social connections Talks on phone: Not on file Gets together: Not on file Attends nondenominational service: Not on file Active member of club or organization: Not on file Attends meetings of clubs or organizations: Not on file Relationship status: Not on file Intimate partner violence Fear of current or ex partner: Not on file Emotionally abused: Not on file Physically abused: Not on file Forced sexual activity: Not on file Other Topics Concern Not on file Social History Narrative Likes norton/fish. Mushrooms-[place] Vaping/E-Cigarette Use Vaping/E-Cigarette Use Never User Vaping/E-Cigarette Substances Vaping/E-Cigarette Devices Current Outpatient Medications Medication Sig Dispense Refill Olmesartan Medoxomil-HCTZ 40-12.5 MG Oral Tablet Take 1 tablet by mouth once daily 90 Tab 1 Zinc 50 MG Oral Tablet Take 50 mg by mouth daily. Aspirin 81 MG Oral Tablet Delayed Release Take 81 mg by mouth daily. fish oil concentrate (OMEGA-3) 1000 MG CAPS Take 1 Cap by mouth 2 times a day. 60 Cap 5 ALLERGIES: Review of patient's allergies indicates: No Known Allergies REVIEW OF SYSTEMS: CONSTITUTIONAL: No change in weight, No weakness, No fatigue and No fevers, sweats, or chills EYE: No recent significant change in vision and No eye pain, redness, discharge EARS: No ear pain and No recent change in hearing NOSE: No history of frequent colds or sinusitis and No nasal stuffiness PULMONARY: No cough, sputum, or hemoptysis and No recent change in breathing CARDIOVASCULAR: No chest pain, No shortness of breath and No syncope EXTREMITIES: Right heel pain SKIN/INTEGUMENTARY: No edema, No rash and No itching NEUROLOGIC: Normal balance, No headaches, No seizures and No weakness PSYCHIATRIC: No depression, No anxiety and No psychosis RIGHT FOCUSED PODIATRIC EXAM: Vitals: There were no vitals filed for this visit. General: Patient is awake alert oriented to person place time. No apparent distress. Vascular: DP/PT pulses palpable. CFT < 3 sec 1-5. No edema noted. Temperature gradient is normal warm to cold. Neurologic: Protective sensation intact to light touch. Sensation to sharp/dull is intact. There is no babinskiresponse elicited. Ankle clonus is absent. Dermatological: Skin is normal in appearance with no open lesions or interdigital macerations. Nails 1-5 are normalin length and thickness. Pedal hair is noted. Musculoskeletal: POP noted the medial and central band of the plantar fascia. Equinus noted. No pain with active or passive ROM of the digits or ankle joint. Muscle strength is 5/5 for all muscle groups of the lower extremity. DIAGNOSTIC STUDIES: 2 views of the right heel (01/01/2021) FINDINGS No visible fracture. Alignment is normal. Joint spaces are preserved. Small plantar calcaneal spur. IMPRESSION IMPRESSION Small plantar calcaneal spur ASSESSMENT: 1. Right heel pain 2. Plantar fasciitis, right 3. Equinus, right lower extremity PLAN: - Xrays reviewed and discussed with the pt. All questions answered. - Recommend an aggressive stretching regimen. Stretches given and demonstrated. Instructed to perform at least 5 times daily. - Continue with OTC pain medication - Discussed steroid injection, however, pt declined at this time. - Instructed to wear good, supportive shoes at all times while ambulating, especially with her first step out of bed. No barefoot walking. - Pt to RTC if symptoms fail to improve over the next 6-8 weeks. Instructed to call with any problems or questions. Cassia Gustafson DPM Referring: Nick Em MD documented in this encounter Nursing Notes * Alexandra Langley LPN - 02/18/2021 7:50 AM EDT Pt presents for new visit, referred by PCP. Pain in R heel x 2-3 months, had x- ray 01/01/2021. Will have pain with walking. documented in this encounter Plan of Treatment Upcoming Encounters Date Type Specialty Care Team Description 04/02/2021 Office Visit Family Medicine Cecilia Valenzuela DO 132 [facility] [place] [address] [phone] Scheduled Referrals Name Type Priority Associated Diagnoses Orde r Schedule PODIATRY REFERRAL OP Referral Within 30 days (routine) Heel spur, right Ordered: 01/07/2021 Health Maintenance Due Date Last Done Comments [...] as of this encounter Visit Diagnoses Diagnosis Pain of right heel- Primary Pain in limb Plantar fasciitis of right foot Plantar fascial fibromatosis Equinus contracture of right ankle documented in this encounter Advance Directives Documents on File Type Date Recorded Patient Roofer Vinyl Coating Expl anation Advanced Directive Advanced Directive Advanced [...]
--- OUTSIDE RECORDS SUMMARY | 2022-12-29 03:34 | External Medical Summary | Summary of Care ---
Author Name Unknown Organization [place] [address] Care Team Providers Care Lumber Cutter Name Role Phone Nick Em MD Primary Care Provider + Reason for Referral * Evaluate & Treat - Unlimited Visits (Within 30 days (routine)) Status Reason Specialty Diagnoses / Procedures Referred By Contact Referred To Contact Authorized Specialty Services Required Podiatry Diagnoses Sharon caputo, right Nick Em MD [facility] [place] [address] Question Answer Referral Priority Within 30 days (routine) Which condition are you referring this patient for? General Podiatry/Other Comments Sharon caputo Electronically signed by Nick Em MD at Reason for Visit * Reason Onset Date Comments Advice 01/06/2021 Encounter Details Date Type Department Care Team Description 01/06/2021 Telephone Family Practice [facility] [address] [place] [address] Nick Em MD [address] [facility] [place] [address] [phone] Advice Allergies No Known Active Allergiesdocumented as of this encounter (statuses as of 01/08/2021) Medications Medication Sig Dispensed Refills Start Date End Date Status fish oil concentrate (OMEGA-3) 1000 MG CAPSIndications:Hyperli pidemia with target LDL less than 160 Take 1 Cap by mouth 2 times a day. 60 Cap 5 07/12/2016 Active Olmesartan Medoxomil-HCTZ 40-12.5 MG Oral TabletIndications:Karely leavitt hypertension with goal blood pressure less than 140/90 Take 1 tablet by mouth once daily 90 Tab 1 08/04/2020 Active Aspirin 81 MG Oral Tablet Delayed Release Take 81 mg by mouth daily. 0 2020 Active Zinc 50 MG Oral Tablet Take 50 mg by mouth daily. 0 Active documented as of this encounter (statuses as of 01/08/2021) Active Problems Problem Noted Date S/P AAA repair 07/02/2020 Overview: 07/19 Dr Woodward [facility] 05/10/2020 History of 2019 novel coronavirus diseas e (COVID-19) 05/08/2020 Prediabetes 07/11/2016 Dyslipidemia 05/05/2015 Overview: 05/16 LDL 222. High in past. NEED rx ICD-10 update of inactive term Well adult exam 04/30/2015 Overview: 10/19-d/c warfarin discussed w/hematology AAA , cologuard ordered. Refuses statin. HTN, goal below 130/80 04/30/2015 documented as of this encounter (statuses as of 01/08/2021) Resolved Problems Problem Noted Date Resolved Date COVID-19 virus infection 05/06/2020 021 Overview: Admit [facility] Viral PNA. Didn't react well w/steroids. D/c home on O2. documented as of this encounter (statuses as of 01/08/2021) Immunizations Name Administration Dates Next Due TDAP [...] encounter Miscellaneous Notes * Telephone Encounter - Alexandra Alston OSA - 01/08/2021 7:28 AM EDT appt scheduled with pt * Telephone Encounter - Kita Palacios CMA - 01/07/2021 5:04 PM EDT Called pt and let him know. He is willing to see podiatry. Please sign referal. Please schedule Pt * Telephone Encounter - Cecilia Valenzuela DO - 01/07/2021 3:14 PM EDT Small heel spur noted Ice, nsaids with food Can refer to podiatry if pt desires Thank you * Telephone Encounter - Nick Em MD - 01/07/2021 2:03 PM EDT Fwd to Dr Valenzuela--looks like xray not back yet * Telephone Encounter - Pham Shannon OSA - 01/06/2021 4:32 PM EDT Who is Requesting Test Results: pt and pt's Primary Care Provider : Dr Em Tests Results Requested : xray's of pt heel Date of Test : 01/01 Location of Test: [facility] Ordering Provider: Cecilia Valenzuela DO Callback Number:[phone], please call pt and pt's to discuss results and actions needed Patient has been made aware that the turnaround time for test results are typically as follows: Laboratory results = within 2 days Urine Cultures = within 2-3 days depending on growth within the culture Pathology results (biopsy results/PAP) = 1-2 weeks Radiology results = within 1 week Cologuard results = within 2 weeks from the shipment date COVID testing = results are on average 7 days documented in this encounter Plan of Treatment Upcoming Encounters Date Type Specialty Care Team Description 02/18/2021 Office Visit Podiatry Cassia Gustafson DPM [address] [place] [address] [phone] 04/02/2021 Office Visit Family Medicine Cecilia Valenzuela DO [address] [place] [address] [phone] Scheduled Referrals Name Type Priority Associated Diagnoses [...] as of this encounter Visit Diagnoses Diagnosis Heel spur, right- Primary documented in this encounter Advance Directives Documents on File Type Date Recorded Patient Director Of Assisted Living Expl anation Advanced Directive Advanced Directive Advanced [...]
--- OUTSIDE RECORDS SUMMARY | 2022-12-29 03:34 | External Medical Summary | Continuity of Care Document ---
Author Name Unknown Organization [place] [address] AMIE Manjarrez K Address [address] [place] [id number] Care Team Providers Care Transportation Escort Name Role Phone Nick Em Primary Care Physician [phone] [id number] Date[facility]s): 08/18/21 - 08/18/[address], [address] [place] [address] [phone] Discharge Disposition: Home or Self Care Attending [...] Date: 10/16/18 Status: Ordered Problem List Condition Effective Dates Status Health Status Inform ant AAA (abdominal aortic aneury sm) without rupture(Confirmed) Active S/P AAA repair using bifurca tion graft(Confirmed) Active S/P endovascular aneurysm repair(Confirmed) Active High blood pressure(Confirmed) Active Tobacco user(Confirmed) Active Procedures Procedure Date Related Diagnosis Body Site Status PEVAR 07/01/20 Completed None Completed Results Radiology Reports * Exam Date Time Procedure Performing Provider Status 08/18/21 8:53 AM VL Aortoiliac Duplex Complete MondayKatharine; Final Notes: (VL Aortoiliac Duplex Complete) Reason For Exam: AAA VL Aortoiliac Duplex Complete [facility] FINAL REPORT Name: JORDAN OWEN : 1950 Visit: [id number] Date: 18 Aug 2021 TYPE OF TEST: Aorto-Iliac Duplex REASON FOR TEST Endovascular AAA repair INTERPRETATION/FINDINGS Arterial duplex imaging performed of the abdominal aorta and bilateral iliac arteries: 1. Patent infrarenal aszmx-[id number] endovascular aneurysm repair without evidence of endoleak or stenosis. Residual aneurysm sac measures 5.4 cm AP by 5.5 cm Trnvs. 2. 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 3. No stenosis identified in the bilateral external iliac or common femoral arteries. 4. 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 Compared to the previous study performed 02/11/2021, the bilateral common femoral arteries now appear aneurysmal. Otherwise, there is no significant change. IMPRESSION/COMMENTS I have personally reviewed the data relevant to the interpretation of this study. TECHNOLOGIST: Katharine Dodd RDCS, RVT PHYSICIAN: Pipe Woodward M.D. Signed: 08/18/2021 09:28 AM Final Dictated by:MD Woodward Eugene J Dictated DT/TM:08/18/2021 9:28 Signed by:MD Woodward Eugene J Signed (Electronic Signature):08/18/2021 9:28 a Transcribed by:MIKE Social History Social History Type Response Tobacco Former smoker, Smoke less tobacco use: Former smokeless tobacco user, quit more than 1 year ago. 1 Smoking Status Former Smoker, quit > 1 yr Sex Male 1Former smoker quit 40+ yr ago, smokeless tobacco use x 40+ years 1979, quit 2 years ago (2019)
--- OUTSIDE RECORDS SUMMARY | 2022-12-29 03:34 | External Medical Summary | Continuity of Care Document ---
Author Name Unknown Organization [place] [address] AMIE Manjarrez K Address [address] [place] [id number] Care Team Providers Care Cable Driller Name Role Phone Nick Em Primary Care Physician [phone] [id number] Date[facility]s): 08/18/21 - 08/18/[address], [address] [place] [address] [phone] Encounter Diagnosis S/P endovascular aneurysm repair(Discharge Diagnosis) - 08/18/21 Discharge Disposition: Home or Self Care Attending Physician: MD Crissy, Pipe Caballero Referring Physician: MD Em Paul R Allergies, [...] Informant S/P endovascular aneurysm repair Discharge Diagnosis 08/18/21 Procedures Procedure Date Related Diagnosis Body Site Status PEVAR 07/01/20 Completed None Completed Vital Signs Most recent to oldest [Reference Range]: 1 2 Heart Rate 74 bpm (08/18/21 9:41 AM) Blood Pressure 150/68mmHg (08/18/21 9:42 AM) 152/66mmHg (08/18/21 9:41 AM) Cuff Pulse Pressure 82 mmHg (08/18/21 9:42 AM) 86 mmHg (08/18/21 9:41 AM) BP Location # 1 Right Arm (08/18/21 9:42 AM) Left Arm (08/18/21 9:41 AM) Social History Social History Type Response Tobacco Former smoker, Smoke less tobacco use: Former smokeless tobacco user, quit more than 1 year ago. 1 Smoking Status Former Smoker, quit > 1 yr Sex Male 1Former smoker quit 40+ yr ago, smokeless tobacco use x 40+ years 1979, quit 2 years ago (2019)
--- OUTSIDE RECORDS SUMMARY | 2022-12-29 03:34 | External Medical Summary | Summary of Care ---
Author Name Unknown Organization [place] [address] Care Team Providers Care Relocation Services Specialist Name Role Phone Nick Em MD Primary Care Provider + Encounter Details Date Type Department Care Team Description 02/11/2021 Scan Encounter Family Practice [facility] 132 [facility] [place] [address] Nick Em MD 132 [place] [address] [phone] <No scans attached> Allergies No Known Active Allergiesdocumented as of this encounter (statuses as of 02/16/2021) Medications Medication Sig Dispensed Refills Start Date [...] 0 Active Olmesartan Medoxomil-HCTZ 40-12.5 MG Oral TabletIndications:Essen tial hypertension with goal blood pressure less than 140/90 Take 1 tablet by mouth once daily 90 Tab 1 02/03/2021 Active documented as of this encounter (statuses as of 02/16/2021) Active Problems Problem Noted Date S/P AAA repair 07/02/2020 Overview: 07/19 Dr Woodward [facility] 05/10/2020 History of 2019 novel coronavirus diseas e (COVID-19) 05/08/2020 Prediabetes 07/11/2016 Dyslipidemia 05/05/2015 Overview: 05/16 LDL 222. High in past. NEED rx ICD-10 update of inactive term Well adult exam 04/30/2015 Overview: 10/19-d/c warfarin discussed w/hematology AAA , cologuard ordered. Refuses statin. HTN, goal below 130/80 04/30/2015 documented as of this encounter (statuses as of 02/16/2021) Resolved Problems Problem Noted Date Resolved Date COVID-19 virus infection 05/06/2020 021 Overview: Admit [facility] Viral PNA. Didn't react well w/steroids. D/c home on O2. documented as of this encounter (statuses as of 02/16/2021) Immunizations Name Administration Dates Next Due TDAP [...] Office Visit Podiatry Cassia Gustafson DPM [address] [place] [address] [phone] 04/02/2021 Office Visit Family Medicine Cecilia Valenzuela DO [address] [place] [address] [phone] Health Maintenance Due Date Last Done Comments [...] Documents on File Type Date Recorded Patient Greens Tier Expl anation Advanced Directive Advanced Directive Advanced [...]
--- OUTSIDE RECORDS SUMMARY | 2022-12-29 03:34 | External Medical Summary | Continuity of Care Document ---
Author Name Unknown Organization [place] [address] AMIE Manjarrez Address [address] [place] [phone] Care Team Providers Care Director Clinical Pharmacology Name Role Phone Nick Em Primary Care Physician [phone] [id number] Date[facility]s): 02/11/21 - 02/11/[address], [address] [place], [place] [address] [phone] Discharge Disposition: Home or Self Care Attending [...] Exam Date Time Procedure Performing Provider Status 02/11/21 8:53 AM VL Aortoiliac Duplex Complete ; Final Notes: (VL Aortoiliac Duplex Complete) Reason For Exam: AAA, pevar VL Aortoiliac Duplex Complete [facility] FINAL REPORT Name: JORDAN OWEN : 1950 Visit: [id number] Date: 11 Feb 2021 TYPE OF TEST: Aorto-Iliac Duplex REASON FOR TEST Endovascular AAA repair INTERPRETATION/FINDINGS Arterial duplex imaging performed of the abdominal aorta and bilateral iliac arteries: 1. Patent infrarenal vygki-ju-klzim endovascular aneurysm repair without evidence of endoleak or stenosis. Residual aneurysm sac measures 5.7 cm AP by 5.6 cm Trnvs. 2. 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 3. No stenosis identified in the bilateral external iliac or common femoral arteries. No previous studies available for comparison. IMPRESSION/COMMENTS I have personally reviewed the data relevant to the interpretation of this study. TECHNOLOGIST: Katharine Dodd RDCS, T PHYSICIAN: Pipe Woodward M.D. Signed: 02/11/2021 09:27 AM Final Dictated by:MD Woodward Eugene J Dictated DT/TM:02/11/2021 9:27 Signed by:MD Woodward Eugene J Signed (Electronic Signature):02/11/2021 9:27 a Transcribed by:MIKE Social History Social History Type Response Tobacco Former smoker, Smoke less tobacco use: Former smokeless tobacco user, quit more than 1 year ago. 1 Smoking Status Former Smoker, quit > 1 yr Sex Male 1Former smoker quit 40+ yr ago, smokeless tobacco use x 40+ years 1979, quit 2 years ago (2019)
--- OUTSIDE RECORDS SUMMARY | 2022-12-29 03:34 | External Medical Summary | Summary of Care ---
Author Name Unknown Organization [place] [address] Care Team Providers Care Evaluation Manager Name Role Phone Nick Em MD Primary Care Provider + Reason for Visit * Reason Onset Date Comments Advice 01/06/2021 Encounter Details Date Type Department Care Team Description 01/06/2021 Telephone Family Practice [facility] [address] [facility] [place] [address] Nick Em MD [address] [facility] [place] [address] [phone] Advice Allergies No Known Active Allergiesdocumented as of this encounter (statuses as of 01/12/2021) Medications Medication Sig Dispensed Refills Start Date End Date Status fish oil concentrate (OMEGA-3) 1000 MG CAPSIndications:Hyperli pidemia with target LDL less than 160 Take 1 Cap by mouth 2 times a day. 60 Cap 5 07/12/2016 Active Olmesartan Medoxomil-HCTZ 40-12.5 MG Oral TabletIndications:Essen [...] as of this encounter (statuses as of 01/12/2021) Active Problems Problem Noted Date S/P AAA repair 07/02/2020 Overview: 07/19 Dr Woodward [facility]/10[facility]2020 History of 2019 novel coronavirus diseas e (COVID-19) 05/08/2020 Prediabetes 07/11/2016 Dyslipidemia 05/05/2015 Overview: 05/16 LDL 222. High in past. NEED rx ICD-10 update of inactive term Well adult exam 04/30/2015 Overview: 10/19-d/c warfarin discussed w/hematology AAA , cologuard ordered. Refuses statin. HTN, goal below 130/80 04/30/2015 documented as of this encounter (statuses as of 01/12/2021) Resolved Problems Problem Noted Date Resolved Date COVID-19 virus infection 05/06/2020 021 Overview: Admit [facility] Viral PNA. Didn't react well w/steroids. D/c home on O2. documented as of this encounter (statuses as of 01/12/2021) Immunizations Name Administration Dates Next Due TDAP [...] encounter Miscellaneous Notes * Telephone Encounter - Parul Martinez LPN - 01/12/2021 8:44 AM EDT Pt aware * Telephone Encounter - Nick Em MD - 01/11/2021 2:06 PM EDT They will mail him cologuard kit. I'll put in same for * Telephone Encounter - Pham Shannon OSA - 01/06/2021 4:43 PM EDT Pt's calling in on behalf of pt - asking about the mail order stool samples to be mailed in instead of having colonoscopy done -pt's would like to pick up driver up 2 for them to do the mail orderstool screening - please call to discuss when they can pick them up - [phone] (colo-guard she thought... which ever PCP said was the better one to do) documented in this encounter Plan of Treatment Upcoming Encounters Date Type Specialty Care Team Description 02/18/2021 Office Visit Podiatry Cassia Gustafson DPM [address] [place] [address] [phone] 04/02/2021 Office Visit Family Medicine Cecilia Valenzuela DO [address] [place] [address] [phone] Scheduled Orders Name Type Priority Associated Diagnoses Orde r Schedule COLOGUARD Lab Unrestricted Lab Screen for colon cancer Ordered: 01/11/2021 Health Maintenance Due Date Last Done Comments [...] as of this encounter Visit Diagnoses Diagnosis Screen for colon cancer- Primary Special screening for malignant neoplasms, colon documented in this encounter Advance Directives Documents on File Type Date Recorded Patient Packaging Supervisor Expl anation Advanced Directive Advanced Directive Advanced [...]
--- OUTSIDE RECORDS SUMMARY | 2022-12-29 03:34 | External Medical Summary | Summary of Care ---
Author Name Unknown Organization [place] [address] Care Team Providers Care Key Ringer Name Role Phone Nick Em MD Primary Care Provider + Reason for Visit * Reason Comments Outpatient Testing Encounter Details Date Type Department Care Team Description 08/24/2021 Laboratory Laboratory, [facility] [address] [facility] [place] [phone] [facility] [address] [facility] [place] [address] Prediabetes; Screening for diabetes mellitus; Lipid screening Allergies No known active allergiesdocumented as of this encounter (statuses as of 08/24/2021) Medications Medication Sig Dispensed Refills Start Date [...] as of this encounter (statuses as of 08/24/2021) Active Problems Problem Noted Date S/P AAA repair 07/02/2020 Overview: 07/19 Dr Woodward [facility] 05/10/2020 History of 2019 novel coronavirus diseas e (COVID-19) 05/08/2020 Prediabetes 07/11/2016 Dyslipidemia 05/05/2015 Overview: 05/16 LDL 222. High in past. NEED rx ICD-10 update of inactive term Well adult exam 04/30/2015 Overview: 10/19-d/c warfarin discussed w/hematology AAA , cologuard ordered. Refuses statin. HTN, goal below 130/80 04/30/2015 documented as of this encounter (statuses as of 08/24/2021) Resolved Problems Problem Noted Date Resolved Date COVID-19 virus infection 05/06/2020 021 Overview: Admit [facility] Viral PNA. Didn't react well w/steroids. D/c home on O2. documented as of this encounter (statuses as of 08/24/2021) Immunizations Name Administration Dates Next Due TDAP [...] Encounters Date Type Specialty Care Team Description 08/27/2021 Office Visit Family Medicine Gabrielle Jewell CRNP [address] [place] [address] Pending Results Name Type Priority Associated Diagnoses Date /Time HEMOGLOBIN A1C Lab Routine Prediabetes 08/24/2021 8:23 AM EDT BASIC METABOLIC PANEL Lab Routine Screening for diabetes mellitus 08/24/2021 8:23 AM EDT LIPID PANEL WITH DIRECT LDL IF TG IS HIGH Lab Routine Lipid screening 08/24/2021 8:23 AM EDT Health Maintenance Due Date Last [...] as of this encounter Visit Diagnoses Diagnosis Prediabetes Other abnormal glucose Screening for diabetes mellitus Lipid screening Screening for lipoid disorders documented in this encounter Advance Directives Documents on File Type Date Recorded Patient Unemployment Benefits Claims Taker Expl anation Advanced Directive Advanced Directive Advanced [...] Directive Advanced Directive Advanced Directive Care Teams Key Ringer Relationship Specialty Start Date End Date Nick Em MD [address] [place] [address] [place] [address] PCP - General Family Medicine 05/03/15 documented as of this encounter
--- OUTSIDE RECORDS SUMMARY | 2022-12-29 03:34 | External Medical Summary ---
Author Name Unknown Address Unknown Organization [id number][facility] [facility] [address] [place] [address] Laboratory Report Ordering Provider Test Date Status ELLIOTT ANAYA 08/24/2021 08:23:16 Final Observation Date Value Abnormality Reference (Units ) Status BUN 08/24/2021 08:23:16 21 Above high normal 6-20 (mg/dL) Final Creatinine 08/24/2021 08:23:16 1.4 Above high normal 0.6-1.2 (mg/dL) Final Glomerular filtration rate/1.73 sq M.predicted [Volume Rate/Area] in Serum, Plasma or Blood by Creatinine-based formula (CKD-EPI) 08/24/2021 08:23:16 56 Below low normal >=60 (mL/min) Final Performing Location [facility] [place] [address] [place] [address]
--- OUTSIDE RECORDS SUMMARY | 2022-12-29 03:34 | External Medical Summary | Summary of Care ---
Author Name Unknown Organization [place] [address] Care Team Providers Care Heating Element Builder Name Role Phone Nick Gallagher MD Primary Care Provider + Reason for Visit * Reason Comments eRx-Medication Refill Encounter Details Date Type Department Care Team Description 07/30/2021 Refill Family Practice [facility] [address] [place] [address] Nick Gallagher MD [address] [facility] [place] [address] Essential hypertension with goal blood pressure less than 140/90 Allergies No known active allergiesdocumented as of this encounter (statuses as of 07/30/2021) Medications Medication Sig Dispensed Refills Start Date [...] once daily 90 Tablet 0 07/30/2021 Active Olmesartan Medoxomil-HCTZ 40-12.5 MG Oral TabletIndications:E ssential hypertension with goal blood pressure less than 140/90 Take 1 tablet by mouth once daily 90 Tab 1 02/03/2021 07/30/2021 Discontinued documented as of this encounter (statuses as of 07/30/2021) Active Problems Problem Noted Date S/P AAA [...] as of this encounter (statuses as of 07/30/2021) Resolved Problems Problem Noted Date Resolved Date COVID-19 virus infection 05/06/2020 021 Overview: Admit [facility] Viral PNA. Didn't react well w/steroids. D/c home on O2. documented as of this encounter (statuses as of 07/30/2021) Immunizations Name Administration Dates Next Due TDAP [...] encounter Miscellaneous Notes * Telephone Encounter - Lois Ding, [facility] - 07/30/2021 2:34 PM EDT Signed Prescriptions: Disp Refills Olmesartan Medoxomil-HCTZ 40-12.5 MG Oral *90 Tab*0 Sig: Take 1 tablet by mouth once daily Authorizing Provider: NICK GALLAGHER Ordering User: LOIS DING * Telephone Encounter - Lois Ding RPh - 07/30/2021 2:34 PM EDT Due for labs soon. Approved 1 refill. Lois Silverman Clinical [facility]ist [facility] [phone] 07/30/2021, 2:34 PM documented in this encounter Plan of Treatment [...] YRS-MEN AGE 35-75 07/03/2021 07/03/2016, 08/01/2015, 05/03/2015 *URINE ALBUMIN/CREATININE RATIO ONCE FOR HTN 07/25/2021 BASIC METABOLIC PANEL (BMP) FOR HTN YEARLY [...] Documents on File Type Date Recorded Patient Claim Processing Specialist Expl anation Advanced Directive Advanced Directive Advanced [...] Directive Advanced Directive Advanced Directive Care Teams Heating Element Builder Relationship Specialty Start Date End Date Nick Gallagher MD [address] [place] [address] PCP - General Family Medicine 05/03/15 documented as of this encounter
--- OUTSIDE RECORDS SUMMARY | 2022-12-29 03:35 | External Medical Summary ---
Author Name Unknown Address Unknown Organization [id number]:[facility] [place] [address] Laboratory Report Ordering Provider Test Date Status BARRIE FRYE 09/15/2020 13:42:43 Final Observation Date Value Abnormality Reference (Units ) Status WBC, Total 09/15/2020 13:42:43 10.74 4.00-10.8 0 (K/uL) Final RBC 09/15/2020 13:42:43 4.73 4.50-5.25 (M/uL) Final Hemoglobin 09/15/2020 13:42:43 14.2 14.0-16.8 (g/dL) Final HCT 09/15/2020 13:42:43 42.6 40.0-48.4 (%) Final MCV 09/15/2020 13:42:43 90.1 82.0-99.5 (fL) Final MCH 09/15/2020 13:42:43 30.0 27.0-34.0 (pg) Final MCHC 09/15/2020 13:42:43 33.3 32.0-36.0 (g/dL) Final RDW 09/15/2020 13:42:43 14.6 11.5-15.5 (%) Final Platelets 09/15/2020 13:42:43 296 140-400 (K /uL) Final MPV 09/15/2020 13:42:43 10.6 6.6-11.1 ( fL) Final Performing Location [facility] [place] [address]
--- OUTSIDE RECORDS SUMMARY | 2022-12-29 03:35 | External Medical Summary | Summary of Care ---
Author Name Unknown Organization [place] [address] Care Team Providers Care Bacteriologist Food Name Role Phone Nick Em MD Primary Care Provider + Encounter Details Date Type Department Care Team Description 12/16/2020 Orders Only Family Practice [facility] [address] [facility] [place] [address] Nick Em MD [address] [place] [address] [phone] Allergies No Known Active Allergiesdocumented as of this encounter (statuses as of 12/16/2020) Medications Medication Sig Dispensed Refills Start Date [...] mg by mouth daily. 0 2020 Active documented as of this encounter (statuses as of 12/16/2020) Active Problems Problem Noted Date S/P AAA repair 07/02/2020 Overview: 07/19 Dr Woodward [facility] 05/10/2020 History of 2019 novel coronavirus diseas e (COVID-19) 05/08/2020 Prediabetes 07/11/2016 Dyslipidemia 05/05/2015 Overview: 05/16 LDL 222. High in past. NEED rx ICD-10 update of inactive term Well adult exam 04/30/2015 Overview: 10/19-d/c warfarin discussed w/hematology AAA , cologuard ordered. Refuses statin. HTN, goal below 130/80 04/30/2015 documented as of this encounter (statuses as of 12/16/2020) Resolved Problems Problem Noted Date Resolved Date COVID-19 virus infection 05/06/2020 021 Overview: Admit [facility] Viral PNA. Didn't react well w/steroids. D/c home on O2. documented as of this encounter (statuses as of 12/16/2020) Immunizations Name Administration Dates Next Due TDAP (age 10 and older)(Boostrix) 04/30/2015 Varicella Zoster Vaccine (Adult) 04/30/2015 documented as of this encounter Social History Tobacco Use Types Packs/Day Years Used Date Former Smoker Cigarettes Smokeless Tobacco: Current User Snuff Quit: 04/30/1980 Alcohol Use Drinks/Week oz/Week Comments No Sex [...] Procedure Name Priority Date/Time Associated Diagnosis Comments CHEMISTRY-OUTSIDE Routine 07/02/2020 documented in this encounter Results * CHEMISTRY-OUTSIDE (07/02/2020) CREATININE-OUTSIDE LAB 1.34 0.6 - 1.4 MG/DL OUTSIDE LAB (SEE SCANNED REPORT) EGFR-OUTSIDE LAB 53.7 OUTSIDE LAB (SEE SCANNED REPORT) POTASSIUM-OUTSIDE LAB 3.9 3.5 - 5.1 MMOL/L OUTSIDE LAB (SEE SCANNED REPORT) GLUCOSE-OUTSIDE LAB 139(A) 70 - 99 MG/DL OUTSIDE LAB (SEE SCANNED REPORT) HOURS FASTING OUTSIDE LAB (S EE SCANNED REPORT) TRIGLYCERIDES-OUTSIDE LAB OUTSIDE LAB (SEE SCANNED REPORT) CHOLESTEROL-OUTSIDE LAB OUTSIDE LAB (SEE SCANNED REPORT) HDL-OUTSIDE LAB OUTSIDE LAB (SEE SCANNED REPORT) CHOL/HDL RATIO-OUTSIDE LAB OUTSIDE LAB (SEE SCANNED REPORT) LDL (CALCULATED)-OUTSIDE LAB OUTSIDE LAB (SEE SCANNED REPORT) LDL (DIRECT MEASURE)-OUTSIDE LAB OUTSIDE LAB (SEE SCANNED REPORT) HEMOGLOBIN, [id number] LAB OUTSIDE LAB (SEE SCANNED REPORT) PHOSPHORUS-OUTSIDE LAB OUTSIDE LAB (SEE SCANNED REPORT) PTH-OUTSIDE LAB OUTSIDE LAB (SEE SCANNED REPORT) MICROALBUMIN RATIO-OUTSIDE LAB OUTSIDE LAB (SEE SCANNED REPORT) PROTEIN, UA-OUTSIDE LAB OUTSIDE LAB (SEE SCANNED REPORT) HEMOGLOBIN-OUTSIDE LAB 12.4(A) 14.0 - 18.0 G/DL OUTSIDE LAB (SEE SCANNED REPORT) CHEMISTRY COMMENT-OUTSIDE LAB Comment:SEE SCAN: INPT LABS: CBCD, PT, INR, BMP, BSG, MRSA DNA, TYPE, SCR OUTSIDE LAB (SEE SCANNED REPORT) Specimen Narrative Performed At Performing Organization Address City/State/[facility] Co de Phone Number OUTSIDE LAB (SEE SCANNED REPORT) documented in this encounter Advance Directives Documents on File Type Date Recorded Patient Artists' Model Expl anation Advanced Directive Advanced Directive Advanced [...]
--- OUTSIDE RECORDS SUMMARY | 2022-12-29 03:35 | External Medical Summary | Summary of Care ---
Author Name Unknown Organization [place] [address] Care Team Providers Care Applied Behavior Specialist Name Role Phone Nick Em MD Primary Care Provider + Encounter Details Date Type Department Care Team Description 12/02/2020 Scan Encounter Unspecified Department <No scans attached> Allergies No Known Active Allergiesdocumented as of this encounter (statuses as of 12/03/2020) Medications Medication Sig Dispensed Refills Start Date [...] as of this encounter (statuses as of 12/03/2020) Active Problems Problem Noted Date S/P AAA repair 07/02/2020 Overview: 07/19 Dr Woodward Multiple subsegmental pulmonary emboli w [facility] acute cor pulmonale 05/10/2020 History of 2019 novel coronavirus diseas e (COVID-19) 05/08/2020 Prediabetes 07/11/2016 Dyslipidemia 05/05/2015 Overview: 05/16 LDL 222. High in past. NEED rx ICD-10 update of inactive term Well adult exam 04/30/2015 Overview: 10/19-d/c warfarin discussed w/hematology AAA , cologuard ordered. Refuses statin. HTN, goal below 130/80 04/30/2015 documented as of this encounter (statuses as of 12/03/2020) Resolved Problems Problem Noted Date Resolved Date COVID-19 virus infection 05/06/2020 021 Overview: Admit [facility] Viral PNA. Didn't react well w/steroids. D/c home on O2. documented as of this encounter (statuses as of 12/03/2020) Immunizations Name Administration Dates Next Due TDAP [...] YRS-AGE 45 AND ABOVE 09/30/2023 2020, 09/15/2020, 05/02/2020, Additional history exists DTaP,Tdap,and Td Vaccines (2 - Td) 04/30/2025 04/30/2015 ABDOMINAL AORTIC ANEURYSM (AAA) SCREENING Completed 07/01/2020 MENINGOCOCCAL (MENACTRA/MENVEO) Aged Out No longer eligible based on patient's age to complete this topic documented as of this encounter Implants Not on filedocumented as of this encounter Advance Directives Documents on File Type Date Recorded Patient Ceiling Cleaner Expl anation Advanced Directive Advanced Directive Advanced [...]
--- OUTSIDE RECORDS SUMMARY | 2022-12-29 03:35 | External Medical Summary | Summary of Care ---
Author Name Unknown Organization [place] [address] Care Team Providers Care Machine Or Machinery Mechanic Name Role Phone Nick Em MD Primary Care Provider + Reason for Visit * Reason Comments Dosage Adjustment In Person (Anticoag Cl inic) Encounter Details Date Type Department Care Team Description 09/17/2020 Anticoagulation Pharmacy, [facility] 132 [facility] [place] [address] [facility] 132 [facility] [place] [address] Multiple subsegmental pulmonary emboli without acute cor pulmonale (HCC)*; Other acute pulmonary embolism, unspecified whether acute cor pulmonale present (HCC); Anticoagulation management encounter; trust and estates attorney current use of anticoagulant therapy Allergies No Known Active Allergiesdocumented as of this encounter (statuses as of 09/17/2020) Medications Medication Sig Dispensed Refills Start Date End Date Status fish oil concentrate (OMEGA-3) 1000 MG CAPSIndications:Hyperl ipidemia with target LDL less than 160 Take 1 Cap by mouth 2 times a day. 60 Cap 5 07/12/2016 Active Olmesartan Medoxomil-HCTZ 40-12.5 MG Oral TabletIndications:Esse ntial hypertension with goal blood pressure less than 140/90 Take 1 tablet by mouth once daily 90 Tab 1 08/04/2020 Active Warfarin Sodium 4 MG Oral Tablet (Coumadin) Take 1.5-2.5 Tabs by mouth daily. As directed 75 Tab 5 08/28/2020 Active documented as of this encounter (statuses as of 09/17/2020) Active Problems Problem Noted Date S/P AAA repair 07/02/2020 Overview: 07/19 Dr Woodward Multiple subsegmental pulmonary emboli w ithout acute cor pulmonale 05/10/2020 History of 2019 novel coronavirus diseas e (COVID-19) 05/08/2020 Prediabetes 07/11/2016 Dyslipidemia 05/05/2015 Overview: 05/16 LDL 222. High in past. NEED rx ICD-10 update of inactive term Well adult exam 04/30/2015 Overview: AAA , cologuard ordered. Refuses statin. HTN, goal below 130/80 04/30/2015 documented as of this encounter (statuses as of 09/17/2020) Resolved Problems Problem Noted Date Resolved Date COVID-19 virus infection 05/06/2020 021 Overview: Admit [facility] Viral PNA. Didn't react well w/steroids. D/c home on O2. documented as of this encounter (statuses as of 09/17/2020) Immunizations Name Administration Dates Next Due TDAP [...] as of this encounter Progress Notes * Juana Coronado, [facility] - 09/17/2020 9:24 AM EDT Medication Therapy Disease Management - Anticoagulation Patient: Raj Bashir : 1950 Current Warfarin Dose As of 09/17/2020 Warfarin maintenance plan: 6 mg (4 mg x 1.5) every Mon, Clary; 10 mg (4 mg x 2.5) all other days Patient-Reported Symptoms: Patient Findings Negatives: Signs/symptoms of thrombosis, Signs/symptoms of bleeding, Change in health, Change in alcohol use, Change in activity, Upcoming invasive procedure, Missed doses, Extra doses, Change in medications, Change in diet/appetite, Bruising INR Result As of 09/17/2020 INR goal: 2.0-3.0 INR used for dosin.0 (09/17/2020) Warfarin Plan As of 09/17/2020 Full warfarin instructions: 6 mg every Mon, Clary; 10 mg all other days No change documented: Juana Coronado RPh Next INR check: 10/08/2020 Additional Dosing Information: Description Takes AM Repeat PT/INR in 3 week(s) Weekly dose: not changed Juana Coronado RPh Clinical Pharmacist 09/17/2020, 9:24 AM documented in this encounter Plan of Treatment Upcoming Encounters Date Type Specialty Care Team Description 09/17/2020 Imaging Radiology Multiple subse gmental pulmonary emboli without acute cor pulmonale (HCC) 2020 Office Visit Hematology Oncology Mohamud Bradley MD [address] [facility] [place] [address] [phone] 10/08/2020 Anticoagulation Pharmacy [facility] [address] [facility] [place] [address] 10/30/2020 Office Visit Family Medicine Sahra Hou CRNP [address] [facility] [place] [address] [phone] Health Maintenance Due Date Last Done Comments Prediabetes-Yearly Hemoglobin A1c 1950 COVID-19 Vaccine (1) 1962 *DEPRESSION SCREENING,ANNUAL FOR PTS 12 AND OVER 05/09/2015 Zoster Vaccines (2 of 3) 06/25/2015 04/30/2015 Pneumococcal Vaccine: 65+ Years (1 of 1 - PPSV23) 09/30/2015 *COLORECTAL CANCER SCREENING (COLONOSCOPY 10 YEARS; SIGMOIDOSCOPY 5 YEARS; COLOGUARD 3 YEARS; FOBT 1 YEAR),AGES 50-75 11/20/2018 05/03/2015 Influenza Vaccine (FLU shot) (Season Ended) 2020 05/11/2019 LIPID SCREEN EVERY 5 YRS-MEN AGE 35-75 07/03/2021 07/03/2016, 08/01/2015, 05/03/2015 DIABETES SCREEN EVERY 3 YRS-AGE 45 AND ABOVE 09/16/2023 09/15/2020, 05/02/2020, 11/25/2017, Additional history exists DTaP,Tdap,and Td Vaccines (2 - Td) 04/30/2025 04/30/2015 ABDOMINAL AORTIC ANEURYSM (AAA) SCREENING Completed 07/01/2020 MENINGOCOCCAL (MENACTRA/MENVEO) Aged Out No longer eligible based on patient's age to complete this topic documented as of this encounter Implants Not on filedocumented as of this encounter Procedures Procedure Name Priority Date/Time Associated Diagnosis Comments INR FINGERSTICK, POINT OF CARE STAT 09/17/2020 8:26 AM EDT Other acute pulmonary embolism, unspecified whether acute cor pulmonale present (HCC) Anticoagulation management encounter half-way current use of anticoagulant therapy documented in this encounter Results * INR FINGERSTICK, POINT OF CARE (09/17/2020 8:26 AM EDT) Fingerstick INR 2.0 INR [facility] [place] [facility] Specimen Blood Narrative Performed At Therapeutic ranges for non-operative patients: Prophylaxsis/treatment of DVT: (Range:2.0-3.0) Treatment of pulmonary embolism:(Range:2.0-3.0) Prevention of systemic embolism from: -tissue heart valves -acute myocardial infarction -valvular heart disease -atrial fibrillation (Range: 2.0-3.0) Mechanical prosthetic valves: (Range: 2.5-3.5) [facility] [place] [address] [facility] [place] [address] [facility] [place] [address] documented in this encounter Visit Diagnoses Diagnosis Multiple subsegmental pulmonary emboli without acute cor pulmonale (HCC)- Primary Other acute pulmonary embolism, unspecified whether acute cor pulmonale present (HCC) Anticoagulation management encounter Encounter for therapeutic drug monitoring trust and estates attorney current use of anticoagulant therapy Multiple subsegmental pulmonary emboli without acute cor pulmonale (HCC) documented in this encounter Advance Directives Documents on File Type Date Recorded Patient Prepleater Expl anation Advanced Directive Advanced Directive Advanced [...]
--- OUTSIDE RECORDS SUMMARY | 2022-12-29 03:35 | External Medical Summary ---
Author Name Unknown Address Unknown Organization K09:[facility] [place] [address] Laboratory Report Ordering Provider Test Date Status BARRIE FRYE 09/15/2020 13:42:43 Final Observation Date Value Abnormality Reference (Units ) Status SYNC LEUKOCYTES IN BLOOD BY AUTOMATED COUNT 09/15/2020 13:42:43 10.74 4.00-10.80 (K/uL) Final Segs 09/15/2020 13:42:43 63.2 40.0-75.0 (%) Final Lymphs % 09/15/2020 13:42:43 24.9 18.0-42.0 (%) Final Monos 09/15/2020 13:42:43 6.3 1.0-11.0 (%) Final Eosinophils 09/15/2020 13:42:43 5.4 0.0-6.0 (%) Final Basos 09/15/2020 13:42:43 0.2 0.0-2.0 (%) Final Absolute Segs 09/15/2020 13:42:43 6.79 1.80-7.70 (K/uL) Final Lymphs, absolute 09/15/2020 13:42:43 2.67 1.00-4.80 (K/ul) Final Monos, Abs 09/15/2020 13:42:43 0.68 0.00-1.10 (K/uL) Final Eos, Abs 09/15/2020 13:42:43 0.58 0.00-0.70 (K/uL) Final Basos, Abs 09/15/2020 13:42:43 0.02 0.00-0.20 (K/uL) Final Performing Location [facility] [place] [address]
--- OUTSIDE RECORDS SUMMARY | 2022-12-29 03:35 | External Medical Summary ---
Author Name Unknown Address Unknown Organization K09:[facility] [place] [address] Laboratory Report Ordering Provider Test Date Status BARRIE FRYE 2020 08:39:05 Final Observation Date Value Abnormality Reference (Units ) Status BUN 2020 08:39:05 23 Above high normal 6-20 (mg/dL) Final Creatinine 2020 08:39:05 1.4 Above high normal 0.6-1.2 (mg/dL) Final Glomerular filtration rate/1.73 sq M.predicted [Volume Rate/Area] in Serum, Plasma or Blood by Creatinine-based formula (CKD-EPI) 2020 08:39:05 52.8 Below low normal >=60.0 (mL/min) Final Performing Location [facility] [place] [address]
--- OUTSIDE RECORDS SUMMARY | 2022-12-29 03:35 | External Medical Summary | Summary of Care ---
Author Name Unknown Organization [place] [address] Care Team Providers Care Plant Operations Worker Name Role Phone Nick Em MD Primary Care Provider + Reason for Visit * Reason Comments Re-Check R heel pain thats be en increased x 2 week. tried otc advil/aleve. no injury or falls. hasnt been seen for this yet Encounter Details Date Type Department Care Team Description 01/01/2021 Office Visit Family [facility] [address] [place] [address] Cecilia Everett DO [address] [facility] [place] [address] Pain of right heel*; HTN, goal below 130/80 Allergies No Known Active Allergiesdocumented as of this encounter (statuses as of 01/01/2021) Medications Medication Sig Dispensed Refills Start Date [...] as of this encounter (statuses as of 01/01/2021) Active Problems Problem Noted Date S/P AAA [...] as of this encounter (statuses as of 01/01/2021) Resolved Problems Problem Noted Date Resolved Date COVID-19 virus infection 05/06/2020 021 Overview: Admit [facility] Viral PNA. Didn't react well w/steroids. D/c home on O2. documented as of this encounter (statuses as of 01/01/2021) Immunizations Name Administration Dates Next Due TDAP [...] Sign Reading Time Taken Comments Blood Pressure 170/84 01/01/2021 1:09 PM EDT Pulse 64 01/01/2021 12:59 PM EDT Temperature 36.6 C (97.9 F) 01/01/2021 12:59 PM E DT Respiratory Rate 16 01/01/2021 12:59 PM EDT Oxygen Saturation - - Inhaled Oxygen Concentration - - Weight - - Height - - Body Mass Index - - documented in this encounter Progress Notes * Cecilia Everett, DO - 01/01/2021 1:05 PM EDT Subjective: Raj Bashir is a 70 year old male. Chief Complaint Patient presents with Re-Check R heel pain thats been increased x 2 week. tried otc advil/aleve. no injury or falls. hasnt been seen for this yet There are no exam notes on file for this visit. HPI: This is a 70 year old male with PMHx as below presents with acute illness as noted above No trauma or change in activity/shoes Hurts with standing andmovement At rest will be fine BP elevated today - refusing to modify medications. Offered BP check in 1 mo - refused. Agreed to 3mo BP check. Refused CPE. Health Maintenance Due Topic Date Due Prediabetes-Yearly Hemoglobin A1c Never done COVID-19 Vaccine (1) Never done *DEPRESSION SCREENING,ANNUAL FOR PTS 12 AND OVER Never done Zoster Vaccines (2 of 3) 06/25/2015 Pneumococcal Vaccine: 65+ Years (1 of 1 - PPSV23) Never done *COLORECTAL CANCER SCREENING (COLONOSCOPY 10 YEARS; SIGMOIDOSCOPY 5 YEARS; COLOGUARD 3 YEARS; FOBT 1 YEAR),AGES 50-75 11/20/2018 Influenza Vaccine (FLU shot) (1) 12/30/2020 Patient Active Problem List Diagnosis Code Well adult exam Z00.00 HTN, goal below 130/80 I10 Dyslipidemia E78.5 Prediabetes R73.03 History of 2019 novel coronavirus disease (COVID-19) Z86.16 Multiple subsegmental pulmonary emboli without acute cor pulmonale (HCC) I26.94 S/P AAA repair Z98.890, Z86.79 Current Outpatient Medications Medication Sig Dispense Refill Zinc 50 MG Oral Tablet Take 50 mg by mouth daily. Aspirin 81 MG Oral Tablet Delayed Release Take 81 mg by mouth daily. Olmesartan Medoxomil-HCTZ 40-12.5 MG Oral Tablet Take 1 tablet by mouth once daily 90 Tab 1 fish oil concentrate (OMEGA-3) 1000 MG CAPS Take 1 Cap by mouth 2 times a day. 60 Cap 5 Past Medical History: Diagnosis Date History of 2019 novel coronavirus disease (COVID-19) 05/08/2020 HTN, goal below 140/90 04/30/2015 Prediabetes 07/11/2016 S/P AAA repair 07/02/202007/19 Dr Woodward Past Surgical History: Procedure Laterality Date OTHER 07/01/2020 TEVAR Aorta Aneurysm Repair, Dr Woodward @[facility] REMOVE PILONIDAL CYST, COMPLEX in 20s Review of patient's allergies indicates: No Known Allergies Family History Problem Relation Age of Onset Heart Disorder Mother 64 Heart Disorder Father 68-DM since 40s Heart Disorder Brother 62 . half bro?heart Diabetes Brother No Past Hx Sister Cancer Sister breast-younger Other (Other) Brother 62 . ?[place] unsure. 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 Wt Readings from Last 3 Encounters: 09/29/20 115.6 kg (254 lb 14.4 oz) 09/15/20 115.7 kg (255 lb) 11/05/19 113.6 kg (250 lb 8 oz) Results for orders placed or performed in visit on 12/16/20 CHEMISTRY-OUTSIDE Result Value Ref Range CREATININE-OUTSIDE LAB 1.34 0.6 - 1.4 MG/DL EGFR-OUTSIDE LAB 53.7 POTASSIUM-OUTSIDE LAB 3.9 3.5 - 5.1 MMOL/L GLUCOSE-OUTSIDE LAB 139 (A) 70 - 99 MG/DL HOURS FASTING TRIGLYCERIDES-OUTSIDE LAB CHOLESTEROL-OUTSIDE LAB HDL-OUTSIDE LAB CHOL/HDL RATIO-OUTSIDE LAB LDL (CALCULATED)-OUTSIDE LAB LDL (DIRECT MEASURE)-OUTSIDE LAB HEMOGLOBIN, [id number] LAB PHOSPHORUS-OUTSIDE LAB PTH-OUTSIDE LAB MICROALBUMIN RATIO-OUTSIDE LAB PROTEIN, UA-OUTSIDE LAB HEMOGLOBIN-OUTSIDE LAB 12.4 (A) 14.0 - 18.0 G/DL CHEMISTRY COMMENT-OUTSIDE LAB OBJECTIVE: Physical Exam: BP 150/86 (BP Site: Left Arm, BP Position: Sitting, BP Cuff Size: Regular) | Pulse 64 | Temp 36.6 C (97.9 F) (Tympanic) | Resp 16 General: alert, healthy and no distress Extremities: less than 2 second capillary refill, no joint deformities, effusion, or inflammation. Mild TTP R heel Pain of right heel (Primary) - XR HEEL 2 OR MORE VIEWS HTN, goal below 130/80 Follow Up: Return if symptoms worsen or fail to improve. Cecilia Everett DO documented in this encounter Nursing Notes * Kita Palacios CMA - 01/01/2021 12:47 PM EDT The patient has been properly identified by confirmation of name and date of . Chief Complaint Patient presents with Re-Check R heel pain thats been increased x 2 week. tried otc advil/aleve. no injury or falls. hasnt been seen for this yet documented in this encounter Plan of Treatment Upcoming Encounters Date Type Specialty Care Team Description 04/02/2021 Office Visit Family Medicine Cecilia Everett, [address] [facility] [place] [address] [phone] Pending Results Name Type Priority Associated Diagnoses Date /Time XR HEEL 2 OR MORE VIEWS Medical Imaging Routine Pain of right heel 01/01/2021 1:23 PM EDT Health Maintenance Due Date Last Done [...] of right heel- Primary Pain in limb HTN, goal below 130/80 Unspecified essential hypertension documented in this encounter Advance Directives Documents on File Type Date Recorded Patient Radiation Oncology Nurse Expl anation Advanced Directive Advanced Directive Advanced [...] Advanced Directive Advanced Directive Advanced Directive Advanced Directive"
--- OUTSIDE RECORDS SUMMARY | 2022-12-29 03:35 | External Medical Summary | Summary of Care ---
Author Name Unknown Organization [place] [address] Care Team Providers Care Contact Acid Plant Operator Name Role Phone Nick Em MD Primary Care Provider + Reason for Visit * Reason Onset Date Comments Appointment Canceled 10/03/2020 End Of Treatment 10/03/2020 Encounter Details Date Type Department Care Team Description 10/03/2020 Telephone Pharmacy Call Center [address] [facility] [place] [address] Miri De La Cruz, [facility] [address] [facility] [address] [phone] Appointment Canceled; End Of Treatment Allergies No Known Active Allergiesdocumented as of this encounter (statuses as of 10/03/2020) Medications Medication Sig Dispensed Refills Start Date End Date Status fish oil concentrate (OMEGA-3) 1000 MG CAPSIndications:Hyp erlipidemia with target LDL less than 160 Take 1 Cap by mouth 2 times a day. 60 Cap 5 07/12/2016 Active Olmesartan Medoxomil-HCTZ 40-12.5 MG Oral TabletIndications:E ssential hypertension with goal blood pressure less than 140/90 Take 1 tablet by mouth once daily 90 Tab 1 08/04/2020 Active Aspirin 81 MG Oral Tablet Delayed Release Take 81 mg by mouth daily. 0 2020 Active Warfarin Sodium 4 MG Oral Tablet (Coumadin) Take 1.5-2.5 Tabs by mouth daily. As directed 75 Tab 5 08/28/2020 10/03/2020 Discontinued (End of Procedure) documented as of this encounter (statuses as of 10/03/2020) Active Problems Problem Noted Date S/P AAA repair 07/02/2020 Overview: 07/19 Dr Woodward Multiple subsegmental pulmonary emboli w [facility] acute cor pulmonale 05/10/2020 History of 2019 novel coronavirus diseas e (COVID-19) 05/08/2020 Prediabetes 07/11/2016 Dyslipidemia 05/05/2015 Overview: 05/16 LDL 222. High in past. NEED rx ICD-10 update of inactive term Well adult exam 04/30/2015 Overview: AAA , cologuard ordered. Refuses statin. HTN, goal below 130/80 04/30/2015 documented as of this encounter (statuses as of 10/03/2020) Resolved Problems Problem Noted Date Resolved Date COVID-19 virus infection 05/06/2020 021 Overview: Admit [facility] Viral PNA. Didn't react well w/steroids. D/c home on O2. documented as of this encounter (statuses as of 10/03/2020) Immunizations Name Administration Dates Next Due TDAP [...] encounter Miscellaneous Notes * Telephone Encounter - Miri De La Cruz, [facility] - 10/03/2020 9:23 AM EDT Medication Therapy Disease Management - Anticoagulation Patient: Raj Bashir : 1950 Patient's left voicemail on MondaySeptember 30 at 4:15pm to report that they were instructed to stop anticoagulation and that patient needed to cancel his upcoming [facility] appointment on October 08. Per Dr. Bradley's note on 09/29: Patient wants to discontinue anticoagulation and had CT angiogram done which is negative for pulmonary embolism. Clinically patient is doing well and in excellent performance status. Discussed with the patient and in detail about the diagnosis and reviewed the CT angiogram finding and blood test result with them. He will continue to be at risk for recurrent pulmonary embolism/DVT specially in the 1st year after discontinuing warfarin. After detailed discussion he will discontinue warfarin and agreed to take baby aspirin on daily basis. Will cancel upcoming appointment, and discharge patient from [facility] at this time. Updated medication list to reflect his medication changes. If patient needs to re-start anticoagulation therapy, a new referral would need to be placed. Thanks, Miri De La Cruz, PharmD [facility] Clinical Pharmacist Office Sweeper 10/03/2020, 9:26 AM documented in this encounter Plan of Treatment Upcoming Encounters Date Type Specialty Care Team Description 10/30/2020 Office Visit Family Medicine Sahra Hou CRNP [address] [place] [address] Health Maintenance Due Date Last Done Comments [...] as of this encounter Visit Diagnoses Diagnosis Multiple subsegmental pulmonary emboli without acute cor pulmonale (HCC)- Primary documented in this encounter Advance Directives Documents on File Type Date Recorded Patient Records Management Analyst Expl anation Advanced Directive Advanced Directive Advanced [...]
--- OUTSIDE RECORDS SUMMARY | 2022-12-29 03:35 | External Medical Summary | Summary of Care ---
Author Name Unknown Organization [place] [address] Care Team Providers Care Track Repair Laborer Name Role Phone Nick Em MD Primary Care Provider + Reason for Visit * Reason Onset Date Comments Test Results 2020 Encounter Details Date Type Department Care Team Description 2020 Telephone Hematology/Oncology Treatment, [address] [address] Mohamud Bradley MD [address] [place] [address] [phone] Test Results Allergies No Known Active Allergiesdocumented as of this encounter (statuses as of 09/30/2020) Medications Medication Sig Dispensed Refills Start Date [...] as of this encounter (statuses as of 09/30/2020) Active Problems Problem Noted Date S/P AAA repair 07/02/2020 Overview: 07/19 Dr Woodward [facility] 05/10/2020 History of 2019 novel coronavirus diseas e (COVID-19) 05/08/2020 Prediabetes 07/11/2016 Dyslipidemia 05/05/2015 Overview: 05/16 LDL 222. High in past. NEED rx ICD-10 update of inactive term Well adult exam 04/30/2015 Overview: AAA , cologuard ordered. Refuses statin. HTN, goal below 130/80 04/30/2015 documented as of this encounter (statuses as of 09/30/2020) Resolved Problems Problem Noted Date Resolved Date COVID-19 virus infection 05/06/2020 021 Overview: Admit [facility] Viral PNA. Didn't react well w/steroids. D/c home on O2. documented as of this encounter (statuses as of 09/30/2020) Immunizations Name Administration Dates Next Due TDAP [...] encounter Miscellaneous Notes * Telephone Encounter - Hesham Alston DO - 09/30/2020 2:40 PM EDT Ok to f/u as scheduled * Telephone Encounter - Lois Lopez RN - 2020 2:[address] Em: FYI per Kirk: "Creatinine remained high and now repeat one is 1.4. Please inform the PCP office for further management " documented in this encounter Plan of Treatment Upcoming Encounters Date Type Specialty Care Team Description 10/08/2020 Anticoagulation Pharmacy [facility] [address] [place] [address] 10/30/2020 Office Visit Family Medicine Sahra Hou CRNP [address] [place] [address] [phone] Health Maintenance Due Date Last Done Comments [...] Documents on File Type Date Recorded Patient Wet Pour Supervisor Expl anation Advanced Directive Advanced Directive [...]
--- OUTSIDE RECORDS SUMMARY | 2022-12-29 03:35 | External Medical Summary | Summary of Care ---
Author Name Unknown Organization [place] [address] Care Team Providers Care Clean Room Technician Name Role Phone Nick Em MD Primary Care Provider + Reason for Visit * Reason Onset Date Comments Test Results Lab 09/15/2020 Encounter Details Date Type Department Care Team Description 09/15/2020 Telephone Hematology/Oncology Treatment, [address] [address] Mohamud Bradley MD [address] [place] [address] [phone] Test Results Lab Allergies No Known Active Allergiesdocumented as of this encounter (statuses as of 09/15/2020) Medications Medication Sig Dispensed Refills Start Date [...] as of this encounter (statuses as of 09/15/2020) Active Problems Problem Noted Date S/P AAA [...] as of this encounter (statuses as of 09/15/2020) Resolved Problems Problem Noted Date Resolved Date COVID-19 virus infection 05/06/2020 021 Overview: Admit [facility] Viral PNA. Didn't react well w/steroids. D/c home on O2. documented as of this encounter (statuses as of 09/15/2020) Immunizations Name Administration Dates Next Due TDAP [...] Telephone Encounter - Nick Em MD - 09/15/2020 6:08 PM EDT Nursing-please print/call for most recent BMP from [facility] * Telephone Encounter - Aleksandra Jensen RN - 09/15/2020 4:[address] Kirk: "Creatinine is increased to 1.7. Please inform PCP office for further management" Dr Em: FYI documented in this encounter Plan of Treatment Upcoming Encounters Date Type Specialty Care Team Description 09/17/2020 Anticoagulation Pharmacy [place], [facility] [address] [place] [address] 09/17/2020 Imaging Radiology 2020 Office Visit Hematology Oncology Kirk, Mohamud Rios MD [address] [place] [address] [phone] 10/30/2020 Office Visit Family Medicine Sahra Hou CRNP [address] [place] [address] [phone] Health Maintenance Due Date Last Done Comments [...] Documents on File Type Date Recorded Patient Lime Slaker Expl anation Advanced Directive Advanced Directive Advanced [...]
--- OUTSIDE RECORDS SUMMARY | 2022-12-29 03:35 | External Medical Summary | Summary of Care ---
Author Name Unknown Organization [place] [address] Care Team Providers Care Mounter Name Role Phone Nick Em MD Primary Care Provider + Reason for Visit * Reason Onset Date Comments Test Results Lab 09/15/2020 Encounter Details Date Type Department Care Team Description 09/15/2020 Telephone Hematology/Oncology Treatment, [address] [address] Mohamud Bradley MD [address] [place] [address] [phone] Test Results Lab Allergies No Known Active Allergiesdocumented as of this encounter (statuses as of 09/16/2020) Medications Medication Sig Dispensed Refills Start Date [...] as of this encounter (statuses as of 09/16/2020) Active Problems Problem Noted Date S/P AAA [...] as of this encounter (statuses as of 09/16/2020) Resolved Problems Problem Noted Date Resolved Date COVID-19 virus infection 05/06/2020 021 Overview: Admit [facility] Viral PNA. Didn't react well w/steroids. D/c home on O2. documented as of this encounter (statuses as of 09/16/2020) Immunizations Name Administration Dates Next Due TDAP [...] encounter Miscellaneous Notes * Telephone Encounter - Jewell Oconnor LPN - 09/16/2020 7:53 AM EDT Called for Recent records will fax over Att Dr Em * Telephone Encounter - Nick Em MD - 09/15/2020 6:08 PM EDT Nursing-please print/call for most recent BMP from [facility] * Telephone Encounter - Aleksandra Jensen RN - 09/15/2020 4:[address] Bradley: "Creatinine is increased to 1.7. Please inform PCP office for further management" Dr Em: FYI documented in this encounter Plan of Treatment Upcoming Encounters Date Type Specialty Care Team Description 09/17/2020 Anticoagulation Pharmacy [facility] [address] [facility] [place] [address] 09/17/2020 Imaging Radiology 2020 Office Visit Hematology Oncology Mohamud Bradley MD [address] [facility], [place] [address] 10/30/2020 Office Visit Family Medicine [facility] Hou [facility] [address] [facility] [place] [address] [phone] Health Maintenance Due Date Last Done Comments [...] Documents on File Type Date Recorded Patient Pbx Manager Expl anation Advanced Directive Advanced Directive Advanced [...]
--- OUTSIDE RECORDS SUMMARY | 2022-12-29 03:35 | External Medical Summary | Summary of Care ---
Author Name Unknown Organization [place] [address] Care Team Providers Care Cab Starter Name Role Phone Nick Em MD Primary Care Provider + Reason for Visit * Reason Onset Date Comments Health Maintenance 10/13/2020 Encounter Details Date Type Department Care Team Description 10/13/2020 Telephone Family Practice [facility] [address] [facility] [place] [address] Nick Em MD [address] [facility] [place] [address] [phone] Health Maintenance Allergies No Known Active Allergiesdocumented as of this encounter (statuses as of 10/13/2020) Medications Medication Sig Dispensed Refills Start Date [...] as of this encounter (statuses as of 10/13/2020) Active Problems Problem Noted Date S/P AAA repair 07/02/2020 Overview: 07/19 Dr Woodward Multiple subsegmental pulmonary emboli w [facility] acute cor pulmonale 05/10/2020 History of 2019 novel coronavirus diseas e (COVID-19) 05/08/2020 Prediabetes 07/11/2016 Dyslipidemia 05/05/2015 Overview: 05/16 LDL 222. High in past. NEED rx ICD-10 update of inactive term Well adult exam 04/30/2015 Overview: 10/19-d/c warfarin discussed w/hematology AAA , cologuard ordered. Refuses statin. HTN, goal below 130/80 04/30/2015 documented as of this encounter (statuses as of 10/13/2020) Resolved Problems Problem Noted Date Resolved Date COVID-19 virus infection 05/06/2020 021 Overview: Admit [facility] Viral PNA. Didn't react well w/steroids. D/c home on O2. documented as of this encounter (statuses as of 10/13/2020) Immunizations Name Administration Dates Next Due TDAP [...] Telephone Encounter - Brittaney Fraser LPN - 10/13/2020 12:51 PM EDT Care Gaps Comprehensive Care Outreach Last Office/Telemedicine Visit: Last Office/Telemedicine Visit: 05/12/2020 Next Office Visit: Next Office Visit: 10/30/2020 Scheduled Provider(s): JOHN Rogel Reviewed Health Maintenance below Health Maintenance Topic Date Due Prediabetes-Yearly Hemoglobin A1c Never done COVID-19 Vaccine (1) Never done Zoster Vaccines (2 of 3) 06/25/2015 Pneumococcal Vaccine: 65+ Years (1 of 1 - PPSV23) Never done *COLORECTAL CANCER SCREENING (COLONOSCOPY 10 YEARS; SIGMOIDOSCOPY 5 YEARS; COLOGUARD 3 YEARS; FOBT 1 YEAR),AGES 50-75 11/20/2018 Care Gap Outreach Action Taken: Unable to reach: Left message. AWV documented in this encounter Plan of Treatment Upcoming Encounters Date Type Specialty Care Team Description 10/30/2020 Office Visit Family Medicine Sahar Hou CRNP [address] [facility] [place] [address] [phone] Health Maintenance Due Date Last Done Comments [...] Documents on File Type Date Recorded Patient Spray Operator Expl anation Advanced Directive Advanced Directive [...]
--- OUTSIDE RECORDS SUMMARY | 2022-12-29 03:35 | External Medical Summary | Summary of Care ---
Author Name Unknown Organization [place] [address] Care Team Providers Care Touring Production Manager Name Role Phone Nick Em MD Primary Care Provider + Reason for Visit * Reason Onset Date Comments Test Results 2020 Encounter Details Date Type Department Care Team Description 2020 Telephone Hematology/Oncology Treatment, [address] [address] Mohamud Bradley MD [address] [place] [address] [phone] Test Results Allergies No Known Active Allergiesdocumented as of this encounter (statuses as of 2020) Medications Medication Sig Dispensed Refills Start Date [...] as of this encounter (statuses as of 2020) Active Problems Problem Noted Date S/P AAA repair 07/02/2020 Overview: 07/19 Dr Woodward [facility] 05/10/2020 History of 2019 novel coronavirus diseas e (COVID-19) 05/08/2020 Prediabetes 07/11/2016 Dyslipidemia 05/05/2015 Overview: 05/16 LDL 222. High in past. NEED rx ICD-10 update of inactive term Well adult exam 04/30/2015 Overview: AAA , cologuard ordered. Refuses statin. HTN, goal below 130/80 04/30/2015 documented as of this encounter (statuses as of 2020) Resolved Problems Problem Noted Date Resolved Date COVID-19 virus infection 05/06/2020 021 Overview: Admit [facility] Viral PNA. Didn't react well w/steroids. D/c home on O2. documented as of this encounter (statuses as of 2020) Immunizations Name Administration Dates Next Due TDAP [...] Miscellaneous Notes * Telephone Encounter - Lois Lopez RN - 2020 2:[address] Em: FYI per Kirk: "Creatinine remained high and now repeat one is 1.4. Please inform the PCP office for further management " documented in this encounter Plan of Treatment Upcoming Encounters Date Type Specialty Care Team Description 10/08/2020 Anticoagulation Pharmacy [facility] [address] [facility] [place] [address] 10/30/2020 Office Visit Family Medicine Ameya, Sahra Wendy, JOHN [facility] [place] [address] [phone] Health Maintenance Due Date Last Done Comments [...] Documents on File Type Date Recorded Patient Fine Hairer Expl anation Advanced Directive Advanced Directive Advanced [...]
--- OUTSIDE RECORDS SUMMARY | 2022-12-29 03:35 | External Medical Summary | Summary of Care ---
Author Name Unknown Organization [place] [address] Care Team Providers Care Physician General Practice Name Role Phone Nick Em MD Primary Care Provider + Reason for Referral * Precert (Within 10 days (routine)) Status Reason Specialty Diagnoses / Procedures Re ferred By Contact Referred To Contact Authorized Radiology Diagnoses Multiple subsegmental pulmonary emboli without acute cor pulmonale (HCC) Procedures CT PULMONARY EMBOLUS W CONTRAST Mohamud Bradley MD [address] [place] [address] Electronically signed by Mohamud Bradley MD at Reason for Visit * Reason Comments Consultation Pulmonary emboli * Evaluate & Treat - Unlimited Visits (Within 10 days (routine)) Status Reason Specialty Diagnoses / Procedures Referred By Contact Referred To Contact Closed Specialty Services Required Hematology/Oncolo gy / Hematology Oncology Diagnoses Other acute pulmonary embolism, unspecified whether acute cor pulmonale present (HCC) Nick Em MD [address] [place] [address] Encounter Details Date Type Department Care Team Description 09/15/2020 Office Visit Hematology/Oncology [address] [address] Mohamud Bradley MD [address] [place] [address] [phone] Multiple subsegmental pulmonary emboli without acute cor pulmonale (HCC)* Allergies No Known Active Allergiesdocumented as of [...] As directed 75 Tab 5 08/28/2020 Active Doxycycline Monohydrate 100 MG Oral Capsule TAKE 1 CAPSULE BY MOUTH TWICE DAILY FOR 10 DAYS 0 05/09/2020 09/15/2020 Discontinued (Medication List Clean Up) Cefdinir 300 MG Oral Capsule (Omnicef) TAKE 1 CAPSULE BY MOUTH TWICE DAILY FOR 10 DAYS 0 05/09/2020 09/15/2020 Discontinued (Medication List Clean Up) Enoxaparin Sodium 100 MG/ML Subcutaneous Solution (Lovenox)Indication s:Other acute pulmonary embolism, unspecified whether acute cor pulmonale present (HCC) Inject 100 mg under the skin every 12 hours. 10 mL 1 07/09/2020 09/15/2020 Discontinued (Medication List Clean Up) documented as of this encounter (statuses as of 09/15/2020) Active Problems Problem Noted Date S/P AAA repair 07/02/2020 Overview: 07/19 Dr Woodward Multiple subsegmental pulmonary emboli w [facility] acute cor pulmonale 05/10/2020 History of [...] Sign Reading Time Taken Comments Blood Pressure 103/56 09/15/2020 12:53 PM EDT Pulse 78 09/15/2020 12:53 PM EDT Temperature 36.8 C (98.2 F) 09/15/2020 12:53 PM E DT Respiratory Rate 16 09/15/2020 12:53 PM EDT Oxygen Saturation 96% 09/15/2020 12:53 PM EDT Inhaled Oxygen Concentration - - Weight 115.7 kg (255 lb) 09/15/2020 12:53 PM EDT Height - - Body Mass Index 38.21 11/05/2019 9:36 AM EDT documented in this encounter Progress Notes * Mohamud Bradley MD - 09/15/2020 1:35 PM EDT Outpatient Consult Note Data Source: Patient, Epic record. 09/15/2020 1:35 PM Raj Bashir [id number] 69 year old MD Nick Saeed MD Patient Encounter: HEMATOLOGY/ONCOLOGY [facility] Reason for consult: History of pulmonary embolism and COVID-19 pneumonia currently on Coumadin. Patient wants to stop the anticoagulation HPI: Patient is 69-year-old male with past medical history significant for hypertension, hyperlipidemia was admitted to the hospital on 04/28 with diagnosis of COVID 19 pneumonia. He was admitted in the hospital from 04/28- 05/02 and was discharged on 4 L of oxygen. He was also treated with the remdesivir and steroid. On 05/2020 he was readmitted with increasing shortness of breath and chest pain. He had CT angiogram done which shows few segmental and subsegmental pulmonary embolism with extensive multifocal consolidation and ground-glass opacities consistent with infectious process. CT abdomen pelvis shows a 5.6 x 5.8 cm infrarenal abdominal aortic aneurysm without any evidence of rupture. Patient was startedon anticoagulation was discharge on Coumadin with follow-up with anticoagulation clinic. Now clinically he is feeling better and stronger with no shortness of breath or chest pain. He is not on oxygen supplement anymore and his room air O2 saturation is 96% today. He want to stop anticoagulation and this is the reason he is here to discuss options. He denies any headache, dizziness, blurred vision, chest pain, shortness breath, palpitation, abdominal pain or distention, bleeding, bruising, nausea, vomiting, hematuria, hematochezia, fever, nightsweats, weight loss. He underwent endovascular aneurysm repair on 07/01/2020 Patient quit smoking about 40 years ago. He quit chewing tobacco about 2 years ago. He denies drinking. Family history is negative for hematologic oncology problem Past Medical History: Diagnosis Date History of 2019 novel coronavirus disease (COVID-19) 05/08/2020 HTN, goal below 140/90 04/30/2015 Prediabetes 07/11/2016 S/P AAA repair 07/02/202007/19 Dr Woodward Current Outpatient Medications Medication Sig Dispense Refill Warfarin Sodium 4 MG Oral Tablet (Coumadin) Take 1.5-2.5 Tabs by mouth daily. As directed 75 Tab 5 Olmesartan Medoxomil-HCTZ 40-12.5 MG Oral Tablet Take 1 tablet by mouth once daily 90 Tab 1 fish oil concentrate (OMEGA-3) 1000 MG CAPS Take 1 Cap by mouth 2 times a day. 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 5 grandchildren-[place]! Lifestyle Physical activity Days per week: Not on file Minutes per session: Not on file Stress: Not on file Relationships Social connections Talks on phone: Not on file Gets together: Not on file Attends quaker service: Not on file Active member of [...] Use Never User Vaping/E-Cigarette Substances Vaping/E-Cigarette Devices Family History Problem Relation Age of Onset Heart Disorder Mother 64 Heart Disorder Father 68-DM since 40s Heart Disorder Brother 62 . half bro?heart Diabetes Brother No Past Hx Sister Cancer Sister breast-younger Other (Other) Brother 62 . ?NH unsure. REVIEW OF SYSTEMS: General: No Fever, chills, night sweats, or weight loss. HEENT: No change in visual acuity, blurred or double vision. No epistaxis, facial pain, nasal discharge or change in hearing. Denies dysphagia, no muscosal ulceration, or sores noted. Cardiovascular: No chest pain, WALKER, or palpitations Respiratory: No shortness of breath, cough, hemoptysis, or pleuritic chest pain Gastrointestinal: No abdominal pain, nausea, vomiting, diarrhea, rectal pain or bleeding Genitourinary: Denies Hematuria or dysuria Musculoskeletal: No bone pain Skin: No skin rash or lesions noted Neurologic: No numbness, weakness, neuropathic pain or change in cognitive function Psychiatric: No vegetative signs of depression Endocrine: No symptoms of hypothyroidism or hyperglycemia Hematologic: No bleeding or lymph nodes noted As mentioned above, all other systems were reviewed in full and are unremarkable. Review of patient's allergies indicates: No Known Allergies PHYSICAL EXAMINATION: General Appearance: Healthy appearing patient in no acute distress BP 103/56 (BP Site: Left Arm, BP Position: Sitting, BP Cuff Size: Large) | Pulse 78 | Temp 36.8 C(98.2 F) (Infrared ) | Resp 16 | Wt 115.7 kg (255 lb) | SpO2 96% | BMI 38.21 kg/m | BSA 2.36 m Vitals were reviewed. HEENT: No oral or pharyngeal masses, ulceration or thrush noted, no sinus tenderness. Neck is supple with no thyromegaly or JVD noted. Lymph Nodes: No lymphadenopathy noted in the occipital, pre and post auricular, cervical, supra andinfraclavicular, axillary, epitrochlear, inguinal, and popliteal region. Lungs/Thorax: Clear to auscultation, no accessory muscles of respiration being used. Heart: Regular rate and rhythm, normal S1, S2, no appreciable murmurs, rubs, gallops Abdomen: Soft, nontender, bowel sounds present, no appreciable hepatosplenomegaly, no palpable masses Extremeties: Good pulses bilaterally, no peripheral edema. Skin: Normal skin tone with no rash, petechiae, ecchymosis noted. Musculoskeletal: No pain on palpation over bony prominence, no edema, no evidence of gout, no jointor bony deformity Neurologic: Grossly intact ASSESSMENT: 69-year-old male with past medical history significant for hypertension, hyperlipidemia, COVID pneumonia and pulmonary embolism currently taking Coumadin with good tolerance and without any significant side effects toxicity. He started Coumadin on 05/09/2020. Now clinically he is feeling better with significant improvement in the shortness of breath. Initially he was discharged on 4 L of oxygen but now he is off the oxygen and his room air O2 saturation is normal. Coronavirus disease (COVID-19) as a result of infection with Severe Acute Respiratory Syndrome, several reports have described significant procoagulant events, including pulmonary embolism in these patient. Abnormalities of various coagulation parameters were frequently reported. Unfortunately, little is known about the epidemiology and the pathophysiologic mechanisms underlying [id number] pulmonary embolism because of the lack of large prospective studies in this context. Also the duration of anticoagulation in patients with pulmonary embolism and COVID pneumonia is unknown. Since this patient wants to discontinue anticoagulation I think the best will be to repeat CT angiogram to e valuate the status of lung and pulmonary embolism. If there is a complete resolution of the pulmonary embolism and lung infection then 1 can argue about discontinuing the anticoagulation. Provided the patient understand the risk of recurrent pulmonary embolism or DVT will be higher specially the 1st years. Discussed with the patient and in detail about diagnosis reviewed all the available information with them. After discussion we agreed to proceed with CT angiogram and blood tests including CBC and CMP. Further management will depend on the finding of the CT angiogram. PLAN: Patient will return to clinic for follow-up in [address] angiogram. The patient voiced understanding of all of the above. All questions and concerns were addressed in an apparently satisfactory manner. Mohamud Bradley MD (This note was completed using the dictation program Fluency Direct. As such, there may be misspellings, word substitutions, or other variations that should not change the essence of the clinical content of this encounter note. If there is need for further clarification, please direct questions to the provider listed above.) documented in this encounter Nursing Notes * Sameera Alston CMA - 09/15/2020 12:53 PM EDT Patient identifed by name and birthdate Do you have any concerns about pain management for today's visit? No Living Will or Advance Directive for Health Care as noted on the problem list. [facility] is a way you can talk to your provider on line through e-mail. Would you like to sign up? I can activate it for you? ALREADY ACTIVE Filed Vitals: 09/15/20 1253 BP: 103/56 Pulse: 78 Resp: 16 Temp: 36.8 C (98.2 F) TempSrc: Infrared SpO2: 96% Weight: 115.7 kg (255 lb) documented in this encounter Plan of Treatment Upcoming Encounters Date Type Specialty Care Team Description 09/17/2020 Anticoagulation Pharmacy Brandee Harding [address] [place] [address] 09/17/2020 Imaging Radiology 2020 Office Visit Hematology Oncology Mohamud Bradley MD [address] [facility], [place] [address] [phone] 10/30/2020 Office Visit Family Medicine Sahra Hou CRNP [address] [facility] [place] [address] [phone] Pending Results Name Type Priority Associated Diagnoses Date /Time COMPREHENSIVE METABOLIC PANEL Lab Routine Multiple subsegmental pulmonary emboli without acute cor pulmonale (HCC) 09/15/2020 1:42 PM EDT Scheduled Orders Name Type Priority Associated Diagnoses Orde r Schedule CT PULMONARY EMBOLUS W CONTRAST Medical Imaging Routine Multiple subsegmental pulmonary emboli without acute cor pulmonale (HCC) Expected: 09/15/2020, Expires: 09/15/2021 Health Maintenance Due Date Last Done Comments [...] SCREEN EVERY 3 YRS-AGE 45 AND ABOVE 05/02/2023 05/02/2020, 11/25/2017, 07/03/2016, Additional history exists DTaP,Tdap,and Td Vaccines (2 - Td) 04/30/2025 04/30/2015 ABDOMINAL AORTIC ANEURYSM (AAA) SCREENING Completed 07/01/2020 MENINGOCOCCAL (MENACTRA/MENVEO) Aged Out No longer eligible based on patient's age to complete this topic documented as of this encounter Implants Not on filedocumented as of this encounter Procedures Procedure Name Priority Date/Time Associated Diagnosis Comments AUTOMATED ANALYZER WBC DIFFERENTIAL Routine 09/15/2020 1:42 PM EDT Multiple subsegmental pulmonary emboli without acute cor pulmonale (HCC) CBC WITH WBC DIFFERENTIAL Routine 09/15/2020 1:42 PM EDT Multiple subsegmental pulmonary emboli without acute cor pulmonale (HCC) CBC Routine 09/15/2020 1:42 PM EDT Multiple subsegmental pulmonary emboli without acute cor pulmonale (HCC) documented in this encounter Results * AUTOMATED ANALYZER WBC DIFFERENTIAL (09/15/2020 1:42 PM EDT) WBC 10.74 4.00 - 10.80 K/uL [facility] 56-02 Neutrophils % 63.2 40.0 - 75.0 % LAB[facility]ATORY [facility] 56-02 Lymphocytes % 24.9 18.0 - 42.0 % [facility] 56-02 Monocytes % 6.3 1.0 - 11.0 % LABORATORY STAT E [facility] 56-02 Eosinophils % 5.4 0.0 - 6.0 % [facility]ORY [facility] TE [facility] 56-02 Basophils % 0.2 0.0 - 2.0 % LABORATORY [facility] E [facility] 56-02 Absolute Neutrophils 6.79 1.80 - 7.70 K/uL [facility] 56-02 Absolute Lymphocytes 2.67 1.00 - 4.80 K/ul [facility] 56-02 Absolute Monocytes 0.68 0.00 - 1.10 K/uL [facility] 56-02 Absolute Eosinophils 0.58 0.00 - 0.70 K/uL [facility] 56-02 Absolute Basophils 0.02 0.00 - 0.20 K/uL [facility] 56-02 Specimen Blood - Venous blood specime n (specimen) [facility] 56-[address] [place], [place] [id number] * CBC (09/15/2020 1:42 PM EDT) WBC 10.74 4.00 - 10.80 K/uL [facility] RBC 4.73 4.50 - 5.25 M/uL [facility] HGB 14.2 14.0 - 16.8 g/dL [facility] - HCT 42.6 40.0 - 48.4 % [facility] - MCV 90.1 82.0 - 99.5 fL [facility] - MCH 30.0 27.0 - 34.0 pg [facility] - MCHC 33.3 32.0 - 36.0 g/dL [facility] - RDW 14.6 11.5 - 15.5 % [facility] - Plt 296 140 - 400 K/uL [facility] MPV 10.6 6.6 - 11.1 fL [facility] Specimen Blood - Venous blood specime n (specimen) Performing Organization Address City/State/[facility] Co de Phone Number [facility] [address] [place] [address] documented in this encounter Visit Diagnoses Diagnosis Multiple subsegmental pulmonary emboli without acute cor pulmonale (HCC)- Primary documented in this encounter Advance Directives Documents on File Type Date Recorded Patient Checking Department Supervisor Expl anation Advanced Directive Advanced Directive [...]
--- OUTSIDE RECORDS SUMMARY | 2022-12-29 03:35 | External Medical Summary | Summary of Care ---
Author Name Unknown Organization [place] [address] Care Team Providers Care Commercial Real Estate Sales Manager Name Role Phone Nick Em MD Primary Care Provider + Reason for Visit * Reason Onset Date Comments Test Results 09/17/2020 Encounter Details Date Type Department Care Team Description 09/17/2020 Telephone Hematology/Oncology Treatment, [address] [address] Mohamud Bradley MD [address] [place] [address] [phone] Test Results Allergies No Known Active Allergiesdocumented [...] [facility] 05/10/2020 History of 2019 [...] COVID-19 virus infection 05/06/2020 021 Overview: Admit [facility] Viral PNA. Didn't react well [...] Telephone Encounter - Lois Lopez RN - 09/17/2020 2:[address] Bradley: "On CT angiogram there is no pulmonary embolism " Called patient and he was unavailable- spoke with Juanita- she verbalizes understanding and had no further questions. documented in this encounter Plan of Treatment Upcoming Encounters Date Type Specialty Care Team Description 2020 Office Visit Hematology Oncology Kirk, Mohamud Rios MD [address] [place] [address] [phone] 10/08/2020 Anticoagulation Pharmacy [facility] [address] [facility] [place] [address] 10/30/2020 Office Visit Family Medicine Sahra Hou CRNP [address] [facility] [place] [address] [phone] Health Maintenance Due Date Last Done Comments [...] Documents on File Type Date Recorded Patient Senior Microsoft Net Developer Expl anation Advanced Directive Advanced Directive Advanced [...]
--- OUTSIDE RECORDS SUMMARY | 2022-12-29 03:35 | External Medical Summary | Summary of Care ---
Author Name Unknown Organization [place] [address] Care Team Providers Care Hardwood Faller Name Role Phone Nick Em MD Primary Care Provider + Reason for Visit * Reason Onset Date Comments Appointment 09/15/2020 Encounter Details Date Type Department Care Team Description 09/15/2020 Telephone Hematology/[place] [address] Mohamud Bradley MD [address] [place] [address] [phone] Appointment Allergies No Known Active Allergiesdocumented as of [...] Dr Woodward Multiple subsegmental pulmonary emboli w [facility] acute cor pulmonale 05/10/2020 History of 2019 [...] virus infection 05/06/2020 021 Overview: Admit [facility] Viral PNA. Didn't react well w/steroids. D/c [...] Miscellaneous Notes * Telephone Encounter - Parul Ortiz OSA - 09/15/2020 1:36 PM EDT Patient is scheduled for a CT Scan Angio @ [facility] on 09/17/20 @ 10:30am. Patient given prep instructions. documented in this encounter Plan of Treatment Upcoming Encounters Date Type Specialty Care Team Description 09/15/2020 Laboratory [facility] [address] [place], [place] [address] [phone] Arrived 09/17/2020 Anticoagulation Pharmacy [facility] [address] [facility] [place] [address] 09/17/2020 Imaging Radiology 2020 Office Visit Hematology Oncology Mohamud Bradley MD [address] [place] [address] [phone] 10/30/2020 Office Visit Family Medicine Sahra Hou CRNP [address] [place] [address] [phone] Health Maintenance Due Date Last Done Comments [...] Documents on File Type Date Recorded Patient Baker Paint Expl anation Advanced Directive Advanced Directive Advanced [...]
--- OUTSIDE RECORDS SUMMARY | 2022-12-29 03:35 | External Medical Summary | Summary of Care ---
Author Name Unknown Organization [place] [address] Care Team Providers Care Road Supervisor Of Engines Name Role Phone Nick Em MD Primary Care Provider + Reason for Visit * Reason Comments Follow Up Encounter Details Date Type Department Care Team Description 2020 Office Visit Hematology/Oncology [facility] [address] [place] [address] Mohamud Bradley MD [address] [place] [address] [phone] Multiple subsegmental pulmonary emboli without acute cor [...] [facility]al [facility] 05/10/2020 History [...] Sign Reading Time Taken Comments Blood Pressure 163/81 2020 7:57 AM EDT Pulse 78 2020 7:57 AM EDT Temperature 36.9 C (98.4 F) 2020 7:57 AM ED T Respiratory Rate 16 2020 7:57 AM EDT Oxygen Saturation 98% 2020 7:57 AM EDT Inhaled Oxygen Concentration - - Weight 115.6 kg (254 lb 14.4 oz) 2020 7:57 AM EDT Height - - Body Mass Index 38.19 11/05/2019 9:36 AM EDT documented in this encounter Progress Notes * Mohamud Bradley MD - 2020 8:29 AM EDT Outpatient Consult Note Data Source: Patient, Epic record. Data Source: Patient, Epic record. 2020 8:29 AM Raj Bashir [id number] 70 year old Patient Encounter: HEMATOLOGY/ONCOLOGY [facility] Diagnosis: History of pulmonary embolism and COVID-19 pneumonia currently on Coumadin. Patient wants to stop the anticoagulation Current Treatment: Warfarin Previous Treatment: None History : 70-year-old male with past medical history significant for hypertension, hyperlipidemia was admitted to the hospital on 04/28 with diagnosis of COVID 19 pneumonia. He was admitted in the hospital from 04/28-05/02 and was discharged on 4 L of [...] history is negative for hematologic oncology problem Interval History: Clinically he is doing well without any new symptoms complain. Denies any headache, dizziness, blurred vision, chest pain, shortness breath palpitation, abdominal pain distention, bleeding, bruising,nausea, vomiting, hematuria, hematochezia. CT angiogram was done on 09/17/2020 and shows no evidence of pulmonary embolism. Blood test done on 09/15/2020 shows a normal WBC count but there was a increase in creatinine to 1.7 REVIEW OF SYSTEMS: General: No Fever, chills, [...] lymph nodes noted As mentioned above, all of the systems were reviewed in full and are unremarkable. Past Medical History: Diagnosis Date History of [...] a day. 60 Cap 5 Social History Tobacco Use Smoking status: Former Smoker Types: Cigarettes Smokeless tobacco: Current User Types: Snuff Last attempt to quit: 04/30/1980 Substance Use Topics Alcohol use: No Drug use: No Review of patient's allergies indicates: No Known Allergies PHYSICAL EXAMINATION: General Appearance: Healthy appearing patient in no acute distress BP 163/81 (BP Site: Left Arm, BP Position: Sitting, BP Cuff Size: Large) | Pulse 78 | Temp 36.9 C(98.4 F) (Infrared ) | Resp 16 | Wt 115.6 kg (254 lb 14.4 oz) | SpO2 98% | BMI 38.19 kg/m | BSA2.36 m Vitals reviewed. HEENT: No oral or pharyngeal masses, [...] the epidemiology and the pathophysiologic mechanisms underlying [id number] pulmonary embolism because of the lack of large prospective studies in this context. Also the duration of anticoagulation in patients with pulmonary embolism and COVID pneumonia is unknown. Patient wants to discontinue anticoagulation and had [...] to take baby aspirin on daily basis. On the last blood test there was increase in the creatinine to 1.7. His previous blood test was done on 11/25/2017 and his creatinine was 1.1. Will repeat his creatinine and if it remains side then Iwill inform his PCP Dr. Em for further management. PLAN: Patient will have repeat CMP done today. He will continue to follow PCP for all other medical problems. He can be referred back to me in case if he develops any new symptoms of problem. The patient voiced understanding of all of [...] Nursing Notes * Sameera Alston CMA - 2020 7:57 AM EDT Patient identifed by name and birthdate Do you have any concerns about pain management for today's visit? No Living Will or Advance Directive for Health Care as noted on the problem list. [facility] is a way you can talk to your provider on line through e-mail. Would you like to sign up? I can activate it for you? ALREADY ACTIVE Filed Vitals: 09/29/20 0757 BP: 163/81 Pulse: 78 Resp: 16 Temp: 36.9 C (98.4 F) TempSrc: Infrared SpO2: 98% Weight: 115.6 kg (254 lb 14.4 oz) documented in this encounter Plan of Treatment Upcoming Encounters Date Type Specialty Care Team Description 2020 Laboratory [facility] [place], Lab Scenery [address] [place] [address] [phone] Arrived 10/08/2020 Anticoagulation Pharmacy [facility] [address] [place] [address] 10/30/2020 Office Visit Family Medicine Sahra Hou CRNP [address] [place] [address] [phone] Pending Results Name Type Priority Associated Diagnoses Date /Time COMPREHENSIVE METABOLIC PANEL Lab Routine Multiple subsegmental pulmonary emboli without acute cor pulmonale (HCC) 2020 8:39 AM EDT Health Maintenance Due Date Last [...] Documents on File Type Date Recorded Patient Manager Community Outreach Expl anation Advanced Directive Advanced Directive Advanced [...]
--- OUTSIDE RECORDS SUMMARY | 2022-12-29 03:35 | External Medical Summary | Continuity of Care Document ---
Author Name Unknown Organization [facility] [address] [facility] 2 Address [address] [address] Care Team Providers Care Ese Teacher Name Role Phone Nick Em Primary Care Physician [phone] [id number] Date(s): 12/02/20 - 12/02/20 [facility] [address] [facility] [address] [address] [place] Encounter Diagnosis Melanocytic nevi of other parts of face(Discharge Diagnosis) - 12/02/20 Discharge Disposition: Home or Self Care Attending Physician: MD Licea David L Referring Physician: MD Licea David L Allergies, Adverse Reactions, Alerts No Known Medication Allergies Assessment and Plan Extracted from: Title:Clinical Document Author:MD Licea David L Date:12/02/20 OUTPATIENT NOTE Name: JORDAN BASHIR I Patient Number:[id number] : 1950 Date of Service: 12/02/2020 _ Mr. Bashir comes in for recheck. Notes a lesion below the left eye. 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 He does wear hat but generally does not use sunscreens. No prior history of skin cancer. Physical examination: Is a well-developed well-nourished white male type II skin. Alert and oriented x3. Does have a 4 mm brown somewhat pedunculated papule in the middle of the left lower eyelid. Remainder of scalp face ears neck back chest abdomen hands and arms otherwise unremarkable. Impression: #1 some benign nevi on the trunk. #2 nevus versus skin tag on the left lower eyelid. Plan: After discussing the procedure risk benefits scarring, he gives verbal consent for shave removal lesion on the lower eyelid. After 1% Xylocaine with epinephrine, lesion the left lower eyelid was scissor excised and the base was treated electrocautery. No pathology was sent. Several skin tags in the left axillae were also snipped the base of tree electrocautery. Wound care instruction given. Tolerated very well. Sun protection was stressed. Return for recheck on a as needed basis. Medications Aspirin Low Dose 81 mg oral delayed release tablet Start: 12/02/20 9:35:00 EDT, 1 tab, PO, Daily Start Date: 12/02/20 Status: Ordered hydroCHLOROthiazide-olmesartan 12.5 mg-40 mg oral tablet Start: 10/16/18 10:58:00 EDT, 1 tab, PO, Daily Start Date: 10/16/18 Status: Ordered Mental Status 12/02/20 Barriers to Learning one year None evide nt Mandatory Health Literacy Documentation Yes Health Literacy Communication Barriers N ever Primary Language Kyrgyz Problem List Condition Effective Dates Status Health Status Inform ant AAA (abdominal aortic aneury sm) without rupture(Confirmed) Active S/P AAA repair using bifurca tion graft(Confirmed) Active High blood pressure(Confirmed) Active Tobacco user(Confirmed) Active Diagnosis Diagnosis Type Effective Dates Health Status Clinical Service Informant Melanocytic nevi of other parts of face Discharge Diagnosis 12/02/20 Procedures Procedure Date Related Diagnosis Body Site Status PEVAR 07/01/20 Completed None Completed Social History Social History Type Response Smoking Status Never smoked cigaret bipin Sex Male
--- OUTSIDE RECORDS SUMMARY | 2022-12-29 03:35 | External Medical Summary ---
Author Name Unknown Address Unknown Organization K0G:[facility] [address] [place] [id number] Laboratory Report Ordering Provider Test Date Status FEDERICO HOLLIS 09/17/2020 08:26:07 Final Observation Date Value Abnormality Reference (Units ) Status INR in Capillary blood by Coagulation assay 09/17/2020 08:26:07 2.0 (INR) Final Performing Location [facility] [address] [place] [id number]
--- OUTSIDE RECORDS SUMMARY | 2022-12-29 03:35 | External Medical Summary | Summary of Care ---
Author Name Unknown Organization [place] [address] Care Team Providers Care Support Services Manager Name Role Phone Nick Em MD Primary Care Provider + Reason for Visit * Reason Onset Date Comments Test Results Lab 09/15/2020 Encounter Details Date Type Department Care Team Description 09/15/2020 Telephone Hematology/Oncology Treatment, [address] [address] Mohamud Bradley MD [address] [place] [address] [phone] Test Results Lab Allergies No Known Active [...] COVID-19 virus infection 05/06/2020 021 Overview: Admit [facility] Viral PNA. Didn't react well w/steroids. [...] encounter Miscellaneous Notes * Telephone Encounter - Aleksandra Jensen RN - 09/15/2020 4:[address] Kirk: "Creatinine is increased to 1.7. Please inform PCP office for further management" Dr Em: SHERRY documented in this encounter Plan of Treatment Upcoming Encounters Date Type Specialty Care Team Description 09/17/2020 Anticoagulation Pharmacy [facility] [address] [facility] [place] [address] 09/17/2020 Imaging Radiology 2020 Office Visit Hematology Oncology Mohamud Bradley MD 200 [place] [address] [phone] 10/30/2020 Office Visit Family Medicine Ameya Sahra Wendy, RETAIL LEASING AGENT 132 [facility] [place] [address] [phone] Health Maintenance Due Date Last Done Comments [...] Documents on File Type Date Recorded Patient Utility Agent Expl anation Advanced Directive Advanced Directive Advanced [...]
--- OUTSIDE RECORDS SUMMARY | 2022-12-29 03:36 | External Medical Summary | Summary of Care ---
Author Name Unknown Organization [place] [address] Care Team Providers Care Log Cooker Name Role Phone Nick Em MD Primary Care Provider + Reason for Visit * Reason Comments Dosage Adjustment Via Phone (anticoag Cl inic) Encounter Details Date Type Department Care Team Description 07/27/2020 Anticoagulation Pharmacy, [facility] 132 [facility] [place] [address] [facility] 132 [facility] [place] [address] Other acute pulmonary embolism, unspecified whether acute cor pulmonale present (HCC)* Allergies No Known Active Allergiesdocumented as of this encounter (statuses as of 07/27/2020) Medications Medication Sig Dispensed Refills Start Date End Date Status fish oil concentrate (OMEGA-3) 1000 MG CAPSIndications:Hyperli pidemia with target LDL less than 160 Take 1 Cap by mouth 2 times a day. 60 Cap 5 07/12/2016 Active Olmesartan Medoxomil-HCTZ 40-12.5 MG per tabletIndications:Essen tial hypertension with goal blood pressure less than 140/90 TAKE 1 TABLET BY MOUTH ONCE DAILY 90 Tab 0 02/28/2019 Active Olmesartan Medoxomil-HCTZ 40-12.5 MG Oral TabletIndications:Essen tial hypertension with goal blood pressure less than 140/90 Take 1 Tab by mouth daily. 90 Tab 0 03/29/2020 Active Doxycycline Monohydrate 100 MG Oral Capsule TAKE 1 CAPSULE BY MOUTH TWICE DAILY FOR 10 DAYS 0 05/09/2020 Active Cefdinir 300 MG Oral Capsule (Omnicef) TAKE 1 CAPSULE BY MOUTH TWICE DAILY FOR 10 DAYS 0 05/09/2020 Active Warfarin Sodium 2 MG Oral Tablet (Coumadin) TAKE 2 & 1 2 (TWO & ONE HALF) TABLETS BY MOUTH ONCE DAILY PER INR 90 Tab 1 06/12/2020 Active Enoxaparin Sodium 100 MG/ML Subcutaneous Solution (Lovenox)Indications:Ot her acute pulmonary embolism, unspecified whether acute cor pulmonale present (HCC) Inject 100 mg under the skin every 12 hours. 10 mL 1 07/09/2020 Active documented as of this encounter (statuses as of 07/27/2020) Active Problems Problem Noted Date S/P AAA repair 07/02/2020 Overview: 07/19 Dr Woodward Other acute pulmonary emboli sm, unspecified whether acute cor pulmonale present 05/10/2020 History of 2019 novel coronavirus diseas e (COVID-19) 05/08/2020 Prediabetes 07/11/2016 Dyslipidemia 05/05/2015 Overview: 05/16 LDL 222. High in past. NEED rx ICD-10 update of inactive term Well adult exam 04/30/2015 Overview: AAA , cologuard ordered. Refuses statin. HTN, goal below 130/80 04/30/2015 documented as of this encounter (statuses as of 07/27/2020) Resolved Problems Problem Noted Date Resolved Date COVID-19 virus infection 05/06/2020 021 Overview: Admit [facility] Viral PNA. Didn't react well w/steroids. D/c home on O2. documented as of this encounter (statuses as of 07/27/2020) Immunizations Name Administration Dates Next Due TDAP [...] of this encounter Progress Notes * Juana Marc, [facility] - 07/27/2020 12:28 PM EDT Medication Therapy Disease Management - Anticoagulation Patient: Raj Bashir : 1950 Contacts Type Contact Phone 07/27/2020 12:37 PM EDT Phone (Outgoing) Raj Bashir I (Self) [phone] (H) Current Warfarin Dose As of 07/27/2020 Warfarin maintenance plan: 10 mg (2 mg x 5) every Tue, Sat; 6 mg (2 mg x 3) all other days Patient-Reported Symptoms: Patient Findings Negatives: Signs/symptoms of thrombosis, Signs/symptoms of bleeding, Change in health, Change in alcohol use, Change in activity, Upcoming invasive procedure, Missed doses, Extra doses, Change in medications, Change in diet/appetite, Bruising INR Result As of 07/27/2020 INR goal: 2.0-3.0 INR used for dosin.1 (07/27/2020) Warfarin Plan As of 07/27/2020 Full warfarin instructions: 10 mg every Tue, Sat; 6 mg all other days Next INR check: Additional Dosing Information: Description Takes AM Called [facility] with orders [phone] Order faxed to [phone] Ordering PCP: Dr. Nick Em Repeat PT/INR in 2 week(s) Weekly dose: not changed Juana Marc [facility] Clinical Pharmacist 07/27/2020, 12:38 PM * Brittaney Castano OSA - 07/27/2020 12:27 PM EDT Gale from [facility] calling in pt's INR results. Pt has been d/c'd from [facility] services as of today, 07/27/2020. INR = 2.1 Thank you, Brittaney Castano [facility] Director Advanced I documented in this encounter Plan of Treatment Upcoming Encounters Date Type Specialty Care Team Description 08/14/2020 Anticoagulation Pharmacy Brandee Harding [address] [place] [address] 10/30/2020 Office Visit Family Medicine Ameya Sahra Wendy, JOHN [address] [place] [address] [phone] Health Maintenance Due Date Last Done Comments Prediabetes-Yearly Hemoglobin A1c 1950 *DEPRESSION SCREENING,ANNUAL FOR PTS 12 AND OVER 05/09/2015 Zoster Vaccines (2 of 3) 06/25/2015 04/30/2015 Pneumococcal Vaccine: 65+ Years (1 of 1 - PPSV23) 09/30/2015 *COLORECTAL CANCER SCREENING (COLONOSCOPY 10 YEARS; SIGMOIDOSCOPY 5 YEARS; COLOGUARD 3 YEARS; FOBT 1 YEAR),AGES 50-75 11/20/2018 05/03/2015 Influenza Vaccine (FLU shot) (#1) 2019 05/11/2019 LIPID SCREEN EVERY 5 YRS-MEN AGE [...] Procedure Name Priority Date/Time Associated Diagnosis Comments OUTSIDE LAB-PT/INR Routine 07/27/2020 documented in this encounter Results * OUTSIDE LAB-PT/INR (07/27/2020) INR-OUTSIDE LAB 2.1 OUTSIDE LAB (SEE SCANNED REPORT) Specimen OUTSIDE LAB (SEE SCANNED REPORT) documented in this encounter Visit Diagnoses Diagnosis Other acute pulmonary embolism, unspecified whether acute cor pulmonale present (HCC)- Primary documented in this encounter Advance Directives Documents on File Type Date Recorded Patient Tester Waste Disposal Leakage Expl anation Advanced Directive Advanced Directive Advanced [...]
--- OUTSIDE RECORDS SUMMARY | 2022-12-29 03:36 | External Medical Summary | Summary of Care ---
Author Name Unknown Organization [place] [address] Care Team Providers Care Laboratory Chief Name Role Phone Nick Em MD Primary Care Provider + Encounter Details Date Type Department Care Team Description 08/27/2020 Scan Encounter Unspecified Department <No scans attached> Allergies No Known Active Allergiesdocumented as of this encounter (statuses as of 08/28/2020) Medications Medication Sig Dispensed Refills Start Date End Date Status fish oil concentrate (OMEGA-3) 1000 MG CAPSIndications:Hyperli pidemia with target LDL less than 160 Take 1 Cap by mouth 2 times a day. 60 Cap 5 07/12/2016 Active Doxycycline Monohydrate 100 MG Oral Capsule TAKE 1 CAPSULE BY MOUTH TWICE DAILY FOR 10 DAYS 0 05/09/2020 Active Cefdinir 300 MG Oral Capsule (Omnicef) TAKE 1 CAPSULE BY MOUTH TWICE DAILY FOR 10 DAYS 0 05/09/2020 Active Enoxaparin Sodium 100 MG/ML Subcutaneous Solution (Lovenox)Indications:Ot her acute pulmonary embolism, unspecified whether acute cor pulmonale present (HCC) Inject 100 mg under the skin every 12 hours. 10 mL 1 07/09/2020 Active Olmesartan Medoxomil-HCTZ 40-12.5 MG Oral TabletIndications:Essen tial hypertension with goal blood pressure less than 140/90 Take 1 tablet by mouth once daily 90 Tab 1 08/04/2020 Active documented as of this encounter (statuses as of 08/28/2020) Active Problems Problem Noted Date S/P AAA [...] as of this encounter (statuses as of 08/28/2020) Resolved Problems Problem Noted Date Resolved Date COVID-19 virus infection 05/06/2020 021 Overview: Admit [facility] Viral PNA. Didn't react well w/steroids. D/c home on O2. documented as of this encounter (statuses as of 08/28/2020) Immunizations Name Administration Dates Next Due TDAP [...] Encounters Date Type Specialty Care Team Description 09/03/2020 Anticoagulation Pharmacy Mehdi, [facility] [address] [place] [address] 10/30/2020 Office Visit Family Medicine Sahra Hou CRNP [address] [place] [address] [phone] Health Maintenance Due Date Last Done Comments [...] Documents on File Type Date Recorded Patient Boom Worker Expl anation Advanced Directive Advanced Directive Advanced [...]
--- OUTSIDE RECORDS SUMMARY | 2022-12-29 03:36 | External Medical Summary | Summary of Care ---
Author Name Unknown Organization [place] [address] Care Team Providers Care Plush Finisher Name Role Phone Nick Em MD Primary Care Provider + Reason for Visit * Reason Comments Dosage Adjustment In Person (Anticoag Cl inic) Encounter Details Date Type Department Care Team Description 09/03/2020 Anticoagulation Pharmacy, [facility] 132 [facility] [place] [address] [facility] 132 [facility] [place] [address] Other acute pulmonary embolism, unspecified whether acute cor pulmonale present (HCC)*; Anticoagulation management encounter; skilled nursing current use of anticoagulant therapy Allergies No Known Active Allergiesdocumented as of this encounter (statuses as of 09/03/2020) Medications Medication Sig Dispensed Refills Start Date [...] Active Enoxaparin Sodium 100 MG/ML Subcutaneous Solution (Lovenox)Indications:O ther acute pulmonary embolism, unspecified whether acute cor pulmonale present (HCC) Inject 100 mg under the skin every 12 hours. 10 mL 1 07/09/2020 Active Olmesartan Medoxomil-HCTZ 40-12.5 MG Oral TabletIndications:Esse ntial hypertension with goal blood pressure less than 140/90 Take 1 tablet by mouth once daily 90 Tab 1 08/04/2020 Active Warfarin Sodium 4 MG Oral Tablet (Coumadin) Take 1.5-2.5 Tabs by mouth daily. As directed 75 Tab 5 08/28/2020 Active documented as of this encounter (statuses as of 09/03/2020) Active Problems Problem Noted Date S/P AAA [...] as of this encounter (statuses as of 09/03/2020) Resolved Problems Problem Noted Date Resolved Date COVID-19 virus infection 05/06/2020 021 Overview: Admit [facility] Viral PNA. Didn't react well w/steroids. D/c home on O2. documented as of this encounter (statuses as of 09/03/2020) Immunizations Name Administration Dates Next Due TDAP [...] as of this encounter Progress Notes * Miri De La Cruz, [facility] - 09/03/2020 8:23 AM EDT Medication Therapy Disease Management - Anticoagulation Patient: Raj Bashir : 1950 Current Warfarin Dose As of 09/03/2020 Warfarin maintenance plan: 6 mg (4 mg x 1.5) every Mon, Clary; 10 mg (4 mg x 2.5) all other days Patient-Reported Symptoms: Patient Findings Negatives: Signs/symptoms of thrombosis, Signs/symptoms of bleeding, Change in health, Change in alcohol use, Change in activity, Upcoming invasive procedure, Missed doses, Extra doses, Change in medications, Change in diet/appetite, Bruising INR Result As of 09/03/2020 INR goal: 2.0-3.0 INR used for dosin.0 (09/03/2020) Warfarin Plan As of 09/03/2020 Full warfarin instructions: 6 mg every Mon, Clary; 10 mg all other days No change documented: Miri De La Cruz fredo Next INR check: 09/17/2020 Additional Dosing Information: Description Takes AM Repeat PT/INR in 2 week(s) Weekly dose: not changed Miri De La Cruz [facility] Clinical Pharmacist 09/03/2020, 8:23 AM documented in this encounter Plan of Treatment Upcoming Encounters Date Type Specialty Care Team Description 09/15/2020 Office Visit Hematology Oncology Kirk, Mohamud Rios MD 200 [facility], [place] [address] [phone] 09/17/2020 Anticoagulation Pharmacy [facility] [address] [place] [address] 10/30/2020 Office Visit Family Medicine Sahra Hou CRNP [address] [place] [address] [phone] Health Maintenance Due Date Last Done Comments [...] Comments INR FINGERSTICK, POINT OF CARE STAT 09/03/2020 8:27 AM EDT Other acute pulmonary embolism, unspecified whether acute cor pulmonale present (HCC) Anticoagulation management encounter skilled nursing current use of anticoagulant therapy documented in this encounter Results * INR FINGERSTICK, POINT OF CARE (09/03/2020 8:27 AM EDT) Fingerstick INR 2.0 INR [facility] [place] [facility] Specimen Blood Narrative Performed At Therapeutic ranges for non-operative patients: Prophylaxsis/treatment of DVT: (Range:2.0-3.0) Treatment of pulmonary embolism:(Range:2.0-3.0) Prevention of systemic embolism from: -tissue heart valves -acute myocardial infarction -valvular heart disease -atrial fibrillation (Range: 2.0-3.0) Mechanical prosthetic valves: (Range: 2.5-3.5) [facility] [place] [facility] [facility] [place] [address] [address] documented in this encounter Visit Diagnoses Diagnosis Other acute pulmonary embolism, unspecified whether acute cor pulmonale present (HCC)- Primary Anticoagulation management encounter Encounter for therapeutic drug monitoring termite control technician current use of anticoagulant therapy documented in this encounter Advance Directives Documents on File Type Date Recorded Patient Rn Military Expl anation Advanced Directive Advanced Directive Advanced [...]
--- OUTSIDE RECORDS SUMMARY | 2022-12-29 03:36 | External Medical Summary ---
Author Name Unknown Address Unknown Organization [id number]:[facility] [address] [place] [id number] Laboratory Report Ordering Provider Test Date Status FEDERICO HOLLIS 08/28/2020 08:36:29 Final Observation Date Value Abnormality Reference (Units ) Status INR in Capillary blood by Coagulation assay 08/28/2020 08:36:29 1.3 (INR) Final Performing Location [facility] [address] [place] [id number]
--- OUTSIDE RECORDS SUMMARY | 2022-12-29 03:36 | External Medical Summary | Summary of Care ---
Author Name Unknown Organization [place] [address] Care Team Providers Care Final Assembler Boat Name Role Phone Nick Em MD Primary Care Provider + Encounter Details Date Type Department Care Team Description 07/09/2020 Telephone Pharmacy, [facility] 132 [facility] [place] [address] [facility] 132 [facility] [place] [address] Allergies No Known Active Allergiesdocumented as of this encounter (statuses as of 07/09/2020) Medications Medication Sig Dispensed Refills Start Date [...] as of this encounter (statuses as of 07/09/2020) Active Problems Problem Noted Date S/P AAA [...] as of this encounter (statuses as of 07/09/2020) Resolved Problems Problem Noted Date Resolved Date COVID-19 virus infection 05/06/2020 021 Overview: Admit [facility] Viral PNA. Didn't react well w/steroids. D/c home on O2. documented as of this encounter (statuses as of 07/09/2020) Immunizations Name Administration Dates Next Due TDAP [...] encounter Miscellaneous Notes * Telephone Encounter - Reuben Alba, [facility] - 07/09/2020 2:29 PM EST Patient Phone Numbers PA has been approved, spoke with pharmacy and confirmed , spoke with patient's and made aware that syringes were able to be processed through patient's insurance, aware of dosing plan of [id number] until next INR (07/13/20) Denver Nolasco Clinical Pharmacist 07/09/2020,2:35 PM * Telephone Encounter - Reuben Alba RPh - 07/09/2020 1:07 PM EST PA sent to plan today Follow up by EOD for response Denver Nolasco Clinical Pharmacist 07/09/2020,1:07 PM * Telephone Encounter - Miguel Lee OSA - 07/09/2020 12:00 PM EST Patient Phone Numbers Please see note from nurseMatt today on patient-patient needs a PA for lovenox or if any floating around could use for tonight and tomorrow -100mg. documented in this encounter Plan of Treatment Upcoming Encounters Date Type Specialty Care Team Description 07/09/2020 [facility] [address] [place] [address] Other acute pulmonary embolism, unspecified whether acute cor pulmonale present (HCC)* 07/13/2020 Anticoagulation Pharmacy [facility] [address] [place] [address] 10/30/2020 Office Visit Family Medicine Sahra Hou CRNP [address] [place] [address] [phone] Health Maintenance Due Date Last Done Comments Prediabetes-Yearly Hemoglobin A1c 1950 *DEPRESSION SCREENING,ANNUAL FOR PTS 12 AND OVER 05/09/2015 Zoster Vaccines (2 of 3) 06/25/2015 04/30/2015 ABDOMINAL AORTIC ANEURYSM (AAA) SCREENING 09/30/2015 Pneumococcal Vaccine: 65+ Years (1 of 1 [...] Td Vaccines (2 - Td) 04/30/2025 04/30/2015 MENINGOCOCCAL (MENACTRA/MENVEO) Aged Out No longer eligible based on patient's age to complete this topic documented as of this encounter Implants Not on filedocumented as of this encounter Advance Directives Documents on File Type Date Recorded Patient Manager Corporate Responsibility Expl anation Advanced Directive Advanced Directive Advanced Directive Advanced Directive Advanced Directive Advanced Directive Advanced Directive Advanced Directive Advanced Directive Advanced Directive Advanced Directive Advanced Directive Advanced Directive Advanced Directive Advanced Directive Advanced Directive Advanced Directive Advanced Directive Advanced Directive Advanced Directive Advanced Directive Advanced Directive Advanced Directive Advanced Directive Advanced Directive Advanced Directive Advanced Directive
--- OUTSIDE RECORDS SUMMARY | 2022-12-29 03:36 | External Medical Summary ---
Author Name Unknown Address Unknown Organization K0G:[facility] [address] [place] [id number] Laboratory Report Ordering Provider Test Date Status FEDERICO HOLLIS 09/03/2020 08:27:45 Final Observation Date Value Abnormality Reference (Units ) Status INR in Capillary blood by Coagulation assay 09/03/2020 08:27:45 2.0 (INR) Final Performing Location [facility] [address] [place] [id number]
--- OUTSIDE RECORDS SUMMARY | 2022-12-29 03:36 | External Medical Summary ---
Author Name Unknown Address Unknown Organization K09:[facility] [place] [address] Laboratory Report Ordering Provider Test Date Status BARRIE FRYE 09/15/2020 13:42:37 Final Observation Date Value Abnormality Reference (Units ) Status BUN 09/15/2020 13:42:37 24 Above high normal 6-20 (mg/dL) Final Creatinine 09/15/2020 13:42:37 1.7 Above high normal 0.6-1.2 (mg/dL) Final Glomerular filtration rate/1.73 sq M.predicted [Volume Rate/Area] in Serum, Plasma or Blood by Creatinine-based formula (CKD-EPI) 09/15/2020 13:42:37 41.7 Below low normal >=60.0 (mL/min) Final Performing Location [facility] [place] [address]
--- OUTSIDE RECORDS SUMMARY | 2022-12-29 03:36 | External Medical Summary | Summary of Care ---
Author Name Unknown Organization [place] [address] Care Team Providers Care Photolithographer Name Role Phone Nick Em MD Primary Care Provider + Reason for Visit * Reason Comments Dosage Adjustment Via Phone (anticoag Cl inic) Encounter Details Date Type Department Care Team Description 07/20/2020 Anticoagulation Pharmacy, [facility] 132 [facility] [place] [address] [facility] 132 [facility] [place] [address] Other acute pulmonary embolism, unspecified whether acute cor pulmonale present (HCC)* Allergies No Known Active Allergiesdocumented as of this encounter (statuses as of 07/20/2020) Medications Medication Sig Dispensed Refills Start Date [...] as of this encounter (statuses as of 07/20/2020) Active Problems Problem Noted Date S/P AAA [...] as of this encounter (statuses as of 07/20/2020) Resolved Problems Problem Noted Date Resolved Date COVID-19 virus infection 05/06/2020 021 Overview: Admit [facility] Viral PNA. Didn't react well w/steroids. D/c home on O2. documented as of this encounter (statuses as of 07/20/2020) Immunizations Name Administration Dates Next Due TDAP [...] as of this encounter Progress Notes * Amber Lynne RPh - 07/20/2020 2:50 PM EDT Medication Therapy Disease Management - Anticoagulation Patient: Raj Bashir : 1950 Contacts Type Contact Phone 07/20/2020 02:52 PM EDT Phone (Outgoing) Raj Bashir I (Self) [phone] (H) No Answer/Busy 07/20/2020 03:53 PM EDT Phone (Outgoing) CLARA BASHIR (Emergency Contact) [phone] Spoke to Marianne Current Warfarin Dose As of 07/20/2020 Warfarin maintenance plan: 10 mg (2 mg x 5) every Tue, Sat; 6 mg (2 mg x 3) all other days Patient-Reported Symptoms: Patient Findings Negatives: Signs/symptoms of thrombosis, Signs/symptoms of bleeding, Change in health, Change in alcohol use, Change in activity, Upcoming invasive procedure, Missed doses, Extra doses, Change in medications, Change in diet/appetite, Bruising INR Result As of 07/20/2020 INR goal: 2.0-3.0 INR used for dosin.2 (07/20/2020) Warfarin Plan As of 07/20/2020 Full warfarin instructions: 10 mg every Tue, Sat; 6 mg all other days No change documented: Amber Lynne RPh Next INR check: 07/27/2020 Additional Dosing Information: Description Takes AM Called [facility] with orders [phone] Order faxed to [phone] Ordering PCP: Dr. Nick Lopes reports [facility] is returning for last visit on 07/27, then they will schedule future INRs at [facility]. Repeat PT/INR in 1 week(s) Weekly dose: not changed Amber Lynne RPh Clinical Pharmacist 07/20/2020, 2:50 PM * Morris Koenig OSA - 07/20/2020 11:57 AM EDT Verbal results from [facility]: 2.2/ -- will fax hard copy. Pt being d/c from on 07/27/20 documented in this encounter Plan of Treatment Upcoming Encounters Date Type Specialty Care Team Description 10/30/2020 Office Visit Family Medicine Sahra Hou CRNP [address] [place] [address] [phone] Health Maintenance Due Date Last Done Comments [...] Date/Time Associated Diagnosis Comments OUTSIDE LAB-PT/INR Routine 07/20/2020 documented in this encounter Results * OUTSIDE LAB-PT/INR (07/20/2020) INR-OUTSIDE LAB 2.2 documented in this encounter Visit Diagnoses Diagnosis Other acute pulmonary embolism, unspecified whether acute cor pulmonale present (HCC)- Primary documented in this encounter Advance Directives Documents on File Type Date Recorded Patient Snow Technician Expl anation Advanced Directive Advanced Directive [...]
--- OUTSIDE RECORDS SUMMARY | 2022-12-29 03:36 | External Medical Summary | Summary of Care ---
Author Name Unknown Organization [place] [address] Care Team Providers Care Box Office Agent Name Role Phone Nick Em MD Primary Care Provider + Reason for Visit * Reason Comments Dosage Adjustment In Person (Anticoag Cl inic) Encounter Details Date Type Department Care Team Description 08/28/2020 Anticoagulation Pharmacy, [facility] 132 [facility] [place] [address] [facility] 132 [facility] [place] [address] Other acute pulmonary embolism, unspecified whether acute cor pulmonale present (HCC)*; Anticoagulation management encounter; terminal carman current use of anticoagulant therapy Allergies No [...] Active Enoxaparin Sodium 100 MG/ML Subcutaneous Solution (Lovenox)Indication s:Other acute pulmonary embolism, unspecified whether acute cor pulmonale present (HCC) Inject 100 mg under the skin every 12 hours. 10 mL 1 07/09/2020 Active Olmesartan Medoxomil-HCTZ 40-12.5 MG Oral TabletIndications:E ssential hypertension with goal blood pressure less than 140/90 Take 1 tablet by mouth once daily 90 Tab 1 08/04/2020 Active Warfarin Sodium 4 MG Oral Tablet (Coumadin) Take 1.5-2.5 Tabs by mouth daily. As directed 75 Tab 5 08/28/2020 Active Warfarin Sodium 2 MG Oral Tablet (Coumadin) Take 3-5 Tabs by mouth daily. As directed by coumadin clinic 150 Tab 3 08/07/2020 08/28/2020 Discontinued documented as of this encounter (statuses [...] of this encounter Progress Notes * Juana Coronado RPh - 08/28/2020 8:56 AM EDT Images from the original note were not included. Medication Therapy Disease Management - Anticoagulation Patient: Raj Bashir : 1950 Current Warfarin Dose As of 08/28/2020 Warfarin maintenance plan: 6 mg (2 mg x 3) every Mon, Clary; 10 mg (2 mg x 5) all other days Patient-Reported Symptoms: INR Result As of 08/28/2020 INR goal: 2.0-3.0 INR used for dosin.3 (08/28/2020) Warfarin Plan As of 08/28/2020 Full warfarin instructions: 08/28: 16 mg; Otherwise 6 mg every Mon, Clary; 10 mg all other days Next INR check: 09/03/2020 Additional Dosing Information: Description Takes AM Repeat PT/INR in 1 week(s) Weekly dose: not changed Juana Coronado [facility] Clinical Pharmacist 08/28/2020, 8:57 AM documented in this encounter Plan of Treatment Upcoming Encounters Date Type Specialty Care Team Description 09/03/2020 Anticoagulation Pharmacy [facility] [address] [place] [address] 10/30/2020 Office Visit Family Medicine Sahra Hou CRNP [address] [place] [address] [phone] Health Maintenance Due Date Last Done Comments [...] Date/Time Associated Diagnosis Comments OUTSIDE LAB-PT/INR Routine 08/28/2020 documented in this encounter Results * OUTSIDE LAB-PT/INR (08/28/2020) INR-OUTSIDE LAB 1.3 documented in this encounter Visit Diagnoses Diagnosis Other acute pulmonary embolism, unspecified whether acute cor pulmonale present (HCC)- Primary Anticoagulation management encounter Encounter for therapeutic drug monitoring terminal carman current use of anticoagulant therapy documented in this encounter Advance Directives Documents on File Type Date Recorded Patient Hand Bander Expl anation Advanced Directive Advanced Directive Advanced [...]
--- OUTSIDE RECORDS SUMMARY | 2022-12-29 03:36 | External Medical Summary | Summary of Care ---
Author Name Unknown Organization [place] [address] Care Team Providers Care Bead Machine Operator Name Role Phone Nick Em MD Primary Care Provider + Encounter Details Date Type Department Care Team Description 06/09/2020 Refill Family Practice [facility] 132 [facility] [place] [address] Nick Em MD 132 [facility] [place] [address] [phone] Allergies No Known Active Allergiesdocumented as of this encounter (statuses as of 09/02/2020) Medications Medication Sig Dispensed Refills Start Date [...] DAILY FOR 10 DAYS 0 05/09/2020 Active Olmesartan Medoxomil-HCTZ 40-12.5 MG per tabletIndications: Essential hypertension with goal blood pressure less than 140/90 TAKE 1 TABLET BY MOUTH ONCE DAILY 90 Tab 0 02/28/2019 1 Discontinued(Medi cation List Clean Up) Olmesartan Medoxomil-HCTZ 40-12.5 MG Oral TabletIndications: Essential hypertension with goal blood pressure less than 140/90 Take 1 Tab by mouth daily. 90 Tab 0 03/29/2020 1 Discontinued Enoxaparin Sodium 100 MG/ML Subcutaneous Solution (Lovenox) Inject 100 mg under the skin every 12 hours. 10 mL 3 05/12/2020 1 Discontinued(Refi ll) Warfarin Sodium 2 MG Oral Tablet (Coumadin) TAKE 2 & 1 2 (TWO & ONE HALF) TABLETS BY MOUTH ONCE DAILY PER INR 0 05/09/2020 1 Discontinued(Refi ll) Warfarin Sodium 2 MG Oral Tablet (Coumadin) TAKE 2 & 1 2 (TWO & ONE HALF) TABLETS BY MOUTH ONCE DAILY PER INR 90 Tab 1 06/12/2020 1 Discontinued documented as of this encounter (statuses as of 09/02/2020) Active Problems Problem Noted Date S/P AAA [...] as of this encounter (statuses as of 09/02/2020) Resolved Problems Problem Noted Date Resolved Date COVID-19 virus infection 05/06/2020 021 Overview: Admit [facility] Viral PNA. Didn't react well w/steroids. D/c home on O2. documented as of this encounter (statuses as of 09/02/2020) Immunizations Name Administration Dates Next Due TDAP [...] encounter Miscellaneous Notes * Telephone Encounter - Rajendra Tobin MD - 06/12/2020 1:01 PM EST Signed Prescriptions: Disp Refills Warfarin Sodium 2 MG Oral Tablet (Coumadin)90 Tab 1 Sig: TAKE 2 & 1 2 (TWO & ONE HALF) TABLETS BY MOUTH ONCE DAILY PER INR Authorizing Provider: RAJENDRA TOBIN * Telephone Encounter - Parul Martinez LPN - 06/12/2020 1:00 PM EST Pending Prescriptions: Disp Refills Warfarin Sodium 2 MG Oral Tablet (Coumadi*90 Tab 1 Sig: TAKE 2 & 1 2 (TWO & ONE HALF) TABLETS BY MOUTH ONCE DAILY PER INR Last Office/Telemedicine Visit: 05/12/2020 Next Office Visit: 10/23/2020 Scheduled Provider(s): Rajendra Tobin MD If no future appointments scheduled, and last appointment is greater than a year ago, please schedule patient for a follow-up appointment Last date the medication was ordered: Pharmacy: [facility] [address] [place] [address] Is this request for a controlled substance?No Urine Drug Screen:No results found for this or any previous visit. Patient Phone Numbers Labs: Lab Results Component Value Date/Time CREAT 0.87 05/02/2020 CREAT 1.1 11/25/2017 08:39 AM POTASSIUM 4.1 05/02/2020 POTASSIUM 4.2 11/25/2017 08:39 AM LDLCALC 171 (H) 07/03/2016 08:28 AM LDLDIRECT NOT APPLICABLE 07/03/2016 08:28 AM * Telephone Encounter - Cassia Gudino LPN - 06/09/2020 2:08 PM EST Katie from [facility] pharmacy calling. Pt needs refill sent for Warfarin. documented in this encounter Plan of Treatment Upcoming Encounters Date Type Specialty Care Team Description 09/03/2020 Anticoagulation Pharmacy [facility] [address] [place] [address] 09/15/2020 Office Visit Hematology Oncology Kirk, Mohamud Rios MD [address] [place] [address] [phone] 10/30/2020 Office Visit Family Medicine Sahra Hou CRNP [address] [place] [address] [phone] Health Maintenance Due Date Last Done Comments [...] Documents on File Type Date Recorded Patient Commercial Energy Rater Expl anation Advanced Directive Advanced Directive Advanced [...]
--- OUTSIDE RECORDS SUMMARY | 2022-12-29 03:36 | External Medical Summary | Summary of Care ---
Author Name Unknown Organization [place] [address] Care Team Providers Care Hat Band Attacher Name Role Phone Nick Em MD Primary Care Provider + Reason for Visit * Reason Onset Date Comments NEW PATIENT 09/14/2020 obdulia montes appt - appt confirmation Encounter Details Date Type Department Care Team Description 09/14/2020 Telephone Hematology/Oncology [facility] [address] [place] [address] Mohamud Bradley MD [address] [place] [address] [phone] NEW PATIENT (obdulia hidalgojordy appt - appt confi... Allergies No Known Active Allergiesdocumented as of this encounter (statuses as of 09/14/2020) Medications Medication Sig Dispensed Refills Start Date [...] as of this encounter (statuses as of 09/14/2020) Active Problems Problem Noted Date S/P AAA [...] as of this encounter (statuses as of 09/14/2020) Resolved Problems Problem Noted Date Resolved Date COVID-19 virus infection 05/06/2020 021 Overview: Admit [facility] Viral PNA. Didn't react well w/steroids. D/c home on O2. documented as of this encounter (statuses as of 09/14/2020) Immunizations Name Administration Dates Next Due TDAP [...] encounter Miscellaneous Notes * Telephone Encounter - Jennifer Ramos OSA - 09/14/2020 1:57 PM EDT Spoke to patients with reminder of appt for tomorrow 09/15 with Kirk. confirmed. documented in this encounter Plan of Treatment Upcoming Encounters Date Type Specialty Care Team Description 09/15/2020 Office Visit Hematology Oncology Kirk, Mohamud Rios MD 200 [place] [address] [phone] 09/17/2020 [facility]ticoagulation Pharmacy [facility] [address] [facility] [address] 10/30/2020 Office Visit Family Medicine Sahra Hou CRNP [address] [place] [address] [phone] Health Maintenance Due Date Last Done Comments [...] File Type Date Recorded Patient Director Of Exhibits Expl anation Advanced Directive Advanced Directive Advanced [...]
--- OUTSIDE RECORDS SUMMARY | 2022-12-29 03:36 | External Medical Summary | Summary of Care ---
Author Name Unknown Organization [facility] [place] [address] Care Team Providers Care Geospatial Technician Name Role Phone Nick Em MD Primary Care Provider + Encounter Details Date Type Department Care Team Description 07/16/2020 Scan Encounter Unspecified Department <No scans attached> Allergies No Known Active Allergiesdocumented as of this encounter (statuses as of 07/21/2020) Medications Medication Sig Dispensed Refills Start Date [...] as of this encounter (statuses as of 07/21/2020) Active Problems Problem Noted Date S/P AAA [...] as of this encounter (statuses as of 07/21/2020) Resolved Problems Problem Noted Date Resolved Date COVID-19 virus infection 05/06/2020 021 Overview: Admit [facility] Viral PNA. Didn't react well w/steroids. D/c home on O2. documented as of this encounter (statuses as of 07/21/2020) Immunizations Name Administration Dates Next Due TDAP [...] Medicine Sahra Hou CRNP [address] [place] [address] [phone] Health Maintenance Due Date Last Done Comments [...] Documents on File Type Date Recorded Patient Print Controller Expl anation Advanced Directive Advanced Directive Advanced [...]
--- OUTSIDE RECORDS SUMMARY | 2022-12-29 03:36 | External Medical Summary | Continuity of Care Document ---
Author Name Unknown Organization [place] [address] [address] Address [address] [place] [id number] Care Team Providers Care Belling Machine Operator Name Role Phone Nick Em Primary Care Physician [phone] [facility]counter [facility] [id number] Date(s): 07/16/20 - 07/16/[address], [address] [place] [address]- [phone] Encounter Diagnosis S/P AAA repair using bifurcation graft(Discharge Diagnosis) - 07/16/20 Presence of other vascular implants and grafts(Final) - Discharge Disposition: Home or Self Care Attending Physician: MARIELA Ghotra Lynn Referring Physician: DO Rubalcava Gary F Allergies, Adverse Reactions, Alerts No Known Medication Allergies Medications hydroCHLOROthiazide-olmesartan 12.5 mg-40 mg oral tablet Start: 10/16/18 10:58:00 EDT, 1 tab, PO, Daily Start Date: 10/16/18 Status: Ordered warfarin 1 mg oral tablet Start: 06/17/20 7:56:00 EST Start Date: 06/17/20 Status: Ordered Mental Status 07/16/20 Barriers to Learning one year None evide [...] AAA repair using bifurcation graft Discharge Diagnosis 07/16/20 Procedures Procedure Date Related Diagnosis Body Site Status PEVAR 07/01/20 Completed None Completed Results Laboratory List Name Date Blood Urea Nitrogen (BUN) 07/16/20 Creatinine Level (CREAT W/GFR (EST.)) Request to FAX Report (First Location) ( ACC NO TO BE FAXED) 07/16/20 Most recent to oldest [Reference Range]: 1 Phone No [phone] (07/16/20 2:28 PM) Faxed on: 07/17/20 08:11 (07/16/20 2:28 PM) Estimated GFR, Black Race [>60 mL/min/1. 73 m2] >60 mL/min/1.73 m2 (07/16/20 2:28 PM) Estimated GFR, non-Black Race [>60 mL/mi n/1.73 m2] 56 mL/min/1.73 m2 2 *LOW* (07/16/20 2:28 PM) BUN [7-20 mg/dL] 27 mg/dL 3 *HI* (07/16/20 2:28 PM) Cret [0.70-1.30 mg/dL] 1.27 mg/dL (07/16/20 2:28 PM) 1Result Comment: Testing Performed By: Dept of Pathology [facility] Amie [place], [address] [place] [address], [place] [address] 2Result Comment: Testing Performed By: Dept of Pathology [facility] [place]ie [place], [address] [place] [address], [place] [address] 3Result Comment: Testing Performed By: Dept of Pathology [facility] Amie [place], [address] [place] [address], [place] [address] Vital Signs Most recent to oldest [Reference Range]: 1 Heart Rate 73 bpm (07/16/20 1:22 PM) Blood Pressure 148/80mmHg (07/16/20 1:22 PM) Cuff Pulse Pressure 68 mmHg (07/16/20 1:22 PM) BP Location # 1 Left Arm (07/16/20 1:22 PM) Social History Social History Type Response Smoking Status Former Smoker, quit > 1 yr Sex Male
--- OUTSIDE RECORDS SUMMARY | 2022-12-29 03:36 | External Medical Summary | Summary of Care ---
Author Name Unknown Organization [facility] Address [place] [address] Care Team Providers Care Associate Dean Name Role Phone Nick Em MD Primary Care Provider + Reason for Visit * Reason Comments Dosage Adjustment Via Phone (anticoag Cl inic) Dosage Adjustment Via Phone w/Visiting N fito (AntiCoag Clinic) Encounter Details Date Type Department Care Team Description 07/13/2020 [facility]ticoagulation Pharmacy, [facility] [place] [address] [facility] 132 [facility] [place] [address] Other acute pulmonary embolism, unspecified whether acute cor pulmonale present (HCC)* Allergies No Known Active Allergiesdocumented as of this encounter (statuses as of 07/13/2020) Medications Medication Sig Dispensed Refills Start Date [...] as of this encounter (statuses as of 07/13/2020) Active Problems Problem Noted Date S/P AAA [...] as of this encounter (statuses as of 07/13/2020) Resolved Problems Problem Noted Date Resolved Date COVID-19 virus infection 05/06/2020 021 Overview: Admit [facility] Viral PNA. Didn't react well w/steroids. D/c home on O2. documented as of this encounter (statuses as of 07/13/2020) Immunizations Name Administration Dates Next Due TDAP [...] encounter Progress Notes * Miri De La Cruz RP - 07/13/2020 10:20 AM EDT Medication Therapy Disease Management - Anticoagulation Patient: Raj Bashir : 1950 Contacts Type Contact Phone 07/13/2020 10:21 AM EDT Phone (Outgoing) LEXIECLARA (Emergency Contact) 07/13/2020 10:48 AM EDT Phone (Outgoing) Raj Bashir I (Self) [phone] (H) Current Warfarin Dose As of 07/13/2020 Warfarin maintenance plan: 10 mg (2 mg x 5) every Tue; 6 mg (2 mg x 3) all other days Patient-Reported Symptoms: Patient Findings Negatives: Signs/symptoms of thrombosis, Signs/symptoms of bleeding, Change in health, Change in alcohol use, Change in activity, Upcoming invasive procedure, Missed doses, Extra doses, Change in medications, Change in diet/appetite, Bruising INR Result As of 07/13/2020 INR goal: 2.0-3.0 INR used for dosin.3 (07/13/2020) Warfarin Plan As of 07/13/2020 Full warfarin instructions: 10 mg every Tue, Sat; 6 mg all other days Next INR check: 07/20/2020 Additional Dosing Information: Description Takes AM Called [facility] with orders [phone] Order faxed to [phone] Ordering PCP: Dr. Nick Em Repeat PT/INR in 1 week(s) Weekly dose: increased Miri De La Cruz [facility] Clinical Pharmacist 07/13/2020, 12:11 PM * Avelina Bernardo MA - 07/13/2020 9:50 AM EDT [facility] calling in today's INR 2.3. documented in this encounter Plan of Treatment Upcoming Encounters Date Type Specialty Care Team Description 10/30/2020 Office Visit Family Medicine Sahra Hou CRNP 132 [facility] [place] [address] [phone] Health Maintenance Due Date Last Done Comments [...] Date/Time Associated Diagnosis Comments OUTSIDE LAB-PT/INR Routine 07/13/2020 documented in this encounter Results * OUTSIDE LAB-PT/INR (07/13/2020) INR-OUTSIDE LAB 2.3 documented in this encounter Visit Diagnoses Diagnosis Other acute pulmonary embolism, unspecified whether acute cor pulmonale present (HCC)- Primary documented in this encounter Advance Directives Documents on File Type Date Recorded Patient Steward/[employer] D[employer] Expl anation Advanced Directive Advanced Directive Advanced Directive Advanced Directive Advanced Directive Advanced Directive Advanced Directive Advanced Directive Advanced Directive Advanced Directive Advanced Directive Advanced Directive Advanced Directive Advanced Directive Advanced Directive Advanced Directive Advanced Directive Advanced Directive Advanced Directive Advanced Directive Advanced Directive Advanced Directive Advanced Directive Advanced Directive Advanced Directive Advanced Directive Advanced Directive
--- OUTSIDE RECORDS SUMMARY | 2022-12-29 03:36 | External Medical Summary ---
Author Name Unknown Address Unknown Organization K0[facility] [address] [place] [id number] Laboratory Report Ordering Provider Test Date Status JAYESH MAI 08/14/2020 08:36:23 Final Observation Date Value Abnormality Reference (Units ) Status INR in Capillary blood by Coagulation assay 08/14/2020 08:36:23 1.5 (INR) Final Performing Location [facility] [address] [place] [id number]
--- OUTSIDE RECORDS SUMMARY | 2022-12-29 03:36 | External Medical Summary | Summary of Care ---
Author [place] [address] Care Team Providers Care Veneer Taping Machine Operator Name Role Phone Nick Em MD Primary Care Provider + Reason for Visit * Reason Onset Date Comments Medication Question 08/07/2020 Encounter Details Date Type Department Care Team Description 08/07/2020 Telephone Pharmacy, [facility] 132 [facility] [place] [address] [facility] [address] [facility] [place] [address] [phone] Medication Question Allergies No Known Active Allergiesdocumented as of this encounter (statuses as of 08/07/2020) Medications Medication Sig Dispensed Refills Start Date [...] 90 Tab 1 08/04/2020 Active Warfarin Sodium 2 MG Oral Tablet (Coumadin) Take 3-5 Tabs by mouth daily. As directed by coumadin clinic 150 Tab 3 08/07/2020 Active Warfarin Sodium 2 MG Oral Tablet (Coumadin) TAKE 2 & 1/2 (TWO & ONE-HALF) TABLETS BY MOUTH ONCE DAILY PER INR 90 Tab 3 08/04/2020 08/07/2020 Discontinued (Refill) documented as of this encounter (statuses as of 08/07/2020) Active Problems Problem Noted Date S/P AAA [...] as of this encounter (statuses as of 08/07/2020) Resolved Problems Problem Noted Date Resolved Date COVID-19 virus infection 05/06/2020 021 Overview: Admit [facility] Viral PNA. Didn't react well w/steroids. D/c home on O2. documented as of this encounter (statuses as of 08/07/2020) Immunizations Name Administration Dates Next Due TDAP [...] encounter Miscellaneous Notes * Telephone Encounter - Juana Coronado RPh - 08/07/2020 12:56 PM EDT New prescription with amount patient is taken sent to pharmacy as requested. Juana Marc, Pharm D Clinical Pharmacist 08/07/2020, 12:56 PM * Telephone Encounter - Hubert Castro OSA - 08/07/2020 12:48 PM EDT [facility] calling States patients came into the pharmacy today for a refill of coumadin but according to the insurance patient should not be out yet and is denying the refill. Pharmacist asking if instructions should be changed since patient takes more then the instructions on the prescription state. Please call Eb[facility]zer if any questions [phone] Also states patient is almost completely out of his coumadin documented in this encounter Plan of Treatment Upcoming Encounters Date Type Specialty Care Team Description 08/14/2020 Anticoagulation Pharmacy [facility] [address] [place] [address] 10/30/2020 Office Visit Family Medicine Sahra Hou CRNP [address] [place] [address] [phone] Health Maintenance Due Date Last Done Comments [...] Documents on File Type Date Recorded Patient Cafeteria Attendant Expl anation Advanced Directive Advanced Directive Advanced [...]
--- OUTSIDE RECORDS SUMMARY | 2022-12-29 03:36 | External Medical Summary | Summary of Care ---
Author Name Unknown Organization [place] [address] Care Team Providers Care Nitrating Acid Mixer Name Role Phone Nick Em MD Primary Care Provider + Reason for Referral * Evaluate & Treat - Unlimited Visits (Within 10 days (routine)) Status Reason Specialty Diagnoses / Procedures Referred By Contact Referred To Contact Authorized Specialty Services Required Hematology/Oncol ogy / Hematology Oncology Diagnoses Other acute pulmonary embolism, unspecified whether acute cor pulmonale present (HCC) Nick Em MD [address] [place] [address] Question Answer Referral Priority Within 10 days (routine) Reason for Referral Thrombosis/Bruising/Abnormal Coagulation Comments Hx PE May 2020 found during admit for COVID. Difficulty with INR control w/MTM. Patient wondering if can stop treatment at this point. Thank you Electronically signed by Nick Em MD at Reason for Visit * Reason Onset Date Comments Advice 08/28/2020 NEW PATIENT 08/28/2020 [facility] [place] Encounter Details Date Type Department Care Team Description 08/28/2020 Telephone Family Practice [facility] [address] [place] [address] Nick Em MD [address] [place] [address] [phone] Advice; NEW PATIENT ([facility]) Allergies No Known Active Allergiesdocumented as of this encounter (statuses as of 08/31/2020) Medications Medication Sig Dispensed Refills Start Date [...] as of this encounter (statuses as of 08/31/2020) Active Problems Problem Noted Date S/P AAA [...] as of this encounter (statuses as of 08/31/2020) Resolved Problems Problem Noted Date Resolved Date COVID-19 virus infection 05/06/2020 021 Overview: Admit [facility] Viral PNA. Didn't react well w/steroids. D/c home on O2. documented as of this encounter (statuses as of 08/31/2020) Immunizations Name Administration Dates Next Due TDAP [...] Telephone Encounter - Jennifer Ramos OSA - 08/31/2020 12:32 PM EDT Received referral for patient to be seen for HEM APPT. Called and spoke to Juanita. was not sure on why pt needs to see Hem doctor to get off meds. I went over that this way they can check blood for clots/monitor. 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 Patient is scheduled for 09/15 with Kirk. * Telephone Encounter - Nick Em MD - 08/31/2020 11:32 AM EDT Nursing-please let pt/ know Hematologists are our specialists in blood clots, which is what we are trying to figure out how long to treat him with the warfarin blood thinner. If still having CP, please offer appt w/PA for exan in office * Telephone Encounter - Marcella Frankel OSA - 08/31/2020 10:21 AM EDT Pt calling. Advised of message. States she doesn't understand why pt would need to see hematology as this was originally caused by COVID. Also wants an xray ordered for patient due to having rib pain. States pt did have a CT but they're concerned it didn't see everything. They want to have more imaging done to make sure there isn't anything concerning causing pt's pain. * Telephone Encounter - Nick Em MD - 08/28/2020 12:27 PM EDT Will have him meet with our blood specialist/setter induction heating equipment to help decide if treatment still needed/best treatment for him * Telephone Encounter - Chayo Ferrari OSA - 08/28/2020 11:36 AM EDT Patient's calling per patient's request. Patient has been on coumadin since May 2020 for blood clots. Patient's INR will not go up and the [facility] clinic wants to increase patient's coumadin dosage, and patient does not want to take more and would like to stop taking coumadin. Patient is asking if asking if he can be tested to see if blood clots are gone? Can patient stop taking coumadin? Patient's vascular provider told patient he did not see the need for him to be on the coumadin, butthat it was up to PCP to make that decision. Patient has seen his vascular provider - patient has had an aorta aneurism- and vascular provider told patient he would need to check with his PCP. Please advise. documented in this encounter Plan of Treatment Upcoming Encounters Date Type Specialty Care Team Description 09/03/2020 Anticoagulation Pharmacy [facility] 132 [facility] [place] [address] 09/15/2020 Office Visit Hematology Oncology Mohamud Bradley MD [address] [facility], [place] [address] [phone] 10/30/2020 Office Visit Family Medicine Sahra Hou CRNP 132 [facility] [place] [address] [phone] Scheduled Referrals Name Type Priority Associated Diagnoses Orde r Schedule HEMATOLOGY/ONCOLOGY REFERRAL OP Referral Within 10 days (routine) Other acute pulmonary embolism, unspecified whether acute cor pulmonale present (HCC) Ordered: 08/28/2020 Health Maintenance Due Date Last Done Comments [...] as of this encounter Visit Diagnoses Diagnosis Other acute pulmonary embolism, unspecified whether acute cor pulmonale present (HCC)- Primary documented in this encounter Advance Directives Documents on File Type Date Recorded Patient Branch Sales And Service Representative Expl anation Advanced Directive Advanced Directive Advanced [...]
--- OUTSIDE RECORDS SUMMARY | 2022-12-29 03:36 | External Medical Summary | Summary of Care ---
Author Name Unknown Organization [place] [address] Care Team Providers Care Association Executive Name Role Phone Nick Em MD Primary Care Provider + Encounter Details Date Type Department Care Team Description 07/15/2020 Orders Only Family Practice [facility] [address] [facility] [place] [address] Nick Em MD 132 [place] [address] [phone] Allergies No Known Active Allergiesdocumented as of this encounter (statuses as of 07/15/2020) Medications Medication Sig Dispensed Refills Start Date [...] as of this encounter (statuses as of 07/15/2020) Active Problems Problem Noted Date S/P AAA [...] as of this encounter (statuses as of 07/15/2020) Resolved Problems Problem Noted Date Resolved Date COVID-19 virus infection 05/06/2020 021 Overview: Admit [facility] Viral PNA. Didn't react well w/steroids. D/c home on O2. documented as of this encounter (statuses as of 07/15/2020) Immunizations Name Administration Dates Next Due TDAP [...] Medicine Sahra Hou CRNP [address] [facility] [place] [address] [phone] Pending Results Name Type Priority Associated Diagnoses Date /Time VASC AORTIC DUPLEX EVAL-COMPLETE Medical Imaging Routine 07/01/2020 Health Maintenance Due Date Last Done Comments [...] 04/30/2015 ABDOMINAL AORTIC ANEURYSM (AAA) SCREENING Completed MENINGOCOCCAL (MENACTRA/MENVEO) Aged Out No longer eligible based on patient's age to complete this topic documented as of this encounter Implants Not on filedocumented as of this encounter Advance Directives Documents on File Type Date Recorded Patient Syrup Filterer Expl anation Advanced Directive Advanced Directive Advanced Directive Advanced Directive Advanced Directive Advanced Directive Advanced Directive Advanced Directive Advanced Directive Advanced Directive Advanced Directive Advanced Directive Advanced Directive Advanced Directive Advanced Directive Advanced Directive Advanced Directive Advanced Directive Advanced Directive Advanced Directive Advanced Directive Advanced Directive Advanced Directive Advanced Directive Advanced Directive Advanced Directive Advanced Directive
--- OUTSIDE RECORDS SUMMARY | 2022-12-29 03:36 | External Medical Summary | Summary of Care ---
Author Name Unknown Organization [place] [address] Care Team Providers Care Guest Service Team Leader Name Role Phone Nick Em MD Primary Care Provider + Reason for Visit * Reason Comments Dosage Adjustment In Person (Anticoag Cl inic) Encounter Details Date Type Department Care Team Description 08/14/2020 Anticoagulation Pharmacy, [facility] 132 [facility] [place] [address] [facility] 132 [facility] [place] [address] Other acute pulmonary embolism, unspecified whether acute cor pulmonale present (HCC)* Allergies No Known Active Allergiesdocumented as of this encounter (statuses as of 08/14/2020) Medications Medication Sig Dispensed Refills Start Date [...] coumadin clinic 150 Tab 3 08/07/2020 Active documented as of this encounter (statuses as of 08/14/2020) Active Problems Problem Noted Date S/P AAA [...] as of this encounter (statuses as of 08/14/2020) Resolved Problems Problem Noted Date Resolved Date COVID-19 virus infection 05/06/2020 021 Overview: Admit [facility] Viral PNA. Didn't react well w/steroids. D/c home on O2. documented as of this encounter (statuses as of 08/14/2020) Immunizations Name Administration Dates Next Due TDAP [...] this encounter Progress Notes * Juana Coronado RP - 08/14/2020 10:18 AM EDT I agree with documented plan of care. Juana Marc, Pharm D Clinical Pharmacist 08/14/2020, 10:18 AM * Mariel Ash, PHARM Student - 08/14/2020 10:13 AM EDT Images from the original note were not included. Medication Therapy Disease Management - Anticoagulation Patient: Raj Bashir : 1950 Current Warfarin Dose As of 08/14/2020 Warfarin maintenance plan: 10 mg (2 mg x 5) every Tue, Sat; 6 mg (2 mg x 3) all other days Patient-Reported Symptoms: Patient Findings Positives: Change in activity (Increase in physical activity) Negatives: Signs/symptoms of thrombosis, Signs/symptoms of bleeding, Change in health, Change in alcohol use, Upcoming invasive procedure, Missed doses, Extra doses, Change in medications, Change in diet/appetite, Bruising INR Result As of 08/14/2020 INR goal: 2.0-3.0 INR used for dosin.5 (08/14/2020) Warfarin Plan As of 08/14/2020 Full warfarin instructions: 10 mg every Tue, Fri, Sat; 6 mg all other days Next INR check: 08/28/2020 Additional Dosing Information: Description Takes AM Repeat PT/INR in 2 week(s) Weekly dose: increased KG Maldonado Student Clinical Pharmacist 08/14/2020, 10:13 AM documented in this encounter Plan of Treatment Upcoming Encounters Date Type Specialty Care Team Description 08/28/2020 Anticoagulation Pharmacy [facility] [address] [place] [address] 10/30/2020 Office Visit Family Medicine Sahra Hou CRNP [address] [place] [address] [phone] Health Maintenance Due Date Last Done Comments [...] Diagnosis Comments INR FINGERSTICK, POINT OF CARE [facility] 08/14/2020 8:36 AM EDT documented in this encounter Results * INR FINGERSTICK, POINT OF CARE (08/14/2020 8:36 AM EDT) Fingerstick INR 1.5 INR [facility] [place] [facility] Specimen Blood Narrative Performed At Therapeutic ranges for non-operative patients: Prophylaxsis/treatment of DVT: (Range:2.0-3.0) Treatment of pulmonary embolism:(Range:2.0-3.0) Prevention of systemic embolism from: -tissue heart valves -acute myocardial infarction -valvular heart disease -atrial fibrillation (Range: 2.0-3.0) Mechanical prosthetic valves: (Range: 2.5-3.5) [facility] [place] [address] [facility] [place] [address] [facility] [place] [address] documented in this encounter Visit Diagnoses Diagnosis Other acute pulmonary embolism, unspecified whether acute cor pulmonale present (HCC)- Primary documented in this encounter Advance Directives Documents on File Type Date Recorded Patient Visitor Services Associate Expl anation Advanced Directive Advanced Directive Advanced [...]
--- OUTSIDE RECORDS SUMMARY | 2022-12-29 03:36 | External Medical Summary | Continuity of Care Document ---
Author Name Unknown Organization [place] [address] [facility] Address [address] [place] [id number] Care Team Providers Care Draftsperson Name Role Phone Nick Em Primary Care Physician [phone] Encounter [facility] [id number] Date(s): 08/24/20 - 08/24/[address], [address] [place] [address]- [phone] Encounter Diagnosis S/P AAA repair using bifurcation graft(Discharge Diagnosis) - 08/24/20 AAA (abdominal aortic aneurysm) without rupture(Discharge Diagnosis) - 08/24/20 Discharge Disposition: Home or Self Care Attending Physician: MD Crissy, Pipe Caballero Referring Physician: MD Em Paul R Allergies, Adverse Reactions, Alerts No Known Medication Allergies Medications hydroCHLOROthiazide-olmesartan 12.5 mg-40 mg oral tablet Start: 10/16/18 10:58:00 EDT, 1 tab, PO, Daily Start Date: 10/16/18 Status: Ordered warfarin 1 mg oral tablet Start: 06/17/20 7:56:00 EST Start Date: 06/17/20 Status: Ordered Mental Status 08/24/20 Barriers to Learning one year None evide [...] (abdominal aortic aneurysm) without rupture Discharge Diagnosis 08/24/20 S/P AAA repair using bifurcation graft Discharge Diagnosis 08/24/20 Procedures Procedure Date Related Diagnosis Body Site Status PEVAR 07/01/20 Completed None Completed Social History Social History Type Response Smoking Status Never smoked cigaret bipin Sex Male
--- OUTSIDE RECORDS SUMMARY | 2022-12-29 03:36 | External Medical Summary | Summary of Care ---
Author Name Unknown Organization [place] [address] Care Team Providers Care Solar Energy Consultant And Designer Name Role Phone Nick Em MD Primary Care Provider + Reason for Visit * Reason Onset Date Comments NEW PATIENT 09/14/2020 Aquiles montes appt Encounter Details Date Type Department Care Team Description 09/14/2020 Telephone Hematology/Oncology [facility] [address] [place] [address] Mohamud Bradley MD [address] [place] [address] [phone] [facility] Allergies No Known Active Allergiesdocumented as of [...] Encounter - Jennifer Ramos OSA - 09/14/2020 2:02 PM EDT Called and spoke to patients with reminder of appt for tomorrow with Kirk. Patients veryadamant that they wanted this appt to determine if Patient could stop taking his medicine. documented in this encounter Plan of Treatment Upcoming Encounters Date Type Specialty Care Team Description 09/15/2020 Office Visit Hematology Oncology Mohamud Bradley MD 200 [place] [address] [phone] 09/17/2020 Anticoagulation Pharmacy [facility] [address] [place] [address] 10/30/2020 Office Visit Family Medicine [facility]ou CR[facility] [place] [address] [phone] Health Maintenance Due Date Last Done Comments [...] Documents on File Type Date Recorded Patient Sash Finisher Expl anation Advanced Directive Advanced Directive Advanced [...]
--- OUTSIDE RECORDS SUMMARY | 2022-12-29 03:37 | External Medical Summary | Summary of Care ---
Author Name Unknown Organization [facility] Address [place] [address] Care Team Providers Care Operations Technician Name Role Phone Nick Em MD Primary Care Provider + Encounter Details Date Type Department Care Team Description 07/01/2020 Scan Encounter Unspecified Department <No scans attached> Allergies No Known Active Allergiesdocumented as of this encounter (statuses as of 07/02/2020) Medications Medication Sig Dispensed Refills Start Date [...] Active Enoxaparin Sodium 100 MG/ML Subcutaneous Solution (Lovenox) Inject 100 mg under the skin every 12 hours. 10 mL 1 06/23/2020 Active documented as of this encounter (statuses as of 07/02/2020) Active Problems Problem Noted Date S/P AAA [...] as of this encounter (statuses as of 07/02/2020) Resolved Problems Problem Noted Date Resolved Date COVID-19 virus infection 05/06/2020 021 Overview: Admit [facility] Viral PNA. Didn't react well w/steroids. D/c home on O2. documented as of this encounter (statuses as of 07/02/2020) Immunizations Name Administration Dates Next Due TDAP [...] Encounters Date Type Specialty Care Team Description 07/02/2020 Anticoagulation Pharmacy [facility] [address] [facility] [place] [address] 10/23/2020 Office Visit Family Medicine Rajendra Naranjo MD [address] [place], [place] [address]ist Services [place] [address] Health Maintenance Due Date Last Done Comments [...] Documents on File Type Date Recorded Patient Vba Programmer Expl anation Advanced Directive Advanced Directive Advanced Directive Advanced Directive Advanced Directive Advanced Directive Advanced Directive Advanced Directive Advanced Directive Advanced Directive Advanced Directive Advanced Directive Advanced Directive Advanced Directive Advanced Directive Advanced Directive Advanced Directive Advanced Directive Advanced Directive Advanced Directive Advanced Directive Advanced Directive Advanced Directive Advanced Directive
--- OUTSIDE RECORDS SUMMARY | 2022-12-29 03:37 | External Medical Summary | Summary of Care ---
Author Name Unknown Organization [place] [address] Care Team Providers Care Snaker Name Role Phone Nick Em MD Primary Care Provider + Reason for Visit * Reason Comments Dosage Adjustment Via Phone (anticoag Cl inic) Encounter Details Date Type Department Care Team Description 06/09/2020 Anticoagulation Pharmacy, [facility] 132 [facility] [place] [address] [facility] 132 [facility] [place] [address] Other acute pulmonary embolism, unspecified whether acute cor pulmonale present (HCC)*; Anticoagulation management encounter; [facility] current use of anticoagulant therapy Allergies No Known Active Allergiesdocumented as of this encounter (statuses as of 06/09/2020) Medications Medication Sig Dispensed Refills Start Date [...] mouth daily. 90 Tab 0 03/29/2020 Active Enoxaparin Sodium 100 MG/ML Subcutaneous Solution (Lovenox) Inject 100 mg under the skin every 12 hours. 10 mL 3 05/12/2020 Active Warfarin Sodium 2 MG Oral Tablet (Coumadin) TAKE 2 & 1 2 (TWO & ONE HALF) TABLETS BY MOUTH ONCE DAILY PER INR 0 05/09/2020 Active Doxycycline Monohydrate 100 MG Oral Capsule TAKE 1 CAPSULE BY MOUTH TWICE DAILY FOR 10 DAYS 0 05/09/2020 Active Cefdinir 300 MG Oral Capsule (Omnicef) TAKE 1 CAPSULE BY MOUTH TWICE DAILY FOR 10 DAYS 0 05/09/2020 Active documented as of this encounter (statuses as of 06/09/2020) Active Problems Problem Noted Date Other acute pulmonary emboli sm, unspecified whether acute cor pulmonale present 05/10/2020 Overview: "I have reviewed the patient's controlled substance dispensing history in the Prescription Drug Monitoring Program in compliance with the [facility] regulations before prescribing a controlled substance." History of 2019 novel coronavirus diseas e (COVID-19) 05/08/2020 Prediabetes 07/11/2016 Dyslipidemia 05/05/2015 Overview: 05/16 LDL 222. High in past. NEED rx ICD-10 update of inactive term Well adult exam 04/30/2015 Overview: AAA , cologuard ordered. Refuses statin. HTN, goal below 130/80 04/30/2015 documented as of this encounter (statuses as of 06/09/2020) Resolved Problems Problem Noted Date Resolved Date COVID-19 virus infection 05/06/2020 021 Overview: Admit [facility] Viral PNA. Didn't react well w/steroids. D/c home on O2. documented as of this encounter (statuses as of 06/09/2020) Immunizations Name Administration Dates Next Due TDAP (age 10 and older)(Boostrix) 04/30/2015 Varicella Zoster Vaccine (Adult) 04/30/2015 documented as of this encounter Social History Tobacco Use Types Packs/Day Years Used Date Former Smoker Cigarettes Smokeless Tobacco: Current User Snuff Quit: 04/30/1980 Alcohol Use Drinks/Week oz/Week Comments No Sex Assigned at Date Recorded Not on file documented as of this encounter Progress Notes * Juana Marc, [facility] - 06/09/2020 1:45 PM EST Medication Therapy Disease Management - Anticoagulation Patient: Raj Bashir : 1950 Contacts Type Contact Phone 06/09/2020 01:34 PM EST Phone (Outgoing) Raj Bashir I (Self) [phone] (H) Current Warfarin Dose As of 06/09/2020 Warfarin maintenance plan: 4 mg (2 mg x 2) every Mon, Fri; 6 mg (2 mg x 3) all other days Patient-Reported Symptoms: INR Result As of 06/09/2020 INR goal: 2.0-3.0 INR used for dosin.7 (06/09/2020) Warfarin Plan As of 06/09/2020 Full warfarin instructions: 4 mg every Mon, Fri; 6 mg all other days Next INR check: 06/17/2020 Additional Dosing Information: Description Takes AM Called [facility] with orders [phone] Order faxed to [phone] Ordering PCP: Dr. Nick Em Repeat PT/INR in 1 week(s) Weekly dose: increased Call at [phone] if home phone doesn't answer Juana Marc [facility] Clinical Pharmacist 06/09/2020, 1:45 PM * Gloria Chiang OSA - 06/09/2020 12:35 PM EST Patient states he has appt with Dr. Woodward on 06/17/20 and was wondering if he could have INR completed at that time. * Morris Koenig OSA - 06/09/2020 12:30 PM EST Verbal results from Gale at [facility]: 1.7/ -- will fax hard copy. Pt is short coumadin due to dose changes. documented in this encounter Plan of Treatment Upcoming Encounters Date Type Specialty Care Team Description 06/17/[address] [facility] 132 [facility] [place] [address] 10/23/2020 Office Visit Family Medicine Rajendra Naranjo MD [address] [place] [address] [phone] Scheduled Orders Name Type Priority Associated Diagnoses Orde r Schedule PT INR Lab Routine Other acute pulmonary embolism, unspecified whether acute cor pulmonale present (HCC) Anticoagulation management encounter terminal makeup operator current use of anticoagulant therapy 26 Occurrences starting 06/09/2020 until 06/09/2021 INR FINGERSTICK, POINT OF CARE Point of Care Testing - Unsolicited Results STAT Other acute pulmonary embolism, unspecified whether acute cor pulmonale present (HCC) Anticoagulation management encounter [facility] current use of anticoagulant therapy Every 2 Weeks for 26 Occurrences starting 06/09/2020 until 06/09/2021 PT INR Lab Routine Other acute pulmonary embolism, unspecified whether acute cor pulmonale present (HCC) Anticoagulation management encounter [facility] current use of anticoagulant therapy Expected: 06/16/2020 (Approximate), Expires: 06/09/2021 Health Maintenance Due Date Last Done Comments [...] Date/Time Associated Diagnosis Comments OUTSIDE LAB-PT/INR Routine 06/09/2020 documented in this encounter Results * OUTSIDE LAB-PT/INR (06/09/2020) INR-OUTSIDE LAB 1.7 documented in this encounter Visit Diagnoses Diagnosis Other acute pulmonary embolism, unspecified whether acute cor pulmonale present (HCC)- Primary Anticoagulation management encounter Encounter for therapeutic drug monitoring terminal makeup operator current use of anticoagulant therapy documented in this encounter Advance Directives Documents on File Type Date Recorded Patient Lens Silverer Expl anation Advanced Directive Advanced Directive Advanced Directive Advanced Directive Advanced Directive Advanced Directive Advanced Directive Advanced Directive Advanced Directive Advanced Directive Advanced Directive Advanced Directive Advanced Directive Advanced Directive Advanced Directive Advanced Directive Advanced Directive Advanced Directive Advanced Directive Advanced Directive
--- OUTSIDE RECORDS SUMMARY | 2022-12-29 03:37 | External Medical Summary | Summary of Care ---
Author Name Unknown Organization [place] [address] Care Team Providers Care Pit Slagman Name Role Phone Nick Em MD Primary Care Provider + Encounter Details Date Type Department Care Team Description 07/03/2020 Scan Encounter Unspecified Department <No scans attached> Allergies No Known Active Allergiesdocumented as of this encounter (statuses as of 07/08/2020) Medications Medication Sig Dispensed Refills Start Date [...] 12 hours. 10 mL 1 06/23/2020 Active Enoxaparin Sodium 100 MG/ML Subcutaneous Solution (Lovenox)Indications:Ot her acute pulmonary embolism, unspecified whether acute cor pulmonale present (HCC) Inject 100 mg under the skin every 12 hours. Patient may only be picking up 1 syringe 10 mL 0 07/02/2020 Active documented as of this encounter (statuses as of 07/08/2020) Active Problems Problem Noted Date S/P AAA [...] as of this encounter (statuses as of 07/08/2020) Resolved Problems Problem Noted Date Resolved Date COVID-19 virus infection 05/06/2020 021 Overview: Admit [facility] Viral PNA. Didn't react well w/steroids. D/c home on O2. documented as of this encounter (statuses as of 07/08/2020) Immunizations Name Administration Dates Next Due TDAP [...] Specialty Care Team Description 07/09/2020 Anticoagulation Pharmacy [facility] [address] [place] [address] 10/30/2020 Office Visit Family Medicine Sahra Hou, JOHN [address] [place] [address] [phone] Health Maintenance Due Date Last Done Comments [...] Documents on File Type Date Recorded Patient Feather Drying Machine Operator Expl anation Advanced Directive Advanced Directive Advanced Directive Advanced Directive Advanced Directive Advanced Directive Advanced Directive Advanced Directive Advanced Directive Advanced Directive Advanced Directive Advanced Directive Advanced Directive Advanced Directive Advanced Directive Advanced Directive Advanced Directive Advanced Directive Advanced Directive Advanced Directive Advanced Directive Advanced Directive Advanced Directive Advanced Directive Advanced Directive Advanced Directive
--- OUTSIDE RECORDS SUMMARY | 2022-12-29 03:37 | External Medical Summary | Summary of Care ---
Author Name Unknown Organization [place] [address] Care Team Providers Care Pathology Laboratory Aides Teacher Name Role Phone Nick Em MD Primary Care Provider + Reason for Visit * Reason Comments Dosage Adjustment Via Phone (anticoag Cl inic) Encounter Details Date Type Department Care Team Description 06/02/2020 Anticoagulation Pharmacy, [facility] 132 [facility] [place] [address] [facility] 132 [facility] [place] [address] Other acute pulmonary embolism, unspecified whether acute cor pulmonale present (HCC)* Allergies No Known Active Allergiesdocumented as of this encounter (statuses as of 06/02/2020) Medications Medication Sig Dispensed Refills Start Date End Date Status fish oil concentrate (OMEGA-3) 1000 MG CAPSIndications:Hyperl ipidemia with target LDL less than 160 Take 1 Cap by mouth 2 times a day. 60 Cap 5 07/12/2016 Active Olmesartan Medoxomil-HCTZ 40-12.5 MG per tabletIndications:Esse ntial hypertension with goal blood pressure less than 140/90 TAKE 1 TABLET BY MOUTH ONCE DAILY 90 Tab 0 02/28/2019 Active Olmesartan Medoxomil-HCTZ 40-12.5 MG Oral TabletIndications:Esse [...] DAILY FOR 10 DAYS 0 05/09/2020 Active Amoxicillin-Pot Clavulanate 875-125 MG Oral Tablet Take 1 Tab by mouth every 12 hours for 10 days. 20 Tab 0 05/25/2020 06/04/2020 Active documented as of this encounter (statuses as of 06/02/2020) Active Problems Problem Noted Date Other acute pulmonary emboli sm, unspecified whether acute cor pulmonale present 05/10/2020 Overview: "I have reviewed the patient's controlled substance dispensing history in the Prescription Drug Monitoring Program in compliance with the [facility] regulations before prescribing a controlled substance." History of 2019 novel coronavirus diseas e (COVID-19) 05/08/2020 Prediabetes 07/11/2016 Dyslipidemia 05/05/2015 Overview: 05/16 LDL 222. High in past. NEED rx ICD-10 update of inactive term Well adult exam 04/30/2015 Overview: AAA , cologuard ordered. Refuses statin. HTN, goal below 130/80 04/30/2015 documented as of this encounter (statuses as of 06/02/2020) Resolved Problems Problem Noted Date Resolved Date COVID-19 virus infection 05/06/2020 021 Overview: Admit [facility] Viral PNA. Didn't react well w/steroids. D/c home on O2. documented as of this encounter (statuses as of 06/02/2020) Immunizations Name Administration Dates Next Due TDAP [...] of this encounter Progress Notes * Juana Marc [facility] - 06/02/2020 3:20 PM EST Medication Therapy Disease Management - Anticoagulation Patient: Raj Bashir : 1950 Contacts Type Contact Phone 06/02/2020 03:19 PM EST Phone (Outgoing) Raj Bashir I (Self) [phone] (H) Current Warfarin Dose As of 06/02/2020 Warfarin maintenance plan: 4 mg (2 mg x 2) every Mon, Wed, Fri; 6 mg (2 mg x 3) all other days Patient-Reported Symptoms: INR Result As of 06/02/2020 INR goal: 2.0-3.0 INR used for dosin.9 (06/02/2020) Warfarin Plan As of 06/02/2020 Full warfarin instructions: 4 mg every Mon, Wed, Fri; 6 mg all other days Next INR check: 06/09/2020 Additional Dosing Information: Description Takes AM Called [facility] with orders [phone] Order faxed to [phone] Ordering PCP: Dr. Nick Em Repeat PT/INR in 1 week(s) on 06/09 Weekly dose: not changed Juana Marc [facility] Clinical Pharmacist 06/02/2020, 3:20 PM * Avelina Bernardo MA - 06/02/2020 2:24 PM EST [facility] nurse Gale calling in today's INR 1.9, she states patient took Coumadin 2mg yesterday. documented in this encounter Plan of Treatment Upcoming Encounters Date Type Specialty Care Team Description 06/09/2020 Anticoagulation Pharmacy [facility] [address] [place] [address] 10/23/2020 Office Visit Family Medicine Rajendra Naranjo MD [address] [place] [address] [phone] Health Maintenance Due Date Last Done Comments [...] Date/Time Associated Diagnosis Comments OUTSIDE LAB-PT/INR Routine 06/02/2020 documented in this encounter Results * OUTSIDE LAB-PT/INR (06/02/2020) INR-OUTSIDE LAB 1.9 documented in this encounter Visit Diagnoses Diagnosis [...]
--- OUTSIDE RECORDS SUMMARY | 2022-12-29 03:37 | External Medical Summary | Summary of Care ---
Author Name Unknown Organization [facility] Address [place] [address] Care Team Providers Care Charge Master Coordinator Name Role Phone Nick Em MD Primary Care Provider + Encounter Details Date Type Department Care Team Description 06/17/2020 Scan Encounter Unspecified Department <No scans attached> Allergies No Known Active Allergiesdocumented as of this encounter (statuses as of 06/19/2020) Medications Medication Sig Dispensed Refills Start Date [...] 12 hours. 10 mL 3 05/12/2020 Active Doxycycline Monohydrate 100 MG Oral Capsule [...] PER INR 90 Tab 1 06/12/2020 Active documented as of this encounter (statuses as of 06/19/2020) Active Problems Problem Noted Date Other acute [...] as of this encounter (statuses as of 06/19/2020) Resolved Problems Problem Noted Date Resolved Date COVID-19 virus infection 05/06/2020 021 Overview: Admit [facility] Viral PNA. Didn't react well w/steroids. D/c home on O2. documented as of this encounter (statuses as of 06/19/2020) Immunizations Name Administration Dates Next Due TDAP [...] Encounters Date Type Specialty Care Team Description 06/22/2020 Pharmacy Pharmacy [facility] [address] [place] [address] 06/23/2020 Anticoagulation Pharmacy [facility] [address] [place] [address] 10/23/2020 Office Visit Family Medicine Rajendra Naranjo MD [address] [place] [address] [phone] Health Maintenance Due Date Last Done Comments [...] Documents on File Type Date Recorded Patient Technical Professional Expl anation Advanced Directive Advanced Directive Advanced Directive Advanced Directive Advanced Directive Advanced Directive Advanced Directive Advanced Directive Advanced Directive Advanced Directive Advanced Directive Advanced Directive Advanced Directive Advanced Directive Advanced Directive Advanced Directive Advanced Directive Advanced Directive Advanced Directive Advanced Directive Advanced Directive Advanced Directive Advanced Directive
--- OUTSIDE RECORDS SUMMARY | 2022-12-29 03:37 | External Medical Summary | Summary of Care ---
Author Name Unknown Organization [place] [address] Care Team Providers Care Electrician Assistant Name Role Phone Nick Em MD Primary Care Provider + Reason for Visit * Reason Comments Dosage Adjustment Via Phone (anticoag Cl inic) Procedure Encounter Details Date Type Department Care Team Description 06/22/2020 Pharmacy Pharmacy, [facility] 132 [facility] [place] [address] [facility] 132 [facility] [place] [address] Other acute pulmonary embolism, unspecified whether acute cor pulmonale present (HCC)* Allergies No Known Active Allergiesdocumented as of this encounter (statuses as of 06/22/2020) Medications Medication Sig Dispensed Refills Start Date [...] as of this encounter (statuses as of 06/22/2020) Active Problems Problem Noted Date Other acute [...] as of this encounter (statuses as of 06/22/2020) Resolved Problems Problem Noted Date Resolved Date COVID-19 virus infection 05/06/2020 021 Overview: Admit [facility] Viral PNA. Didn't react well w/steroids. D/c home on O2. documented as of this encounter (statuses as of 06/22/2020) Immunizations Name Administration Dates Next Due TDAP [...] this encounter Progress Notes * Juana Marc, [facility] - 06/22/2020 9:29 AM EST Patient is having a aortic anursym repair on 07/06. Patient has history of a PE and requires lovenox bridging. Patient will take their last dose of coumadin 06/30. The patient will start lovenox 100 mg subQ q12 hours on 07/03 at 8 am. They will take the last lovenox injection at 8 am the day before the procedure. The patient will restart Lovenox 100 mg subQ q12 hours on 07/07 at 8 pm with last dose on 07/09. They will take 12 mg of coumadin on 07/06 and 07/07 , and 9 mg on 07/08 , then resume current dose of 6 mg daily . Repeat pt/inr 2 weeks after procedure. Patient self-administered own LMWH injection in past without incident. No ADR reported. Actual Body Weight 113.6kg [place] Body Weight 69.5 kg Labs Drawn 05/02/20 SCR 0.87 CrCl 78.8 ml/min Lovenox Dose: 100 mg [id number] Provide procedure instructions with pt/inr results on 06/23. Juana Marc [facility] Clinical Pharmacist Medication Therapy Management Clinic 06/22/2020, 9:29 AM documented in this encounter Plan of Treatment Upcoming Encounters Date Type Specialty Care Team Description 06/23/2020 Anticoagulation Pharmacy [facility] [address] [place] [address] 10/23/2020 Office Visit Family Medicine Rajendra Naranjo MD [address] [place] [address] [phone] Health Maintenance Due Date Last Done Comments [...] Documents on File Type Date Recorded Patient Intelligence Consultant Expl anation Advanced Directive Advanced Directive Advanced Directive Advanced Directive Advanced Directive Advanced Directive Advanced Directive Advanced Directive Advanced Directive Advanced Directive Advanced Directive Advanced Directive Advanced Directive Advanced Directive Advanced Directive Advanced Directive Advanced Directive Advanced Directive Advanced Directive Advanced Directive Advanced Directive Advanced Directive Advanced Directive
--- OUTSIDE RECORDS SUMMARY | 2022-12-29 03:37 | External Medical Summary | Continuity of Care Document ---
Author Name Unknown Organization [facility] [address] Address [address] [place] [address] Encounter [facility] CUON[facility] [id number] Date(s): 06/17/20 - 06/17/20 [facility] [address], [address] [place] [address]- [phone] Encounter Diagnosis Body mass index [BMI] 35.0-35.9, adult(Discharge Diagnosis) - 06/17/20 AAA (abdominal aortic aneurysm) without rupture(Discharge Diagnosis) - 06/17/20 Discharge Disposition: Home or Self Care Attending Physician: MD Crissy, Pipe Caballero Referring Physician: MD Alvarado Christopher W Allergies, Adverse Reactions, Alerts No Known Medication Allergies Medications hydroCHLOROthiazide-olmesartan 12.5 mg-40 mg oral tablet Start: 10/16/18 10:58:00 EDT, 1 tab, PO, Daily Start Date: 10/16/18 Status: Ordered warfarin 1 mg oral tablet Start: 06/17/20 7:56:00 EST Start Date: 06/17/20 Status: Ordered Mental Status 06/17/20 Barriers to Learning one year None evide nt Mandatory Health Literacy Documentation Yes Health Literacy Communication Barriers N ever Problem List Condition Effective Dates Status Health Status Inform ant AAA (abdominal aortic aneury sm) without rupture(Confirmed) Active High blood pressure(Confirmed) Active Tobacco user(Confirmed) Active Diagnosis Diagnosis Type Effective Dates Health Status Cl inical Service Informant Body mass index [BMI] 35.0-35.9, adult Discharge Diagnosis 06/17/20 Non-Specified AAA (abdominal aortic aneurysm) without rupture Discharge Diagnosis 06/17/20 Procedures Procedure Date Related Diagnosis Body Site Status None Completed Vital Signs Most recent to oldest [Reference Range]: 1 2 Height 172.72 cm (06/17/20 8:03 AM) Patient Weight 105.9 kg (06/17/20 8:03 AM) Body Mass Index 35.5 kg/m2 (06/17/20 8:03 AM) Heart Rate 84 (06/17/20 8:03 AM) Blood Pressure 136/84mmHg (06/17/20 8:04 AM) 140/80mmHg (06/17/20 8:03 AM) Cuff Pulse Pressure 52 mmHg (06/17/20 8:04 AM) 60 mmHg (06/17/20 8:03 AM) BP Location # 1 Right Arm (06/17/20 8:04 AM) Left Arm (06/17/20 8:03 AM) Social History Social History Type Response Smoking Status Former Smoker, quit > 1 yr Sex Male
--- OUTSIDE RECORDS SUMMARY | 2022-12-29 03:37 | External Medical Summary | Summary of Care ---
Author Name Unknown Organization [place] [address] Care Team Providers Care Registered Land Surveyor Name Role Phone Nick Em MD Primary Care Provider + Reason for Visit * Reason Comments Dosage Adjustment Via Phone (anticoag Cl inic) Encounter Details Date Type Department Care Team Description 06/23/2020 Anticoagulation Pharmacy, [facility] [address] [facility] [place] [address] [facility] [address] [facility] [place] [address] Other acute pulmonary embolism, unspecified whether acute cor pulmonale present (HCC)* Allergies No Known Active Allergiesdocumented as of this encounter (statuses as of 06/23/2020) Medications Medication Sig Dispensed Refills Start Date End Date Status fish oil concentrate (OMEGA-3) 1000 MG CAPSIndications:Hyp erlipidemia with target LDL less than 160 Take 1 Cap by mouth 2 times a day. 60 Cap 5 07/12/2016 Active Olmesartan Medoxomil-HCTZ 40-12.5 MG per tabletIndications:E ssential hypertension with goal blood pressure less than 140/90 TAKE 1 TABLET BY MOUTH ONCE DAILY 90 Tab 0 02/28/2019 Active Olmesartan Medoxomil-HCTZ 40-12.5 MG Oral TabletIndications:E [...] every 12 hours. 10 mL 3 05/12/2020 06/23/2020 Discontinued (Refill) documented as of this encounter (statuses as of 06/23/2020) Active Problems Problem Noted Date Other acute [...] as of this encounter (statuses as of 06/23/2020) Resolved Problems Problem Noted Date Resolved Date COVID-19 virus infection 05/06/2020 021 Overview: Admit [facility] Viral PNA. Didn't react well w/steroids. D/c home on O2. documented as of this encounter (statuses as of 06/23/2020) Immunizations Name Administration Dates Next Due TDAP [...] this encounter Progress Notes * Juana Marc, [facility] - 06/23/2020 11:10 AM EST Medication Therapy Disease Management - Anticoagulation Patient: Raj Bashir : 1950 Current Warfarin Dose As of 06/23/2020 Warfarin maintenance plan: 10 mg (2 mg x 5) every Tue; 6 mg (2 mg x 3) all other days Patient-Reported Symptoms: Patient Findings Positives: Upcoming invasive procedure (AA repair on 07/01, patient will be admitted at least over night) Negatives: Signs/symptoms of thrombosis, Signs/symptoms of bleeding, Change in health, Change in alcohol use, Change in activity, Missed doses, Extra doses, Change in medications, Change in diet/appetite, Bruising INR Result As of 06/23/2020 INR goal: 2.0-3.0 INR used for dosin.7 (06/23/2020) Warfarin Plan As of 06/23/2020 Full warfarin instructions: 06/26: Hold; 06/27: Hold; 06/28: Hold; 06/29: Hold; 06/30: Hold; Otherwise 10 mg every Tue; 6 mg all other days Next INR check: 07/02/2020 Additional Dosing Information: Description Takes AM Called [facility] with orders [phone] Order faxed to [phone] Ordering PCP: Dr. Nick Em Patient is having a AA repair on 07/01. Patient has history of PE and requires lovenox bridging. Patient will take their last dose of coumadin 06/25. The patient will start lovenox 100 mg subQ q12 hourson 06/28 at 8 am. They will take the last lovenox injection at 8 am the day before the procedure. Patient will be admitted at least overnight, will then follow up for discharge from [facility] and instructions for coumadin moving forward. Next INR draw will need to be ordered from [facility] (instructions on how above) Patient self-administered own LMWH injection in past without incident. No ADR reported. Actual Body Weight 113.6kg [place] Body Weight 69.5 kg Labs Drawn 05/02/20 SCR 0.87 CrCl 78.8 ml/min Lovenox Dose: 100 mg [id number] Repeat PT/INR in TBD Weekly dose: increased Juana Marc [facility] Clinical Pharmacist 06/23/2020, 11:10 AM * Avelina Bernardo MA - 06/23/2020 9:18 AM EST [facility] nurse Dian calling in today's INR 1.7. documented in this encounter Plan of Treatment Upcoming Encounters Date Type Specialty Care Team Description 07/02/2020 Anticoagulation Pharmacy [facility] [address] [place] [address] 10/23/2020 Office Visit Family Medicine Rajendra Naranjo MD [address] [place] [address] [phone] Health Maintenance Due Date Last Done Comments [...] Date/Time Associated Diagnosis Comments OUTSIDE LAB-PT/INR Routine 06/23/2020 documented in this encounter Results * OUTSIDE LAB-PT/INR (06/23/2020) INR-OUTSIDE LAB 1.7 documented in this encounter Visit Diagnoses Diagnosis Other acute pulmonary embolism, unspecified whether acute cor pulmonale present (HCC)- Primary documented in this encounter Advance Directives Documents on File Type Date Recorded Patient Chronometer Assembler And Adjuster Expl anation Advanced Directive Advanced Directive Advanced Directive Advanced Directive Advanced Directive Advanced Directive Advanced Directive Advanced Directive Advanced Directive Advanced Directive Advanced Directive Advanced Directive Advanced Directive Advanced Directive Advanced Directive Advanced Directive Advanced Directive Advanced Directive Advanced Directive Advanced Directive Advanced Directive Advanced Directive Advanced Directive Advanced Directive
--- OUTSIDE RECORDS SUMMARY | 2022-12-29 03:37 | External Medical Summary | Summary of Care ---
Author Name Unknown Organization [place] [address] Care Team Providers Care Psychologist Personnel Name Role Phone Nick Em MD Primary Care Provider + Reason for Visit * Reason Comments Dosage Adjustment Via Phone (anticoag Cl inic) Encounter Details Date Type Department Care Team Description 07/09/2020 Anticoagulation Pharmacy, [facility] [address] [facility] [place] [address] [facility] [address] [facility] [place] [address] Other acute pulmonary embolism, unspecified whether acute [...] 12 hours. 10 mL 1 07/09/2020 Active Enoxaparin Sodium 100 MG/ML Subcutaneous Solution (Lovenox) Inject 100 mg under the skin every 12 hours. 10 mL 1 06/23/2020 07/09/2020 Discontinued (Medication List Clean Up) Enoxaparin Sodium 100 MG/ML Subcutaneous Solution (Lovenox)Indication s:Other acute pulmonary embolism, unspecified whether acute cor pulmonale present (HCC) Inject 100 mg under the skin every 12 hours. Patient may only be picking up 1 syringe 10 mL 0 07/02/2020 07/09/2020 Discontinued (Medication List Clean Up) documented as [...] virus infection 05/06/2020 021 Overview: Admit [facility] Viral PNA. Didn't react well [...] as of this encounter Progress Notes * Reuben Alba, [facility] - 07/09/2020 9:48 AM EST Medication Therapy Disease Management - Anticoagulation Patient: Raj Calixtod : 1950 Contacts Type Contact Phone 07/09/2020 09:50 AM EST Phone (Outgoing) BashirRaj melo I (Self) [phone] (H) Spoke with and patient Current Warfarin Dose As of 07/09/2020 Warfarin maintenance plan: 10 mg (2 mg x 5) every Tue; 6 mg (2 mg x 3) all other days Patient-Reported Symptoms: Patient Findings Negatives: Signs/symptoms of thrombosis, Signs/symptoms of bleeding, Change in health, Change in alcohol use, Change in activity, Upcoming invasive procedure, Missed doses, Extra doses, Change in medications, Change in diet/appetite, Bruising Comments: Notes to red patches on face - started once warfarin was initiated INR Result As of 07/09/2020 INR goal: 2.0-3.0 INR used for dosin.4 (07/09/2020) Warfarin Plan As of 07/09/2020 Full warfarin instructions: 07/09: 12 mg; 07/10: 10 mg; Otherwise 10 mg every Tue; 6 mg all other days Next INR check: 07/13/2020 Additional Dosing Information: Description Takes AM Called [facility] with orders [phone] Order faxed to [phone] Ordering PCP: Dr. Nick Em Repeat PT/INR in 4 day(s) Weekly dose: not changed - patient to take increased doses of warfarin x 2 - recommending at this time for patient to restart lovenox 100mg q12h due to subtherapeutic INR recheck INR 07/13, patient and voiced understanding Reuben Alba, [facility] Clinical Pharmacist 07/09/2020, 9:49 AM * Radha Estrella OSA - 07/09/2020 9:27 AM EST Dian from [facility] # [phone] INR 1.4 (home) documented in this encounter Plan of Treatment Upcoming Encounters Date Type Specialty Care Team Description 07/13/2020 Anticoagulation Pharmacy [facility] [address] [place] [address] 10/30/2020 Office Visit Family Medicine Sahra Hou CRNP [address] [place] [address] [phone] Health Maintenance Due Date Last Done Comments [...] Date/Time Associated Diagnosis Comments OUTSIDE LAB-PT/INR Routine 07/09/2020 documented in this encounter Results * OUTSIDE LAB-PT/INR (07/09/2020) INR-OUTSIDE LAB 1.4 documented in this encounter Visit Diagnoses Diagnosis Other acute pulmonary embolism, unspecified whether acute cor pulmonale present (HCC)- Primary documented in this encounter Advance Directives Documents on File Type Date Recorded Patient Alum Plant Operator Expl anation Advanced Directive Advanced Directive [...]
--- OUTSIDE RECORDS SUMMARY | 2022-12-29 03:37 | External Medical Summary ---
Author Name Unknown Address Unknown Organization [facility] [address] [place] [id number] Laboratory Report Ordering Provider Test Date Status JOHN HOLLIS 06/17/2020 10:27:20 Final Observation Date Value Abnormality Reference (Units ) Status PT 06/17/2020 10:27:20 16.2 Above high normal 11 .5-14.6 (seconds) Final INR 06/17/2020 10:27:20 1.28 Above high normal 0. 84-1.14 Final Performing Location [facility] [address] [place] [id number]
--- OUTSIDE RECORDS SUMMARY | 2022-12-29 03:37 | External Medical Summary | Summary of Care ---
Author Name Unknown Organization [place] [address] Care Team Providers Care Corrugator Operator Helper Name Role Phone Nick Em MD Primary Care Provider + Reason for Visit * Reason Onset Date Comments COVID-19 Screening 05/28/2020 Encounter Details Date Type Department Care Team Description 05/28/2020 Telephone COVID19 Screening [facility] [address] [place] [id number], Automated Provider COVID-19 Screening Allergies No Known Active Allergiesdocumented as of this encounter (statuses as of 05/29/2020) Medications Medication Sig Dispensed Refills Start Date [...] as of this encounter (statuses as of 05/29/2020) Active Problems Problem Noted Date Other acute pulmonary emboli sm, unspecified whether acute cor pulmonale present 05/10/2020 Overview: "I have reviewed the patient's controlled substance dispensing history in the Prescription Drug Monitoring Program in compliance with the [facility] regulations before prescribing a controlled substance." History of 2019 novel coronavirus diseas e (COVID-19) 05/08/2020 Prediabetes 07/11/2016 Dyslipidemia 05/05/2015 Overview: 05/16 LDL 222. High in past. NEED rx ICD-10 update of inactive term Well adult exam 04/30/2015 Overview: AAA , cologuard ordered. Refuses statin. HTN, goal below 130/80 04/30/2015 documented as of this encounter (statuses as of 05/29/2020) Resolved Problems Problem Noted Date Resolved Date COVID-19 virus infection 05/06/2020 021 Overview: Admit [facility] Viral PNA. Didn't react well w/steroids. D/c home on O2. documented as of this encounter (statuses as of 05/29/2020) Immunizations Name Administration Dates Next Due TDAP [...] encounter Miscellaneous Notes * Telephone Encounter - Ingrid Colonid Results - 05/29/2020 12:00 PM EST Outreach Attempts IVR Call May 28 2020 9:22AM Answered - Success Results COVID: Positive IVR Message: Isma Anthony. Your test results from 05/26/2020 00:00:00 are as follows: COVID- 19 is positive. This means you are infected with coronavirus 19. You will be receiving an automated call daily for the next 10 days to monitor your symptoms. Please select 1 if you would like to receive symptom monitoring calls. Please select 2 if you do not want to receive symptoms monitoring calls. Here's what you need to do immediately: Quarantine yourself in your home until: -You have had no fever for at least 24 hours (that is one full day of no fever without the use of medicine that reduces fevers) AND - other symptoms have improved (for example, when your cough or shortness of breath have improved) AND - at least 10 days have passed since your symptoms first appeared If you live with others, isolate yourself to a single room away from them and avoid any contact during the quarantine time. Wash your hands frequently and cover your cough. If you were in close contact with any family members, roommates or friends in the 2 days before your cold/flu symptoms started, notify them that you tested positive for COVID-19. Tell them that if they have cold/flu symptoms, they should call [employer] hotline at [phone]. Treat your symptoms with [id number] medications, such as Tylenol. If you develop new symptoms or your symptoms are worsening, call [employer] hotline at [phone] or your physician for advice. If your symptoms become severe, go to the nearest ER. If you are alone and/or in distress, call [phone]. Your results are also available for your reference in your [employer] account under 'Test & Lab Results.' If you are not enrolled in [employer], you can create an account by going to [email or web address]. You will also receive a letter in the mail with your results. If you are a [employer] staff member or employee, when you receive your result, please call [employer] between 7 a.m. and 4 p.m. at [phone]. Notify them of your test results and for instructions on returning to work after your quarantine period. Press 1 if you would like to speak with a nurse, press 2 to hear this message again. documented in this encounter Plan of Treatment Upcoming Encounters Date Type Specialty Care Team Description 06/01/2020 Anticoagulation Pharmacy [facility] [address] [place] [address] 10/23/2020 Office Visit Family Medicine Rajendra Naranjo MD [address] [place] [address] [phone] Health Maintenance Due Date Last Done Comments [...] Documents on File Type Date Recorded Patient Maintenance And Repair Worker Expl anation Advanced Directive Advanced Directive Advanced Directive Advanced Directive Advanced Directive Advanced Directive Advanced Directive Advanced Directive Advanced Directive Advanced Directive Advanced Directive Advanced Directive Advanced Directive Advanced Directive Advanced Directive Advanced Directive Advanced Directive
--- OUTSIDE RECORDS SUMMARY | 2022-12-29 03:37 | External Medical Summary | Summary of Care ---
Author Name Unknown Organization [place] [address] Care Team Providers Care Exam Proctor Name Role Phone Nick Em MD Primary Care Provider + Encounter Details Date Type Department Care Team Description 05/26/2020 Orders Only Family Practice [facility] [address] [facility] [place] [address] Nick Em MD [address] [place] [address] [phone] Allergies No Known Active Allergiesdocumented as of this encounter (statuses as of 05/26/2020) Medications Medication Sig Dispensed Refills Start Date [...] as of this encounter (statuses as of 05/26/2020) Active Problems Problem Noted Date Other acute pulmonary emboli sm, unspecified whether acute cor pulmonale present 05/10/2020 Overview: "I have reviewed the patient's controlled substance dispensing history in the Prescription Drug Monitoring Program in compliance with the [facility] regulations before prescribing a controlled substance." History of 2019 novel coronavirus diseas e (COVID-19) 05/08/2020 Prediabetes 07/11/2016 Dyslipidemia 05/05/2015 Overview: 05/16 LDL 222. High in past. NEED rx ICD-10 update of inactive term Well adult exam 04/30/2015 Overview: AAA , cologuard ordered. Refuses statin. HTN, goal below 130/80 04/30/2015 documented as of this encounter (statuses as of 05/26/2020) Resolved Problems Problem Noted Date Resolved Date COVID-19 virus infection 05/06/2020 021 Overview: Admit [facility] Viral PNA. Didn't react well w/steroids. D/c home on O2. documented as of this encounter (statuses as of 05/26/2020) Immunizations Name Administration Dates Next Due TDAP [...] Specialty Care Team Description 06/01/2020 Anticoagulation Pharmacy [facility] [address] [place] [address] 10/23/2020 Office Visit Family Medicine Rajendra Naranjo MD [address] [place] [address] [phone] Pending Results Name Type Priority Associated Diagnoses Date /Time CHEMISTRY-OUTSIDE Lab Routine 021 SARS-COV-2 (COVID-19), NAAT Lab Routine 04/27/2020 Health Maintenance Due Date Last Done Comments Prediabetes-Yearly Hemoglobin A1c 1950 *DEPRESSION SCREENING,ANNUAL FOR PTS 12 AND OVER 05/09/2015 Zoster Vaccines (2 of 3) 06/25/2015 04/30/2015 ABDOMINAL AORTIC ANEURYSM (AAA) SCREENING 09/30/2015 Pneumococcal Vaccine: 65+ Years (1 of 1 - PPSV23) 09/30/2015 *COLORECTAL CANCER SCREENING (COLONOSCOPY 10 YEARS; SIGMOIDOSCOPY 5 YEARS; COLOGUARD 3 YEARS; FOBT 1 YEAR),AGES 50-75 11/20/2018 05/03/2015 *BASIC METABOLIC PANEL (BMP) FOR HTN YEARLY 11/28/2018 Influenza Vaccine (FLU shot) (#1) 2019 05/11/2019 DIABETES SCREEN EVERY 3 YRS-AGE 45 AND ABOVE 11/25/2020 11/25/2017, 07/03/2016, 07/03/2016, Additional history exists LIPID SCREEN EVERY 5 YRS-MEN AGE 35-75 07/03/2021 07/03/2016, 08/01/2015, 05/03/2015 DTaP,Tdap,and Td Vaccines (2 - Td) 04/30/2025 04/30/2015 MENINGOCOCCAL (MENACTRA/MENVEO) Aged Out No longer eligible based on patient's age to complete this topic documented as of this encounter Implants Not on filedocumented as of this encounter Advance Directives Documents on File Type Date Recorded Patient Vehicle Dismantler Expl anation Advanced Directive Advanced Directive Advanced Directive Advanced Directive Advanced Directive Advanced Directive Advanced Directive Advanced Directive Advanced Directive Advanced Directive Advanced Directive Advanced Directive Advanced Directive Advanced Directive Advanced Directive Advanced Directive Advanced Directive
--- OUTSIDE RECORDS SUMMARY | 2022-12-29 03:37 | External Medical Summary | Summary of Care ---
Author Name Unknown Organization [place] [address] Care Team Providers Care Laborer Dairy Farm Name Role Phone Nick Em MD Primary Care Provider + Reason for Visit * Reason Onset Date Comments Test Results 05/25/2020 Encounter Details Date Type Department Care Team Description 05/25/[address] [facility] [address] [place] [address] Nick Em MD [address] [facility] [place] [address] [phone] Test Results Allergies No Known Active Allergiesdocumented as of this encounter (statuses as of 05/25/2020) Medications Medication Sig Dispensed Refills Start Date [...] as of this encounter (statuses as of 05/25/2020) Active Problems Problem Noted Date Other acute pulmonary emboli sm, unspecified whether acute cor pulmonale present 05/10/2020 Overview: "I have reviewed the patient's controlled substance dispensing history in the Prescription Drug Monitoring Program in compliance with the [facility] regulations before prescribing a controlled substance." History of 2019 novel coronavirus diseas e (COVID-19) 05/08/2020 Prediabetes 07/11/2016 Dyslipidemia 05/05/2015 Overview: 05/16 LDL 222. High in past. NEED rx ICD-10 update of inactive term Well adult exam 04/30/2015 Overview: AAA , cologuard ordered. Refuses statin. HTN, goal below 130/80 04/30/2015 documented as of this encounter (statuses as of 05/25/2020) Resolved Problems Problem Noted Date Resolved Date COVID-19 virus infection 05/06/2020 021 Overview: Admit [facility] Viral PNA. Didn't react well w/steroids. D/c home on O2. documented as of this encounter (statuses as of 05/25/2020) Immunizations Name Administration Dates Next Due TDAP [...] encounter Miscellaneous Notes * Telephone Encounter - Laly Gutierrez LPN - 05/25/2020 2:41 PM EST Notified on abx Rx to pharmacy. * Telephone Encounter - Rajendra Naranjo MD - 05/25/2020 1:37 PM EST Rx sent to [facility]. Please let pt know. * Telephone Encounter - Jewell Oconnor LPN - 05/25/2020 1:25 PM EST Called patient and spoke to is unhappy with decision states has an aneurysm that's getting fixed next month and he needs to have antibiotic so he gets over this. Told that it is from him having covid pneumonia and that it will clear not having sx now states I know other people who get antibiotics why not us * Telephone Encounter - Rajendra Naranjo MD - 05/25/2020 1:17 PM EST No need for abx This is from his covid pneumonia It should gradually clear If SOB/sx's worsens, can consider abx at that time * Telephone Encounter - Minnie Judd LPN - 05/25/2020 12:52 PM EST Home care calling, states Chest Xray is showing signs of pneumonia. If antibiotic treatment is needed [facility] is current pharmacy. Please let pt know if something is called in. Thank you documented in this encounter Plan of Treatment Upcoming Encounters Date Type Specialty Care Team Description 05/25/2020 Anticoagulation Pharmacy [facility] [address] [facility] [place] [address] Other acute pulmonary embolism, unspecified whether acute cor pulmonale present (HCC)* 06/01/2020 Anticoagulation Pharmacy [facility] [address] [place] [address] 10/23/2020 Office Visit Family Medicine Rajendra Naranjo MD [address] [place] [address] [phone] Health Maintenance Due Date Last Done Comments [...] Documents on File Type Date Recorded Patient Rod Puller Expl anation Advanced Directive Advanced Directive Advanced Directive Advanced Directive Advanced Directive Advanced Directive Advanced Directive Advanced Directive Advanced Directive Advanced Directive Advanced Directive Advanced Directive Advanced Directive Advanced Directive Advanced Directive Advanced Directive Advanced Directive
--- OUTSIDE RECORDS SUMMARY | 2022-12-29 03:37 | External Medical Summary | Summary of Care ---
Author Name Unknown Organization [place] [address] Care Team Providers Care Showroom Sales Assistant Name Role Phone Nick Em MD Primary Care Provider + Reason for Visit * Reason Onset Date Comments Advice 07/03/2020 Encounter Details Date Type Department Care Team Description 07/03/2020 Telephone Pharmacy, [facility] [address] [facility] [place] [address] [facility] 132 [facility] [place] [address] Advice Allergies No Known Active Allergiesdocumented as of this encounter (statuses as of 07/03/2020) Medications Medication Sig Dispensed Refills Start Date [...] as of this encounter (statuses as of 07/03/2020) Active Problems Problem Noted Date S/P AAA [...] as of this encounter (statuses as of 07/03/2020) Resolved Problems Problem Noted Date Resolved Date COVID-19 virus infection 05/06/2020 021 Overview: Admit [facility] Viral PNA. Didn't react well w/steroids. D/c home on O2. documented as of this encounter (statuses as of 07/03/2020) Immunizations Name Administration Dates Next Due TDAP [...] encounter Miscellaneous Notes * Telephone Encounter - Ara Dean [facility] - 07/03/2020 2:23 PM EST Spoke to nurse who relayed information for patient and . They were nervous about doses of coumadin causing his blood to be too thin after surgery. Explained that there is a calculated way in which [facility] approaches bridges to ensure patient is therapeutic and able to stop Lovenox. Advised patient to take 12mg tonight (not 10mg) since he only took 6mg last evening (not 12mg). Continue Lovenox through 07/04. Check INR as scheduled. * Telephone Encounter - Radha Estrella OSA - 07/03/2020 2:06 PM EST Patient has some concerns about taking high dose of coumadin because he just had a abdominal aneurism. Please call to discuss. Patient took 6mg last night and lovenox. documented in this encounter Plan of Treatment Upcoming Encounters Date Type Specialty Care Team Description 07/09/2020 Anticoagulation Pharmacy [facility] [address] [place] [address] 10/23/2020 Office Visit Family Medicine Rajendra Naranjo MD [address] [place] [address] Services [place] [address] Health Maintenance Due [...] Documents on File Type Date Recorded Patient Tray Line Supervisor Expl anation Advanced Directive Advanced Directive Advanced Directive Advanced Directive Advanced Directive Advanced Directive Advanced Directive Advanced Directive Advanced Directive Advanced Directive Advanced Directive Advanced Directive Advanced Directive Advanced Directive Advanced Directive Advanced Directive Advanced Directive Advanced Directive Advanced Directive Advanced Directive Advanced Directive Advanced Directive Advanced Directive Advanced Directive Advanced Directive
--- OUTSIDE RECORDS SUMMARY | 2022-12-29 03:37 | External Medical Summary | Summary of Care ---
Author Name Unknown Organization [place] [address] Care Team Providers Care Reinforcing Steel Worker Wire Mesh Name Role Phone Nick Em MD Primary Care Provider + Reason for Visit * Reason Comments Dosage Adjustment Via Phone (anticoag Cl inic) Encounter Details Date Type Department Care Team Description 07/02/2020 Anticoagulation Pharmacy, [facility] [address] [facility] [place] [address] [facility] [address] [facility] [place] [address] Other acute pulmonary embolism, unspecified whether acute [...] virus infection 05/06/2020 021 Overview: Admit [facility] Viral PNA. Didn't react well w/steroids. [...] of this encounter Progress Notes * Reuben Alba RPh - 07/02/2020 1:26 PM EST Medication Therapy Disease Management - Anticoagulation Patient: Raj Bashir : 1950 Current Warfarin Dose As of 07/02/2020 Warfarin maintenance plan: 10 mg (2 mg x 5) every Tue; 6 mg (2 mg x 3) all other days Patient-Reported Symptoms: INR Result As of 07/02/2020 INR goal: 2.0-3.0 INR used for dosing: No new INR was available at the time of this encounter. Warfarin Plan As of 07/02/2020 Full warfarin instructions: 07/02: 12 mg; 07/03: 10 mg; Otherwise 10 mg every Tue; 6 mg all other days Next INR check: 07/09/2020 Additional Dosing Information: Description Takes AM Called [facility] with orders [phone] Order faxed to [phone] Ordering PCP: Dr. Nick Em Patient reports that he restarted warfarin inpatient 07/01/20 - patient unsure of warfarin dose that was given to him, patient notes that he was given 1 injection of lovenox prior to his discharged this afternoon. Plan at this time is for patient to complete previously planned lovenox bridge and warfarin restartas discussed 06/23 Patient to take noted doses of warfarin above - will restart 6mg daily 07/04 - patient to continue lovenox 100mg q12h 07/03 and 07/04, patient voiced understanding of plan Sent additional rx for lovenox as patient and think they only have 3 injections left Repeat PT/INR in 1 week(s) Weekly dose: not changed Reuben Alba RPh Clinical Pharmacist 07/02/2020, 4:09 PM documented in this encounter Plan of Treatment Upcoming Encounters Date Type Specialty Care Team Description 07/09/2020 Anticoagulation Pharmacy [facility] [address] [place] [address] 10/23/2020 Office Visit Family Medicine Rajendra Naranjo MD [address] [place] [address] Services [place] [address] Health Maintenance Due [...] Documents on File Type Date Recorded Patient Piecer Up Expl anation Advanced Directive Advanced Directive Advanced Directive Advanced Directive Advanced Directive Advanced Directive Advanced Directive Advanced Directive Advanced Directive Advanced Directive Advanced Directive Advanced Directive Advanced Directive Advanced Directive Advanced Directive Advanced Directive Advanced Directive Advanced Directive Advanced Directive Advanced Directive Advanced Directive Advanced Directive Advanced Directive Advanced Directive Advanced Directive
--- OUTSIDE RECORDS SUMMARY | 2022-12-29 03:37 | External Medical Summary | Summary of Care ---
Author Name Unknown Organization [place] [address] Care Team Providers Care Deodorizer Operator Name Role Phone Nick Em MD Primary Care Provider + Reason for Visit * Reason Comments Dosage Adjustment Via Phone (anticoag Cl inic) Encounter Details Date Type Department Care Team Description 06/17/2020 Anticoagulation Pharmacy, [facility] [address] [facility] [place] [address] [facility] [address] [facility] [place] [address] Other acute pulmonary embolism, unspecified whether acute cor pulmonale present (HCC)* Allergies No Known Active Allergiesdocumented as of this encounter (statuses as of 06/17/2020) Medications Medication Sig Dispensed Refills Start Date [...] as of this encounter (statuses as of 06/17/2020) Active Problems Problem Noted Date Other acute [...] as of this encounter (statuses as of 06/17/2020) Resolved Problems Problem Noted Date Resolved Date COVID-19 virus infection 05/06/2020 021 Overview: Admit [facility] Viral PNA. Didn't react well w/steroids. D/c home on O2. documented as of this encounter (statuses as of 06/17/2020) Immunizations Name Administration Dates Next Due TDAP [...] this encounter Progress Notes * Juana Marc, [facility] - 06/17/2020 3:10 PM EST Medication Therapy Disease Management - Anticoagulation Patient: Raj Bashir : 1950 Current Warfarin Dose As of 06/17/2020 Warfarin maintenance plan: 6 mg (2 mg x 3) every day Patient-Reported Symptoms: Patient Findings Negatives: Signs/symptoms of thrombosis, Signs/symptoms of bleeding, Change in health, Change in alcohol use, Change in activity, Upcoming invasive procedure, Missed doses, Extra doses, Change in medications, Change in diet/appetite, Bruising INR Result As of 06/17/2020 INR goal: 2.0-3.0 INR used for dosin.28 (06/17/2020) Warfarin Plan As of 06/17/2020 Full warfarin instructions: 06/17: 10 mg; Otherwise 6 mg every day Next INR check: 06/24/2020 Additional Dosing Information: Description Takes AM Called [facility] with orders [phone] Order faxed to [phone] Ordering PCP: Dr. Nick Em Repeat PT/INR in 1 week(s) on 06/23 Weekly dose: increased Procedure 07/01 Juana Marc [facility] Clinical Pharmacist 06/17/2020, 3:10 PM documented in this encounter Plan of Treatment Upcoming Encounters Date Type Specialty Care Team Description 06/22/2020 Pharmacy Pharmacy [facility] Ling Araya [address] [place] [address] 06/23/2020 Anticoagulation Pharmacy [place], [facility] [address] [place] [address] 10/23/2020 Office Visit Family Medicine Rajendra Naranjo MD [address] [place] [address] [phone] Health Maintenance Due Date Last Done Comments [...] Documents on File Type Date Recorded Patient Boat Patcher Plastic Expl anation Advanced Directive Advanced Directive Advanced Directive Advanced Directive Advanced Directive Advanced Directive Advanced Directive Advanced Directive Advanced Directive Advanced Directive Advanced Directive Advanced Directive Advanced Directive Advanced Directive Advanced Directive Advanced Directive Advanced Directive Advanced Directive Advanced Directive Advanced Directive Advanced Directive Advanced Directive Advanced Directive
--- OUTSIDE RECORDS SUMMARY | 2022-12-29 03:37 | External Medical Summary | Summary of Care ---
Author Name Unknown Organization [place] [address] Care Team Providers Care Can Filling And Closing Machine Tender Name Role Phone Nick Em MD Primary Care Provider + Reason for Visit * Reason Onset Date Comments Order Request 05/25/2020 Encounter Details Date Type Department Care Team Description 05/25/2020 Telephone Pharmacy, [facility] 132 [facility] [place] [address] [facility] 132 [facility] [place] [address] Order Request Allergies No Known Active Allergiesdocumented as of [...] Program in compliance with the [facility] regulations before prescribing a controlled substance." [...] encounter Miscellaneous Notes * Telephone Encounter - Radha Estrella, BRET - 05/25/2020 1:59 PM EST Created in error documented in this encounter Plan of Treatment Upcoming Encounters Date Type Specialty Care Team Description 05/25/2020 Anticoagulation Pharmacy [facility] [address] [place] [address] Other acute pulmonary embolism, unspecified whether acute cor pulmonale present (HCC)* 06/01/2020 [facility] [address] [place] [address] 10/23/2020 Office Visit Family Medicine Rajendra Naranjo MD [address] [place] [address] [phone] Health Maintenance Due Date Last Done Comments [...] Documents on File Type Date Recorded Patient Digester Hand Expl anation Advanced Directive Advanced Directive Advanced Directive Advanced Directive Advanced Directive Advanced Directive Advanced Directive Advanced Directive Advanced Directive Advanced Directive Advanced Directive Advanced Directive Advanced Directive Advanced Directive Advanced Directive Advanced Directive Advanced Directive
--- OUTSIDE RECORDS SUMMARY | 2022-12-29 03:37 | External Medical Summary | Summary of Care ---
Author Name Unknown Organization [facility] [place] [address] Care Team Providers Care Grades 7 8 Tutor Name Role Phone Nick Em MD Primary Care Provider + Encounter Details Date Type Department Care Team Description 05/09/2020 Scan Encounter Unspecified Department <No scans attached> [...] mouth daily. 90 Tab 0 03/29/2020 Active documented as of this encounter (statuses as of 05/26/2020) Active Problems Problem Noted Date Other acute pulmonary emboli sm, unspecified whether acute cor pulmonale present 05/10/2020 Overview: "I have reviewed the patient's controlled substance dispensing history in the Prescription Drug Monitoring Program in compliance with the [facility] regulations before prescribing a controlled substance." History [...] Specialty Care Team Description 06/01/2020 Anticoagulation Pharmacy [facility] [address] [place] [address] 10/23/2020 Office Visit Family Medicine Rajendra Naranjo MD [address] [place] [address] [phone] Health Maintenance Due Date Last Done Comments [...] EVERY 3 YRS-AGE 45 AND ABOVE 11/25/2020 05/02/2020, 11/25/2017, 07/03/2016, Additional history exists LIPID SCREEN EVERY 5 YRS-MEN AGE 35-75 07/03/2021 07/03/2016, 08/01/2015, 05/03/2015 DTaP,Tdap,and Td Vaccines (2 - Td) 04/30/2025 04/30/2015 MENINGOCOCCAL (MENACTRA/MENVEO) Aged Out No longer eligible based on patient's age to complete this topic documented as of this encounter Implants Not on filedocumented as of this encounter Advance Directives Documents on File Type Date Recorded Patient Director Of Veterans Affairs Expl anation Advanced Directive Advanced Directive Advanced Directive Advanced Directive Advanced Directive Advanced Directive Advanced Directive Advanced Directive Advanced Directive Advanced Directive Advanced Directive Advanced Directive Advanced Directive Advanced Directive Advanced Directive Advanced Directive Advanced Directive
--- OUTSIDE RECORDS SUMMARY | 2022-12-29 03:37 | External Medical Summary | Summary of Care ---
Author Name Unknown Organization [place] [address] Care Team Providers Care Harpsichord Maker Name Role Phone Nick Em MD Primary Care Provider + Encounter Details Date Type Department Care Team Description 07/09/2020 Telephone Pharmacy, [facility] 132 [facility] [place] [address] [facility] [address] [facility] [place] [address] Allergies No Known Active Allergiesdocumented as of [...] Miscellaneous Notes * Telephone Encounter - Reuben Alba [facility] - 07/09/2020 1:07 PM VASU PA sent to plan today Follow up by EOD for response Reuben Alba, Pharm D Clinical Pharmacist 07/09/2020,1:07 PM * Telephone Encounter - Miguel Lee OSA - 07/09/2020 12:00 PM EST Patient Phone Numbers Please see note from nurse,Matt today on patient-patient needs a PA for lovenox or if any floating around could use for tonight and tomorrow -100mg. documented in this encounter Plan of Treatment Upcoming Encounters Date Type Specialty Care Team Description 07/09/2020 Anticoagulation Pharmacy [facility] [address] [place] [address] Other acute pulmonary embolism, unspecified whether acute cor pulmonale present (HCC)* 07/13/2020 Anticoagulation Pharmacy [facility] [address] [place] [address] 10/30/2020 Office Visit Family Medicine Sahra Hou CRNP [address] [place] [address] [phone] Health Maintenance Due Date Last Done Comments [...] Documents on File Type Date Recorded Patient Personnel Research Psychologist Expl anation Advanced Directive Advanced Directive Advanced Directive Advanced Directive Advanced Directive Advanced Directive Advanced Directive Advanced Directive Advanced Directive Advanced Directive Advanced Directive Advanced Directive Advanced Directive Advanced Directive Advanced Directive Advanced Directive Advanced Directive Advanced Directive Advanced Directive Advanced Directive Advanced Directive Advanced Directive Advanced Directive Advanced Directive Advanced Directive Advanced Directive Advanced Directive
--- OUTSIDE RECORDS SUMMARY | 2022-12-29 03:38 | External Medical Summary | Summary of Care ---
Author Name Unknown Organization [place] [address] Care Team Providers Care Talent Partner Name Role Phone Nick Em MD Primary Care Provider + Reason for Visit * Reason Comments Follow Up Encounter Details Date Type Department Care Team Description 05/12/[address] [facility] [address] [place] [address] Rajendra Naranjo MD [address] [facility] [place] [address] [phone] Pneumonia due to COVID-19 virus*; Other acute pulmonary embolism, unspecified whether acute cor pulmonale present (HCC); Abdominal aortic aneurysm (AAA) without rupture (HCC) Allergies No Known Active Allergiesdocumented as of this encounter (statuses as of 05/12/2020) Medications Medication Sig Dispensed Refills Start Date [...] as of this encounter (statuses as of 05/12/2020) Active Problems Problem Noted Date Other acute pulmonary emboli sm, unspecified whether acute cor pulmonale present 05/10/2020 Overview: "I have reviewed the patient's controlled substance dispensing history in the Prescription Drug Monitoring Program in compliance with the [facility] regulations before prescribing a controlled substance." History of 2019 novel coronavirus diseas e (COVID-19) 05/08/2020 Prediabetes 07/11/2016 Dyslipidemia 05/05/2015 Overview: 05/16 LDL 222. High in past. NEED rx ICD-10 update of inactive term Well adult exam 04/30/2015 Overview: AAA , cologuard ordered. Refuses statin. HTN, goal below 130/80 04/30/2015 documented as of this encounter (statuses as of 05/12/2020) Resolved Problems Problem Noted Date Resolved Date COVID-19 virus infection 05/06/2020 021 Overview: Admit [facility] Viral PNA. Didn't react well w/steroids. D/c home on O2. documented as of this encounter (statuses as of 05/12/2020) Immunizations Name Administration Dates Next Due TDAP (age 10 and older)(Boostrix) 04/30/2015 Varicella Zoster Vaccine (Adult) 04/30/2015 documented as of this encounter Social History Tobacco Use Types Packs/Day Years Used Date Former Smoker Cigarettes Smokeless Tobacco: Current User Snuff Quit: 04/30/1980 Alcohol Use Drinks/Week oz/Week Comments No Sex Assigned at Date Recorded Not on file documented as of this encounter Progress Notes * Rajendra Naranjo MD - 05/12/2020 4:44 PM EST After connecting to the patient via telephone, the patient was identified by name and date of . Patient was then informed that this was a telephone call only visit. The patient agreed to participate. Visit Disposition: Routine follow-up Total call duration was 15 minutes. HPI: pt is s/p admission for covid pneumonia Feels better Uses supplemental oxygen at needs Also has AAA Has appt with vascular Per pt, he is on coumadin for AAA However, pt has a PE on CT from a different admission I confirmed this w/pt's pcp Patient Active Problem List Diagnosis Code Well adult exam Z00.00 HTN, goal below 130/80 I10 Dyslipidemia E78.5 Prediabetes R73.03 History of 2019 novel coronavirus disease (COVID-19) Z86.16 Other acute pulmonary embolism, unspecified whether acute cor pulmonale present (HCC) I26.99 Current Outpatient Medications Medication Sig Dispense Refill Cefdinir 300 MG Oral Capsule (Omnicef) TAKE 1 CAPSULE BY MOUTH TWICE DAILY FOR 10 DAYS Doxycycline Monohydrate 100 MG Oral Capsule TAKE 1 CAPSULE BY MOUTH TWICE DAILY FOR 10 DAYS Enoxaparin Sodium 100 MG/ML Subcutaneous Solution (Lovenox) Inject 100 mg under the skin every 12 hours. 10 mL 3 Warfarin Sodium 2 MG Oral Tablet (Coumadin) TAKE 2 & 1 2 (TWO & ONE HALF) TABLETS BY MOUTH ONCE DAILY PER INR Olmesartan Medoxomil-HCTZ 40-12.5 MG Oral Tablet Take 1 Tab by mouth daily. 90 Tab 0 Olmesartan Medoxomil-HCTZ 40-12.5 MG per tablet TAKE 1 TABLET BY MOUTH ONCE DAILY 90 Tab 0 fish oil concentrate (OMEGA-3) 1000 MG CAPS Take 1 Cap by mouth 2 times a day. 60 Cap 5 Medication list reviewed and updated, if needed in EHR PMH, FH, SH reviewed and updated, if needed in EHR Review of Systems: No nausea, vomiting or diarrhea.No fevers, chill or night sweats. All other ROS examined in detail and are negative except as documented in HPI. VS and PE deferred d/t telephone visit Pneumonia due to COVID-19 virus (Primary) - XR CHEST 2 VIEWS; Future; Expected date: 06/15/2020 Other acute pulmonary embolism, unspecified whether acute cor pulmonale present (HCC) Abdominal aortic aneurysm (AAA) without rupture (HCC) No med changes F/u with vascular continue coumadin documented in this encounter Plan of Treatment Upcoming Encounters Date Type Specialty Care Team Description 05/12/2020 Pharmacy Pharmacy [facility] [address] [place] [address] Other acute pulmonary embolism, unspecified whether acute cor pulmonale present (HCC) 05/15/2020 Anticoagulation Pharmacy [place], [facility] [address] [place] [address] 10/23/2020 Office Visit Family Medicine Rajendra Naranjo MD [address] [place] [address] [phone] Scheduled Orders Name Type Priority Associated Diagnoses Orde r Schedule XR CHEST 2 VIEWS Medical Imaging Routine Pneumonia due to COVID-19 virus Expected: 06/15/2020, Expires: 06/12/2021 Health Maintenance Due Date Last Done Comments [...] unspecified whether acute cor pulmonale present (HCC) Pneumonia due to COVID-19 virus- Primary Other acute pulmonary embolism, unspecified whether acute cor pulmonale present (HCC) Abdominal aortic aneurysm (AAA) without rupture (HCC) documented in this encounter Advance Directives Documents on File Type Date Recorded Patient Wood Setter Expl anation Advanced Directive Advanced Directive Advanced Directive Advanced Directive Advanced Directive Advanced Directive Advanced Directive Advanced Directive Advanced Directive Advanced Directive Advanced Directive Advanced Directive
--- OUTSIDE RECORDS SUMMARY | 2022-12-29 03:38 | External Medical Summary | Summary of Care ---
Author Name Unknown Organization [place] [address] Care Team Providers Care Guitar Maker Hand Name Role Phone Nick Em MD Primary Care Provider + Reason for Visit * Reason Onset Date Comments Pre Cert/Prior Auth 05/14/2020 Encounter Details Date Type Department Care Team Description 05/14/2020 Telephone Family Practice [facility] [address] [facility] [place] [address] Nick Em MD [address] [facility] [place] [address] [phone] Pre Cert/Prior Auth Allergies No Known Active Allergiesdocumented as of this encounter (statuses as of 05/14/2020) Medications Medication Sig Dispensed Refills Start Date [...] as of this encounter (statuses as of 05/14/2020) Active Problems Problem Noted Date Other acute pulmonary emboli sm, unspecified whether acute cor pulmonale present 05/10/2020 Overview: "I have reviewed the patient's controlled substance dispensing history in the Prescription Drug Monitoring Program in compliance with the [facility] regulations before prescribing a controlled substance." History of 2019 novel coronavirus diseas e (COVID-19) 05/08/2020 Prediabetes 07/11/2016 Dyslipidemia 05/05/2015 Overview: 05/16 LDL 222. High in past. NEED rx ICD-10 update of inactive term Well adult exam 04/30/2015 Overview: AAA , cologuard ordered. Refuses statin. HTN, goal below 130/80 04/30/2015 documented as of this encounter (statuses as of 05/14/2020) Resolved Problems Problem Noted Date Resolved Date COVID-19 virus infection 05/06/2020 021 Overview: Admit [facility] Viral PNA. Didn't react well w/steroids. D/c home on O2. documented as of this encounter (statuses as of 05/14/2020) Immunizations Name Administration Dates Next Due TDAP [...] Telephone Encounter - Laly Gutierrez LPN - 05/14/2020 3:54 PM EST Received fax requesting prior auth on Enoxaparin Sodium 100 mg/ml sq injection. Prior auth started on Cover my meds. Noted after submission. Available without authorization. documented in this encounter Plan of Treatment Upcoming Encounters Date Type Specialty Care Team Description 05/15/2020 Anticoagulation Pharmacy [facility] [address] [place] [address] 10/23/2020 Office Visit Family Medicine Rajendra Naranjo MD [address] [place] [address] [phone] Health Maintenance Due Date Last Done Comments [...] Documents on File Type Date Recorded Patient Bowling Ball Assembler Expl anation Advanced Directive Advanced Directive Advanced Directive Advanced Directive Advanced Directive Advanced Directive Advanced Directive Advanced Directive Advanced Directive Advanced Directive Advanced Directive Advanced Directive
--- OUTSIDE RECORDS SUMMARY | 2022-12-29 03:38 | External Medical Summary | Summary of Care ---
Author Name Unknown Organization [place] [address] Care Team Providers Care Manager Sign Name Role Phone Nick Em MD Primary Care Provider + Reason for Referral * Evaluate & Treat - Unlimited Visits (Within 24 hrs (call dept; emergent)) Status Reason Specialty Diagnoses / Procedures Referred By Contact Referred To Contact Pending Review Specialty Services Required HOME CARE / Home Care Diagnoses Other acute pulmonary embolism, unspecified whether acute cor pulmonale present ([facility]) Nick Em MD [address] [place] [address] Reason for Visit * Reason Onset Date Comments Test Results 05/11/2020 Encounter Details Date Type Department Care Team Description 05/11/2020 Telephone Pharmacy, [facility] [address] [place] [address] Miri De La Cruz, [facility] [address] [place] [address] [phone] Test Results Allergies No Known Active Allergiesdocumented [...] 02/28/2019 Active Olmesartan Medoxomil-HCTZ 40-12.5 MG Oral TabletIndications:Karely [...] Program in compliance with the [facility] regulations before prescribing a controlled substance." History [...] COVID-19 virus infection 05/06/2020 021 Overview: Admit [facility] Viral PNA. Didn't react well w/steroids. [...] * Telephone Encounter - Miri De La Cruz RPh - 05/11/2020 1:30 PM EST Thank you! Please let us know what home nursing the patient gets set up with once that is finalized. Miri Silverman * Telephone Encounter - Nick Em MD - 05/11/2020 1:20 PM EST Nursing-please call pt/. Referral made for home nursing/INR --hopefully we can get drawn today or tomorrow. Please fax nursing order + INR order. Rosa working on this. Cc: Madie Richards * Telephone Encounter - Trent Lugo LPN - 05/11/2020 1:16 PM EST calling back in to check on status of below message. States that the pt is to be taking Coumadin and Lovenox injections. Pt was discharged from the hospital on 05/09/2020. Was in the hospital for COVID 19. Pt is resting. Reports that he is still feeling weak from having covid. Requesting orders for the pt to have his INRs drawn in the home. Asking that this be completed as soon as possible. States that hospitalist did not want the pt to wait until after today to have INR checked. is going to reach out to hospitalist if she soon does not hear back from PCP office. Please advise. * [facility] Em! I just spoke with patient's , and she reports that he was told to be home bound given the current AAA. At this time, there is no home nursing set up, and I verified that [facility] did not work to set up home nursing when patient was discharged. expressed concern with patient being on blood thinners with his AAA and not knowing what his INR is. Explained to that he is on the blood thinners due to the pulmonary embolism, and that we will get the INR as soon as we can. Instructed to continue Warfarin 5 mg daily + Lovenox 100 mg Q12. Please consider sending a high priority referral to home nursing to draw INRs for warfarin management. [facility] will follow up tomorrow to see if patient got referral. If no home nursing, then would need to utilize home phlebotomy, but unsure how soon they would be able to draw patient given their current patient volume. Thank you! Miri De La Cruz, PharmD -[place] Data Designer Medication Therapy Disease Management documented in this encounter Plan of Treatment Upcoming Encounters Date Type Specialty Care Team Description 05/15/2020 Anticoagulation Pharmacy [facility] [address] [place] [address] 10/23/2020 Office Visit Family Medicine Rajendra Naranjo MD [address] [place] [address] [phone] Scheduled Orders Name Type Priority Associated Diagnoses Orde r Schedule PT INR Lab Routine Other acute pulmonary embolism, unspecified whether acute cor pulmonale present (HCC) Expected: 05/11/2020 (Approximate), Expires: 05/11/2021 Scheduled Referrals Name Type Priority Associated Diagnoses Orde r Schedule HOME HEALTH REFERRAL OP Referral Within 24 hrs (call dept; emergent) Other acute pulmonary embolism, unspecified whether acute cor pulmonale present (HCC) Ordered: 05/11/2020 Health Maintenance Due Date Last Done Comments [...] Documents on File Type Date Recorded Patient Systems Administrator Expl anation Advanced Directive Advanced Directive Advanced Directive Advanced Directive Advanced Directive Advanced Directive Advanced Directive Advanced Directive Advanced Directive Advanced Directive Advanced Directive Advanced Directive
--- OUTSIDE RECORDS SUMMARY | 2022-12-29 03:38 | External Medical Summary | Summary of Care ---
Author Name Unknown Organization [place] [address] Care Team Providers Care Orchardist Name Role Phone Nick Em MD Primary Care Provider + Reason for Visit * Reason Onset Date Comments Appointment 05/12/2020 05/12/20 Video Ap pt Encounter Details Date Type Department Care Team Description 05/12/2020 Telephone Family Practice [facility] [address] [place] [address] Nick Em MD [address] [facility] [place] [address] [phone] Appointment (05/12/20 Video Appt) Allergies No Known Active Allergiesdocumented as of [...] 12 hours. 10 mL 3 05/12/2020 Active documented as of this encounter (statuses as of 05/12/2020) Active Problems Problem Noted Date Other acute pulmonary emboli sm, unspecified whether acute cor pulmonale present 05/10/2020 Overview: "I have reviewed the patient's controlled substance dispensing history in the Prescription Drug Monitoring Program in compliance with the [facility] regulations before prescribing a controlled substance." [...] Telephone Encounter - Alexandra Alston OSA - 05/12/2020 10:54 AM EST Per nessa Arellano for phone call. aware * Telephone Encounter - Alexandra Alston OSA - 05/12/2020 9:53 AM EST Pt is seeing Dr Naranjo today. Dr Naranjo ok for phone call appt? Dr Em I did not mean to send this to you sorry! * Telephone Encounter - Chayo Ferrari OSA - 05/12/2020 8:45 AM EST Patient calling asking if patient's 05/12/2020 video appointment can be changed to a telephone appointment. This is a HD from [facility].Telephone appointment is 20 minutes. Please contact Juanita Bashir at [phone] if this can be changed to a telephone appt. Juanita states she is not sure they can do a video appointment. Please advise. documented in this encounter Plan of Treatment Upcoming Encounters Date Type Specialty Care Team Description 05/12/2020 Telemedicine Family Medicine Rajendra Naranjo MD [address] [place] [address] [phone] 05/12/2020 Anticoagulation Pharmacy [facility] [address] [place] [address] Other acute pulmonary embolism, unspecified whether acute cor pulmonale present (HCC)* 05/12/2020 Pharmacy Pharmacy [facility] [address] [place] [address] Other acute pulmonary embolism, unspecified whether acute cor pulmonale present (HCC) 10/23/2020 Office Visit Family Medicine Rajendra Naranjo MD [address] [place] [address] [phone] Health Maintenance Due Date Last Done Comments [...] Documents on File Type Date Recorded Patient Shoulder Boner Expl anation Advanced Directive Advanced Directive Advanced Directive Advanced Directive Advanced Directive Advanced Directive Advanced Directive Advanced Directive Advanced Directive Advanced Directive Advanced Directive
--- OUTSIDE RECORDS SUMMARY | 2022-12-29 03:38 | External Medical Summary | Summary of Care ---
Author Name Unknown Organization [place] [address] Care Team Providers Care Baker Bench Name Role Phone Nick Em MD Primary Care Provider + Reason for Visit * Reason Comments Dosage Adjustment Via Phone (anticoag Cl inic) Encounter Details Date Type Department Care Team Description 05/21/2020 Anticoagulation Pharmacy, [facility] [address] [facility] [place] [address] [email or web address] [address] [facility] [place] [address] Other acute pulmonary embolism, unspecified whether acute cor pulmonale present (HCC)* Allergies No Known Active Allergiesdocumented as of this encounter (statuses as of 05/21/2020) Medications Medication Sig Dispensed Refills Start Date [...] as of this encounter (statuses as of 05/21/2020) Active Problems Problem Noted Date Other acute pulmonary emboli sm, unspecified whether acute cor pulmonale present 05/10/2020 Overview: "I have reviewed the patient's controlled substance dispensing history in the Prescription Drug Monitoring Program in compliance with the [facility] regulations before prescribing a controlled substance." History of 2019 novel coronavirus diseas e (COVID-19) 05/08/2020 Prediabetes 07/11/2016 Dyslipidemia 05/05/2015 Overview: 05/16 LDL 222. High in past. NEED rx ICD-10 update of inactive term Well adult exam 04/30/2015 Overview: AAA , cologuard ordered. Refuses statin. HTN, goal below 130/80 04/30/2015 documented as of this encounter (statuses as of 05/21/2020) Resolved Problems Problem Noted Date Resolved Date COVID-19 virus infection 05/06/2020 021 Overview: Admit [facility] Viral PNA. Didn't react well w/steroids. D/c home on O2. documented as of this encounter (statuses as of 05/21/2020) Immunizations Name Administration Dates Next Due TDAP [...] * Miri De La Cruz, [facility] - 05/21/2020 3:54 PM EST Medication Therapy Disease Management - Anticoagulation Patient: Raj Bashir : 1950 Current Warfarin Dose As of 05/21/2020 Warfarin maintenance plan: No maintenance plan Patient-Reported Symptoms: Patient Findings Negatives: Signs/symptoms of thrombosis, Signs/symptoms of bleeding, Change in health, Change in alcohol use, Change in activity, Upcoming invasive procedure, Missed doses, Extra doses, Change in medications, Change in diet/appetite, Bruising INR Result As of 05/21/2020 INR goal: 2.0-3.0 INR used for dosin.6 (05/21/2020) Warfarin Plan As of 05/21/2020 Full warfarin instructions: 05/21: 6 mg; 05/22: 6 mg; 05/23: 4 mg; 05/24: 6 mg Next INR check: 05/25/2020 Additional Dosing Information: Description Takes AM Called [facility] with orders [phone] Order faxed to [phone] Ordering PCP: Dr. Nick Em Repeat PT/INR in 4 day(s) Weekly dose: establishing Miri De La Cruz [facility] Clinical Pharmacist 05/21/2020, 3:57 PM * Miguel Lee OSA - 05/21/2020 1:38 PM EST Patient Phone Numbers nurse Gale from [facility] calling in patients inr today. documented in this encounter Plan of Treatment Upcoming Encounters Date Type Specialty Care Team Description 05/25/2020 Anticoagulation Pharmacy [facility] [address] [place] [address] 10/23/2020 Office Visit Family Medicine Rajendra Naranjo MD [address] [place] [address] [phone] Health Maintenance Due Date Last Done Comments [...] Date/Time Associated Diagnosis Comments OUTSIDE LAB-PT/INR Routine 05/21/2020 documented in this encounter Results * OUTSIDE LAB-PT/INR (05/21/2020) INR-OUTSIDE LAB 1.6 Specimen documented in this encounter Visit Diagnoses Diagnosis Other acute pulmonary embolism, unspecified whether acute cor pulmonale present (HCC)- Primary documented in this encounter Advance Directives Documents on File Type Date Recorded Patient Cook Fast Food Expl anation Advanced Directive Advanced Directive Advanced Directive Advanced Directive Advanced Directive Advanced Directive Advanced Directive Advanced Directive Advanced Directive Advanced Directive Advanced Directive Advanced Directive Advanced Directive Advanced Directive Advanced Directive
--- OUTSIDE RECORDS SUMMARY | 2022-12-29 03:38 | External Medical Summary | Summary of Care ---
Author Name Unknown Organization [facility] Address [place] [address] Care Team Providers Care Auxiliary Powerplant Operator Name Role Phone Nick Em MD Primary Care Provider + Encounter Details Date Type Department Care Team Description 05/02/2020 Scan Encounter Unspecified Department <No scans attached> [...] Medicine Rajendra Naranjo MD [address] [place] [address] [phone] 05/12/2020 Anticoagulation Pharmacy [facility] [address] [place] [address] Other acute pulmonary embolism, unspecified whether acute cor pulmonale present (HCC)* 05/12/2020 Pharmacy Pharmacy [facility] [address] [place] [address] Other acute pulmonary embolism, unspecified whether acute cor pulmonale present (HCC) 10/23/2020 Office Visit Family Medicine Rajendra Naranjo MD [address] [place] [address] [phone] Health Maintenance Due Date Last Done Comments [...] Documents on File Type Date Recorded Patient Project Intern Expl anation Advanced Directive Advanced Directive Advanced Directive Advanced Directive Advanced Directive Advanced Directive Advanced Directive Advanced Directive Advanced Directive Advanced Directive
--- OUTSIDE RECORDS SUMMARY | 2022-12-29 03:38 | External Medical Summary | Summary of Care ---
Author Name Unknown Organization [place] [address] Care Team Providers Care Air Marshal Name Role Phone Nick Em MD Primary Care Provider + Reason for Visit * Reason Comments Dosage Adjustment Via Phone (anticoag Cl inic) Encounter Details Date Type Department Care Team Description 05/15/2020 Anticoagulation Pharmacy, [facility] [address] [facility] [place] [address] [facility] [address] [facility] [place] [address] Other acute pulmonary embolism, unspecified whether acute cor pulmonale present (HCC)* Allergies No Known Active Allergiesdocumented as of this encounter (statuses as of 05/15/2020) Medications Medication Sig Dispensed Refills Start Date [...] as of this encounter (statuses as of 05/15/2020) Active Problems Problem Noted Date Other acute pulmonary emboli sm, unspecified whether acute cor pulmonale present 05/10/2020 Overview: "I have reviewed the patient's controlled substance dispensing history in the Prescription Drug Monitoring Program in compliance with the [facility] regulations before prescribing a controlled substance." History of 2019 novel coronavirus diseas e (COVID-19) 05/08/2020 Prediabetes 07/11/2016 Dyslipidemia 05/05/2015 Overview: 05/16 LDL 222. High in past. NEED rx ICD-10 update of inactive term Well adult exam 04/30/2015 Overview: AAA , cologuard ordered. Refuses statin. HTN, goal below 130/80 04/30/2015 documented as of this encounter (statuses as of 05/15/2020) Resolved Problems Problem Noted Date Resolved Date COVID-19 virus infection 05/06/2020 021 Overview: Admit [facility] Viral PNA. Didn't react well w/steroids. D/c home on O2. documented as of this encounter (statuses as of 05/15/2020) Immunizations Name Administration Dates Next Due TDAP [...] this encounter Progress Notes * Juana Marc, [facility] - 05/15/2020 9:34 AM EST Medication Therapy Disease Management - Anticoagulation Patient: Raj Bashir : 1950 Contacts Type Contact Phone 05/15/2020 09:30 AM EST Phone (Outgoing) Raj Bashir I (Self) [phone] (H) Current Warfarin Dose As of 05/15/2020 Warfarin maintenance plan: No maintenance plan Patient-Reported Symptoms: INR Result As of 05/15/2020 INR goal: 2.0-3.0 INR used for dosin.2 (05/15/2020) Warfarin Plan As of 05/15/2020 Full warfarin instructions: 05/15: Hold; 05/16: Hold; 05/17: 5 mg Next INR check: 05/18/2020 Additional Dosing Information: Description Lovenox 100 mg Q12 Repeat PT/INR in 3 day(s) on 05/18 Weekly dose: not changed Spoke to Wendy at [facility] with orders [phone] Order faxed to [phone] Ordering PCP: Dr. Nick Marc [facility] Clinical Pharmacist 05/15/2020, 9:34 AM * Rut Oliver TECH - 05/15/2020 8:53 AM EST Dian from [facility] called with pt/inr results. Call pt [phone]. [place] documented in this encounter Plan of Treatment Upcoming Encounters Date Type Specialty Care Team Description 10/23/2020 Office Visit Family Medicine Rajendra Naranjo MD [address] [place] [address] [phone] Health Maintenance Due Date Last Done Comments [...] Date/Time Associated Diagnosis Comments OUTSIDE LAB-PT/INR Routine 05/15/2020 documented in this encounter Results * OUTSIDE LAB-PT/INR (05/15/2020) INR-OUTSIDE LAB 4.2 documented in this encounter Visit Diagnoses Diagnosis Other acute pulmonary embolism, unspecified whether acute cor pulmonale present (HCC)- Primary documented in this encounter Advance Directives Documents on File Type Date Recorded Patient Electrical Lineworker Expl anation Advanced Directive Advanced Directive Advanced Directive Advanced Directive Advanced Directive Advanced Directive Advanced Directive Advanced Directive Advanced Directive Advanced Directive Advanced Directive Advanced Directive
--- OUTSIDE RECORDS SUMMARY | 2022-12-29 03:38 | External Medical Summary | Summary of Care ---
Author Name Unknown Organization [place] [address] Care Team Providers Care Corporate Receptionist Name Role Phone Nick Em MD Primary Care Provider + Reason for Visit * Reason Comments Dosage Adjustment Via Phone (anticoag Cl inic) Encounter Details Date Type Department Care Team Description 05/18/2020 Anticoagulation Pharmacy, [facility] [address] [facility] [address] [place] [address] [facility] [address] [facility] [place] [place] [address] Other acute pulmonary embolism, unspecified whether acute cor pulmonale present (HCC)* Allergies No Known Active Allergiesdocumented as of this encounter (statuses as of 05/18/2020) Medications Medication Sig Dispensed Refills Start Date [...] as of this encounter (statuses as of 05/18/2020) Active Problems Problem Noted Date Other acute pulmonary emboli sm, unspecified whether acute cor pulmonale present 05/10/2020 Overview: "I have reviewed the patient's controlled substance dispensing history in the Prescription Drug Monitoring Program in compliance with the [facility] regulations before prescribing a controlled substance." History of 2019 novel coronavirus diseas e (COVID-19) 05/08/2020 Prediabetes 07/11/2016 Dyslipidemia 05/05/2015 Overview: 05/16 LDL 222. High in past. NEED rx ICD-10 update of inactive term Well adult exam 04/30/2015 Overview: AAA , cologuard ordered. Refuses statin. HTN, goal below 130/80 04/30/2015 documented as of this encounter (statuses as of 05/18/2020) Resolved Problems Problem Noted Date Resolved Date COVID-19 virus infection 05/06/2020 021 Overview: Admit [facility] Viral PNA. Didn't react well w/steroids. D/c home on O2. documented as of this encounter (statuses as of 05/18/2020) Immunizations Name Administration Dates Next Due TDAP [...] Progress Notes * Miri De La Cruz, [facility] - 05/18/2020 2:14 PM EST Medication Therapy Disease Management - Anticoagulation Patient: Raj Bashir : 1950 Current Warfarin Dose As of 05/18/2020 Warfarin maintenance plan: No maintenance plan Patient-Reported Symptoms: Patient Findings Negatives: Signs/symptoms of thrombosis, Signs/symptoms of bleeding, Change in health, Change in alcohol use, Change in activity, Upcoming invasive procedure, Missed doses, Extra doses, Change in medications, Change in diet/appetite, Bruising INR Result As of 05/18/2020 INR goal: 2.0-3.0 INR used for dosin.5 (05/18/2020) Warfarin Plan As of 05/18/2020 Full warfarin instructions: 05/18: 5 mg; 05/19: 5 mg; 05/20: 5 mg Next INR check: 05/21/2020 Additional Dosing Information: Description Takes AM Call [facility] with orders [phone] Order faxed to [phone] Ordering PCP: Dr. Nick Em Repeat PT/INR in 3 day(s) Weekly dose: establishing Miri De La Cruz [facility] Clinical Pharmacist 05/18/2020, 2:19 PM * Miguel Lee OSA - 05/18/2020 12:41 PM EST Patient Phone Numbers nurse Gale from [facility] calling in patients inr today. documented in this encounter Plan of Treatment Upcoming Encounters Date Type Specialty Care Team Description 10/23/2020 Office Visit Family Medicine Rajendra Naranjo MD [address] [address] [phone] Health Maintenance Due Date Last Done Comments [...] Date/Time Associated Diagnosis Comments OUTSIDE LAB-PT/INR Routine 05/18/2020 documented in this encounter Results * OUTSIDE LAB-PT/INR (05/18/2020) INR-OUTSIDE LAB 1.5 Specimen documented in this encounter Visit Diagnoses Diagnosis Other acute pulmonary embolism, unspecified whether acute cor pulmonale present (HCC)- Primary documented in this encounter Advance Directives Documents on File Type Date Recorded Patient Camera Systems 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 Advanced Directive Advanced Directive Advanced Directive Advanced Directive Advanced Directive Advanced Directive Advanced Directive Advanced Directive Advanced Directive Advanced Directive
--- OUTSIDE RECORDS SUMMARY | 2022-12-29 03:38 | External Medical Summary | Summary of Care ---
Author Name Unknown Organization [facility] [address] Care Team Providers Care Brass Cutter Name Role Phone Nick Em MD Primary Care Provider + Reason for Visit * Reason Comments Dosage Adjustment Via Phone (anticoag Cl inic) Encounter Details Date Type Department Care Team Description 05/25/2020 Anticoagulation Pharmacy, [facility] [address] [facility] [address] [place] [address] [facility] [address] [facility] [address] [place] [address] Other acute pulmonary embolism, unspecified whether acute [...] Program in compliance with the [facility] regulations before prescribing a controlled substance." [...] this encounter Progress Notes * Juana Marc, [facility] - 05/25/2020 1:49 PM EST Medication Therapy Disease Management - Anticoagulation Patient: Raj Bashir : 1950 Contacts Type Contact Phone 05/25/2020 01:51 PM EST Phone (Outgoing) Raj Bashir I (Self) [phone] (H) Current Warfarin Dose As of 05/25/2020 Warfarin maintenance plan: 4 mg (2 mg x 2) every Mon, Wed, Fri; 6 mg (2 mg x 3) all other days Patient-Reported Symptoms: INR Result As of 05/25/2020 INR goal: 2.0-3.0 INR used for dosin.6 (05/25/2020) Warfarin Plan As of 05/25/2020 Full warfarin instructions: 4 mg every Mon, Wed, Fri; 6 mg all other days Next INR check: 06/01/2020 Additional Dosing Information: Description Takes AM Called [facility] with orders [phone] Order faxed to [phone] Ordering PCP: Dr. Nick Em Repeat PT/INR in 1 week(s) Weekly dose: not changed Juana Marc [facility] Clinical Pharmacist 05/25/2020, 1:52 PM * Gloria Chiang OSA - 05/25/2020 12:57 PM EST Nurse states patient has stopped taking his blood pressure medicine. documented in this encounter Plan of Treatment Upcoming Encounters Date Type Specialty Care Team Description 06/01/2020 Anticoagulation Pharmacy [facility] [address] [address] 10/23/2020 Office Visit Family Medicine Rajendra Naranjo MD [address] [address] [phone] Health Maintenance Due Date Last Done Comments [...] Date/Time Associated Diagnosis Comments OUTSIDE LAB-PT/INR Routine 05/25/2020 documented in this encounter Results * OUTSIDE LAB-PT/INR (05/25/2020) INR-OUTSIDE LAB 2.6 documented in this encounter Visit Diagnoses Diagnosis Other acute pulmonary embolism, unspecified whether acute cor pulmonale present (HCC)- Primary documented in this encounter Advance Directives Documents on File Type Date Recorded Patient Validation Consultant Expl anation Advanced Directive Advanced Directive Advanced Directive Advanced Directive Advanced Directive Advanced Directive Advanced Directive Advanced Directive Advanced Directive Advanced Directive Advanced Directive Advanced Directive Advanced Directive Advanced Directive Advanced Directive Advanced Directive Advanced Directive
--- OUTSIDE RECORDS SUMMARY | 2022-12-29 03:38 | External Medical Summary | Summary of Care ---
Author Name Unknown Organization [facility] [address] Care Team Providers Care Shank Burnisher Name Role Phone Nick Em MD Primary Care Provider + Reason for Visit * Reason Onset Date Comments Advice 05/11/2020 speak to nurse Encounter Details Date Type Department Care Team Description 05/11/2020 Telephone Family Practice [facility] [address] [place] [address] Nick Em MD [address] [facility] [place] [address] [phone] Advice (speak to nurse) Allergies No Known Active Allergiesdocumented as of this encounter (statuses as of 05/11/2020) Medications Medication Sig Dispensed Refills Start Date [...] as of this encounter (statuses as of 05/11/2020) Active Problems Problem Noted Date Other acute pulmonary emboli sm, unspecified whether acute cor pulmonale present 05/10/2020 Overview: "I have reviewed the patient's controlled substance dispensing history in the Prescription Drug Monitoring Program in compliance with the [facility] regulations before prescribing a controlled substance." History of 2019 novel coronavirus diseas e (COVID-19) 05/08/2020 Prediabetes 07/11/2016 Dyslipidemia 05/05/2015 Overview: 05/16 LDL 222. High in past. NEED rx ICD-10 update of inactive term Well adult exam 04/30/2015 Overview: AAA , cologuard ordered. Refuses statin. HTN, goal below 130/80 04/30/2015 documented as of this encounter (statuses as of 05/11/2020) Resolved Problems Problem Noted Date Resolved Date COVID-19 virus infection 05/06/2020 021 Overview: Admit [facility] Viral PNA. Didn't react well w/steroids. D/c home on O2. documented as of this encounter (statuses as of 05/11/2020) Immunizations Name Administration Dates Next Due TDAP [...] encounter Miscellaneous Notes * Telephone Encounter - Trent Lugo LPN - 05/11/2020 1:10 PM EST See Pharmacy TE from today. * Telephone Encounter - Kendra Phipps OSA - 05/11/2020 1:06 PM EST Reason for patient's call: to speak to nurse Caller was transferred to Trent at the nurse line. documented in this encounter Plan of Treatment Upcoming Encounters Date Type Specialty Care Team Description 05/11/2020 Pharmacy Pharmacy [facility] [address] [facility] [address] [place] [address] Other acute pulmonary embolism, unspecified whether acute cor pulmonale present (HCC)* 05/12/2020 Telemedicine Family Medicine Rajendra Naranjo MD [address] [place] [place] [address] [phone] 05/12/2020 Pharmacy Pharmacy [facility] [address] [place] [address] 10/23/2020 Office Visit Family Medicine Rajendra Naranjo MD [address] [place] [address] [phone] Health Maintenance Due Date Last Done Comments [...] Documents on File Type Date Recorded Patient Offset Pressman Expl anation Advanced Directive Advanced Directive Advanced Directive Advanced Directive Advanced Directive Advanced Directive Advanced Directive Advanced Directive
--- OUTSIDE RECORDS SUMMARY | 2022-12-29 03:38 | External Medical Summary | Summary of Care ---
Author Name Unknown Organization [facility] Address [place] [address] Care Team Providers Care Certified Bench Jeweler Technician Name Role Phone Nick Em MD [...] Encounters Date Type Specialty Care Team Description 05/18/2020 Anticoagulation Pharmacy [facility] [address] [address] Other acute pulmonary embolism, unspecified whether acute cor pulmonale present (HCC) 10/23/2020 Office Visit Family Medicine Rajendra Naranjo MD [address] [address] [phone] Health Maintenance Due Date Last Done Comments [...] Documents on File Type Date Recorded Patient Certified Nurse Aide Expl anation Advanced Directive Advanced Directive Advanced Directive Advanced Directive Advanced Directive Advanced Directive Advanced Directive Advanced Directive Advanced Directive Advanced Directive Advanced Directive Advanced Directive Advanced Directive
--- OUTSIDE RECORDS SUMMARY | 2022-12-29 03:38 | External Medical Summary | Summary of Care ---
Author Name Unknown Organization [facility] Address [place] [address] Care Team Providers Care Food Beverage Attendant Name Role Phone Nick Em MD Primary Care Provider + Encounter Details Date Type Department Care Team Description 05/09/2020 Scan Encounter Unspecified Department <No scans attached> Allergies No Known Active Allergiesdocumented as of this encounter (statuses as of 05/19/2020) Medications Medication Sig Dispensed Refills Start Date [...] as of this encounter (statuses as of 05/19/2020) Active Problems Problem Noted Date Other acute [...] as of this encounter (statuses as of 05/19/2020) Resolved Problems Problem Noted Date Resolved Date COVID-19 virus infection 05/06/2020 021 Overview: Admit [facility] Viral PNA. Didn't react well w/steroids. D/c home on O2. documented as of this encounter (statuses as of 05/19/2020) Immunizations Name Administration Dates Next Due TDAP [...] Visit Family Medicine Rajendra Naranjo MD [address] [facility] [address] [place] [address] Health Maintenance Due Date Last Done [...] Documents on File Type Date Recorded Patient Ibm Mainframe Developer Expl anation Advanced Directive Advanced Directive Advanced Directive Advanced Directive Advanced Directive Advanced Directive Advanced Directive Advanced Directive Advanced Directive Advanced Directive Advanced Directive Advanced Directive Advanced Directive
--- OUTSIDE RECORDS SUMMARY | 2022-12-29 03:38 | External Medical Summary | Summary of Care ---
Author Name Unknown Organization [facility] Address [place] [address] Care Team Providers Care Travel Guide Name Role Phone Nick Em MD Primary Care Provider + Encounter Details Date Type Department Care Team Description 04/27/2020 Scan Encounter Unspecified Department <No scans attached> [...] COVID-19 virus infection 05/06/2020 021 Overview: Admit [facility] Viral PNA. Didn't react well w/steroids. [...] Medicine Rajendra Naranjo MD [address] [address] [phone] 05/12/2020 Anticoagulation Pharmacy [facility] [address] [address] Other acute pulmonary embolism, unspecified whether acute cor pulmonale present (HCC)* 05/12/2020 Pharmacy Pharmacy [facility] [address] [address] Other acute pulmonary embolism, unspecified whether acute cor pulmonale present (HCC) 10/23/2020 Office Visit Family Medicine Rajendra Naranjo MD [address] [address] [phone] Health Maintenance Due Date Last Done Comments [...] Documents on File Type Date Recorded Patient Chicken Boner Expl anation Advanced Directive Advanced Directive Advanced Directive Advanced Directive Advanced Directive Advanced Directive Advanced Directive Advanced Directive Advanced Directive Advanced Directive
--- OUTSIDE RECORDS SUMMARY | 2022-12-29 03:38 | External Medical Summary | Summary of Care ---
Author Name Unknown Organization [place] [address] Care Team Providers Care Gang Supervisor Name Role Phone Nick Em MD Primary Care Provider + Reason for Visit * Reason Onset Date Comments Medication Problem 05/12/2020 Encounter Details Date Type Department Care Team Description 05/12/2020 Telephone Pharmacy, [facility] [address] [facility] [address] [place] [address] [facility] [address] [facility] [place] [address] Medication Problem Allergies No Known Active Allergiesdocumented as of [...] encounter Miscellaneous Notes * Telephone Encounter - Cassia Dueñas OSA - 05/12/2020 9:32 AM EST Received a call from the call center from [place] that pt's Juanita was calling to speak to the [facility] about pt's coumadin. Chayo went to transfer the to me and the hung up. Chayo told me that Juanita called because she is refusing to give pt his Lovenox/Coumadin until the INR results come back today. Juanita believes pt will bleed out if she gives him his medicine. Chayo stated the was very rude to her. Please call at [phone] Thank you, Cassia Dueñas [facility] Bible Worker I 05/12/2020, 9:35 AM documented in this encounter Plan of Treatment Upcoming Encounters Date Type Specialty Care Team Description 05/15/2020 Anticoagulation Pharmacy [facility] [address] [address] Other acute pulmonary embolism, unspecified whether acute cor pulmonale present (HCC)* 10/23/2020 Office Visit Family Medicine Rajendra Naranjo MD [address] [address] [phone] Health Maintenance Due Date Last Done Comments [...] Documents on File Type Date Recorded Patient Ice Grinder Expl anation Advanced Directive Advanced Directive Advanced Directive Advanced Directive Advanced Directive Advanced Directive Advanced Directive Advanced Directive Advanced Directive Advanced Directive Advanced Directive Advanced Directive
--- OUTSIDE RECORDS SUMMARY | 2022-12-29 03:38 | External Medical Summary | Summary of Care ---
Author Name Unknown Organization [place] [address] Care Team Providers Care Colleter Name Role Phone Nick Em MD Primary Care Provider + Reason for Referral * Evaluate & Treat - Unlimited Visits (Within 3 days (urgent)) Status Reason Specialty Diagnoses / Procedures Referred By Contact Referred To Contact Pending Review Specialty Services Required ANTI-COAG CLINIC / Pharmacy Diagnoses Other acute pulmonary embolism, unspecified whether acute cor pulmonale present ([facility]) Nick Em MD [address] [place] [address] Electronically signed by Nick Em MD at Reason for Visit * Reason Onset Date Comments Information 05/08/2020 Encounter Details Date Type Department Care Team Description 05/08/2020 Telephone General Internal Medicine [facility] [address] [place] [address] Nick Em MD [address] [place] [address] [phone] Information Allergies No Known Active Allergiesdocumented as of [...] Drug Monitoring Program in compliance with the [facility] regulations before prescribing a controlled substance." [...] encounter Miscellaneous Notes * Telephone Encounter - Rosa Kessler LPN - 05/11/2020 2:36 PM EST Called [facility] for records on this pt and they will fax over to office. * Telephone Encounter - Nick Em MD - 05/10/2020 9:59 PM EST [facility] referral signed, thank you, Juana. Nursing-please print last 2 discharge summaries from [facility] * Telephone Encounter - Chandu Cormier DO - 05/08/2020 1:58 PM EST Agree with referral to the anticoagulation clinic * Telephone Encounter - Juana Marc [facility] - 05/08/2020 1:[address] Em, Would you like [facility] to follow? Thanks, Juana * Telephone Encounter - Elian Shearer RN - 05/08/2020 12:48 PM EST Patient is at [facility] after admission for PE. He is bridging lovenox/coumadin. Please consider close follow up with Coag clinic referral. Also found to have a 6.2cm AAA, was seen by vascular surgeon , to have outpatient follow up with Dr. Woodward. Thanks. documented in this encounter Plan of Treatment Upcoming Encounters Date Type Specialty Care Team Description 05/15/2020 Anticoagulation Pharmacy [facility] [address] [address] Other acute pulmonary embolism, unspecified whether acute cor pulmonale present (HCC)* 10/23/2020 Office Visit Family Medicine Rajendra Naranjo MD [address] [address] [phone] Scheduled Referrals Name Type Priority Associated Diagnoses Orde r Schedule ANTI-COAGULATION REFERRAL OP Referral Within 3 days (urgent) Other acute pulmonary embolism, unspecified whether acute cor pulmonale present (HCC) Ordered: 05/10/2020 Health Maintenance Due Date Last Done Comments [...] whether acute cor pulmonale present (HCC)- Primary Other acute pulmonary embolism, unspecified whether acute cor pulmonale present (HCC)- Primary documented in this encounter Advance Directives Documents on File Type Date Recorded Patient Fishing Vessel Operator Expl anation Advanced Directive Advanced Directive Advanced Directive Advanced Directive Advanced Directive Advanced Directive Advanced Directive Advanced Directive Advanced Directive Advanced Directive Advanced Directive Advanced Directive
--- OUTSIDE RECORDS SUMMARY | 2022-12-29 03:38 | External Medical Summary | Summary of Care ---
Author Name Unknown Organization [place] [address] Care Team Providers Care Monitor And Storage Bin Tender Name Role Phone Nick Em MD Primary Care Provider + Reason for Visit * Reason Comments Dosage Adjustment Via Phone (anticoag Cl inic) Encounter Details Date Type Department Care Team Description 05/11/2020 Pharmacy Pharmacy, [facility] [address] [facility] [address] [place] [address] [facility] [address] [facility] [address] [address] Other acute pulmonary embolism, unspecified whether acute [...] Drug Monitoring Program in compliance with the [facility] regulations before prescribing a controlled substance." [...] COVID-19 virus infection 05/06/2020 021 Overview: Admit [facility] Viral PNA. Didn't react well w/steroids. [...] Progress Notes * Miri De La Cruz, [facility] - 05/11/2020 10:18 AM EST [phone] Spoke with , no home nursing has been set up. again expressed concern with patient being on blood thinners with his AAA. Explained to that he is on the blood thinners due to the pulmonary embolism. Instructed to continue Warfarin 5 mg daily + Lovenox 100 mg Q12. Patient needs a home nursing referral to draw his INRs due to the AAA. TE sent to PCP with high priority. Will follow up tomorrow to see if patient got referral. If no home nursing, then would need to utilize home phlebotomy, but unsure how soon they would be able to draw patient given recent patient volume. Miri De La Cruz, PharmD [facility] Icing Maker Medication Therapy Disease Management 05/11/2020, 10:31 AM Ph. [phone] documented in this encounter Plan of Treatment Upcoming Encounters Date Type Specialty Care Team Description 05/12/2020 Telemedicine Family Medicine Rajendra Naranjo MD [address] [address] [phone] 05/12/2020 Pharmacy Pharmacy [facility] [address] [address] 10/23/2020 Office Visit Family Medicine Rajendra Naranjo MD [address] [address] [phone] Health Maintenance Due Date Last Done Comments [...] Documents on File Type Date Recorded Patient Tumbler Tender Expl anation Advanced Directive Advanced Directive Advanced Directive Advanced Directive Advanced Directive Advanced Directive Advanced Directive Advanced Directive
--- OUTSIDE RECORDS SUMMARY | 2022-12-29 03:38 | External Medical Summary | Summary of Care ---
Author Name Unknown Organization [facility] Address [place] [address] Care Team Providers Care Early Childhood Special Educator Name Role Phone Nick Em MD Primary [...] infection 05/06/2020 021 Overview: Admit [facility] Viral PNA. Didn't react well [...] Specialty Care Team Description 05/18/2020 Anticoagulation Pharmacy [facility] [address] [address] Other acute pulmonary embolism, unspecified whether acute cor pulmonale present (HCC) 10/23/2020 Office Visit Family Medicine Rajendra Naranjo MD [address] [address] [phone] Health Maintenance Due Date Last Done Comments [...] Documents on File Type Date Recorded Patient Watch Electrician Expl anation Advanced Directive Advanced Directive Advanced Directive Advanced Directive Advanced Directive Advanced Directive Advanced Directive Advanced Directive Advanced Directive Advanced Directive Advanced Directive Advanced Directive Advanced Directive
--- OUTSIDE RECORDS SUMMARY | 2022-12-29 03:38 | External Medical Summary | Summary of Care ---
Author Name Unknown Organization [facility] Address [place] [address] Care Team Providers Care Warp Knit Operator Name Role Phone Nick Em MD Primary Care Provider + Encounter Details Date Type Department Care Team Description 05/07/2020 Result Scan Unspecified Department <No scans attached> Allergies No [...] Medicine Rajendra Naranjo MD [address] [place] [address] [phone] 05/12/2020 Anticoagulation Pharmacy [facility] [address] [address] Other acute pulmonary embolism, unspecified whether acute cor pulmonale present (HCC) 05/12/2020 [facility] [address] [place] [address] Other acute pulmonary embolism, unspecified whether acute cor pulmonale present (HCC) 10/23/2020 Office Visit Family Medicine Rajendra Naranjo MD [address] [place] [address] [phone] Health Maintenance Due Date Last Done Comments [...] Procedure Name Priority Date/Time Associated Diagnosis Comments RADIOLOGY SCANNED RESULT 05/07/2020 documented in this encounter Results * RADIOLOGY SCANNED RESULT (05/07/2020) Specimen Narrative Performed At documented in this encounter Advance Directives Documents on File Type Date Recorded Patient Media Relations Manager Expl anation Advanced Directive Advanced Directive Advanced Directive Advanced Directive Advanced Directive Advanced Directive Advanced Directive Advanced Directive Advanced Directive Advanced Directive
--- OUTSIDE RECORDS SUMMARY | 2022-12-29 03:38 | External Medical Summary ---
Author Name Unknown Address [facility] [address] [facility] [place] [address] Phone Organization [address]:[place] [address] [address] [place] [id number] Laboratory Report Ordering Provider Test Date Status BIBI BHAKTAANO 05/11/2020 16:38:00 Final Observation Date Value Abnormality Reference (Units ) Status PT 05/11/2020 23:58 16.5 Above high normal 11.5- 14.6 (seconds) Final INR 05/11/2020 23:58 1.31 Above high normal 0.84- 1.14 Final Performing Location [address] [address]
--- OUTSIDE RECORDS SUMMARY | 2022-12-29 03:38 | External Medical Summary | Summary of Care ---
Author Name Unknown Organization [place] [address] Care Team Providers Care Fisher Pound Net Or Trap Name Role Phone Nick Em MD Primary Care Provider + Reason for Visit * Reason Comments Dosage Adjustment Via Phone (anticoag Cl inic) Encounter Details Date Type Department Care Team Description 05/12/2020 Anticoagulation Pharmacy, [facility] 132 [facility] [place] [address] [facility] 132 [facility] [place] [address] Other acute pulmonary embolism, unspecified whether acute [...] Drug Monitoring Program in compliance with the [facility] regulations before prescribing a controlled substance." History [...] virus infection 05/06/2020 021 Overview: Admit [facility] Viral PNA. Didn't react well w/steroids. [...] Progress Notes * Juana Marc, [facility] - 05/12/2020 9:49 AM EST Medication Therapy Disease Management - Anticoagulation Patient: Raj Krystal Bashir : 1950 Contacts Type Contact Phone 05/12/2020 08:33 AM EST Phone (Outgoing) Raj Bashir I (Self) [phone] (H) Current Warfarin Dose As of 05/12/2020 Warfarin maintenance plan: No maintenance plan Patient-Reported Symptoms: Patient Findings Negatives: Signs/symptoms of thrombosis, Signs/symptoms of bleeding, Change in health, Change in alcohol use, Change in activity, Upcoming invasive procedure, Missed doses, Extra doses, Change in medications, Change in diet/appetite, Bruising INR Result As of 05/12/2020 INR goal: 2.0-3.0 INR used for dosin.31 (05/11/2020) Warfarin Plan As of 05/12/2020 Full warfarin instructions: 05/12: 5 mg; 05/13: 10 mg; 05/14: 5 mg Next INR check: 05/15/2020 Additional Dosing Information: Description Lovenox 100 mg Q12 Spoke to Wendy at [facility] with orders [phone] Order faxed to [phone] Ordering PCP: Dr. Nick Em Repeat PT/INR in 3 day(s) on 05/15 via [facility] Weekly dose: not changed Juana Marc [facility] Clinical Pharmacist 05/12/2020, 9:59 AM documented in this encounter Plan of Treatment Upcoming Encounters Date Type Specialty Care Team Description 05/12/2020 Telemedicine Family Medicine Rajendra Naranjo MD [address] [place] [address] [phone] 05/12/2020 Pharmacy Pharmacy [facility] [address] [place] [address] Other acute pulmonary embolism, unspecified whether acute cor pulmonale present (HCC) 10/23/2020 Office Visit Family Medicine Rajendra Naranjo MD [address] [place] [address] [phone] Health Maintenance Due Date Last Done Comments [...] unspecified whether acute cor pulmonale present (HCC) Other acute pulmonary embolism, unspecified whether acute cor pulmonale present (HCC)- Primary documented in this encounter Advance Directives Documents on File Type Date Recorded Patient Cat Scan Technologist Expl anation Advanced Directive Advanced Directive Advanced Directive Advanced Directive Advanced Directive Advanced Directive Advanced Directive Advanced Directive Advanced Directive Advanced Directive
--- OUTSIDE RECORDS SUMMARY | 2022-12-29 03:38 | External Medical Summary | Summary of Care ---
Author Name Unknown Organization [place] [address] Care Team Providers Care Certified Court/Medical Interpreter Name Role Phone Nick Em MD Primary Care Provider + Encounter Details Date Type Department Care Team Description 05/18/2020 Orders Only Family Practice [facility] 132 [facility] [place] [address] Nick Em MD 132 [place] [address] [phone] Allergies No Known Active Allergiesdocumented as of [...] Drug Monitoring Program in compliance with the [facility] regulations before prescribing a controlled substance." [...] virus infection 05/06/2020 021 Overview: Admit [facility] Viral PNA. Didn't react well w/steroids. [...] Specialty Care Team Description 05/18/2020 Anticoagulation Pharmacy [facility] 132 [facility] [place] [address] Other acute pulmonary embolism, unspecified whether acute cor pulmonale present (HCC) 10/23/2020 Office Visit Family Medicine Rajendra Naranjo MD [address] [place] [address] [phone] Health Maintenance Due Date Last Done Comments [...] Procedure Name Priority Date/Time Associated Diagnosis Comments CT PULMONARY EMBOLUS W CONTRAST Routine 04/27/2020 documented in this encounter Results * CT PULMONARY EMBOLUS W CONTRAST (04/27/2020) Specimen Narrative Performed At OUTSIDE LAB (SEE SCANNED REPORT) documented in this encounter Advance Directives Documents on File Type Date Recorded Patient Supervisor Hand Workers Expl anation Advanced Directive Advanced Directive Advanced Directive Advanced Directive Advanced Directive Advanced Directive Advanced Directive Advanced Directive Advanced Directive Advanced Directive Advanced Directive Advanced Directive Advanced Directive
--- OUTSIDE RECORDS SUMMARY | 2022-12-29 03:39 | External Medical Summary | Summary of Care ---
Author Name Unknown Organization [place] [address] Care Team Providers Care Pot Pusher Name Role Phone Nick Em MD Primary Care Provider + Reason for Visit * Reason Comments eRx-Medication Refill Encounter Details Date Type Department Care Team Description 12/17/2019 Refill Family Practice [facility] [address] [place] [address] Nick Em MD 132 [facility] [place] [address] [phone] Essential hypertension with goal blood pressure less than 140/90 Allergies No Known Allergiesdocumented as of this encounter (statuses as of 12/18/2019) Medications Medication Sig Dispensed Refills Start Date [...] 0 02/28/2019 Active Olmesartan Medoxomil-HCTZ 40-12.5 MG per tabletIndications:E ssential hypertension with goal blood pressure less than 140/90 Take 1 tablet by mouth once daily 90 Tab 0 12/18/2019 Active Olmesartan Medoxomil-HCTZ 40-12.5 MG per tabletIndications:E ssential hypertension with goal blood pressure less than 140/90 Take 1 tablet by mouth once daily 90 Tab 0 09/10/2019 12/18/2019 Discontinued documented as of this encounter (statuses as of 12/18/2019) Active Problems Problem Noted Date Prediabetes 07/11/2016 Hyperlipidemia with target LDL less than 160 05/05/2015 Overview: 05/16 LDL 222. High in past. NEED rx ICD-10 update of inactive term Well adult exam 04/30/2015 Overview: AAA , cologuard ordered. Refuses statin. Essential hypertension with goal blood p ressure less than 140/90 04/30/2015 documented as of this encounter (statuses as of 12/18/2019) Immunizations Name Administration Dates Next Due TDAP [...] file Not on file Not on file Travel History Travel Start Travel End documented as of this encounter Miscellaneous Notes * Telephone Encounter - Rajendra Naranjo MD - 12/18/2019 12:04 PM EDT Signed Prescriptions: Disp Refills Olmesartan Medoxomil-HCTZ 40-12.5 MG per t*90 Tab 0 Sig: Take 1 tablet by mouth once daily Authorizing Provider: RAJENDRA NARANJO * Telephone Encounter - Camilla Nielsen [facility] - 12/18/2019 9:49 AM EDT Pending Prescriptions: Disp Refills Olmesartan Medoxomil-HCTZ 40-12.5 MG per *90 Tab 0 Sig: Take 1 tablet by mouth once daily * Telephone Encounter - Camilla Nielsen RPh - 12/18/2019 9:48 AM EDT Unable to authorize medication refills at this time. Part of the protocol criteria used for refill authorization was not satisfied. Patient needs BMP - last was 2018. Please approve if appropriate. Pending Prescriptions: Disp Refills Olmesartan Medoxomil-HCTZ 40-12.5 MG per *90 Tab 0 Sig: Take 1 tablet by mouth once daily Last Office/Telemedicine Visit: 11/05/2019 Next Office Visit: 10/23/2020 Scheduled Provider(s): Rajendra Naranjo MD If no future appointments scheduled, and last appointment is greater than a year ago, please schedule patient for a follow-up appointment Last date the medication was ordered: 09/10/19 Pharmacy: [facility] [address] [place] [address] Is this request for a controlled substance?No Urine Drug Screen:No results found for this or any previous visit. Patient Phone Numbers Labs: Lab Results Component Value Date/Time CREAT 1.1 11/25/2017 08:39 AM POTASSIUM 4.2 11/25/2017 08:39 AM LDLCALC 171 (H) 07/03/2016 08:28 AM documented in this encounter Plan of Treatment Upcoming Encounters Date Type Specialty Care Team Description 10/23/2020 Office Visit Family Medicine Rajendra Naranjo MD [address] [address] [phone] Health Maintenance Due Date Last Done Comments Prediabetes-Yearly Hemoglobin A1c 1950 *DEPRESSION SCREENING,ANNUAL FOR PTS 12 AND OVER 05/09/2015 Zoster Vaccines (2 of 3) 06/25/2015 04/30/2015 ABDOMINAL AORTIC ANEURYSM (AAA) SCREENING 09/30/2015 Pneumococcal Vaccine: 65+ Years (1 of 2 - PCV13) 09/30/2015 *COLORECTAL CANCER SCREENING (COLONOSCOPY 10 YEARS; SIGMOIDOSCOPY 5 YEARS; COLOGUARD 3 YEARS; FOBT 1 YEAR),AGES 50-75 11/20/2018 05/03/2015 *BASIC METABOLIC PANEL (BMP) FOR HTN YEARLY 11/28/2018 Influenza Vaccine (FLU shot) (#1) 2019 DIABETES SCREEN EVERY 3 YRS-AGE 45 AND [...] Documents on File Type Date Recorded Patient Auto Transport Driver Expl anation Advanced Directive Advanced Directive Advanced Directive
--- OUTSIDE RECORDS SUMMARY | 2022-12-29 03:39 | External Medical Summary | Summary of Care ---
Author Name Unknown Organization [place] [address] Care Team Providers Care Instrument Repair Supervisor Name Role Phone Nick Em MD Primary Care Provider + Reason for Visit * Reason Onset Date Comments Advice 05/06/2020 Encounter Details Date Type Department Care Team Description 05/06/2020 Telephone Family Practice [facility] [address] [facility] [place] [address] Nick Em MD [address] [facility] [place] [address] [phone] Advice Allergies No Known Active Allergiesdocumented as of this encounter (statuses as of 05/06/2020) Medications Medication Sig Dispensed Refills Start Date [...] as of this encounter (statuses as of 05/06/2020) Active Problems Problem Noted Date COVID-19 virus infection 05/06/2020 Overview: Admit [facility] Viral PNA. Didn't react well w/steroids. D/c home on O2. Prediabetes 07/11/2016 Hyperlipidemia with target LDL less than 160 05/05/2015 Overview: 05/16 LDL 222. High in past. NEED rx ICD-10 update of inactive term Well adult exam 04/30/2015 Overview: AAA , cologuard ordered. Refuses statin. Essential hypertension with goal blood p ressure less than 140/90 04/30/2015 documented as of this encounter (statuses as of 05/06/2020) Immunizations Name Administration Dates Next Due TDAP [...] encounter Miscellaneous Notes * Telephone Encounter - Odilia Salomon RN - 05/06/2020 2:25 PM EST Returned call to spouse and made aware. Spouse verbalizes understanding and agreement * Telephone Encounter - Nick Em MD - 05/06/2020 1:51 PM EST D/c from [facility] with COVID pneumonia, on O2. Discussed case w/Odilia--agree w/advice given in triage encounter today.. She will f/u with /patient. Needs to stay on O2 all the time,, keep O2 88% and up. If falls below 88% while still on O2, needs to return to ER. Has video f/u with Dr London this week, will CC him FYI. documented in this encounter Plan of Treatment Upcoming Encounters Date Type Specialty Care Team Description 05/08/2020 Telemedicine Family Medicine Cesario London MD [address] [facility] [place] [address] [phone] 10/23/2020 Office Visit Family Medicine Rajendra Naranjo MD [address] [place] [address] [phone] Health Maintenance Due Date Last Done Comments [...] Documents on File Type Date Recorded Patient Service Representative Expl anation Advanced Directive Advanced Directive Advanced Directive Advanced Directive
--- OUTSIDE RECORDS SUMMARY | 2022-12-29 03:39 | External Medical Summary | Summary of Care ---
Author Name Unknown Organization [place] [address] Care Team Providers Care Microarray Analyst Name Role Phone Nick Em MD Primary Care Provider + Reason for Visit * Reason Onset Date Comments Pharmacy Questions 05/10/2020 Encounter Details Date Type Department Care Team Description 05/10/2020 Telephone Pharmacy Call Center [address] [place] [address] Miri De La Cruz, [facility] [address] [facility] [place] [address] [phone] Pharmacy Questions Allergies No Known Active Allergiesdocumented as of this encounter (statuses as of 05/10/2020) Medications Medication Sig Dispensed Refills Start Date [...] as of this encounter (statuses as of 05/10/2020) Active Problems Problem Noted Date History of 2019 novel coronavirus diseas e (COVID-19) 05/08/2020 Prediabetes 07/11/2016 Dyslipidemia 05/05/2015 Overview: 05/16 LDL 222. High in past. NEED rx ICD-10 update of inactive term Well adult exam 04/30/2015 Overview: AAA , cologuard ordered. Refuses statin. HTN, goal below 130/80 04/30/2015 documented as of this encounter (statuses as of 05/10/2020) Resolved Problems Problem Noted Date Resolved Date COVID-19 virus infection 05/06/2020 021 Overview: Admit [facility] Viral PNA. Didn't react well w/steroids. D/c home on O2. documented as of this encounter (statuses as of 05/10/2020) Immunizations Name Administration Dates Next Due TDAP [...] Telephone Encounter - Miri De La Cruz, [facility] - 05/10/2020 1:43 PM EST Message on voicemail from patient's contacting [facility] in regards to her 's recent discharge from [facility] with PE. [phone] No [facility] referral yet, but per [facility] records, patient was discharged on Warfarin 5 mg daily (using 2 mg tabs) and bridged with Lovenox 100 mg Q12h. Patient's first dose of warfarin was 05/08. Patient's verified these instructions as well. Provided with brief overview of our services. Verified that patient was not having any issues with unusual bruising and bleeding and all questions answered. Pertinent labs as follows: Home Health Agency: none that is aware of, will need to ascertain this information Monday to see if patient needs to be set up with a Home Health Agency or isinger COVID at Home (patient was COVID + on Apr 16...) Patient is home bound due to the AAA and is on bed rest therefore patient unable to come to clinic for fingersticks. Miri De La Cruz, PharmD [facility] Clinical Pharmacist Chain Machine Operator 05/10/2020, 1:59 PM documented in this encounter Plan of Treatment Upcoming Encounters Date Type Specialty Care Team Description 05/12/2020 Telemedicine Family Medicine Rajendra Naranjo MD [address] [place] [address] [phone] 10/23/2020 Office Visit Family Medicine Rajendra Naranjo MD [address] [place] [address] [phone] Health Maintenance Due Date Last Done Comments [...] as of this encounter Visit Diagnoses Diagnosis Anticoagulation management encounter- Primary Encounter for therapeutic drug monitoring documented in this encounter Advance Directives Documents on File Type Date Recorded Patient Hander In Expl anation Advanced Directive Advanced Directive Advanced Directive Advanced Directive Advanced Directive Advanced Directive
--- OUTSIDE RECORDS SUMMARY | 2022-12-29 03:39 | External Medical Summary | Summary of Care ---
Author Name Unknown Organization [place] [address] Care Team Providers Care Prison Classification Counselor Name Role Phone Nick Em MD Primary Care Provider + Reason for Visit * Reason Comments Dosage Adjustment Via Phone (anticoag Cl inic) Encounter Details Date Type Department Care Team Description 05/11/2020 Pharmacy Pharmacy, [facility] [address] [facility] [place] [address] [facility] [address] [facility] [place] [address] Other acute pulmonary embolism, unspecified whether acute [...] Drug Monitoring Program in compliance with the [facility] regulations before prescribing a controlled [...] virus infection 05/06/2020 021 Overview: Admit [facility] Viral PNA. Didn't [...] Progress Notes * Miri De La Cruz, [facility] - 05/11/2020 10:18 AM EST [phone] Spoke with , no home nursing has [...] patient volume. Miri De La Cruz, PharmD [facility] Para Professional Medication Therapy Disease Management 05/11/2020, 10:31 AM Ph. [phone] documented in this encounter Plan of Treatment Upcoming Encounters Date Type Specialty Care Team Description 05/12/2020 Telemedicine Family Medicine Rajendra Naranjo MD [address] [place] [address] [phone] 05/12/2020 Pharmacy Pharmacy [facility] [address] [facility] [address] [place] [address] 10/23/2020 Office Visit Family Medicine Rajendra Naranjo MD [address] [place] [address] [phone] Health Maintenance Due Date Last Done Comments [...] Documents on File Type Date Recorded Patient Cable Installation Technician Expl anation Advanced Directive Advanced Directive Advanced Directive Advanced Directive Advanced Directive Advanced Directive Advanced Directive Advanced Directive
--- OUTSIDE RECORDS SUMMARY | 2022-12-29 03:39 | External Medical Summary | Summary of Care ---
Author Name Unknown Organization [place] [address] Care Team Providers Care Toolroom Clerk Name Role Phone Nick Em MD Primary Care Provider + Reason for Visit * Reason Onset Date Comments Advice 05/07/2020 Encounter Details Date Type Department Care Team Description 05/07/[address] [facility] [address] [facility] [place] [address] Nick Em MD [address] [facility] [place] [address] [phone] Advice Allergies No Known Active Allergiesdocumented as of this encounter (statuses as of 05/07/2020) Medications Medication Sig Dispensed Refills Start Date [...] as of this encounter (statuses as of 05/07/2020) Active Problems Problem Noted Date COVID-19 virus infection 05/06/2020 Overview: Admit [facility] Viral PNA. Didn't react well [...] as of this encounter (statuses as of 05/07/2020) Immunizations Name Administration Dates Next Due TDAP [...] Telephone Encounter - Nick Em MD - 05/07/2020 2:00 PM EST Already seen by Telemed and referred to ER for CT scan Cc: Dr Lita POWELL, hosp COVID PNA, on O2 at home now, 3 weeks or so since start of symptoms, had visit Ms Harrison today, r/o PE sent to ER. Has appt w/you tomorrow * Telephone Encounter - Jerri Grijalva LPN - 05/07/2020 1:42 PM EST Okay to come in for appt versus virtual? * Telephone Encounter - Cassandra Davis OSA - 05/07/2020 9:41 AM EST Pt's daughter calling in to see if pt can come in for his appt instead of coming in virtually. Theywould like to have his lungs checked without taking him to the hospital and they fear that he may have a blood clot. Pt was positive for covid, and just released from the hospital. I advised I would send a msg to see if the appt could be changed. documented in this encounter Plan of Treatment Upcoming Encounters Date Type Specialty Care Team Description 05/08/2020 Telemedicine Family Medicine Cesario London MD [address] [place] [address] [phone] 10/23/2020 Office Visit Family Medicine Rajendra Naranjo MD [address] [place] [address] [phone] Health Maintenance Due Date Last Done Comments [...] Documents on File Type Date Recorded Patient Insurance Consultant Expl anation Advanced Directive Advanced Directive Advanced Directive Advanced Directive Advanced Directive
--- OUTSIDE RECORDS SUMMARY | 2022-12-29 03:39 | External Medical Summary | Summary of Care ---
Author Name Unknown Organization [place] [address] Care Team Providers Care System Architect Name Role Phone Nick Em MD Primary Care Provider + Reason for Visit * Reason Onset Date Comments Medication Refill 03/29/2020 Encounter Details Date Type Department Care Team Description 03/29/2020 Refill [facility] [address] [place] [address] Nick Em MD 132 [facility] [place] [address] [phone] Essential hypertension with goal blood pressure less than 140/90 Allergies No Known Active Allergiesdocumented as of this encounter (statuses as of 03/29/2020) Medications Medication Sig Dispensed Refills Start Date [...] mouth daily. 90 Tab 0 03/29/2020 Active Olmesartan Medoxomil-HCTZ 40-12.5 MG per tabletIndications:E ssential hypertension with goal blood pressure less than 140/90 Take 1 tablet by mouth once daily 90 Tab 0 12/18/2019 03/29/2020 Discontinued( Refill) documented as of this encounter (statuses as of 03/29/2020) Active Problems Problem Noted Date Prediabetes 07/11/2016 Hyperlipidemia with target LDL less than 160 05/05/2015 Overview: 05/16 LDL 222. High in past. NEED rx ICD-10 update of inactive term Well adult exam 04/30/2015 Overview: AAA , cologuard ordered. Refuses statin. Essential hypertension with goal blood p ressure less than 140/90 04/30/2015 documented as of this encounter (statuses as of 03/29/2020) Immunizations Name Administration Dates Next Due TDAP [...] Telephone Encounter - Rajendra Naranjo MD - 03/29/2020 1:03 PM EST Signed Prescriptions: Disp Refills Olmesartan Medoxomil-HCTZ 40-12.5 MG Oral *90 Tab 0 Sig: Take 1 Tab by mouth daily. Authorizing Provider: RAJENDRA NARANJO * Telephone Encounter - Rosa Kessler LPN - 03/29/2020 10:33 AM EST Pending Prescriptions: Disp Refills Olmesartan Medoxomil-HCTZ 40-12.5 MG Oral*90 Tab 0 Sig: Take 1 Tab by mouth daily. Last Office/Telemedicine Visit: 11/05/2019 Next Office Visit: 10/23/2020 Scheduled Provider(s): Rajendra Naranjo MD Last date the medication was ordered: Patient Active Problem List Diagnosis Code Well adult exam Z00.00 Essential hypertension with goal blood pressure less than 140/90 I10 Hyperlipidemia with target LDL less than 160 E78.5 Prediabetes R73.03 Labs: CREATININE(mg/dL) Estefania Dt/Tm Resulted Value Status 11/25/17 8:39A 11/25/17 1.1 FINAL POTASSIUM(mmol/L) Estefania Dt/Tm Resulted Value Status 11/25/17 8:39A 11/25/17 4.2 FINAL No TSH components found LDL (CALCULATED)(mg/dL) Estefania Dt/Tm Resulted Value Status 07/03/16 8:28A 07/03/16 171* FINAL LDL DIRECT(REFLEX)(mg/dL) Estefania Dt/Tm Resulted Value Status 07/03/16 8:28A 07/03/16 FINAL Value: NOT APPLICABLE No ALT components found Hemoglobin AIC Results: No HEMOGLOBIN, A1C components found documented in this encounter Plan of Treatment Upcoming Encounters Date Type Specialty Care Team Description 10/23/2020 Office Visit Family Medicine Rajendra Naranjo MD [address] [place] [address] [place] [address] Health Maintenance Due Date [...] Documents on File Type Date Recorded Patient Sample Steamer Expl anation Advanced Directive Advanced Directive Advanced Directive
--- OUTSIDE RECORDS SUMMARY | 2022-12-29 03:39 | External Medical Summary | Summary of Care ---
Author Name Unknown Organization [place] [address] Care Team Providers Care Hogshead Inspector Name Role Phone Nick Em MD Primary Care Provider + Reason for Visit * Reason Comments Dosage Adjustment Via Phone (anticoag Cl inic) Encounter Details Date Type Department Care Team Description 05/11/2020 Pharmacy Pharmacy, [facility] [address] [facility] [place] [address] [facility] [address] [facility] [place] [address] Other acute pulmonary embolism, unspecified whether acute [...] Drug Monitoring Program in compliance with the [facility] regulations before prescribing a controlled [...] COVID-19 virus infection 05/06/2020 021 Overview: Admit [facility] Viral PNA. Didn't react well w/steroids. [...] Progress Notes * Miri De La Cruz, [facility] - 05/11/2020 10:18 AM EST [phone] Spoke with , no home nursing has [...] patient volume. Miri De La Cruz, PharmD -[place] [facility] Grinder Medication Therapy Disease Management 05/11/2020, 10:31 AM Ph. [phone] documented in this encounter Plan of Treatment Upcoming Encounters Date Type Specialty Care Team Description 05/12/2020 Telemedicine Family Medicine Rajendra Naranjo MD [address] [place] [address] [phone] 10/23/2020 Office Visit Family Medicine Rajendra Naranjo MD [address] [place] [address] [phone] Health Maintenance Due Date Last Done Comments [...] Documents on File Type Date Recorded Patient Lung Puller Expl anation Advanced Directive Advanced Directive Advanced Directive Advanced Directive Advanced Directive Advanced Directive Advanced Directive
--- OUTSIDE RECORDS SUMMARY | 2022-12-29 03:39 | External Medical Summary | Summary of Care ---
Author Name Unknown Organization [place] [address] Care Team Providers Care Environmental Technology Professor Name Role Phone Nick Em MD Primary Care Provider + Reason for Referral * Precert (Emergency) Status Reason Specialty Diagnoses / Procedures Referred By Contact Referred To Contact Pending Review Precert Radiology Diagnoses Chest pain, pleuritic Procedures CT PULMONARY EMBOLUS W CONTRAST Adriana Harrison PA-C [address] [place] [address] Encounter Details Date Type Department Care Team Description 05/07/2020 Telemedicine Family [facility] [address] [place] [address] Adriana Harrison PA-C [address] [facility] [place] [place] [address] Chest pain, pleuritic* Allergies No Known Active Allergiesdocumented as of [...] Date COVID-19 virus infection 05/06/2020 Overview: Admit [facility] Viral PNA. [...] as of this encounter Progress Notes * Adriana Harrison PA-C - 05/07/2020 10:20 AM EST After connecting to the patient via telephone, the patient was identified by name and date of . Patient was then informed that this was a telephone call only visit. The patient agreed to participate. Visit Disposition: Requires face to face/telemedicine follow-up (this telephonic visit is not billable) Total call duration was 13 minutes. Link was recent to patient for tele video visit, but unable to access. Telephone call ensued. HPI: Raj Bashir is a 69 year old male who is evaluated via tele video visit for complaints of right-sided pleuritic chest pain. Started 2 days ago in the evening. Hurts worse when he takes a deep breath or coughs. Does not hurt when he presses on it. Describes the area as painful on his right rib, just below the nipple. He states his current oxygen levels are anywhere from 90-92. Does not have an elevated heart rate. Denies any dizziness, lightheadedness. Occasional cough. No new fevers. Denies any leg swelling or calf pain or erythema. Was recently discharged from [facility] on 05/02/2020. Was admitted on 04/27/2020 for hypoxia, acute kidney injury, COVID-19 pneumonia. Had been having symptoms for approximately 5 weeks and seem to be worsening. Had ongoing fevers, loss of taste and smell which contributed to decreased appetite. He was having trouble breathing at home and arrived via ambulance. He was saturating at approximately a 5% on room air upon arrival and was ultimately discharged with 4 L O2 at home around the clock. While admitted, he did complete a course of remdesivir and was given steroids but these were ultimately stopped due to increased aggression and anxiety. ROS: See HPI for positives and negatives. Patient denies additional complaints. PAST MEDICAL HISTORY: Patient Active Problem List Diagnosis Code Well adult exam Z00.00 Essential hypertension with goal blood pressure less than 140/90 I10 Hyperlipidemia with target LDL less than 160 E78.5 Prediabetes R73.03 COVID-19 virus infection U07.1 Past Surgical History: Procedure Laterality Date REMOVE PILONIDAL CYST, COMPLEX in 20s Review of patient's allergies indicates: No Known Allergies Current Outpatient Medications Medication Sig Dispense Refill Olmesartan Medoxomil-HCTZ 40-12.5 MG Oral Tablet Take 1 Tab by mouth daily. 90 Tab 0 Olmesartan Medoxomil-HCTZ 40-12.5 MG per tablet TAKE 1 TABLET BY MOUTH ONCE DAILY 90 Tab 0 fish oil concentrate (OMEGA-3) 1000 MG CAPS Take 1 Cap by mouth 2 times a day. 60 Cap 5 There are no exam notes on file for this visit. EXAM: There were no vitals taken for this visit. Exam unable to be done due to telephone call. No conversational dyspnea though. ASSESSMENT/PLAN Chest pain, pleuritic (Primary) - CT PULMONARY EMBOLUS W CONTRAST; Future; Expected date: 05/07/2020 - BUN; Future; Expected date: 05/07/2020 - CREATININE; Future; Expected date: 05/07/[address] Em. Agrees with CTA chest today. Stat order placed, but is unable to be done today. Patient referred to ER. Agreeable to go to emergency department today. ER notified. There are no Patient Instructions on file for this visit. Adriana Harrison PA-C Family Practice [facility] [address] [place] [address] This chart was completed in part utilizing [employer] Speech Voice Recognition Software. Grammatical errors, random word insertions, prounoun errors, and incomplete sentences are an occasional consequence of this system due to software limitations, ambient noise, and hardware issues. Any formal questions or concerns about the content, text, or information contained within the body of this dictation should be directly addressed to the provider for clarification. documented in this encounter Plan of Treatment Upcoming Encounters Date Type Specialty Care Team Description 05/08/2020 Telemedicine Family Medicine Cesario London MD [address] [place] [address] [phone] 10/23/2020 Office Visit Family Medicine Rajendra Naranjo MD [address] [place] [address] [phone] Scheduled Orders Name Type Priority Associated Diagnoses Orde r Schedule CT PULMONARY EMBOLUS W CONTRAST Medical Imaging STAT Chest pain, pleuritic Expected: 05/07/2020, Expires: 05/07/2021 BUN Lab Routine Chest pain, pleuritic Expected: 05/07/2020 (Approximate), Expires: 08/05/2020 CREATININE Lab Routine Chest pain, pleuritic Expected: 05/07/2020 (Approximate), Expires: 08/05/2020 Health Maintenance Due Date Last Done Comments [...] as of this encounter Visit Diagnoses Diagnosis Chest pain, pleuritic- Primary Painful respiration documented in this encounter Advance Directives Documents on File Type Date Recorded Patient Carroting Machine Operator Expl anation Advanced Directive Advanced Directive Advanced Directive Advanced Directive Advanced Directive
--- OUTSIDE RECORDS SUMMARY | 2022-12-29 03:39 | External Medical Summary | Summary of Care ---
Author Name Unknown Organization [place] [address] Care Team Providers Care Machine Operator Hop Worker Name Role Phone Nick Em MD Primary Care Provider + Reason for Visit * Reason Comments Health Maintenance Encounter Details Date Type Department Care Team Description 05/29/2019 Telephone Family Practice [facility] [address] [facility] [place] [address] Nick Em MD [address] [facility] [place] [address] [phone] Health Maintenance Allergies No Known Allergiesdocumented as of this encounter (statuses as of 05/30/2019) Medications Medication Sig Dispensed Refills Start Date [...] 02/28/2019 Active Olmesartan Medoxomil-HCTZ 40-12.5 MG per tabletIndications:Essen tial hypertension with goal blood pressure less than 140/90 Take 1 Tab by mouth daily. 90 Tab 1 02/28/2019 Active documented as of this encounter (statuses as of 05/30/2019) Active Problems Problem Noted Date Prediabetes 07/11/2016 Hyperlipidemia with target LDL less than 160 05/05/2015 Overview: 05/16 LDL 222. High in past. NEED rx ICD-10 update of inactive term Well adult exam 04/30/2015 Overview: AAA , cologuard ordered. Refuses statin. Essential hypertension with goal blood p ressure less than 140/90 04/30/2015 documented as of this encounter (statuses as of 05/30/2019) Immunizations Name Administration Dates Next Due TDAP [...] Telephone Encounter - Brittaney Fraser LPN - 05/29/2019 12:41 PM EST Patient contacted for Care Gaps Comprehensive Care Outreach. Last Office Visit: 11/14/2018 Next Office Visit: 10/28/2019 Scheduled Provider(s): Rajendra Naranjo MD Health Maintenance Topic Date Due Prediabetes-Yearly Hemoglobin A1c 1950 Zoster Vaccines (2 of 3) 06/25/2015 ABDOMINAL AORTIC ANEURYSM (AAA) SCREENING 09/30/2015 Pneumococcal Vaccine: 65+ Years (1 of 2 - PCV13) 09/30/2015 *COLORECTAL CANCER SCREENING (COLONOSCOPY 10 YEARS; SIGMOIDOSCOPY 5 YEARS; COLOGUARD 3 YEARS; FOBT 1 YEAR),AGES 50-75 11/20/2018 *BASIC METABOLIC PANEL (BMP) FOR HTN YEARLY 11/28/2018 Influenza Vaccine (FLU shot) (1) 12/30/2018 Outreach action taken: AWV a1c already ordered Contacted: declined documented in this encounter Plan of Treatment Upcoming Encounters Date Type Specialty Care Team Description 10/28/2019 Office Visit Family Medicine Rajendra Naranjo MD [address] [place] [address] [place] [address] [phone] Health Maintenance Due Date Last Done Comments [...] YEARLY 11/28/2018 Influenza Vaccine (FLU shot) (#1) 2018 DIABETES SCREEN EVERY 3 YRS-AGE 45 AND [...] Documents on File Type Date Recorded Patient Professor Of Oceanography Expl anation Advanced Directive Advanced Directive Advanced Directive
--- OUTSIDE RECORDS SUMMARY | 2022-12-29 03:39 | External Medical Summary | Summary of Care ---
Author Name Unknown Organization [facility] [address] Care Team Providers Care Kiln Mechanic Name Role Phone Nick Em MD Primary Care Provider + Reason for Visit * Reason Onset Date Comments Advice 05/06/2020 Encounter Details Date Type Department Care Team Description 05/06/2020 Telephone Family Practice [facility] [address] [facility] [place] [address] Nick Em MD [address] [facility] [place] [address] [phone] Advice Allergies No Known Active Allergiesdocumented as of this encounter (statuses as of 05/08/2020) Medications Medication Sig Dispensed Refills Start Date [...] as of this encounter (statuses as of 05/08/2020) Active Problems Problem Noted Date COVID-19 virus infection 05/06/2020 Overview: Admit [facility] Viral PNA. [...] as of this encounter (statuses as of 05/08/2020) Immunizations Name Administration Dates Next Due TDAP [...] Telephone Encounter - Odilia Salomon RN - 05/08/2020 8:04 AM EST Patient was noted to be triaged yesterday and advice was provided. Please send any return calls with patient concerns to teletype telegrapher team to receive a timely assessmentand disposition. I was unavailable yesterday, and, did not see until this morning * Telephone Encounter - Geni Black OSA - 05/07/2020 8:25 AM EST Spouse calling regarding pt. Would like to speak with someone regarding blood clots due to Covid19.Pt is on oxygen 21/11 and keeps breaking out in sweats. Denies fever. States that pt has occasional pain. Please call back at [phone]. * Telephone Encounter - Odilia Salomon RN - 05/06/2020 2:25 PM EST Returned call to spouse and made aware. Spouse verbalizes understanding and agreement * Telephone Encounter - Nick Em MD - 05/06/2020 1:51 PM EST D/c from [facility] with COVID pneumonia, on O2. Discussed case [...] 05/08/2020 Telemedicine Family Medicine Cesario London MD [address] [place] [address] 10/23/2020 Office Visit Family Medicine Rajendra Naranjo MD [address] [place] [address] [phone] Health Maintenance Due Date Last Done Comments [...] Documents on File Type Date Recorded Patient Employment Interviewer Expl anation Advanced Directive Advanced Directive Advanced Directive Advanced Directive Advanced Directive
--- OUTSIDE RECORDS SUMMARY | 2022-12-29 03:39 | External Medical Summary | Summary of Care ---
Author Name Unknown Organization [place] [address] Care Team Providers Care National Account Representative Name Role Phone Nick Em MD Primary Care Provider + Reason for Visit * Reason Comments Advice Encounter Details Date Type Department Care Team Description 06/19/2019 Telephone Family Practice [facility] [address] [place] [address] Rajendra Naranjo MD 132 [facility] [place] [address] [phone] Advice Allergies No Known Allergiesdocumented as of this encounter (statuses as of 06/25/2019) Medications Medication Sig Dispensed Refills Start Date [...] Tab by mouth daily. 90 Tab 0 05/30/2019 Active documented as of this encounter (statuses as of 06/25/2019) Active Problems Problem Noted Date Prediabetes 07/11/2016 Hyperlipidemia with target LDL less than 160 05/05/2015 Overview: 05/16 LDL 222. High in past. NEED rx ICD-10 update of inactive term Well adult exam 04/30/2015 Overview: AAA , cologuard ordered. Refuses statin. 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 Patient contacted billing first who advised them to reach out the office. 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 Patient's insurance doesn't cover DOT's. Patient's spouse would like advise on how to avoid these charges in the future. Please call to advise. documented in this encounter Plan of Treatment Upcoming Encounters Date Type Specialty Care Team Description 10/28/2019 Office Visit Family Medicine Rajendra Naranjo MD [address] [place] [address] [phone] Health Maintenance Due Date Last Done Comments [...] Documents on File Type Date Recorded Patient Parachute Supervisor Expl anation Advanced Directive Advanced Directive Advanced Directive
--- OUTSIDE RECORDS SUMMARY | 2022-12-29 03:39 | External Medical Summary | Summary of Care ---
Author Name Unknown Organization [facility] Address [place] [address] Care Team Providers Care Material Damage Adjuster Name Role Phone Nick Em MD Primary Care Provider + Reason for Visit * Reason Onset Date Comments Call Back 05/06/2020 oxygen level aislinn pped, heart rate increased, had tightness in chest when coughing Call Back 05/06/2020 phone rang over 10 times, no answer, no machine 1042 Encounter Details Date Type Department Care Team Description 05/06/2020 Telephone Access Center, [place] [address] *DO NOT REMOVE THIS DEPARTMENT* [place] [address] Services, Scheduling [address] [place] [address] Call Back (oxygen level dropped, heart rat... Allergies No Known Active Allergiesdocumented as of [...] of 05/06/2020) Active Problems Problem Noted Date Prediabetes 07/11/2016 [...] Miscellaneous Notes * Telephone Encounter - Parul Morton RN - 05/06/2020 10:41 AM EST Unable to leave message on patient's voicemail not set up/full or unavailable. Parul Morton RN 05/06/2020 10:41 AM * Telephone Encounter - Chio Zelaya OSA - 05/06/2020 10:31 AM EST Pt called stated last night pt oxygen level dropped, heart rate increased, had tightness in chest when coughing. Asking for call back. Thank you documented in this encounter Plan of Treatment Upcoming Encounters Date Type Specialty Care Team Description 05/08/2020 Telemedicine Family Medicine Cesario London MD [address] [place] [address] [phone] 10/23/2020 Office Visit Family Medicine Rajendra Naranjo MD [address] [place] [address] Health Maintenance Due Date Last Done Comments [...] Documents on File Type Date Recorded Patient Enterprise Account Manager Expl anation Advanced Directive Advanced Directive Advanced Directive Advanced Directive
--- OUTSIDE RECORDS SUMMARY | 2022-12-29 03:39 | External Medical Summary | Summary of Care ---
Author Name Unknown Organization [place] [address] Care Team Providers Care Senior Sql Developer Name Role Phone Nick Em MD Primary Care Provider + Reason for Visit * Reason Comments eRx-Medication Refill Encounter Details Date Type Department Care Team Description 03/28/2020 Refill Family Practice [facility] [address] [place] [address] Rajendra Naranjo MD 132 [facility] [place] [address] [phone] Essential hypertension with goal blood pressure less than 140/90 Allergies No Known Active Allergiesdocumented as of this encounter (statuses as of 03/30/2020) Medications Medication Sig Dispensed Refills Start Date [...] ONCE DAILY 90 Tab 0 02/28/2019 Active documented as of this encounter (statuses as of 03/30/2020) Active Problems Problem Noted Date Prediabetes 07/11/2016 Hyperlipidemia with target LDL less than 160 05/05/2015 Overview: 05/16 LDL 222. High in past. NEED rx ICD-10 update of inactive term Well adult exam 04/30/2015 Overview: AAA , cologuard ordered. Refuses statin. Essential hypertension with goal blood p ressure less than 140/90 04/30/2015 documented as of this encounter (statuses as of 03/30/2020) Immunizations Name Administration Dates Next Due TDAP [...] encounter Miscellaneous Notes * Telephone Encounter - Ken Gilliland [facility] - 03/30/2020 8:26 AM EST Refused Prescriptions: Disp Refills Olmesartan Medoxomil-HCTZ 40-12.5 MG Oral *90 Tab 0 Sig: Take 1tablet by mouth once dailyRefused By: KEN LY for Refusal: Duplicate Request-------- documented in this encounter Plan of Treatment Upcoming Encounters Date Type Specialty Care Team Description 10/23/2020 Office Visit Family Medicine Rajendra Naranjo MD [address] [place] [address] [place] [address] Health Maintenance Due Date [...] Documents on File Type Date Recorded 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
--- OUTSIDE RECORDS SUMMARY | 2022-12-29 03:39 | External Medical Summary | Summary of Care ---
Author Name Unknown Organization [place] [address] Care Team Providers Care Infrastructure Engineer Name Role Phone Nick Gallagher MD Primary Care Provider + Reason for Visit * Reason Comments Medication Refill Encounter Details Date Type Department Care Team Description 05/30/2019 Refill Family Practice [facility] [address] [place] [address] Nick Gallagher MD 132 [facility] [place] [address] [phone] Essential hypertension with goal blood pressure less [...] mouth daily. 90 Tab 0 05/30/2019 Active Olmesartan Medoxomil-HCTZ 40-12.5 MG per tabletIndications:E ssential hypertension with goal blood pressure less than 140/90 Take 1 Tab by mouth daily. 90 Tab 1 02/28/2019 05/30/2019 Discontinued( Refill) documented as of this encounter [...] Miscellaneous Notes * Telephone Encounter - Nick Gallagher MD - 05/30/2019 12:41 PM EST Signed Prescriptions: Disp Refills Olmesartan Medoxomil-HCTZ 40-12.5 MG per t*90 Tab 0 Sig: Take 1 Tab by mouth daily.Authorizing Provider: NICK GALLAGHER * Telephone Encounter - Caroline Lebron LPN - 05/30/2019 11:57 AM EST Pending Prescriptions: Disp Refills Olmesartan Medoxomil-HCTZ 40-12.5 MG per *90 Tab 1 Sig: Take 1 Tab by mouth daily. * Telephone Encounter - Brittaney Fraser LPN - 05/30/2019 11:36 AM EST Spoke to patient for care gap outreach. Requesting a refill on blood pressure medication. Thanks documented in this encounter Plan of Treatment Upcoming Encounters Date Type Specialty Care Team Description 10/28/2019 Office Visit Family Medicine Rajendra Naranjo MD [address] [address] [phone] Health Maintenance Due Date Last Done Comments [...] Documents on File Type Date Recorded Patient Bar Captain Expl anation Advanced Directive Advanced Directive Advanced Directive
--- OUTSIDE RECORDS SUMMARY | 2022-12-29 03:39 | External Medical Summary | Summary of Care ---
Author Name Unknown Organization [place] [address] Care Team Providers Care Charge Coordinator Name Role Phone Nick Em MD Primary Care Provider + Reason for Visit * Reason Comments Health Maintenance Encounter Details Date Type Department Care Team Description 05/29/2019 Telephone Family Practice [facility] 132 [facility] [place] [address] Nick Em MD 132 [facility] [place] [address] [phone] Health Maintenance Allergies No Known Allergiesdocumented as of this encounter (statuses as of 05/29/2019) Medications Medication Sig Dispensed Refills Start Date [...] as of this encounter (statuses as of 05/29/2019) Active Problems Problem Noted Date Prediabetes 07/11/2016 Hyperlipidemia with target LDL less than 160 05/05/2015 Overview: 05/16 LDL 222. High in past. NEED rx ICD-10 update of inactive term Well adult exam 04/30/2015 Overview: AAA , cologuard ordered. Refuses statin. Essential hypertension with goal blood p ressure less than 140/90 04/30/2015 documented as of this encounter (statuses as of 05/29/2019) Immunizations Name Administration Dates Next Due TDAP [...] shot) (1) 12/30/2018 Outreach action taken: AWV Contacted: Spoke with patient - Patient requesting a call back tomorrow documented in this encounter Plan of Treatment Upcoming Encounters Date Type Specialty Care Team Description 10/28/2019 Office Visit Family Medicine Rajendra Naranjo MD [address] [place] [address] [place] [address] [phone] Health Maintenance Due Date Last Done Comments [...] on File Type Date Recorded Patient Manager Inventory Control Expl anation Advanced Directive Advanced Directive Advanced Directive
--- OUTSIDE RECORDS SUMMARY | 2022-12-29 03:39 | External Medical Summary | Summary of Care ---
Author Name Unknown Organization [place] [address] Care Team Providers Care Supervisor Packing Room Name Role Phone Nick Em MD Primary Care Provider + Reason for Visit * Reason Onset Date Comments Advice 05/06/2020 Encounter Details Date Type Department Care Team Description 05/06/2020 Telephone Family Practice [facility] 132 [facility] [place] [address] Nick Em MD 132 [facility] [place] [address] [phone] Advice Allergies No Known Active Allergiesdocumented as [...] Date COVID-19 virus infection 05/06/2020 Overview: Admit [facility] [...] encounter Miscellaneous Notes * Telephone Encounter - Jerri Grijalva LPN - 05/08/2020 8:29 AM EST Appt this AM. * Telephone Encounter - Odilia Salomon RN - 05/08/2020 8:04 AM EST Patient was noted to be triaged yesterday and advice was provided. Please send any return calls with patient concerns to creative director team to receive a timely assessmentand disposition. I was unavailable yesterday, and, did not see until this morning * Telephone Encounter - Geni Black OSA - 05/07/2020 8:25 AM EST Spouse calling regarding pt. Would like to speak with someone regarding blood clots due to Covid19.Pt is on oxygen / and keeps breaking out in sweats. Denies fever. States that pt has occasional pain. Please call back at [phone]. * Telephone Encounter - Odilia Salomon RN - 05/06/2020 2:25 PM EST Returned call to spouse and made aware. Spouse verbalizes understanding and agreement * Telephone Encounter - Nick Em MD - 05/06/2020 1:51 PM EST D/c from [facility] with COVID pneumonia, on O2. Discussed [...] Cesario London MD [address] [place] [address] [phone] Arrived 10/23/2020 Office Visit Family Medicine Rajendra Naranjo MD [address] [place] [address] [phone] Health Maintenance Due Date Last Done Comments [...] Documents on File Type Date Recorded Patient Cloth Brushing And Sueding Supervisor Expl anation Advanced Directive Advanced Directive Advanced Directive Advanced Directive Advanced Directive
--- OUTSIDE RECORDS SUMMARY | 2022-12-29 03:39 | External Medical Summary | Summary of Care ---
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 High in past. NEED rx ICD-10 update of inactive term Well adult exam 04/30/2015 Overview: AAA , cologuard ordered. Refuses statin. Essential hypertension with goal blood p ressure less than 140/90 04/30/2015 documented as of this encounter (statuses as of 11/05/2019) Immunizations Name Administration Dates Next Due TDAP [...] file Travel History Travel Start Travel End COVID-19 Exposure Response Date Recorded In the last month, have you been in contact with someone who was confirmed or suspected to have Coronavirus / COVID-19? No / Unsure 11/05/2019 9:21 AM EDT documented as of this encounter Last Filed Vital Signs Vital Sign Reading Time Taken Comments Blood Pressure 132/82 11/05/2019 9:36 AM EDT Pulse 76 11/05/2019 9:36 AM EDT Temperature 35.5 C (95.9 F) 11/05/2019 9:36 AM ED T Respiratory Rate 16 11/05/2019 9:36 AM EDT Oxygen Saturation - - Inhaled Oxygen Concentration - - Weight 113.6 kg (250 lb 8 oz) 11/05/2019 9:36 AM EDT Height 174 cm (5' 8.5") 11/05/2019 9:36 AM EDT Body Mass Index 37.53 11/05/2019 9:36 AM EDT documented in this encounter Progress Notes * Rajendra Naranjo MD - 11/05/2019 11:43 AM EDT 11/05/2019 Author: Rajendra Naranjo MD Assessment/Plan There are no discontinued medications. 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 All questions answered. Follow Up: Return in about 1 year (around 11/04/2020), or if symptoms worsen or fail to improve, for cdl. | For: cdl CC/HPI: Raj Bashir is a 69 year old male Chief Complaint Patient presents with Physical-Exam pt here for cdl exam Brief Clinical History Mr. Bashir is a 69 year old man last seen in Family Medicine today (11-05-19). He is not due for eval of any conditions. Nursing Notes: Mninie Judd, JOVANNY 11/05/19 0941 Signed The patient has been properly identified by confirmation of name and date of . Chief Complaint Patient presents with Physical-Exam pt here for cdl exam Here for CDL Pt feels fine Problem list: Patient Active Problem List Diagnosis Code Well adult exam Z00.00 Essential hypertension with goal blood pressure less than 140/90 I10 Hyperlipidemia with target LDL less than 160 E78.5 Prediabetes R73.03 Past Medical History: Past Medical History: Diagnosis Date HTN, goal below 140/90 04/30/2015 Prediabetes 07/11/2016 Past Surgical History: Past Surgical History: Procedure Laterality Date REMOVE PILONIDAL CYST, COMPLEX in 20s Medication List: Current Outpatient Medications Medication Sig Dispense Refill Olmesartan Medoxomil-HCTZ 40-12.5 MG per tablet TAKE 1 TABLET BY MOUTH ONCE DAILY 90 Tab 0 fish oil concentrate (OMEGA-3) 1000 MG CAPS Take 1 Cap by mouth 2 times a day. 60 Cap 5 Olmesartan Medoxomil-HCTZ 40-12.5 MG per tablet Take 1 tablet by mouth once daily 90 Tab 0 Allergies: Patient has no known allergies. Problem list, Past Medical History, Family history and social history reviewed and updated in [facility] EHR ROS: No nausea, vomiting or diarrhea. No chest pain or shortness of breath, No fatigue. No fevers, chillor night sweats. All other ROS examined in detail and are negative except as documented in HPI. Vitals: BP 132/82 | Pulse 76 | Temp (Src) 95.9 (Tympanic) | Resp 16 | Ht 5' 8.5" (1.740m) | Wt 250 lbs 8 oz(113.626kg) | BMI 37.53 kg/m | BSA 2.34 m BMI: 37.53 kg/m Exam: General: alert, healthy and no distress Head: Normocephalic, No masses, lesions, tenderness or abnormalities Eye Exam: PERRLA, EOMI, Conjunctiva are pink and non-injected, fundi benign, sclera clear Ears: External ears normal, Canals clear, TM's Normal Nose: no mucosal erythema, no mucosal edema, no purulent discharge Oropharynx: no exudate, no erythema, lips, buccal mucosa, and tongue normal and dentition normal Neck: supple, no adenopathy, thyroid normal size, non-tender, without nodularity, trachea midline Heart: regular rate & rhythm, no murmurs and no gallops Lungs: chest symmetric with normal AP diameter, no chest deformities noted, no chest wall tenderness, lungs clear to auscultation Abdomen: abdomen soft, non-tender, no masses, no hepatosplenomegaly, no rebound or guarding Extremities: no edema, no clubbing, no cyanosis Neuro Exam: alert & oriented x 3 with fluent speech, no focal motor/sensory deficits, gait normal, reflexes normal and symmetric Stable ventral hernia See scanned cdl form Assessment and plan located at the top of the page documented in this encounter Nursing Notes * Minnie Judd LPN - 11/05/2019 9:36 AM EDT The patient has been properly identified by confirmation of name and date of . 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 Ordered: 11/05/2019 Health Maintenance Due Date Last Done Comments [...] Procedure Name Priority Date/Time Associated Diagnosis Comments SITE DIP AUTO(16697) Routine 11/05/2019 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 documented in this encounter Results * SITE DIP AUTO(14321) (11/05/2019) COLOR, UA yellow yellow - ruma CLARITY, UA clear clear - clear GLUCOSE, UA neg neg - neg BILIRUBIN, UA neg neg - neg KETONE, UA neg neg - neg SPECIFIC GRAVITY 1.020 1.003 - 1.030 BLOOD, UA neg neg - neg PH, UA 7.0 5.0 - 7.5 PROTEIN, UA neg neg - neg UROBILINOGEN, UA normal normal - normal NITRITE, UA neg neg - neg ESTERASE, UA neg neg - neg Specimen Urine documented in this encounter Visit Diagnoses Diagnosis 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
--- OUTSIDE RECORDS SUMMARY | 2022-12-29 03:39 | External Medical Summary | Summary of Care ---
Author Name Unknown Organization [place] [address] Care Team Providers Care Ingot Car Operator Name Role Phone Nick Em MD Primary Care Provider + Reason for Visit * Reason Comments Advice Encounter Details Date Type Department Care Team Description 06/13/2019 Telephone Family Practice [facility] 132 [facility] [place] [address] Rajendra Naranjo MD [address] [facility] [place] [address] [phone] Advice Allergies No Known Allergiesdocumented as of this encounter (statuses as of 07/03/2019) Medications Medication Sig Dispensed Refills Start Date [...] as of this encounter (statuses as of 07/03/2019) Active Problems Problem Noted Date Prediabetes 07/11/2016 Hyperlipidemia with target LDL less than 160 05/05/2015 Overview: 05/16 LDL 222. High in past. NEED rx ICD-10 update of inactive term Well adult exam 04/30/2015 Overview: AAA , cologuard ordered. Refuses statin. Essential hypertension with goal blood p ressure less than 140/90 04/30/2015 documented as of this encounter (statuses as of 07/03/2019) Immunizations Name Administration Dates Next Due TDAP [...] encounter Miscellaneous Notes * Telephone Encounter - Nery Kowalski LPN - 07/03/2019 1:55 PM EST Spoke to patient's , gave the below info, patient's states that they will just pay the bill. They are not messing around with an appeal. They are more worried that in 6 month when patient will need refills that we will want him to be seen. I instructed patient to call And request refills and we can see if we can do things that way, when the time comes. Advised her that there may be a reason to see the patient at that time but I cannot know for sure. 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 * Telephone Encounter - Nery Kowalski LPN - 06/21/2019 1:56 PM EST Any other advice for this.l * Telephone Encounter - Rajendra Naranjo MD - 06/20/2019 5:23 PM EST Unfortunately, no we cannot change the code to a routine physical exam We use the codes to report to the federal govt how many CDLs we do, per the CDL guidelines * Telephone Encounter - Nery Kowalski LPN - 06/20/2019 4:09 PM EST Spoke to - kalani's states that CDL works very strange, if he gets it on the of one year, then you still have to have it within so much time. The deadline keeps on moving. If he gets it on the 10 of November he will hav to have it before the next November 10. Can we change code to [employer] city driver's physical. For the OV of 11/14/2018. We can resubmit this to patient's insurance. * Telephone Encounter - Huan Wu OSA - 06/13/2019 3:52 PM EST Patient's calling in stating that they just received a bill from the patient's cdl physical and labs from 11/14/18. She stated their insurance coverage pays for everything and they should have noout of pocket expenses. She is requesting a return call at [phone]. Thank you. documented in this encounter Plan of Treatment Upcoming Encounters Date Type Specialty Care Team Description 10/28/2019 Office Visit Family Medicine Rajendra Naranjo MD [address] [place] [address] [place] [address] [phone] Health Maintenance Due Date Last Done Comments [...] Documents on File Type Date Recorded Patient Replenishment Specialist Expl anation Advanced Directive Advanced Directive Advanced Directive
--- OUTSIDE RECORDS SUMMARY | 2022-12-29 03:39 | External Medical Summary | Summary of Care ---
Author Name Unknown Organization [place] [address] Care Team Providers Care Bag Patcher Name Role Phone Nick Em MD Primary Care Provider + Reason for Visit * Reason Comments eRx-Medication Refill Encounter Details Date Type Department Care Team Description 09/10/2019 Refill Family Practice [facility] [address] [place] [address] Nick Em MD 132 [facility] [place] [address] [phone] Essential hypertension with goal blood pressure less than 140/90 Allergies No Known Allergiesdocumented as of this encounter (statuses as of 09/10/2019) Medications Medication Sig Dispensed Refills Start Date [...] once daily 90 Tab 0 09/10/2019 Active Olmesartan Medoxomil-HCTZ 40-12.5 MG per tabletIndications:E ssential hypertension with goal blood pressure less than 140/90 Take 1 Tab by mouth daily. 90 Tab 0 05/30/2019 09/10/2019 Discontinued documented as of this encounter (statuses as of 09/10/2019) Active Problems Problem Noted Date Prediabetes 07/11/2016 Hyperlipidemia with target LDL less than 160 05/05/2015 Overview: 05/16 LDL 222. High in past. NEED rx ICD-10 update of inactive term Well adult exam 04/30/2015 Overview: AAA , cologuard ordered. Refuses statin. Essential hypertension with goal blood p ressure less than 140/90 04/30/2015 documented as of this encounter (statuses as of 09/10/2019) Immunizations Name Administration Dates Next Due TDAP [...] Miscellaneous Notes * Telephone Encounter - Ara Yee PA-C - 09/10/2019 3:55 PM EDT Signed Prescriptions: Disp Refills Olmesartan Medoxomil-HCTZ 40-12.5 MG per t*90 Tab 0 Sig: Take 1 tablet by mouth once daily Authorizing Provider: ARA YEE * Telephone Encounter - Shey Nunes [facility] - 09/10/2019 3:00 PM EDT Pending Prescriptions: Disp Refills Olmesartan Medoxomil-HCTZ 40-12.5 MG per *90 Tab 0 Sig: Take 1 tablet by mouth once daily * Telephone Encounter - Shey Nunes [facility] - 09/10/2019 3:00 PM EDT Unable to authorize medication refills for olmesartan/hctz at this time. Patient did not meet protocol requirements. Patient needs BMP. Lab reviouslyordered Please approve if appropriate. Thank you, Shey Nunes, PharmD Clinical Pharmacist Telepharmacy 09/10/2019, 3:00 PM * Telephone Encounter - Shey Nunes [facility] - 09/10/2019 2:59 PM EDT Pending Prescriptions: Disp Refills Olmesartan Medoxomil-HCTZ 40-12.5 MG per *90 Tab 0 Sig: Take 1 tablet by mouth once daily Last Office/Telemedicine Visit: 11/14/2018 Next Office Visit: 11/05/2019 Scheduled Provider(s): Rajendra Naranjo MD If no future appointments scheduled, and last appointment is greater than a year ago, please schedule patient for a follow-up appointment Last date the medication was ordered: 05/30/19 Pharmacy: [facility] [address] [place] [address] Is this request for a controlled substance?No Urine Drug Screen:No results found for this or any previous visit. Patient Phone Numbers Labs: Lab Results Component Value Date/Time CREAT 1.1 11/25/2017 08:39 AM POTASSIUM 4.2 11/25/2017 08:39 AM LDLCALC 171 (H) 07/03/2016 08:28 AM documented in this encounter Plan of Treatment Upcoming Encounters Date Type Specialty Care Team Description 11/05/2019 Office Visit Family Medicine Rajendra Naranjo MD [address] [place] [address] [phone] Health Maintenance Due Date Last Done Comments [...] HTN YEARLY 11/28/2018 Influenza Vaccine (FLU shot) (Season Ended) 2019 DIABETES SCREEN EVERY 3 YRS-AGE 45 [...] Documents on File Type Date Recorded Patient Geospatial Scientist Expl anation Advanced Directive Advanced Directive Advanced Directive
--- OUTSIDE RECORDS SUMMARY | 2022-12-29 03:39 | External Medical Summary | Summary of Care ---
Author Name Unknown Organization [place] [address] Care Team Providers Care Gis Professor Name Role Phone Nick Em MD Primary Care Provider + Reason for Visit * Reason Onset Date Comments Advice 05/06/2020 Encounter Details Date Type Department Care Team Description 05/06/2020 Telephone Family Practice [facility] [address] [facility] [place] [address] Nick Em MD [address] [facility] [place] [address] [phone] Advice Allergies No Known Active Allergiesdocumented as [...] COVID-19 virus infection 05/06/2020 Overview: Admit [facility] Viral PNA. [...] encounter Miscellaneous Notes * Telephone Encounter - Geni Black OSA - 05/07/2020 8:25 AM EST Spouse calling regarding pt. Would like to speak with someone regarding blood clots due to Covid19.Pt is on oxygen 21/11 and keeps breaking out in sweats. Denies fever. States that pt has occasional pain. Please call back at [phone]. * Telephone Encounter - Odilia Salomon RN - 05/06/2020 2:25 PM EST Returned call to spouse and made aware. Spouse verbalizes understanding and agreement * Telephone Encounter - Nick Em MD - 05/06/2020 1:51 PM EST D/c from [facility] with COVID pneumonia, on O2. Discussed [...] Cesario London MD [address] [place] [address] [phone] 10/23/2020 Office Visit Family Medicine Rajendra Naranjo MD [address] [place] [address] [phone] Health Maintenance Due Date Last Done Comments [...] on File Type Date Recorded Patient Supervisor Fish Bait Processing Expl anation Advanced Directive Advanced Directive Advanced Directive Advanced Directive
--- OUTSIDE RECORDS SUMMARY | 2022-12-29 03:39 | External Medical Summary | Summary of Care ---
Author Name Unknown Organization [place] [address] Care Team Providers Care Customer Services Manager Name Role Phone Nick Gallagher MD Primary Care Provider + Reason for Visit * Reason Comments Pt Portal Med Renewal Encounter Details Date Type Department Care Team Description 02/27/2019 Refill Family Practice [facility] 132 [facility] [place] [address] Nick Gallagher MD 132 [facility] [place] [address] [phone] Essential hypertension with goal blood pressure less than 140/90 Allergies No Known Allergiesdocumented as of this encounter (statuses as of 03/01/2019) Medications Medication Sig Dispensed Refills Start Date [...] mouth daily. 90 Tab 1 02/28/2019 Active Olmesartan Medoxomil-HCTZ 40-12.5 MG per tabletIndications:E ssential hypertension with goal blood pressure less than 140/90 TAKE 1 TABLET BY MOUTH ONCE DAILY 90 Tab 1 08/15/2018 02/27/2019 Discontinued documented as of this encounter (statuses as of 03/01/2019) Active Problems Problem Noted Date Prediabetes 07/11/2016 Hyperlipidemia with target LDL less than 160 05/05/2015 Overview: 05/16 LDL 222. High in past. NEED rx ICD-10 update of inactive term Well adult exam 04/30/2015 Overview: AAA , cologuard ordered. Refuses statin. Essential hypertension with goal blood p ressure less than 140/90 04/30/2015 documented as of this encounter (statuses as of 03/01/2019) Immunizations Name Administration Dates Next Due TDAP [...] encounter Miscellaneous Notes * Telephone Encounter - Heather Hoover OSA - 03/01/2019 9:26 AM EDT Called pt and scheduled * Telephone Encounter - Nick Gallagher MD - 02/28/2019 4:42 PM EDT Signed Prescriptions: Disp Refills Olmesartan Medoxomil-HCTZ 40-12.5 MG per t*90 Tab 1 Sig: Take 1 Tab by mouth daily.Authorizing Provider: NICK GALLAGHER * Telephone Encounter - Nick Gallagher MD - 02/28/2019 4:42 PM EDT Overdue for labs. Schedule BP visit w/PA * Telephone Encounter - Cassia Gudino LPN - 02/28/2019 8:43 AM EDT Pending Prescriptions: Disp Refills Olmesartan Medoxomil-HCTZ 40-12.5 MG per *90 Tab 1 Sig: Take 1 Tab by mouth daily. Last Office Visit: 11/14/2018 Next Office Visit: 10/28/2019 Scheduled Provider(s): Rajendra Naranjo MD Last date the medication was ordered: 08/15/18 Patient Active Problem List Diagnosis Code Well [...] AIC Results: No HEMOGLOBIN, A1C components found * Telephone Encounter - Cassia Gudino LPN - 02/28/2019 8:43 AM EDT Message from [facility]: Raj Bashir would like a refill of the following medications: Olmesartan Medoxomil-HCTZ 40-12.5 MG per tablet [Nick Gallagher MD] [facility] [address] [place] [address] AMIE CASEY documented in this encounter Plan of Treatment Upcoming Encounters Date Type Specialty Care Team Description 03/06/2019 Office Visit Family Medicine Parul Astudillo PA-C [address] [place] [address] [phone] 10/28/2019 Office Visit Family Medicine Rajendra Naranjo MD [address] [place] [address] [phone] Health Maintenance Due Date Last Done Comments Prediabetes-Yearly Hemoglobin A1c 1950 *DEPRESSION SCREENING,ANNUAL FOR PTS 12 AND OVER 05/09/2015 ABDOMINAL AORTIC ANEURYSM (AAA) SCREENING 09/30/2015 Pneumococcal [...] Vaccines (2 - Td) 04/30/2025 04/30/2015 MENINGOCOCCAL (MENACTRA) Aged Out No longer eligible based on patient's age to complete this topic documented as of this encounter Implants Not on filedocumented as of this encounter Visit Diagnoses Diagnosis Essential hypertension with goal blood pressure less than 140/90 documented in this encounter Advance Directives Documents on File Type Date Recorded Patient Web Services Professional Expl anation Advanced Directive Advanced Directive Advanced Directive
--- OUTSIDE RECORDS SUMMARY | 2022-12-29 03:39 | External Medical Summary | Summary of Care ---
Author Name Unknown Organization [place] [address] Care Team Providers Care Wool Hat Forming Machine Tender Name Role Phone Nick Em MD Primary Care Provider + Reason for Visit * Reason Onset Date Comments Advice 05/06/2020 Encounter Details Date Type Department Care Team Description 05/06/2020 Telephone Family Practice [facility] 132 [facility] [place] [address] Nick Em MD 132 [facility] [place] [address] [phone] Advice Allergies No Known Active Allergiesdocumented as [...] Date COVID-19 virus infection 05/06/2020 Overview: Admit [facility] Viral PNA. Didn't react well [...] has occasional pain. Please call back at [phone]. * Telephone Encounter - Odilia Salomon RN - 05/06/2020 2:25 PM EST Returned call to spouse and made aware. Spouse verbalizes understanding and agreement * Telephone Encounter - Nick Em MD - 05/06/2020 1:51 PM EST D/c from [facility] with COVID pneumonia, on O2. Discussed case [...] Cesario London MD [address] [place] [address] [phone] 10/23/2020 Office Visit Family Medicine Rajendra Naranjo MD [address] [place] [address] [phone] Health Maintenance Due Date Last Done Comments [...] on File Type Date Recorded Patient Senior Software Test 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 Advanced Directive Advanced Directive
--- OUTSIDE RECORDS SUMMARY | 2022-12-29 03:40 | External Medical Summary | Summary of Care ---
Author Name Unknown Organization [place] [address] Phone Care Team Providers Care Green Pipefitter Name Role Phone Nick Gallagher MD Primary Care Provider + Reason for Visit * Reason Comments MEDICATION REFILL Encounter Details Date Type Department Care Team Description 02/09/[address] [facility] 132 [facility] [place] [address] Nick Gallagher MD 132 [facility] [place] [address] [phone] Essential hypertension with goal blood pressure less than 140/90 Allergies No Known Allergiesas of this encounter Medications Prescription Sig. Disp. Refills Start Date End Date Status fish oil concentrate (OMEGA-3) 1000 MG CAPSIndications:Hype rlipidemia with target LDL less than 160 Take 1 Cap by mouth 2 times a day. 60 Cap 5 07/12/2016 Active Olmesartan Medoxomil-HCTZ (BENICAR HCT) 40-12.5 MG per tabletIndications:Es sential hypertension with goal blood pressure less than 140/90 Take 1 Tab by mouth daily. 90 Tab 1 02/09/2018 Active Olmesartan Medoxomil-HCTZ (BENICAR HCT) 40-12.5 MG per tabletIndications:Es sential hypertension with goal blood pressure less than 140/90 Take 1 Tab by mouth daily. Last refill until appt. 90 Tab 0 11/20/2017 02/09/2018 Discontinued as of this encounter Active Problems Problem Noted Date Prediabetes 07/11/2016 Hyperlipidemia with target LDL less than 160 05/05/2015 Overview: 05/16 LDL 222. High in past. NEED rx ICD-10 update of inactive term Well adult exam 04/30/2015 Overview: AAA , cologuard ordered. Refuses statin. Essential hypertension with goal blood p ressure less than 140/90 04/30/2015 as of this encounter Immunizations Name Dates Previously Given Next Due TDAP (age 10 and older)(Boostrix) 04/30/2015 Varicella Zoster Vaccine (Adult) 04/30/2015 as of this encounter Social History Tobacco Use Types Packs/Day Years Used Date Former Smoker Cigarettes Smokeless Tobacco: Current User Snuff Quit: 04/30/1980 Alcohol Use Drinks/Week oz/Week Comments No Sex Assigned at Date Recorded Not on file as of this encounter Miscellaneous Notes * Telephone Encounter - Chriss Sandhu [facility] - 02/09/2018 11:34 AM EDT Signed Prescriptions: Disp RefillsOlmesartan Medoxomil-HCTZ (BENICAR HCT) 40*90 Tab 1Sig: Take 1 Tab by mouth daily.Authorizing Provider: NICK GALLAGHER Ordering User: CHRISS SANDHU * Telephone Encounter - Chriss Sandhu [facility] - 02/09/2018 11:33 AM EDT Protocol met and refill sent to pharmacy Thank You, Chriss Sandhu [facility] * Telephone Encounter - Stefanie Calhoun OSA - 02/09/2018 10:24 AM EDT Formatting of this note may be different from the original. PHRASE "last fill until next appt" may need to be removed as pt was last seen 11/30/2017 and pt did have blood work done. Pending Prescriptions: Disp Refills Olmesartan Medoxomil-HCTZ (BENICAR HCT) 4*90 Tab 0 Sig: Take 1 Tab by mouth daily. Last refill until appt. Last Office Visit: 11/30/2017 Next Office Visit: 12/03/2018 Scheduled Provider(s): Rajendra Naranjo MD If no future appointments scheduled, and last appointment is greater than a year ago, please schedule patient for a follow-up appointment Last date the medication was ordered: 11/20/2017 Patient Phone Numbers Labs: Lab Results Component Value Date/Time CREAT 1.1 11/25/2017 08:39 AM POTASSIUM 4.2 11/25/2017 08:39 AM LDLCALC 171 (H) 07/03/2016 08:28 AM in this encounter Plan of Treatment Upcoming Encounters Date Type Specialty Care Team Description 12/03/2018 Office Visit Family Medicine Rajendra Naranjo MD [address] [place] [address] [place] [address] [phone] Health Maintenance Due Date Last Done Comments Prediabetes-Yearly Hemoglobin A1c 1950 *DEPRESSION SCREENING, YON [place]antes FOR PTS 18 AND OVER 05/09/2015 ABDOMINAL AORTIC ANEURYSM (A AA) SCREENING 09/30/2015 PNEUMOCOCCAL ADULT 65 YRS AN D OVER (1 of 2 - PCV13) 09/30/2015 *COLORECTAL CANCER SCREENING (COLONOSCOPY 10 YEARS; SIGMOIDOSCOPY 5 YEARS; COLOGUARD 3 YEARS; FOBT 1 YEAR),AGES 50-75 06/04/2017 05/03/2015 Influenza Vaccine (FLU shot) (#1) 2017 DIABETES SCREEN EVERY 3 YRS- AGE 45 AND ABOVE 11/25/2020 11/25/2017, 07/03/2016, 07/03/2016, Additional history exists LIPID SCREEN EVERY 5 YRS-MEN AGE 35-75 07/03/2021 07/03/2016, 08/01/2015, 05/03/2015 DTaP,Tdap,and Td Vaccines (2 - Td) 04/30/20252014 as of this encounter Implants Not on fileas of this encounter Visit Diagnoses Diagnosis Essential hypertension with goal blood pressure less than 140/90 in this encounter
--- OUTSIDE RECORDS SUMMARY | 2022-12-29 03:40 | External Medical Summary | Summary of Care ---
Author Name Unknown Organization [place] [address] Phone Care Team Providers Care County Records Management Officer Name Role Phone Nick Gallagher MD Primary Care Provider + Reason for Visit * Reason Comments [facility] Med Renewal Encounter Details Date Type Department Care Team Description 11/20/2017 Refill Family Practice [facility] 132 [facility] [place] [address] Shayna Carlos PA-C 132 [facility] [place] [address] [phone] Screening for diabetes mellitus*;Essential hypertension with goal blood pressure less than [...] refill until appt. 90 Tab 0 11/20/2017 Active Olmesartan Medoxomil-HCTZ (BENICAR HCT) 40-12.5 MG per tabletIndications:Es sential hypertension with goal blood pressure less than 140/90 Take 1 Tab by mouth daily. Last refill until appt. 90 Tab 0 07/27/2017 11/20/2017 Discontinued as of this encounter Active Problems [...] encounter Miscellaneous Notes * Telephone Encounter - Sylvia Rivas LPN - 11/20/2017 11:34 AM EDT Spoke to pt's Juanita, she is aware and verbalized understanding. Stated she will inform pt, and will have blood work completed. * Telephone Encounter - Nick Gallagher MD - 11/20/2017 11:17 AM EDT Signed Prescriptions: Disp Refills Olmesartan Medoxomil-HCTZ (BENICAR HCT) 40*90 Tab 0 Sig: Take 1 Tab by mouth daily. Last refill until appt. Authorizing Provider: NICK GALLAGHER * Telephone Encounter - Nick Gallagher MD - 11/20/2017 11:17 AM EDT Fasting BMP ordered -please do before appt w/Dr Naranjo. Refill sent * Telephone Encounter - Parul Wright LPN - 11/20/2017 10:05 AM EDT Formatting of this note may be different from the original. Pending Prescriptions: Disp Refills Olmesartan Medoxomil-HCTZ (BENICAR HCT) 4*90 Tab 0 Sig: Take 1 Tab by mouth daily. Last refill until appt. Last Office Visit: 07/11/2016 Next Office Visit: 11/30/2017 Scheduled Provider(s): Rajendra Naranjo MD Last date the medication was ordered: 07/27/17 Patient Active Problem List Diagnosis Code Well adult exam Z00.00 Essential hypertension with goal blood pressure less than 140/90 I10 Hyperlipidemia with target LDL less than 160 E78.5 Prediabetes R73.03 Labs: CREATININE(mg/dL) Estefania Dt/Tm Resulted Value Status 07/03/16 8:28A 07/03/16 1.1 FINAL POTASSIUM(mmol/L) Estefania Dt/Tm Resulted Value Status 07/03/16 8:28A 07/03/16 4.2 FINAL No TSH components found LDL (CALCULATED)(mg/dL) Estefania Dt/Tm Resulted Value Status 07/03/16 8:2807/03/16 171* FINAL LDL DIRECT(REFLEX)(mg/dL) Estefania Dt/Tm Resulted Value Status 07/03/16 8:28A 07/03/16 FINAL Value: NOT APPLICABLE No ALT components found Hemoglobin AIC Results: No HEMOGLOBIN, A1C components found * Telephone Encounter - Parul Wright LPN - 11/20/2017 10:04 AM EDT Message from [facility]: Original authorizing provider: Shayna Carlos PA-C Raj Bashir would like a refill of the following medications: Olmesartan Medoxomil-HCTZ (BENICAR HCT) 40-12.5 MG per tablet [Shayna Carlos PA-C] Preferred pharmacy: [facility] [address] [place] [address] [facility] Comment: 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 Would you please renew this, I get this at [facility] at [facility] [phone]. Please reply to this message by electronic messaging. in this encounter Plan of Treatment Upcoming Encounters Date Type Specialty Care Team Description 11/30/2017 Office Visit Family Medicine [facility] [place] [address] [phone] Scheduled Tests Name Priority Associated Diagnoses Order S chedule BASIC METAB PANEL, BMP Routine Screening for diabetes mellitus Expected: 11/20/2017 (Approximate), Expires: 11/20/2018 Health Maintenance Due Date Last Done Comments *DEPRESSION SCREENING, ANNUA L FOR PTS 18 AND OVER 05/09/2015 ABDOMINAL AORTIC ANEURYSM (A AA) SCREENING 09/30/2015 PNEUMOCOCCAL ADULT 65 YRS AN D OVER (1 of 2 - PCV13) 09/30/2015 *COLORECTAL CANCER SCREENING (COLONOSCOPY 10 YEARS; SIGMOIDOSCOPY 5 YEARS; COLOGUARD 3 YEARS; FOBT 1 YEAR),AGES 50-75 06/04/2017 05/03/2015 *BASIC METABOLIC PANEL (BMP) FOR HTN YEARLY 07/06/2017 Influenza Vaccine (FLU shot) (#1) 2017 DIABETES SCREEN EVERY 3 YRS- AGE 45 AND ABOVE 07/04/2019 07/03/2016, 07/03/2016, 05/03/2015 LIPID SCREEN EVERY 5 YRS-MEN AGE 35-75 07/03/2021 07/03/2016, 08/01/2015, 05/03/2015 DTaP,Tdap,and Td Vaccines (2 - Td) 04/30/20252014 as of this encounter Implants Not on fileas of this encounter Visit Diagnoses Diagnosis Screening for diabetes med lind - Primary Essential hypertension with goal blood pressure less than 140/90 in this encounter
--- OUTSIDE RECORDS SUMMARY | 2022-12-29 03:40 | External Medical Summary ---
Author Name Unknown Address [address] [place] [address] Phone Organization K09:[facility] [address] [place] [address] Laboratory Report Ordering Provider Test Date Status ELLIOTT ANAYA MD [id number] Final Obs # Observation Date Value Abnormality Reference Status Performing Location 0 Occult Blood (EIA) [id number] NEGATIVE NEG Final [facility] [address] [place] [address]
--- OUTSIDE RECORDS SUMMARY | 2022-12-29 03:40 | External Medical Summary ---
Author Name Unknown Address Unknown Organization [id number]:Performed at [facility] [address] [place] [address] Laboratory Report Ordering Provider Test Date Status ELLIOTT ANAYA MD [id number] Final Obs # Observation Date Value Abnormality Reference Status Performing Location 0 hours fasting [id number] 12 Final Performed at [facility] [address] [employer] [address] 1 Triglyceride [id number] 247 Above high normal <200 Final Performed at [facility] 132 [facility] [place] [address]
--- OUTSIDE RECORDS SUMMARY | 2022-12-29 03:40 | External Medical Summary | Summary of Care ---
Author Name Unknown Organization [place] [address] Care Team Providers Care Mandrel Cleaner Name Role Phone Nick Gallagher MD Primary Care Provider + Reason for Visit * Reason Comments eRx-Medication Refill Encounter Details Date Type Department Care Team Description 02/27/2019 Refill Family Practice [facility] 132 [facility] [place] [address] Nick Gallagher MD 132 [place] [address] [phone] Essential hypertension with goal blood pressure less than 140/90 Allergies No Known Allergiesdocumented as of this encounter (statuses as of 02/28/2019) Medications Medication Sig Dispensed Refills Start Date [...] as of this encounter (statuses as of 02/28/2019) Active Problems Problem Noted Date Prediabetes 07/11/2016 Hyperlipidemia with target LDL less than 160 05/05/2015 Overview: 05/16 LDL 222. High in past. NEED rx ICD-10 update of inactive term Well adult exam 04/30/2015 Overview: AAA , cologuard ordered. Refuses statin. Essential hypertension with goal blood p ressure less than 140/90 04/30/2015 documented as of this encounter (statuses as of 02/28/2019) Immunizations Name Administration Dates Next Due TDAP [...] Notes * Telephone Encounter - Ken Gilliland [facility] - 02/28/2019 11:00 AM EDT Signed Prescriptions: Disp Refills Olmesartan Medoxomil-HCTZ 40-12.5 MG per t*90 Tab 0 Sig: TAKE 1 TABLET BY MOUTH ONCE DAILYAuthorizing Provider: NICK GALLAGHER User: KEN MELENDREZ * Telephone Encounter - Ken Gilliland [facility] - 02/28/2019 10:57 AM EDT Provided 90 days supply with 0 refill to hold pt. Per refill protocol patient required to have BMP on file within past year. Lab work ordered (AMP report and protocol medications checked). Sent Pt Portal message. Patient is required to fast for labs. Patient may still have water and regular medications. Advise to obtain labs before requesting the next refill. Thank You, Ken Melendrez [facility] Staff Pharmacist Pharmacy Refill Call Center 02/28/2019, 10:57 AM * Telephone Encounter - Ken Gilliland [facility] - 02/28/2019 10:55 AM EDT Pending Prescriptions: Disp Refills Olmesartan Medoxomil-HCTZ 40-12.5 MG per *90 Tab 1 Sig: TAKE 1 TABLET BY MOUTH ONCE DAILY Last Office Visit: 11/14/2018 Next Office Visit: 10/28/2019 Scheduled Provider(s): Rajendra Naranjo MD If no future appointments scheduled, and last appointment is greater than a year ago, please schedule patient for a follow-up appointment Last date the medication was ordered: 08/15/18 [facility] [address] [place] Is this request for a controlled substance?No [...] Visit Family Medicine Rajendra Naranjo MD [address] [place] [address] [place] [address] [phone] Health Maintenance Due Date Last Done Comments [...] Documents on File Type Date Recorded Patient Grade Teacher Expl anation Advanced Directive Advanced Directive Advanced Directive
--- OUTSIDE RECORDS SUMMARY | 2022-12-29 03:40 | External Medical Summary | Summary of Care ---
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 High in past. NEED rx ICD-10 update of inactive term Well adult exam 04/30/2015 Overview: AAA , cologuard ordered. Refuses statin. Essential hypertension with goal blood p ressure less than 140/90 04/30/2015 documented as of this encounter (statuses as of 11/14/2018) Immunizations Name Administration Dates Next Due TDAP [...] Travel End documented as of this encounter Last Filed Vital Signs Vital Sign Reading Time Taken Comments Blood Pressure 132/86 11/14/2018 10:48 AM EDT Pulse 80 11/14/2018 10:48 AM EDT Temperature 36.8 C (98.3 F) 11/14/2018 10:48 AM E DT Respiratory Rate 16 11/14/2018 10:48 AM EDT Oxygen Saturation - - Inhaled Oxygen Concentration - - Weight 110.2 kg (243 lb) 11/14/2018 10:48 AM EDT Height 174 cm (5' 8.5") 11/14/2018 10:48 AM EDT Body Mass Index 36.41 11/14/2018 10:48 AM EDT documented in this encounter Patient Instructions * Patient Instructions* Nery Kowalski LPN - 11/14/2018 10:48 AM EDT Pre-Diabetes Pre-diabetes is a condition in which blood glucose (sugar) levels are higher than normal, but not high enough to meet the diagnosis for diabetes. Pre-diabetes can be diagnosed using 3 different tests. Test Description Pre-diabetes range Fasting Plasma Glucose (FPG) Measures how much glucose (sugar) is in your blood after an overnight fast 100-125 mg/dl Oral Glucose Tolerance Test (OGTT) Measures the body's response to sugar 2 hours after drinking test beverage 140-199 mg/dl 2 hours after drinking test beverage Hemoglobin A1c (HbA1c or A1C) Measures an average of blood sugar levels over the past 3 months 5.7-6.4% If you are at high risk for developing diabetes, you should have your blood glucose checked at least once per year. People with pre-diabetes are at high risk for developing Type 2 diabetes. Other risk factors include: Age 45 or older Overweight with Body Mass Index over 25 Family history of diabetes Lack of physical activity , , , and heritage/race History of Polycystic Ovarian Syndrome (PSOS), gestational diabetes, or a baby weighing over nine pounds. Preventing diabetes: What can you do? The cody to lowering your risk of Type 2 diabetes is lifestyle changes that include regular physicalactivity, diet changes, and weight loss of 5 to 10%. Physical activity is one of the best ways to help your body use insulin, a hormone that regulates blood sugar. It also can help you lose weight. All physical activity you do counts as "exercise". [id number] Dev. 02/14 Some ways to increase your activity include: Start with 5 minutes of physical activity and increase gradually to 30 minutes. Walking 30 minutes per day, 5 days per week can decrease your risk of diabetes. Get off the elevator a floor early and walk up the last flight of stairs. Park you car at the end of the parking lot. On a nice day, play tennis, ride your bike, go on a hike or go swimming. Take a 5-minute break every 1 to 2 hours at work,, and take a quick walk around your work area. Find a partner; exercising is more fun with someone else and a partner helps keep you motivated when you may find an excuse to skip a session. Keep a daily log of your activities and post it where you will see it every day. Diet changes will help you manage portions and make healthier choices. Diet changes can often help with weight loss. Aim for 3 to 5 servings of non-starchy vegetables daily. You can try adding salad to your meals,taking raw vegetables for snacks, or adding the to your eggs at breakfast. Have at least 2 servingsof vegetables with supper. Aim for 2 to 3 servings of fruits each day. Enjoy fruit with yogurt or cereal at breakfast, or include fruit as dessert for lunch or supper. Fruit also makes great snacks between meals and you caneat it with little preparation. Reduce saturated at in your diet, to help your body use blood sugar better. Choose lean meats and low-fat dairy and cut down on the amount of butter, sour cream and mayonnaise. Use spray oils whencooking on top of the stove or try baking or grilling rather than frying, Look for lower fat salad dressings or use balsamic vinegar or lemon on your salads. Cut down on processed foods, such as store-bought cakes, cookies, canned soups, frozen meals andfast food and restaurant foods. Most processed foods tend to be high in saturated fat, trans fat, sodium and added sugar. Try to cook more at home from "scratch". Include more whole grains, such as whole grain pasta or whole wheat breat, brown rice or whole wheat crackers. Whole grains help lower your risk of heart disease, slow down your blood sugar response and are often more filling. Look for products with at least 2 grams of fiber per serving. Reduce or avoid sugar sweetened beverages, such as regular soda, juice, Kwesi- Aid, sweet tea and lemonade. The sugar in these drinks will spike blood sugar quickly and increase your risk of diabetes. Sweetened beverages can also cause weight gain. Keep a food diary. This will help you keep track of your portions, food choices and how often you eat. Practice portion control. Fill 1/2 your plate with non-starchy vegetables and try to limit starchy foods to 1/4 of your plate. Measure portions, if able. Use a smaller plate. Filling a small plate will make it look like you have plenty to eat. Eat slowly. Try to make your meal last at least 20 minutes. Set a timer to remind you to slow down. References: [place] [employer] (diabetes.org), [facility] (mayoclinic.org); [place] [employer]. (May 2016). "Standards of Medical Care in Diabetes-2017" [Online]. Diabetes Care Volume 39,S1 . documented in this encounter Progress Notes * Rajendra Naranjo MD - 11/14/2018 1:26 PM EDT 11/14/2018 Author: Rajendra Naranjo MD Assessment/Plan There are no discontinued medications. 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 All questions answered. CC/HPI: Raj Bashir is a 68 year old male Chief Complaint Patient presents with Physical-Exam CdL Brief Clinical History Mr. Bashir is a 68 year old man last seen in Family Medicine today (11-14-18). He is not due for evalof any conditions. Nursing Notes: Nery Kowalski LPN 11/14/18 1050 Signed Chief Complaint Patient presents with Physical-Exam CdL . Here for CDL Pt feels fine Problem [...] BY MOUTH ONCE DAILY 90 Tab 1 fish oil concentrate (OMEGA-3) 1000 MG CAPS Take 1 Cap by mouth 2 times a day. 60 Cap 5 Allergies: Patient has no known allergies. Problem list, Past Medical History, Family history and social history reviewed and updated in [facility] EHR ROS: No nausea, vomiting or diarrhea. No chest pain or shortness of breath, No fatigue. No fevers, chillor night sweats. All other ROS examined in detail and are negative except as documented in HPI. Vitals: BP 132/86 | Pulse 80 | Temp (Src) 98.3 (Tympanic) | Resp 16 | Ht 5' 8.5" (1.740m) | Wt 243 lbs (110.224kg) | BMI 36.41 kg/m | BSA 2.31 m BMI: 36.41 kg/m Exam: General: alert, healthy and no [...] deficits, gait normal, reflexes normal and symmetric Assessment and plan located at the top of the page documented in this encounter Nursing Notes * Nery Kowlaski LPN - 11/14/2018 10:36 AM EDT Chief Complaint Patient presents with Physical-Exam CdL . 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 Expected: 11/14/2018, Expires: 11/14/2019 Health Maintenance Due Date Last Done Comments Prediabetes-Yearly Hemoglobin A1c 1950 *DEPRESSION SCREENING, ANNUAL FOR PTS 18 AND OVER 05/09/2015 ABDOMINAL AORTIC ANEURYSM (AAA) SCREENING 09/30/2015 PNEUMOCOCCAL ADULT 65 YRS AND OVER (1 of 2 - PCV13) 09/30/2015 Influenza Vaccine (FLU shot) (#1) 2018 DIABETES [...] Name Priority Date/Time Associated Diagnosis Comments SITE DIP,DIPSTICK ONLY(63876) Routine 11/14/2018 4:00 PM EDT 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 documented in this encounter Results * SITE DIP,DIPSTICK ONLY(69342) (11/14/2018 4:00 PM EDT) COLOR, UA yellow yellow - ruma CLARITY, UA slightly cloudy clear - clear GLUCOSE, UA neg neg - neg BILIRUBIN, UA neg neg - neg KETONE, UA neg neg - neg SPECIFIC GRAVITY 1.020 1.003 - 1.030 BLOOD, UA neg neg - neg PH, UA 5.0 5.0 - 7.5 PROTEIN, UA neg neg - neg UROBILINOGEN, UA normal normal - normal NITRITE, UA neg neg - neg ESTERASE, UA neg neg - neg Specimen Urine documented in this encounter Visit Diagnoses Diagnosis 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
--- OUTSIDE RECORDS SUMMARY | 2022-12-29 03:40 | External Medical Summary | Summary of Care ---
Author Name Unknown Organization [place] [address] Care Team Providers Care Welfare Project Manager Name Role Phone Nick Em MD Primary Care Provider + Reason for Visit * Reason Comments Previsit Planning Encounter Details Date Type Department Care Team Description 05/18/2018 Telephone Family Practice [facility] 132 [facility] [place] [address] Nick Em MD 132 [facility] [place] [address] [phone] Previsit Planning Allergies No Known Allergiesdocumented as of this encounter (statuses as of 05/18/2018) Medications Medication Sig Dispensed Refills Start Date End Date Status fish oil concentrate (OMEGA-3) 1000 MG CAPSIndications:Hyperlip idemia with target LDL less than 160 Take 1 Cap by mouth 2 times a day. 60 Cap 5 07/12/2016 Active Olmesartan Medoxomil-HCTZ (BENICAR HCT) 40-12.5 MG per tabletIndications:Essent ial hypertension with goal blood pressure less than 140/90 Take 1 Tab by mouth daily. 90 Tab 1 02/09/2018 Active documented as of this encounter (statuses as of 05/18/2018) Active Problems Problem Noted Date Prediabetes 07/11/2016 Hyperlipidemia with target LDL less than 160 05/05/2015 Overview: 05/16 LDL 222. High in past. NEED rx ICD-10 update of inactive term Well adult exam 04/30/2015 Overview: AAA , cologuard ordered. Refuses statin. Essential hypertension with goal blood p ressure less than 140/90 04/30/2015 documented as of this encounter (statuses as of 05/18/2018) Immunizations Name Dates Previously Given Next Due [...] encounter Miscellaneous Notes * Telephone Encounter - Ricardo Fofana MED ASSIST - 05/18/2018 12:51 PM EST Patient contacted for Care Gaps Comprehensive Care Outreach. Last Office Visit: 11/30/2017 Outreach action taken: Contacted: Left message Woman said she would have him call did not take number. Health Maintenance Due Topic Date Due Prediabetes-Yearly Hemoglobin A1c 1950 *DEPRESSION SCREENING, ANNUAL FOR PTS 18 AND OVER 05/09/2015 ABDOMINAL AORTIC ANEURYSM (AAA) SCREENING 09/30/2015 PNEUMOCOCCAL ADULT 65 YRS AND OVER (1 of 2 - PCV13) 09/30/2015 Influenza Vaccine (FLU shot) (1) 11/29/2017 documented in this encounter Plan of Treatment Upcoming Encounters Date Type Specialty Care Team Description 12/03/2018 Office Visit Family Medicine Rajendra Naranjo MD [address] [place] [address] [phone] Health Maintenance Due Date Last Done Comments Prediabetes-Yearly Hemoglobin A1c 1950 *DEPRESSION SCREENING, ANNUA L FOR PTS 18 AND OVER 05/09/2015 ABDOMINAL AORTIC ANEURYSM (A AA) SCREENING 09/30/2015 PNEUMOCOCCAL ADULT 65 YRS AN D OVER (1 of 2 - PCV13) 09/30/2015 Influenza Vaccine (FLU shot) (#1) 2017 DIABETES SCREEN EVERY 3 YRS- AGE 45 AND ABOVE 11/25/2020 11/25/2017, 07/03/2016, 07/03/2016, Additional history exists LIPID SCREEN EVERY 5 YRS-MEN AGE 35-75 07/03/2021 07/03/2016, 08/01/2015, 05/03/2015 DTaP,Tdap,and Td Vaccines (2 - Td) 04/30/20252014 documented as of this encounter Implants Not on filedocumented as of this encounter Advance Directives Patient has advance care planning documents on file. For more information, please contact: [place] [phone]
--- OUTSIDE RECORDS SUMMARY | 2022-12-29 03:40 | External Medical Summary ---
Author Name Unknown Address 132 [facility] [place], [place] [address] Phone Organization [id number] [address] [facility] [place] [address] Laboratory Report Ordering Provider Test Date Status ELLIOTT ANAYA MD [id number] Final Obs # Observation Date Value Abnormality Reference Status Performing Location 0 BUN [id number] 19 6-20 Final [facility] [address] [place] [address] 1 Creatinine [id number] 1.2 0.7-1.3 Final [facility] [address] [place] [address]
--- OUTSIDE RECORDS SUMMARY | 2022-12-29 03:40 | External Medical Summary | Summary of Care ---
Author Name Unknown Organization [place] [address] Care Team Providers Care Container Finisher Name Role Phone Nick Gallagher MD Primary Care Provider U francisailsilke Reason for Visit * Reason Comments eRx-Medication Refill Encounter Details Date Type Department Care Team Description 08/15/2018 Refill Family Practice [facility] 132 [facility] [place] [address] Nick Gallagher MD 132 [facility] [place] [address] [phone] Essential hypertension with goal blood pressure less than 140/90 Allergies No Known Allergiesdocumented as of this encounter (statuses as of 08/15/2018) Medications Medication Sig Dispensed Refills Start Date [...] ONCE DAILY 90 Tab 1 08/15/2018 Active Olmesartan Medoxomil-HCTZ (BENICAR HCT) 40-12.5 MG per tabletIndications:E ssential hypertension with goal blood pressure less than 140/90 Take 1 Tab by mouth daily. 90 Tab 1 02/09/2018 08/15/2018 Discontinued documented as of this encounter (statuses as of 08/15/2018) Active Problems Problem Noted Date Prediabetes 07/11/2016 Hyperlipidemia with target LDL less than 160 05/05/2015 Overview: 05/16 LDL 222. High in past. NEED rx ICD-10 update of inactive term Well adult exam 04/30/2015 Overview: AAA , cologuard ordered. Refuses statin. Essential hypertension with goal blood p ressure less than 140/90 04/30/2015 documented as of this encounter (statuses as of 08/15/2018) Immunizations Name Dates Previously Given Next Due [...] Telephone Encounter - Nick Gallagher MD - 08/15/2018 5:07 PM EDT Signed Prescriptions: Disp Refills Olmesartan Medoxomil-HCTZ 40-12.5 MG per t*90 Tab 1 Sig: TAKE 1 TABLET BY MOUTH ONCE DAILY Authorizing Provider: NICK GALLAGHER * Telephone Encounter - Agnes Alston LPN - 08/15/2018 9:19 AM EDT Pending Prescriptions: Disp Refills Olmesartan Medoxomil-HCTZ 40-12.5 MG per *90 Tab 1 Sig: TAKE 1 TABLET BY MOUTH ONCE DAILY * Telephone Encounter - Agnes Alston LPN - 08/15/2018 9:18 AM EDT Pending Prescriptions: Disp Refills Olmesartan Medoxomil-HCTZ 40-12.5 MG per *90 Tab 1 Sig: TAKE 1 TABLET BY MOUTH ONCE DAILY Last Office Visit: 11/30/2017 Next Office Visit: 12/03/2018 Scheduled Provider(s): Rajendra Naranjo MD If no future appointments scheduled, and last appointment is greater than a year ago, please schedule patient for a follow-up appointment Last date the medication was ordered: 02/09/2018 Patient Phone Numbers Labs: Lab Results Component Value Date/Time CREAT 1.1 11/25/2017 08:39 AM POTASSIUM 4.2 11/25/2017 08:39 AM LDLCALC 171 (H) 07/03/2016 08:28 AM documented in this encounter Plan of Treatment Upcoming Encounters Date Type Specialty Care Team Description 12/03/2018 Office Visit Family Medicine Rajendra Naranjo MD [address] [place] [address] [phone] Health Maintenance Due Date Last Done Comments Prediabetes-Yearly Hemoglobin A1c 1950 *DEPRESSION SCREENING, ANNUAL FOR PTS 18 AND OVER 05/09/2015 ABDOMINAL AORTIC ANEURYSM (AAA) SCREENING 09/30/2015 PNEUMOCOCCAL ADULT 65 YRS AND OVER (1 of 2 - PCV13) 09/30/2015 Influenza Vaccine (FLU shot) (#1) 2017 DIABETES SCREEN EVERY 3 YRS-AGE 45 AND [...] 140/90 documented in this encounter Advance Directives Patient has advance care planning documents on file. For more information, please contact: [place] [phone]
--- OUTSIDE RECORDS SUMMARY | 2022-12-29 03:40 | External Medical Summary | Summary of Care ---
Author Name Unknown Organization [place] [address] Phone Care Team Providers Care Domestic Travel Consultant Name Role Phone Nick Em MD Primary Care Provider + Reason for Visit * Reason Comments MEDICATION REFILL Encounter Details Date Type Department Care Team Description 07/27/2017 Telephone Family Practice [facility] 132 [facility] [place] [address] Shayna Carlos PA-C 132 [facility] [place] [address] [phone] MEDICATION REFILL Allergies No Known Allergiesas of this encounter [...] refill until appt. 90 Tab 0 07/27/2017 Active Olmesartan Medoxomil-HCTZ (BENICAR HCT) 40-12.5 MG per tabletIndications:E ssential hypertension with goal blood pressure less than 140/90 Take 1 Tab by mouth daily. NEED OFFICE VISIT AND LABS BEFORE MORE REFILLS 90 Tab 0 05/03/2017 07/27/2017 Discontinued as of this encounter Active Problems [...] Telephone Encounter - Parul Martinez LPN - 07/27/2017 4:29 PM EDT aware. Very pleasant and understands. * Telephone Encounter - Shayna Carlos PA-C - 07/27/2017 3:46 PM EDT in for visit today. 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 At the time patient was not scheduled for anything - advised needs appt. She was not happy about this - "he will be furious". She did schedule him for September. Will refill meds until then. Nursing - please call and let pt/ know I will refill BP meds to get him through his appt in September but no more. Needs to keep appt. in this encounter Plan of Treatment Upcoming Encounters Date Type Specialty Care Team Description 10/05/2017 Office Visit Family Practice Nick Em MD [address] [place] [address] Health Maintenance Due Date Last Done Comments *DEPRESSION SCREENINGYON FOR PTS 18 AND OVER 05/09/2015 ABDOMINAL AORTIC ANEURYSM (A AA) SCREENING 09/30/2015 PNEUMOCOCCAL ADULT 65 YRS AN D OVER (1 of 2 - PCV13) 09/30/2015 *ADVANCE DIRECTIVE NOT ON FILE 10/03/2015 Influenza Vaccine (FLU shot) (#1) 2016 *COLORECTAL CANCER SCREENING (COLONOSCOPY 10 YEARS; SIGMOIDOSCOPY 5 YEARS; COLOGUARD 3 YEARS; FOBT 1 YEAR),AGES 50-75 06/04/2017 05/03/2015 *BASIC METABOLIC PANEL (BMP) FOR HTN YEARLY 07/06/2017 DIABETES SCREEN EVERY 3 YRS- AGE 45 AND ABOVE 07/04/2019 07/03/2016, 07/03/2016, 05/03/2015 LIPID SCREEN EVERY 5 YRS-MEN AGE 35-75 07/03/2021 07/03/2016, 08/01/2015, 05/03/2015 DTaP,Tdap,and Td Vaccines (2 - Td) 04/30/20252014 as of this encounter Implants Not on fileas of this encounter Visit Diagnoses Diagnosis Essential hypertension with goal blood pressure less than 140/90 in this encounter Insurance Payer Benefit Plan / Group Subscriber ID Type Phone Address MEDICARE REPLACEMENT [employer] PPO [id number] Medicar e as of this encounter
--- OUTSIDE RECORDS SUMMARY | 2022-12-29 03:40 | External Medical Summary | Summary of Care ---
Author Name Unknown Organization [place] [address] Phone Care Team Providers Care Turret Lathe Tender Name Role Phone Nick Em MD Primary Care Provider + Reason for Visit * Reason Comments PHYSICAL-EXAM CDL PHYSICAL-DRIVERS Encounter Details Date Type Department Care Team Description 11/30/2017 Office Visit Family Practice [facility] 132 [facility] [place] [id number] Rajendra Naranjo MD 132 [facility] [place] [address] [phone] ICC Bacon Skin Lifter's Physical* Allergies No Known Allergiesas of this encounter [...] until appt. 90 Tab 0 11/20/2017 Active as of this encounter Active Problems Problem [...] Not on file as of this encounter Last Filed Vital Signs Vital Sign Reading Time Taken Blood Pressure 118/64 11/30/2017 2:33 PM EDT Pulse 78 11/30/2017 2:33 PM EDT Temperature 36.7 C (98.1 F) 11/30/2017 2 :33 PM EDT Respiratory Rate 16 11/30/2017 2:33 PM EDT Oxygen Saturation - - Inhaled Oxygen Concentration - - Weight 107 kg (236 lb) 11/30/2017 2:33 PM EDT Height 174 cm (5' 8.5") 11/30/2017 2:33 PM EDT Body Mass Index 35.36 11/30/2017 2:33 PM EDT in this encounter Progress Notes * Rajendra Naranjo MD - 11/30/2017 3:11 PM EDT CDL information updated in National Registry of Certified Medical Examiners database * Rajendra Naranjo MD - 11/30/2017 3:04 PM EDT Formatting of this note may be different from the original. ICC Physical Examination [place] Department of Transportation Date of exam: November 30, 2017 Certification: Recertification Bacon Skin Lifter's Name: Raj Bashir Address: [address] [place] [address] SSN: [id number] Date of : 1950 Age: [age] year old Sex: male Phone: Home/Work: (home) Bacon Skin Lifter License No: [id number] State of issue: [place] Health History: Any illness or injury in the last 5 years: no Head/Brain injuries, disorders or illnesses: no Seizures, epilepsy: no If yes- Medication: Eye disorders or impaired vision (except corrective lenses): no Ear disorders, loss of hearing or balance: no Heart disease or heart attack; other cardiovascular condition: no If yes- Medication: Heart surgery (valve replacement/bypass, angioplasty, pacemaker): no High blood pressure: yes: If yes-Medication: see med list Shortness of breath: no Lung disease, emphysema, asthma, chronic bronchitis: no Kidney disease, dialysis: no Liver disease: no Digestive problems: no Diabetes or elevated blood sugar controlled by: no Diet/pills/insulin: Nervous or psychiatric disorders, e.g., servere depression: no If yes- Medication: Loss of,or altered consciousness: no Fainting, dizziness: no Sleep disorders, pauses in breathing while asleep, daytime sleepiness, loud snoring: no Stroke or paralysis: no Missing or impaired hand, arm, foot, leg, finger, toe: no Spinal injury or disease: no Chronic low back pain: no Regular, frequent alcohol use: no Narcotic or habit forming drug use: no For any YES answer, indicate onset date, diagnosis, treating physicians name and address, and any curret limitations: List all medications (including over the counter medications) used regularly or recently. Current Outpatient Prescriptions Medication Sig Dispense Refill Olmesartan Medoxomil-HCTZ (BENICAR HCT) 40-12.5 MG per tablet Take 1 Tab by mouth daily. Last refill until appt. 90 Tab 0 fish oil concentrate (OMEGA-3) 1000 MG CAPS Take 1 Cap by mouth 2 times a day. 60 Cap 5 General appearance and development: Vision: acuity, color vision, field of vision as noted above Evidence of disease or injury: Right: no Right: 20/25 Left: no Left: 20/25 Both: no Both: 20/20 Horizontal Field Of Vision: Right eye: 120 Left eye: 120 Applicant can recognize and distinguish amount traffic control signals and devices showing standardred, green and ruma: yes Applicant meets visual acuity requirement only when wearing: Corrective lenses: no Monocular Vision: no Hearing: Audiometric screen as noted above. Right: Normal Left: Normal Evidence of disease or injury: no BP 118/64 | Pulse 78 | Temp (Src) 98.1 (Tympanic) | Resp 16 | Ht 5' 8.5" (1.740m) | Wt 236 lbs (107.049kg) | BMI 35.36 kg/m | BSA 2.27 m General appearance: normal Eyes: Normal Ears: Normal Mouth/Throat: Normal Thorax: Heart: Normal If organic disease is present, is it fully compensated? YES Blood Pressure: BP 118/64 | Pulse 78 | Temp (Src) 98.1 (Tympanic) | Resp 16 | Ht 5' 8.5" (1.740m) |Wt 236 lbs (107.049kg) | BMI 35.36 kg/m | BSA 2.27 m Lungs: Normal Abdomen: Scars: no Abnormal masses: no Tenderness: no Hernia: no Is truss worn? no Vascular disease: no Gastrointestinal: Ulceration or other diseases: no Genito-urinary: Scars: no Urethral discharge: no Reflexes: Rhomberg: Normal Pupillary: Normal Light: Right: Normal Left: Normal Accomodation: Right: Normal Left: Normal Knee Jerks: Right: normal Left: normal Remarks: Extremities: Upper: Normal Lower: Normal Spine: Normal Laboratory and other special findings: Urine: Specific [place]: 1.025 Albumin: Normal Sugar: Normal Other laboratory data: Serology: Radiologic data: Electrocardiograph: Controlled substances testing: Controlled substances test NOT performed General comments: Normal exam Meets standards in 49 CFR 391.41; qualifies for 2 year certificate: NO Does not meet standards: N/A Meets standards, but periodic monitoring required due to: htn Bacon Skin Lifter qualified only for: 3, 6, l year, other: months allowed/n/a: 1yr Temporarily disqualified due to (condition or medication): N/A Return to medical technologist microbiology's office for follow up on: 11/30/2018 for recert Wearing corrective lenses: no Wearing hearing aid: no Accompanied by a n/a waiver/exemption. Bacon Skin Lifter must present exemption at time of certification. N/A Skill Performance Evaluation (SPE) Certificate. N/A Driving within an exempt intracity zone (See 49 CFR 391.62): N/A Qualified by operation of 49 CFR 391.64: N/A Signature of medical provider Name of medical technologist microbiology: Rajendra Naranjo MD Address of medical technologist microbiology: [facility] [address] [facility] [address] cop examiner's Certificate to be completed only if mail truck driver is found qualified. 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 Plan of Treatment Upcoming Encounters Date Type Specialty Care Team Description 12/03/2018 Office Visit Family Medicine Rajendra Naranjo MD [address] [facility] [place] [address] [phone] Scheduled Tests Name Priority Associated Diagnoses Order S chedule VISUAL ACUITY SCREEN, NURSE/TECH Routine ICC Bacon Skin Lifter's Physical Ordered: 11/30/2017 Health Maintenance Due Date Last Done Comments [...] Implants Not on fileas of this encounter Results * SITE DIP,DIPSTICK ONLY(25306) (11/30/2017) Component Value Ref Range COLOR, UA yellow yellow - ruma CLARITY, UA clear clear - clear GLUCOSE, UA neg neg - neg BILIRUBIN, UA neg neg - neg KETONE, UA neg neg - neg SPECIFIC GRAVITY 1.025 1.003 - 1.030 BLOOD, UA neg neg - neg PH, UA 6 5.0 - 7.5 PROTEIN, UA neg neg - neg UROBILINOGEN, UA neg normal - normal NITRITE, UA neg neg - neg ESTERASE, UA neg neg - neg Specimen Performing Laborator y Urine in this encounter Visit Diagnoses Diagnosis ICC Bacon Skin Lifter's Physical - Prim lona Unspecified general medical examination in this encounter
--- OUTSIDE RECORDS SUMMARY | 2022-12-29 03:40 | External Medical Summary ---
Author Name Unknown Address [address] [address] Phone Organization K0G:[facility] [address] [place] [address] Laboratory Report Ordering Provider Test Date Status ELLIOTT ANAYA MD 07/03/2016 08:28:00 Final Obs # Observation Date Value Abnormality Reference Status Performing Location 0 Fasting glucose [Moles/volume] in Serum or Plasma 09:36 112 Above high normal 70-99 Final [facility] [address] [place] [address]
--- OUTSIDE RECORDS SUMMARY | 2022-12-29 03:40 | External Medical Summary ---
Author Name Unknown Address Unknown Organization [id number]:Performed at [facility] [address] [facility] [place] [address] Laboratory Report Ordering Provider Test Date Status ELLIOTT ANAYA MD [id number] Final Obs # Observation Date Value Abnormality Reference Status Performing Location 0 hours fasting [id number] 12 Final Performed at [facility] [address] [place] [address] 1 Triglyceride [id number] 218 Above high normal <200 Final Performed at [facility] 132 [place] [address]
--- OUTSIDE RECORDS SUMMARY | 2022-12-29 03:40 | External Medical Summary | Summary of Care ---
Author Name Unknown Organization [place] [address] Care Team Providers Care Pulverizer Feeder Name Role Phone Nick Gallagher MD Primary Care Provider + Reason for Visit * Reason Comments Pt Portal Med Renewal Encounter Details Date Type Department Care Team Description 02/27/2019 Refill Family Practice [facility] 132 [facility] [place] [address] Nick Gallagher MD 132 [facility] [place] [address] [phone] Essential hypertension with goal blood pressure less [...] - 02/28/2019 8:43 AM EDT Message from [place]: Raj I Bashir would like a refill of the following medications: Olmesartan Medoxomil-HCTZ 40-12.5 MG per tablet [Nick Gallagher MD] Preferred pharmacy: [email or web address] [address] [address] [place] documented in this encounter Plan of Treatment Upcoming Encounters Date Type Specialty Care Team Description 03/06/2019 Office Visit Family Medicine Parul Astudillo PA-C [address] [place] [address] [phone] 10/28/2019 Office Visit Family Medicine Rajendra Naranjo MD [address] [place] [address] [phone] Health Maintenance Due Date Last Done Comments [...] Documents on File Type Date Recorded 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
--- OUTSIDE RECORDS SUMMARY | 2022-12-29 03:40 | External Medical Summary ---
Author Name Unknown Address [address] [address] Phone Organization K0G:[facility] [address] [place] [address] Laboratory Report Ordering Provider Test Date Status ELLIOTT ANAYA MD 07/03/2016 08:28:00 Final Obs # Observation Date Value Abnormality Reference Status Performing Location 0 Fasting status - Reported 7 08:32 12 Final [facility] [place] [address] [place] [address] 1 Triglyceride 7 20:47 233 Above high normal <200 Final
--- OUTSIDE RECORDS SUMMARY | 2022-12-29 03:40 | External Medical Summary | Summary of Care ---
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 References: [place] [employer] Association (diabetes.org), [facility] (mayoclinic.org); [place] [employer]. (May 2016). "Standards of Medical [...] A1C, BASIC METAB PANEL, BMP, SITE DIP,DIPSTICK ONLY(19713) CDL information updated in National Registry of [...] and social history reviewed and updated in [facility] EHR ROS: No nausea, vomiting or [...] in this encounter Nursing Notes * Nery Kowalski LPN - 11/14/2018 10:36 AM EDT Chief Complaint Patient presents with Physical-Exam CdL . 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
--- OUTSIDE RECORDS SUMMARY | 2022-12-29 03:40 | External Medical Summary ---
Author Name Unknown Address [address] [place] [address] Phone Organization K0G:[facility] [place] [address] [place] [address] Laboratory Report Ordering Provider Test Date Status ELLIOTT ANAYA MD 07/03/2016 08:28:00 Final Obs # Observation Date Value Abnormality Reference Status Performing Location 0 BUN 07/03/2016 09:37 18 6-20 Final [facility] [place] [address] [place] [address] 1 Creatinine 07/03/2016 09:37 1.1 0.6-1.2 Final
--- OUTSIDE RECORDS SUMMARY | 2022-12-29 03:40 | External Medical Summary | Summary of Care ---
Author Name Unknown Organization [place] [address] Care Team Providers Care Social Worker Palliative Care Name Role Phone Nick Gallagher MD Primary Care Provider + Reason for Visit * Reason Comments Pt Portal Med Renewal Encounter Details Date Type Department Care Team Description 02/27/2019 Refill Family Practice [facility] 132 [facility] [place] [address] Nick Gallagher MD 132 [facility] [place] [address] [phone] Essential hypertension with goal blood pressure less [...] per tablet [Nick Gallagher MD] Preferred pharmacy: [facility] [address] [address] [place] documented in this encounter Plan of Treatment Upcoming Encounters Date Type Specialty Care Team Description 10/28/2019 Office Visit Family Medicine Rajendra Naranjo MD [address] [place] [address] [phone] Health Maintenance Due Date Last Done Comments [...] Documents on File Type Date Recorded Patient Network Operations Project Manager Expl anation Advanced Directive Advanced Directive Advanced Directive
--- OUTSIDE RECORDS SUMMARY | 2022-12-29 03:40 | External Medical Summary ---
Author Name Unknown Address [address] [id number] Phone Organization K01:[facility] [address] [address] Laboratory Report Ordering Provider Test Date Status ELLIOTT ANAYA MD 07/03/2016 08:33:00 Final Obs # Observation Date Value Abnormality Reference Status Performing Location 0 Color of Urine by Auto 21:20 YELLOW YEL Final [facility] [address] [facility] [address] 1 Clarity, Urine 21:20 CLEAR CLEAR Final 2 Glucose [Mass/volume] in Urine by Automated test strip 21:20 NEGATIVE NEG Final 3 Bilirubin.total [Presence] in Urine by Automated test strip 21:20 NEGATIVE NEG Final 4 Ketones [Mass/volume] in Urine by Automated test strip 21:20 NEGATIVE NEG Final 5 Specific gravity, Urine 21:20 1.020 1.003-1.030 Final 6 Hemoglobin [Presence] in Urine by Automated test strip 017 21:20 NEGATIVE NEG Final 7 pH, Urine 21:20 5.5 5.0-7.5 Final 8 Protein [Mass/volume] in Urine by Automated test strip 21:20 NEGATIVE NEG Final 9 Urobilinogen [Mass/volume] in Urine by Automated test strip 017 21:20 NORMAL NORM Final 10 Nitrite [Presence] in Urine by Automated test strip 21:20 NEGATIVE NEG Final 11 Leukocyte esterase [Presence] in Urine by Automated test strip 21:20 NEGATIVE NEG Final 12 Testosterone Comment 21:20 SCREEN NEGATIVE - MICROSCOPIC NOT DONE Final
--- OUTSIDE RECORDS SUMMARY | 2022-12-29 03:40 | External Medical Summary ---
Author Name Unknown Address [address] [place] [address] [place] [address] Phone Organization K0G:[facility]a [address] [place] [address] [place] [address] Laboratory Report Ordering Provider Test Date Status LOUIE ANAYANGHIA 11/25/2017 08:39:00 Final Observation Date Value Abnormality Reference Status BUN 11/25/2017 10:15 20 6-20 Fin al Creatinine 11/25/2017 10:15 1.1 0.6-1.2 Fi nal Performing Location [facility] [address] [place] [address] [place] [address]
--- OUTSIDE RECORDS SUMMARY | 2022-12-29 03:40 | External Medical Summary ---
Author Name Unknown Address [address] [id number] Phone Organization K01:[facility] [address] [facility] [address] Laboratory Report Ordering Provider Test Date Status ELLIOTT ANAYA MD 07/03/2016 08:28:00 Final Obs # Observation Date Value Abnormality Reference Status Performing Location 0 Hep C Ab 07/05/19 17 07:01 NEGATIVE NEG Final [facility] [address] [facility] [address] 1 07/05/19 17 10:10 Further HCV quantitative testing not performed per protocol. Final
--- OUTSIDE RECORDS SUMMARY | 2022-12-29 03:40 | External Medical Summary | Summary of Care ---
Author Name Unknown Organization [place] [address] Phone Care Team Providers Care Brimming Machine Operator Name Role Phone Nick Em MD Primary Care Provider + Reason for Visit * Reason Comments PHYSICAL-EXAM CDL PHYSICAL-DRIVERS Encounter Details Date Type Department Care Team Description 11/30/2017 Office Visit Family Practice [facility] 132 [facility] [place] [id number] Rajendra Naranjo MD 132 [facility] [place] [address] [phone] ICC Manager Corporate Responsibility's Physical* Allergies No Known Allergiesas of this [...] different from the original. ICC Physical Examination [place] [employer] Date of exam: November 30, 2017 Certification: Recertification Manager Corporate Responsibility's Name: Raj Bashir Address: [address] [place] [address] SSN: [id number] Date of : 1950 Age: [age] year old Sex: male Phone: Home/Work: (home) Manager Corporate Responsibility License No: [id number] State of issue: [place] Health History: Any [...] Laboratory and other special findings: Urine: Specific [place]: 1.025 Albumin: Normal Sugar: Normal Other laboratory data: Serology: Radiologic data: Electrocardiograph: Controlled substances testing: Controlled substances test NOT performed General comments: Normal exam Meets standards in 49 CFR 391.41; qualifies for 2 year certificate: NO Does not meet standards: N/A Meets standards, but periodic monitoring required due to: htn Manager Corporate Responsibility qualified only for: 3, 6, l year, other: months allowed/n/a: 1yr Temporarily disqualified due to (condition or medication): N/A Return to medical billing coordinator's office for follow up on: 11/30/2018 for recert Wearing corrective lenses: no Wearing hearing aid: no Accompanied by a n/a waiver/exemption. Manager Corporate Responsibility must present exemption at time of certification. N/A Skill Performance Evaluation (SPE) Certificate. N/A Driving within an exempt intracity zone (See 49 CFR 391.62): N/A Qualified by operation of 49 CFR 391.64: N/A Signature of medical provider Name of medical billing coordinator: Rajendra Naranjo MD Address of medical billing coordinator: [facility] [address] [facility] [place] [address] employment appeals examiner's Certificate to be completed only if subway train driver is found qualified. 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 Plan of Treatment Upcoming Encounters Date Type Specialty Care Team Description 12/03/2018 Office Visit Family Medicine Rajendra Naranjo MD [address] [facility] [place] [address] [phone] Health Maintenance Due Date Last Done Comments [...] Implants Not on fileas of this encounter Procedures Procedure Name Priority Date/Time Associated Diagnosis Comments VISUAL ACUITY SCREEN, NURSE/TECH Routine 11/30/2017 12:00 AM EDT ICC Manager Corporate Responsibility's Physical in this encounter Results * VISUAL ACUITY SCREEN, NURSE/TECH (11/30/2017) Narrative Right Eye 20/25 Left Eye20/25 Both eyes 20/25 without Corrective Lenses Color Vision normal Rosa Kessler LPN 12/01/2017 * SITE DIP,DIPSTICK ONLY(72646) (11/30/2017) Component Value Ref Range COLOR, UA [...] in this encounter Visit Diagnoses Diagnosis ICC Manager Corporate Responsibility's Physical - Prim lona Unspecified general medical examination in this encounter
--- OUTSIDE RECORDS SUMMARY | 2022-12-29 03:40 | External Medical Summary | Summary of Care ---
Author Name Unknown Organization [place] [address] Phone Care Team Providers Care Wind Energy Mechanic Name Role Phone Nick Gallagher MD Primary Care Provider + Reason for Visit * Reason Comments MEDICATION REFILL Encounter Details Date Type Department Care Team Description 05/03/[address] [facility] [place] [address] [place] [address] Nick Gallagher MD [address] [facility] [address] [place] [address] [phone] Essential hypertension with goal blood pressure less [...] BEFORE MORE REFILLS 90 Tab 0 05/03/2017 Active Olmesartan Medoxomil-HCTZ (BENICAR HCT) 40-12.5 MG per tabletIndications:E ssential hypertension with goal blood pressure less than 140/90 Take 1 Tab by mouth daily. 90 Tab 1 09/22/2016 05/03/2017 Discontinued as of this encounter Active Problems [...] encounter Miscellaneous Notes * Telephone Encounter - Colt Hernández [facility] - 05/03/2017 6:42 PM EST Signed Prescriptions: Disp Refills Olmesartan Medoxomil-HCTZ (BENICAR HCT) 40*90 Tab 0 Sig: Take 1 Tab by mouth daily. NEED OFFICE VISIT AND LABS BEFORE MORE REFILLS Authorizing Provider: NICK GALLAGHER Ordering User: COLT HERNÁNDEZ * Telephone Encounter - Colt Hernández [facility] - 05/03/2017 6:42 PM EST Patient will be due for yearly visit and labs in June. Authorized 1 refill of med with note to patient to schedule. Thanks, Colt Hernández, [place]Ph. Refill Pharmacist Refill Call Center [phone] 05/03/2017,6:42 PM * Telephone Encounter - [facility] - 05/03/2017 1:24 PM EST Pt only has 3 pills left and would like this refilled as soon as possible. Pending Prescriptions: Disp Refills Olmesartan Medoxomil-HCTZ (BENICAR HCT) 4*90 Tab 1 Sig: Take 1 Tab by mouth daily. Last Office Visit: 07/11/2016 Next Office Visit: No Future Appointments If no future appointments scheduled, and last appointment is greater than a year ago, please schedule patient for a follow-up appointment Last date the medication was ordered: 09/22/2016 Phone number(s): [phone] (home) Labs: CREATININE(mg/dL) Estefania Dt/Tm Resulted Value Status 07/03/16 8:28A 07/03/16 1.1 FINAL LDL (CALCULATED)(mg/dL) Estefania Dt/Tm Resulted Value Status 07/03/16 8:28A 07/03/16 171* FINAL POTASSIUM(mmol/L) Estefania Dt/Tm Resulted Value Status 07/03/16 8:28A 07/03/16 4.2 FINAL Hemoglobin AIC Results: No HEMOGLOBIN, A1C components found in this encounter Plan of Treatment Health Maintenance Due Date Last Done Comments COLONOSCOPY-EVERY 10 YRS AGES 50-75 2000 *DEPRESSION SCREENINGYON FOR PTS 18 AND OVER 05/09/2015 ABDOMINAL AORTIC ANEURYSM (A AA) SCREENING 09/30/2015 PNEUMOCOCCAL ADULT 65 YRS AN D OVER (1 of 2 - PCV13) 09/30/2015 *ADVANCE DIRECTIVE NOT ON FILE 10/03/2015 FOBT ANNUALLY,AGES 18-100 05/03/2016 05/03/2015 Influenza Vaccine (FLU shot) (#1) 2016 DIABETES SCREEN EVERY 3 YRS- AGE 45 AND ABOVE 07/04/2019 07/03/2016, 07/03/2016, 05/03/2015 LIPID SCREEN EVERY 5 YRS-MEN AGE 35-75 07/03/2021 07/03/2016, 08/01/2015, 05/03/2015 TETANUS EVERY 10 YEARS-TDAP (BOOSTRIX OR ADACEL) SUGGESTED IF NOT RECEIVED IN THE PAST. 04/30/2025 04/30/2015 as of this encounter Implants Not on fileas of this encounter Visit Diagnoses Diagnosis Essential hypertension with goal blood pressure less than 140/90 in this encounter Insurance Payer Benefit Plan / Group Subscriber ID Type Phone Address MEDICARE REPLACEMENT ALONDRA PPO [id number] Medicar e as of this encounter
[2022-12-29] MEDS: LACTATED RINGER'S 1,000 ML IV SCH (05:17)
[2022-12-29] MEDS: OMEGA-3 (PURIFIED FISH OIL) 1 GM CAP PO SCH (07:39)
[2022-12-29] MEDS ORDERED: OLMESARTAN HYDROCHLOROTHIAZIDE PO SCH (09:00)
[2022-12-29] MEDS ORDERED: CLOPIDOGREL BISULFATE 75 MG TAB PO SCH (09:00)
[2022-12-29] MEDS ORDERED: ASPIRIN 81 MG ECTAB PO SCH (09:00)
[2022-12-29] MEDS ORDERED: LOSARTAN/HCTZ 50/12.5MG TAB PO SCH (09:00)
[2022-12-29] MEDS ORDERED: LOSARTAN POTASSIUM 50 MG TAB PO SCH (09:00)
--- NOTE | 2022-12-29 12:51 | Surgery Progress Note ---
Date of Service December 29, 2022 Assessment & Plan (1) Popliteal artery aneurysm: Plan: Patient POD 1 from an endovascular popliteal artery aneurysm repair. No problems at all. Discharge today. Admission and Anticipated Discharge Date Admission Date: December 28, 2022 Subjective Patient with no complaints at all. Ambulating without difficulty. Physical Exam Constitutional: WD/WN, vitals as above Respiratory: normal respiratory effort; no respiratory distress Cardiovascular: Rate/Rhythm: regular rate and regular rhythm Skin: + incision (dry and clean) Neurologic: CN's II-XI intact bilaterally and moves all extremities Psychiatric: Orientation: alert and oriented x 3 Results & Data Vital Signs (Past 12 Hours) Vital Signs Temp Pulse Resp BP Pulse Ox O2 Del Method 12/29/22 08:00 Room Air 12/29/22 07:10 36.7 C 64 20 164/97 H 96 Room Air 12/29/22 03:38 36.8 C 72 16 154/78 H 96 Room Air
--- NOTE | 2022-12-29 13:01 | Discharge Summary ---
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 He underwent CT angiogram of the lower extremities. He was found to have a 3 cm right popliteal artery aneurysm which was fairly focal on his CT angio. He has no symptoms at this time from the aneurysm. Objective Physical Exam On exam he is awake alert and oriented x3. His blood pressure is 98/60. His radials are +2 bilaterally. Lungs are clear. heart had a regular rate and rhythm. abdominal exam is benign. His femoral and pedal pulses are +2 rbilaterally. Assessment/Plan Popliteal artery aneurysm At this point his popliteal artery aneurysm is able to be fixed with a endovascular approach. We underwent the risks options and benefits of the procedure. He agreed to go ahead with endovascular repair of his right popliteal artery aneurysm. Thank you very much for letting us participate in the care of this patient. Sincerely, Ibis Woodward MD Signature Line Electronic Signature on File Pipe Woodward MD Author Signature Dt/Tm: 12/12/2022 03:03 PM Team Assistant Hunter Tang [facility] [address] [address], [address] [place] [address] EJS Result Type: .Outpt Ltr Date of Service: December 12, 2022 15:01 EDT Authorization Status: Final Subject: Follow Up Visit Author or Import Date: MD Woodward Eugene J on December 12, 2022 15:03 EDT Verified By: MD Woodward Eugene J on December 12, 2022 15:03 EDT Encounter info: [id number], [place] [id number], Clinic, 12/12/2022 - 12/12/2022 Admission Exam Per Admitting Provider On exam he is awake alert and oriented x3. His blood pressure is 98/60, His radials are +2 bilaterally. Lungs are clear. Heart has a RRR. Abdominal exam is benign. His distal pulses are +2 bilaterally. Principal Diagnosis Right popliteal artery aneurysm Discharge Exam Constitutional WD/WN, vitals as above Respiratory normal respiratory effort; no respiratory distress Cardiovascular Rate/Rhythm: regular rate and regular rhythm Skin + incision (dry and clean) Neurologic CN's II-XI intact bilaterally and moves all extremities Psychiatric Orientation: alert and oriented x 3 Discharge Data Allergies Allergy/AdvReac Type Severity Reaction Status Date / Time No Known Allergies Allergy Verified 12/28/22 06:41 Procedures Performed Operation Date: 12/28/22 08:00 Actual Procedures p Endovascular Repair of Right Popliteal Artery Aneurysm(Right) - Pipe Woodward MD Ordered Studies 12/28/22 07:15 EV angio LE RT Routine Hospital Course (1) Popliteal artery aneurysm: Patient POD 1 from an endovascular popliteal artery aneurysm repair. No problems at all. Discharge today. Total Time Total Time Spent Total Time Spent (In Minutes): 0 Discharge Plan Discharge Items Patient Disposition: Home - Self-Care Reason For Visit: Right Popliteal Artery Aneurysm Discharge Diagnosis: Popliteal artery aneurysm Activity: Per Instructions section Lifting: Gradually increase as tolerated Exercise/Sports: Gradually increase as tolerated Weightbearing: Full weightbearing Non-emergency contact: Surgeon Call non-emergency contact if: your temperature is above 101.5, your wound has increased redness, your wound has increased drainage and your wound pain has increased Follow-up/Referrals: Nick Em MD [Primary Care Provider] - Diet: Heart Healthy Addtl Attending Provider Instructions: ACTIVITY RECOMMENDATIONS: May shower starting tomorrow SPECIAL CARE INSTRUCTIONS: Call your doctor if: * Temperature above 101 degrees * Pain not relieved by pain medicine ordered * There is increased drainage or redness from any incision * You have any unanswered questions or concerns. Call [phone] to schedule a follow up appointment if one not already scheduled. Pending Studies at Discharge: No Stand-Alone Forms: My [facility] Double Doods, Smoking Cessation Medications and DC Order Prescriptions: New clopidogrel [Plavix] 75 mg tablet 75 mg PO DAILY Qty: 30 11RF Continued omega 3-lgc-adl-fish oil [Fish Oil] 1,000 mg (120 mg-180 mg) Capsule 1 cap PO BID ascorbic acid (vitamin C) [Vitamin C] 1,000 mg Tablet 1 g PO QPM aspirin [Aspir-Low] 81 mg Tablet,Delayed Release (Dr/Ec) 81 mg PO QAM olmesartan-hydrochlorothiazide 40-25 mg Tablet 0.5 tab PO QAM cholecalciferol (vitamin D3) [Vitamin D3] 125 mcg (5,000 unit) Tablet 125 mcg PO QPM vitamin K2 100 mcg Capsule 100 mcg PO QPM Discharge Orders: Discharge Order (Routine); Ordered 12/29/22 Ordered By: Pipe Woodward Admission Data Admit Date/Time: 12/28/22 07:46 Attending Provider: Pipe Woodward Admit Provider: Pipe Woodward Primary Care Provider: Nick Em
== END 2022-12-29 13:49 | disposition home or self-care (01) ==
LOC: ASU 06:26 → 3E 07:46 → INTOOBSV 07:46